=== PATIENT | female | born 1980 | race Caucasian/White ===

== ENCOUNTER → 2016-03-23 | Outpatient (CLI) | payer MEDICARE, MEDICAID ==
[~2016-03-23] MED LIST: /AMIT10TA PO; BACL10TA2 PO; ETOD400T PO; GABA400C PO; LORTAB 5/325 PO; MAGN400T5 PO; NORC10TA2 PO; NORC5TAB PO; PROM25SU5 PO; SOMA350T PO; TIZA4CAP3 PO; TRAM50TA2 PO; ULTR50TA PO; VICO5TA PO; ZONI50CA3 PO
--- NOTE | 2016-03-24 00:20 | ECWPNPC ---
PATIENT NAME: EVA SNOWDEN : 1980 GENDER: FEMALE VISIT DATE: 03/23/2016 DISCHARGE DATE: 03/23/16 1124 VISIT LOCKED DATE TIME: PHYSICIAN: TOM NEAL RESOURCE: TOM NEAL REASON FOR APPOINTMENT 1. POST PROCEDURE-BACK HISTORY OF PRESENT ILLNESS HISTORY OF PRESENT ILLNESS: HERE FOR POST PROC. F/U.HAD RIGHT DIAGNOSTIC LUMBAR FACET BLOCK ON 03-01-16.IS GETTING THERAPEUTIC BENEFIT FROM THIS BLOCKTHAT CONTINUES TODAY.HAVING INTERMITTENT INCREASES IN PAIN BUT NOT AT THE LEVEL BEFORE INJECTION.RATING PAIN VAS 3/10.MAY BE .SHE WILL KNOW FOR SURE IN 2 WEEKS. PAIN THE PATIENT DESCRIBES THE PAIN... FALL RISK SCREENING: SCREENING :NO FALLS IN THE PAST YEAR CURRENT MEDICATIONS TAKING ORTHOPEDIC SHOES _ 1 DX 737 ONE INCH SHOE LIFT. RT SHOE DAILY TAKING HYDROCODONE-ACETAMINOPHEN 10-325 MG TABLET 1 TAB(S) ORALLY EVERY 6 HRS NEEDED MDD: 2 NOT-TAKING [facility] LORATADINE 10 MG TABLET 1 TABLET ORALLY ONCE A DAY NOT-TAKING VALIUM 5 MG TABLET 1 TABLET NEEDED ORALLY 1 TAB 1HR PRE PROC MDD1 NOT-TAKING OXYCODONE HCL 5 MG TABLET 1 TABLET ORALLY 1 TAB 1 HR PRE PROC. MDD1 NOT-TAKING GABAPENTIN 400 600 MG TABLET 1 TAB(S) P.O. TWICE DAILY, NOTES: PAIN MGMT NOT-TAKING COLACE 100 MG CAPSULE 1 CAPSULE NEEDED ORALLY TWICE DAILY, NOTES: GENERAL SURGEON NOT-TAKING MULTIVITAL TABLET ORALLY NOT-TAKING PROMETHAZINE HCL 25 MG TABLET 1 TABLET NEEDED ORALLY EVERY 12 HRS NOT-TAKING MAGNESIUM OXIDE 400 MG TABLET 1 TABLET ORALLY BID NOT-TAKING TIZANIDINE HCL 4 MG TABLET 1 TABLET NEEDED ORALLY TWICE A DAY, NOTES: PAIN MGMT NOT-TAKING MACROBID 100 MG CAPSULE 1 CAPSULE WITH FOOD ORALLY EVERY 12 HRS MEDICATION LIST REVIEWED AND RECONCILED WITH THE PATIENT PAST MEDICAL HISTORY MRI OF L/S 12/2011 WITH COMPLEX CONGENITAL ANOMALIES, SCOLIOSIS, TETHERED CORD, VERTEBRAL FUSION, DISC NARROWING, SPINAL STENOSIS, ABDOMINAL AORTIC ANEURYSM S/P REPAIR 10 YEAR ASCVD RISK OF 1.0% 07/2014 PATIENT HAD AN "ECTOPIC UTERUS" -- SECOND (R SIDED) UTERUS WITH NO CERVIX, CAUSED ENDOMETRIOSIS WITH RETROGRADE MENSTRUATION PAP 02/2015- NEG ENDOMETRIOSIS PER OP REPORT FROM [facility]: PT HAS "NL UTERUS ATTACHED TO AN OVARY AND A CERVIX ON THE L OF THE MIDLINE WITH A L FALLOPIAN TUBE WITH A LEFT ROUND LIGAMENT. A ROUND LIGAMENT FROM THAT UTERUS LED TO AN ECTOPIC UTERUS IN THE RIGHT LOWER QUADRANT ON THE PELVIC SIDEWALL WHICH WAS NOT ATTACHED TO A CERVIX WHICH ALSO HAD AN OVARY AND A FALLOPIAN TUBE." ALLERGIES N.K.D.A. 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 NEW PATIENT PAIN DIARY TODAY'S VISITNOTES FROM 0-10, WHAT LEVEL IS YOUR PAIN TODAY?0 PAIN CLINIC PFS, CLERGY, PUBLIC HEALTH REFERRALS PFS REFERRAL NEEDED?NO CLERGY REFERRAL NEEDED?NO PUBLIC HEALTH REFERRAL NEEDED?NO WAS THE PROVIDER NOTIFIED OF ANY PERTINENT INFO?NO PFS REFERRAL NEEDED?NO CLERGY REFERRAL NEEDED?NO PUBLIC HEALTH REFERRAL NEEDED?NO WAS THE PROVIDER NOTIFIED OF ANY PERTINENT INFO?NO REVIEW OF SYSTEMS CONSTITUTIONAL: ANY CHANGE IN YOUR MEDICAL CONDITION? NO . CHILLS NO . FEVER NO . INFECTION: DO YOU HAVE NEW INFECTIONS? NO . DO YOU HAVE HISTORY OF MRSA? NO . MUSCULOSKELETAL: ANY NEW PATTERNS OF PAIN OR NUMBNESS? NO . GASTROENTEROLOGY: ANY NEW CHANGE IN BOWEL CONTROL? NO . GENITOURINARY: ANY NEW CHANGE IN BLADDER CONTROL? NO . IS THERE A CHANCE YOU COULD BE ? YES . HEMATOLOGY/LYMPH: DO YOU TAKE ANY BLOOD THINNERS? (FOR EXAMPLE- COUMADIN, PLAVIX, AGGRENOX, PLATEL, PRADAXA, OR XARELTO) NO . WHEN WAS YOUR LAST DOSE? DATE: TIME: . NEUROLOGY: HAVE YOU FALLEN IN THE PAST 6 MONTHS? NO . ANY NEW EXTREMITY NUMBNESS OR WEAKNESS? NO . CARDIOLOGY: DO YOU HAVE A PACEMAKER OR DEFIBRILLATOR? NO . RESPIRATORY: HAVE YOU BEEN SICK IN THE PAST WEEK? NO . FEVER NO . FLU LIKE SYMPTOMS? NO . COUGH NO . INTEGUMENTARY: DO YOU HAVE ANY RASHES OR OPEN SORES? NO . ALLERGIC/IMMUNO: ARE YOU ALLERGIC TO SHELLFISH OR IV DYE? NO . ANY NEW ALLERGIES? NO . PSYCHIATRIC: DO YOU HAVE THOUGHTS OF HURTING YOURSELF OR SOMEONE ELSE? NO . ARE YOU ABUSED, NEGLECTED, OR IN AN UNSAFE ENVIRONMENT? NO . ENDOCRINOLOGY: ARE YOU DIABETIC? NO . OTHER: DO YOU NEED ANY PRESCRIPTIONS? NO . IF YES, PLEASE LIST: ____ . ANY NEW PROBLEMS WITH YOUR MEDICATIONS? NO . WHEN DID YOU LAST EAT? ____ . WHEN DID YOU LAST DRINK? ____ . WHAT DID YOU LAST DRINK? ____ . NAME OF PERSON DRIVING YOU HOME? ____ . DO YOU HAVE ANY OTHER QUESTIONS OR CONCERNS NO . REVIEWED BY: PROVIDER: TOM CAZARES . VITAL SIGNS WT 130 LBS, HT 59 IN, BMI 26.25 INDEX, BP 123/69 MM HG, HR 87 /MIN, RR 18 /MIN, TEMP 98.7 F, OXYGEN SAT % 100%, REVIEWED BY: CS DONE AT 1057. EXAMINATION LUMBAR SPINE/LOWER BACK: INSPECTION:SEVERE SCOLIOSIS. PALPATION:VERTEBRAL SPINE TENDERNESS. PARASPINAL TENDERNESS. MOTOR SYSTEM:5/5 BLE. SENSORY EXAM:NORMAL. REFLEXES:1/4 BILAT.. 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 IT IS NOT A COPY OF THE [employer] PROGRESS NOTE. TYRA
== END ==
LOC: M PAIN 10:40
PROVIDERS: ATTEND Nurse Practitioner Family
DX: Z09 Encounter for follow-up examination after completed treatment for conditions other than malignant neoplasm (principal); M41.24 Other idiopathic scoliosis, thoracic region; M43.06 Spondylolysis, lumbar region; Q89.7 Multiple congenital malformations, not elsewhere classified; Q06.8 Other specified congenital malformations of spinal cord; M51.9 Unspecified thoracic, thoracolumbar and lumbosacral intervertebral disc disorder; M48.06 Spinal stenosis, lumbar region; F17.200 Nicotine dependence, unspecified, uncomplicated; Z79.891 Long term (current) use of opiate analgesic; Z79.899 Other long term (current) drug therapy; Z86.79 Personal history of other diseases of the circulatory system; Z87.42 Personal history of other diseases of the female genital tract; Z98.890 Other specified postprocedural states

== ENCOUNTER → 2016-04-20 | Outpatient (CLI) | payer MEDICARE, MEDICAID ==
--- NOTE | 2016-04-21 00:06 | ECWPNPC ---
PATIENT NAME: EVA SNOWDEN : 1980 GENDER: FEMALE VISIT DATE: 04/20/2016 DISCHARGE DATE: 04/20/16 1005 VISIT LOCKED DATE TIME: PHYSICIAN: TOM NEAL RESOURCE: TOM NEAL REASON FOR APPOINTMENT 1. BACK HISTORY OF PRESENT ILLNESS HISTORY OF PRESENT ILLNESS: HERE FOR F/U OF CHRONIC LBP.RATING PAIN VAS 4/10.PAIN IS BILATERAL.DESCRIBES PAIN ACHING.STATES SHE ISNT .INTERESTED IN DOING MORE PROCEDURES.WAS DOING WELL PAST 2MOS AFTER RIGHT DIAGNOSTIC LUMBAR FACET BLOCK IN JANUARY.PAIN HAS RETURNED AND DESCRIBED BILATERAL LOW BACK PAIN.DISCUSSED TREATMENT OPTION OF DIAGNOSTIC FACET BLOCK/RADIOFREQUENCY VS LUMBAR BILAT. THERAPEUTIC FACET BLOCK.SHE WOULD LIKE TO DO THERAPEUTIC BLOCK AT THIS TIME. FALL RISK SCREENING: SCREENING :NO FALLS IN THE PAST YEAR CURRENT MEDICATIONS TAKING ORTHOPEDIC SHOES _ 1 DX 737 ONE INCH SHOE LIFT. RT SHOE DAILY TAKING HYDROCODONE-ACETAMINOPHEN 10-325 MG TABLET 1 TAB(S) ORALLY EVERY 6 HRS NEEDED MDD: 2 TAKING MICROGESTIN 1.5/30 1.5-30 MG-MCG TABLET ORALLY NOT-TAKING [facility] LORATADINE 10 MG TABLET 1 TABLET ORALLY ONCE A DAY NOT-TAKING VALIUM 5 MG TABLET 1 TABLET NEEDED ORALLY 1 TAB 1HR PRE PROC MDD1 NOT-TAKING OXYCODONE HCL 5 MG TABLET 1 TABLET ORALLY 1 TAB 1 HR PRE PROC. MDD1 NOT-TAKING GABAPENTIN 400 600 MG TABLET 1 TAB(S) P.O. TWICE DAILY, NOTES: PAIN MGMT NOT-TAKING COLACE 100 MG CAPSULE 1 CAPSULE NEEDED ORALLY TWICE DAILY, NOTES: GENERAL SURGEON NOT-TAKING MULTIVITAL TABLET ORALLY NOT-TAKING PROMETHAZINE HCL 25 MG TABLET 1 TABLET NEEDED ORALLY EVERY 12 HRS NOT-TAKING MAGNESIUM OXIDE 400 MG TABLET 1 TABLET ORALLY BID NOT-TAKING TIZANIDINE HCL 4 MG TABLET 1 TABLET NEEDED ORALLY TWICE A DAY, NOTES: PAIN MGMT NOT-TAKING MACROBID 100 MG CAPSULE 1 CAPSULE WITH FOOD ORALLY EVERY 12 HRS MEDICATION LIST REVIEWED AND RECONCILED WITH THE PATIENT PAST MEDICAL HISTORY MRI OF L/S 12/2011 WITH COMPLEX CONGENITAL ANOMALIES, SCOLIOSIS, TETHERED CORD, VERTEBRAL FUSION, DISC NARROWING, SPINAL STENOSIS, ABDOMINAL AORTIC ANEURYSM S/P REPAIR 10 YEAR ASCVD RISK OF 1.0% 07/2014 PATIENT HAD AN "ECTOPIC UTERUS" -- SECOND (R SIDED) UTERUS WITH NO CERVIX, CAUSED ENDOMETRIOSIS WITH RETROGRADE MENSTRUATION PAP 02/2015- NEG ENDOMETRIOSIS PER OP REPORT FROM [facility]: PT HAS "NL UTERUS ATTACHED TO AN OVARY AND A CERVIX ON THE L OF THE MIDLINE WITH A L FALLOPIAN TUBE WITH A LEFT ROUND LIGAMENT. 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 NEW PATIENT PAIN DIARY TODAY'S VISITNOTES FROM 0-10, WHAT LEVEL IS YOUR PAIN TODAY?0 PAIN CLINIC PFS, CLERGY, PUBLIC HEALTH REFERRALS PFS REFERRAL NEEDED?NO CLERGY REFERRAL NEEDED?NO PUBLIC HEALTH REFERRAL NEEDED?NO WAS THE PROVIDER NOTIFIED OF ANY PERTINENT INFO?NO PFS REFERRAL NEEDED?NO CLERGY REFERRAL NEEDED?NO PUBLIC HEALTH REFERRAL NEEDED?NO WAS THE PROVIDER NOTIFIED OF ANY PERTINENT INFO?NO REVIEW OF SYSTEMS CONSTITUTIONAL: ANY CHANGE IN YOUR MEDICAL CONDITION? NO . CHILLS NO . FEVER NO . INFECTION: DO YOU HAVE NEW INFECTIONS? NO . DO YOU HAVE HISTORY OF MRSA? NO . MUSCULOSKELETAL: ANY NEW PATTERNS OF PAIN OR NUMBNESS? NO . GASTROENTEROLOGY: ANY NEW CHANGE IN BOWEL CONTROL? NO . GENITOURINARY: ANY NEW CHANGE IN BLADDER CONTROL? NO . IS THERE A CHANCE YOU COULD BE ? NO . HEMATOLOGY/LYMPH: DO YOU TAKE ANY BLOOD THINNERS? (FOR EXAMPLE- COUMADIN, PLAVIX, AGGRENOX, PLATEL, PRADAXA, OR XARELTO) NO . WHEN WAS YOUR LAST DOSE? DATE: TIME: . NEUROLOGY: HAVE YOU FALLEN IN THE PAST 6 MONTHS? NO . ANY NEW EXTREMITY NUMBNESS OR WEAKNESS? NO . CARDIOLOGY: DO YOU HAVE A PACEMAKER OR DEFIBRILLATOR? NO . RESPIRATORY: HAVE YOU BEEN SICK IN THE PAST WEEK? NO . FEVER NO . FLU LIKE SYMPTOMS? NO . COUGH NO . INTEGUMENTARY: DO YOU HAVE ANY RASHES OR OPEN SORES? NO . ALLERGIC/IMMUNO: ARE YOU ALLERGIC TO SHELLFISH OR IV DYE? NO . ANY NEW ALLERGIES? NO . PSYCHIATRIC: DO YOU HAVE THOUGHTS OF HURTING YOURSELF OR SOMEONE ELSE? NO . ARE YOU ABUSED, NEGLECTED, OR IN AN UNSAFE ENVIRONMENT? NO . ENDOCRINOLOGY: ARE YOU DIABETIC? NO . OTHER: DO YOU NEED ANY PRESCRIPTIONS? NO . IF YES, PLEASE LIST: ____ . ANY NEW PROBLEMS WITH YOUR MEDICATIONS? NO . WHEN DID YOU LAST EAT? ____ . WHEN DID YOU LAST DRINK? ____ . WHAT DID YOU LAST DRINK? ____ . NAME OF PERSON DRIVING YOU HOME? ____ . DO YOU HAVE ANY OTHER QUESTIONS OR CONCERNS NO . REVIEWED BY: PROVIDER: TOM CAZARES . VITAL SIGNS WT 137.8 LBS, HT 59 IN, BMI 27.83 INDEX, BP 111/69 MM HG, HR 89 /MIN, RR 18 /MIN, TEMP 96.6 F, OXYGEN SAT % 100%, NA INITIALS SC 09:07, REVIEWED BY: KG. EXAMINATION LUMBAR SPINE/LOWER BACK: INSPECTION:SEVERE SCOLIOSIS. PALPATION:VERTEBRAL SPINE TENDERNESS. PARASPINAL TENDERNESS. MOTOR SYSTEM:5/5 BLE. SENSORY EXAM:NORMAL. REFLEXES:1/4 BILAT.. 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 (REASON: BILAT. L4/5-L5/S1 THERAPEUTIC FACET BLOCK) ELECTRONICALLY SIGNED BY DEBORA FLOWER ON 04/20/2016 AT 01:41 PM EST DISCLAIMER : THIS IS A VISIT SUMMARY EXTRACTED FROM THE [employer] CHART. IT IS NOT A COPY OF THE [employer] PROGRESS NOTE. MTDD
== END ==
LOC: M PAIN 09:00
PROVIDERS: ATTEND Nurse Practitioner Family
DX: Z09 Encounter for follow-up examination after completed treatment for conditions other than malignant neoplasm (principal); G89.29 Other chronic pain; M41.24 Other idiopathic scoliosis, thoracic region; M43.06 Spondylolysis, lumbar region; M41.26 Other idiopathic scoliosis, lumbar region; M48.06 Spinal stenosis, lumbar region; Z79.891 Long term (current) use of opiate analgesic; Z79.899 Other long term (current) drug therapy; Z86.79 Personal history of other diseases of the circulatory system

== ENCOUNTER → 2016-05-12 | Outpatient (CLI) | payer MEDICARE, MEDICAID ==
[~2016-05-12] MED LIST changes: +BUPIVACAINE HCL 0.25% 30 ML VIAL As Ordered ONE; +ISOVUE-M 300 61% 15ML VIAL (Q9967) As Ordered ONE; +LIDOCAINE 1% SDV INJ 30 ML VIAL As Ordered ONE; +TRIAMCINOLONE ACETONIDE SUSP 40 MG/ML VIAL (J3301) As Ordered ONE; +diazePAM 5 MG TAB As Ordered ONE; +oxyCODONE 5MG TAB As Ordered ONE
--- NOTE | 2016-05-12 13:47 | REP ---
Partial lumbar spine series: Two views. History: Lumbar facet block for pain. 59 seconds of fluoroscopy time is reported. Findings: A sequence of two fluoroscopically obtained last image hold spot radiographs of the lumbar spine document various needle positions and contrast injections associated with lumbar facet injection procedure. Signed by Tony Black MD 05/12/2016 03:26 P
--- NOTE | 2016-05-19 00:55 | ECWPNPC ---
PATIENT NAME: EVA SNOWDEN : 1980 GENDER: FEMALE VISIT DATE: 05/12/2016 DISCHARGE DATE: 05/12/16 1316 VISIT LOCKED DATE TIME: PHYSICIAN: DEMETRIUS HILL RESOURCE: DEMETRIUS HILL REASON FOR APPOINTMENT 1. THERAPEUTIC FACET BLOCK HISTORY OF PRESENT ILLNESS HISTORY OF PRESENT ILLNESS: PAIN THE PATIENT DESCRIBES THE PAIN... FALL RISK SCREENING: SCREENING :NO FALLS IN THE PAST YEAR CURRENT MEDICATIONS TAKING HYDROCODONE-ACETAMINOPHEN 10-325 MG TABLET 1 TAB(S) ORALLY EVERY 6 HRS NEEDED MDD: 2, NOTES: 05-11-16 2100 TAKING ORTHOPEDIC SHOES _ 1 DX 737 ONE INCH SHOE LIFT. RT SHOE DAILY TAKING MICROGESTIN 1.5/30 1.5-30 MG-MCG TABLET ORALLY , NOTES: 05-12-16 0800 TAKING MULTIVITAMINS - CAPSULE ORALLY DAILY DISCONTINUED [facility]S LORATADINE 10 MG TABLET 1 TABLET ORALLY ONCE A DAY DISCONTINUED VALIUM 5 MG TABLET 1 TABLET NEEDED ORALLY 1 TAB 1HR PRE PROC MDD1 DISCONTINUED OXYCODONE HCL 5 MG TABLET 1 TABLET ORALLY 1 TAB 1 HR PRE PROC. MDD1 DISCONTINUED GABAPENTIN 400 600 MG TABLET 1 TAB(S) P.O. TWICE DAILY, NOTES: PAIN MGMT DISCONTINUED COLACE 100 MG CAPSULE 1 CAPSULE NEEDED ORALLY TWICE DAILY, NOTES: GENERAL SURGEON DISCONTINUED MULTIVITAL TABLET ORALLY DISCONTINUED PROMETHAZINE HCL 25 MG TABLET 1 TABLET NEEDED ORALLY EVERY 12 HRS DISCONTINUED MAGNESIUM OXIDE 400 MG TABLET 1 TABLET ORALLY BID DISCONTINUED TIZANIDINE HCL 4 MG TABLET 1 TABLET NEEDED ORALLY TWICE A DAY, NOTES: PAIN MGMT DISCONTINUED MACROBID 100 MG CAPSULE 1 CAPSULE WITH FOOD ORALLY EVERY 12 HRS MEDICATION LIST REVIEWED AND RECONCILED WITH THE PATIENT PAST MEDICAL HISTORY MRI OF L/S 12/2011 WITH COMPLEX CONGENITAL ANOMALIES, SCOLIOSIS, TETHERED CORD, VERTEBRAL FUSION, DISC NARROWING, SPINAL STENOSIS, ABDOMINAL AORTIC ANEURYSM S/P REPAIR 10 YEAR ASCVD RISK OF 1.0% 07/2014 PATIENT HAD AN "ECTOPIC UTERUS" -- SECOND (R SIDED) UTERUS WITH NO CERVIX, CAUSED ENDOMETRIOSIS WITH RETROGRADE MENSTRUATION PAP 02/2015- NEG ENDOMETRIOSIS PER OP REPORT FROM [facility]: PT HAS "NL UTERUS ATTACHED TO AN OVARY AND A CERVIX ON THE L OF THE MIDLINE WITH A L FALLOPIAN TUBE WITH A LEFT ROUND LIGAMENT. A ROUND LIGAMENT FROM THAT UTERUS LED TO AN ECTOPIC UTERUS IN THE RIGHT LOWER QUADRANT ON THE PELVIC SIDEWALL WHICH WAS NOT ATTACHED TO A CERVIX WHICH ALSO HAD AN OVARY AND A FALLOPIAN TUBE." ALLERGIES N.K.D.A. 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 NEW PATIENT PAIN DIARY TODAY'S VISITNOTES FROM 0-10, WHAT LEVEL IS YOUR PAIN TODAY?0 PAIN CLINIC PFS, CLERGY, PUBLIC HEALTH REFERRALS PFS REFERRAL NEEDED?NO CLERGY REFERRAL NEEDED?NO PUBLIC HEALTH REFERRAL NEEDED?NO WAS THE PROVIDER NOTIFIED OF ANY PERTINENT INFO?NO PFS REFERRAL NEEDED?NO CLERGY REFERRAL NEEDED?NO PUBLIC HEALTH REFERRAL NEEDED?NO WAS THE PROVIDER NOTIFIED OF ANY PERTINENT INFO?NO REVIEW OF SYSTEMS CONSTITUTIONAL: ANY CHANGE IN YOUR MEDICAL CONDITION? NO . CHILLS NO . FEVER NO . INFECTION: DO YOU HAVE NEW INFECTIONS? NO . DO YOU HAVE HISTORY OF MRSA? NO . MUSCULOSKELETAL: ANY NEW PATTERNS OF PAIN OR NUMBNESS? NO . GASTROENTEROLOGY: ANY NEW CHANGE IN BOWEL CONTROL? NO . GENITOURINARY: ANY NEW CHANGE IN BLADDER CONTROL? NO . IS THERE A CHANCE YOU COULD BE ? NO . HEMATOLOGY/LYMPH: DO YOU TAKE ANY BLOOD THINNERS? (FOR EXAMPLE- COUMADIN, PLAVIX, AGGRENOX, PLATEL, PRADAXA, OR XARELTO) NO . WHEN WAS YOUR LAST DOSE? DATE: TIME: . NEUROLOGY: HAVE YOU FALLEN IN THE PAST 6 MONTHS? NO . ANY NEW EXTREMITY NUMBNESS OR WEAKNESS? NO . CARDIOLOGY: DO YOU HAVE A PACEMAKER OR DEFIBRILLATOR? NO . RESPIRATORY: HAVE YOU BEEN SICK IN THE PAST WEEK? NO . FEVER NO . FLU LIKE SYMPTOMS? NO . COUGH NO . INTEGUMENTARY: DO YOU HAVE ANY RASHES OR OPEN SORES? NO . ALLERGIC/IMMUNO: ARE YOU ALLERGIC TO SHELLFISH OR IV DYE? NO . ANY NEW ALLERGIES? NO . PSYCHIATRIC: DO YOU HAVE THOUGHTS OF HURTING YOURSELF OR SOMEONE ELSE? NO . ARE YOU ABUSED, NEGLECTED, OR IN AN UNSAFE ENVIRONMENT? NO . ENDOCRINOLOGY: ARE YOU DIABETIC? NO . OTHER: DO YOU NEED ANY PRESCRIPTIONS? NO . IF YES, PLEASE LIST: ____ . ANY NEW PROBLEMS WITH YOUR MEDICATIONS? NO . WHEN DID YOU LAST EAT? [id number] . WHEN DID YOU LAST DRINK? 05-11-16 0800 . WHAT DID YOU LAST DRINK? WATER . NAME OF PERSON DRIVING YOU HOME? SHAKIRA RICE . DO YOU HAVE ANY OTHER QUESTIONS OR CONCERNS NO . REVIEWED BY: PROVIDER: . VITAL SIGNS WT 135 LBS, HT 59 IN, BMI 27.26 INDEX, BP 120/64 MM HG, HR 84 /MIN, RR 16 /MIN, TEMP 96.2 F, OXYGEN SAT % 99, NA INITIALS TL 1106, REVIEWED BY: CM. ASSESSMENTS SPONDYLOSIS WITHOUT MYELOPATHY OR RADICULOPATHY, LUMBAR REGION - M47.816 (PRIMARY) SPONDYLOSIS WITHOUT MYELOPATHY OR RADICULOPATHY, LUMBOSACRAL REGION - M47.817 PROCEDURES PN LUMBAR FACET BLOCK THERAPEUTIC PRE PROCEDURE DIAGNOSIS LUMBAR SPONDYLOSIS, LUMBOSACRAL SPONDYLOSIS POST PROCEDURE DIAGNOSIS LUMBAR SPONDYLOSIS, LUMBOSACRAL SPONDYLOSIS PROCEDURE BILATERAL L4-L5 AND L5-S1 FACET THERAPEUTIC BLOCK SURGEON DR. DEMETRIUS HILL CUSTOMER EXPERIENCE SPECIALIST NONE ANESTHESIA LOCAL PRE PROCEDURE NOTE THE PATIENT HAS A HISTORY OF CHRONIC LOW BACK PAIN. I EVALUATE THE PATIENT AND REVIEWED THE CHART. I WENT OVER THE RISKS, ALTERNATIVES, AND BENEFITS ASSOCIATED WITH THIS PROCEDURE. THE PATIENT WOULD LIKE TO PROCEED AND GIVE CONSENT TO PERFORMED THE PROCEDURE. THE PATIENT DENIES UNEXPLAINABLE WEIGHT LOSS, FEVER, CHILLS, OR NEW CHANGES IN URINARY OR BOWEL CONTROL. DESCRIPTION OF PROCEDURE THE PATIENT WAS BROUGHT TO THE PROCEDURE ROOM AND PLACED IN THE PRONE POSITION. THE LUMBOSACRAL AREA WAS CLEANED WITH CHLORAPREP SOLUTION AND DRAPED ASEPTICALLY. THE PROCEDURE WAS DONE UNDER STERILE CONDITIONS. I CHECKED LATERALITY AND THE LEVEL WHERE THE PROCEDURE WAS GOING TO BE PERFORMED WITH THE PATIENT AND THE SUPPORTING STAFF AT THE MOMENT OF THE TIME OUT IN THE PROCEDURE ROOM. UNDER FLUOROSCOPIC GUIDANCE, THE TARGET POINT WAS SELECTED AT THE RIGHT AND LEFT L4-L5 AND RIGHT AND LEFT L5-S1 FACET JOINT. TARGET POINT WAS SELECTED AFTER LATERAL ROTATION AND TILT OF THE MAGNIFIER OF THE C-ARM. LIDOCAINE 0.5% WAS USED TO NUMB THE SKIN AND THE SUBCUTANEOUS TISSUE BELOW IT. SPINAL NEEDLES, 22-GAUGE, WERE ADVANCED UNDER FLUOROSCOPIC GUIDANCE AND FOLLOWING PATIENT FEEDBACK UNTIL THE TARGETS WERE TOUCHED. THE POSITION OF THE NEEDLES WAS VERIFIED WITH AP AND LATERAL VIEWS. AFTER PROPER POSITION OF THE NEEDLES WAS ACHIEVED, ISOVUE-M DYE 30% 0.1 ML WAS INJECTED SHOWING ADEQUATE SPREAD OF THE DYE. THEN A SOLUTION OF 1.9 ML OF BUPIVACAINE 0.125% OF KENALOG 10 MG WAS INJECTED AT EACH SITE. THERE WAS NO EVIDENCE OF BLOOD, PARESTHESIA OR CEREBROSPINAL FLUID DURING THE PROCEDURE. THE PATIENT WAS SENT TO THE RECOVERY ROOM. THE PATIENT WAS MOVING THE EXTREMITIES AND DOING WELL. THERE WAS NO COMPLICATION DURING THE PROCEDURE. FLUOROSCOPY TIME WAS 59 SECONDS POST PROCEDURE NOTE THE PATIENT WILL BE SEEN IN A FOLLOW UP IN THE NEXT FEW WEEKS. INSTRUCTIONS WERE GIVEN, QUESTIONS WERE ANSWERED, AND THE PATIENT EXPRESSED UNDERSTANDING AND AGREES WITH THE PLAN. INSTRUCTIONS WERE GIVEN, QUESTIONS WERE ANSWERED, PATIENT REPORTS UNDERSTANDING AND AGREES WITH THE PLAN. I, BLANK YOUNG, DOCUMENTED THE ABOVE INFORMATION ACTING A SCRIBE FOR DR. HILL. I HAVE REVIEWED THE ABOVE DOCUMENT, WRITTEN BY BLANK YOUNG SCRIBE AND I VERIFY THAT IT IS ACCURATE. DIAGNOSTIC IMAGING [facility] FACET BLOCK (PAIN)[id number] PROCEDURE CODES 12042 INJ PARAVERT F JNT L/S 1 LEV 15892 INJ PARAVERT F JNT L/S 2 LEV 6045F RADXPS IN END [id number] PXD DISPOSITION & COMMUNICATION FOLLOW UP 3 WEEKS ELECTRONICALLY SIGNED BY DEMETRIUS HILL MD ON 05/18/2016 AT 06:33 AM EST DISCLAIMER : THIS IS A VISIT SUMMARY EXTRACTED FROM THE [employer] CHART. IT IS NOT A COPY OF THE [employer] PROGRESS NOTE. MTDD
== END ==
LOC: M PAIN 10:50
PROVIDERS: ATTEND Anesthesiology
DX: G89.29 Other chronic pain (principal); M47.816 Spondylosis without myelopathy or radiculopathy, lumbar region; M47.817 Spondylosis without myelopathy or radiculopathy, lumbosacral region; Z79.891 Long term (current) use of opiate analgesic; Z79.899 Other long term (current) drug therapy; Z86.79 Personal history of other diseases of the circulatory system; Z87.891 Personal history of nicotine dependence
CPT/HCPCS: 64493; 64494; J3301; Q9967

== ENCOUNTER → 2016-05-16 | Outpatient (CLI) | payer MEDICARE, MEDICAID ==
[~2016-05-16] MED LIST changes: -BUPIVACAINE HCL 0.25% 30 ML VIAL As Ordered ONE; -ISOVUE-M 300 61% 15ML VIAL (Q9967) As Ordered ONE; -LIDOCAINE 1% SDV INJ 30 ML VIAL As Ordered ONE; -TRIAMCINOLONE ACETONIDE SUSP 40 MG/ML VIAL (J3301) As Ordered ONE; -diazePAM 5 MG TAB As Ordered ONE; -oxyCODONE 5MG TAB As Ordered ONE
[2016-05-16 18:33] LABS: FREE T4 1.2 NG/DL (0.76-1.46)
== END ==
LOC: M SMT 12:54
PROVIDERS: ATTEND Neuromusculoskeletal Medicine & OMM
DX: N92.6 Irregular menstruation, unspecified (principal)

== ENCOUNTER → 2016-06-02 | Outpatient (CLI) | payer MEDICARE, MEDICAID ==
--- NOTE | 2016-06-03 00:23 | ECWPNPC ---
PATIENT NAME: EVA SNOWDEN : 1980 GENDER: FEMALE VISIT DATE: 06/02/2016 DISCHARGE DATE: 06/02/16 1039 VISIT LOCKED DATE TIME: PHYSICIAN: TOM NEAL RESOURCE: TOM NEAL REASON FOR APPOINTMENT 1. POST PROC HISTORY OF PRESENT ILLNESS HISTORY OF PRESENT ILLNESS: HERE FOR POST PROCEDURE F/U.HAD BILAT. L4/5-L5/S1 THERAPEUTIC LUMBAR FACET BLOCK 05-12-16.PAIN DIARY REVIEWED.SHOWING >75% REDUCTION IN PAIN SINCE PROCEDURE THAT CONTINUES TODAY.RATING PAIN VAS2/10.PAIN DESCRIBED ACHING AND SORE.STATES SHE HASNT NEEDED TO USE PAIN MEDICATION SINCE PROCEDURE.IS USING TENS UNIT WITH SOME RELIEF. FALL RISK SCREENING: SCREENING :NO FALLS IN THE PAST YEAR CURRENT MEDICATIONS TAKING ORTHOPEDIC SHOES _ 1 DX 737 ONE INCH SHOE LIFT. RT SHOE DAILY TAKING MICROGESTIN 1.5/30 1.5-30 MG-MCG TABLET ORALLY DAILY TAKING MULTIVITAMINS - CAPSULE ORALLY DAILY TAKING HYDROCODONE-ACETAMINOPHEN 10-325 MG TABLET 1 TAB(S) ORALLY EVERY 6 HRS NEEDED MDD: 2 MEDICATION LIST REVIEWED AND RECONCILED WITH THE PATIENT PAST MEDICAL HISTORY MRI OF L/S 12/2011 WITH COMPLEX CONGENITAL ANOMALIES, SCOLIOSIS, TETHERED CORD, VERTEBRAL FUSION, DISC NARROWING, SPINAL STENOSIS, ABDOMINAL AORTIC ANEURYSM S/P REPAIR 10 YEAR ASCVD RISK OF 1.0% 07/2014 PATIENT HAD AN "ECTOPIC UTERUS" -- SECOND (R SIDED) UTERUS WITH NO CERVIX, CAUSED ENDOMETRIOSIS WITH RETROGRADE MENSTRUATION PAP 02/2015- NEG ENDOMETRIOSIS PER OP REPORT FROM [facility]: PT HAS "NL UTERUS ATTACHED TO AN OVARY AND A CERVIX ON THE L OF THE MIDLINE WITH A L FALLOPIAN TUBE WITH A LEFT ROUND LIGAMENT. A ROUND LIGAMENT FROM THAT UTERUS LED TO AN ECTOPIC UTERUS IN THE RIGHT LOWER QUADRANT ON THE PELVIC SIDEWALL WHICH WAS NOT ATTACHED TO A CERVIX WHICH ALSO HAD AN OVARY AND A FALLOPIAN TUBE." ALLERGIES N.K.D.A. REVIEW OF SYSTEMS CONSTITUTIONAL: ANY CHANGE IN YOUR MEDICAL CONDITION? NO . CHILLS NO . FEVER NO . INFECTION: DO YOU HAVE NEW INFECTIONS? NO . DO YOU HAVE HISTORY OF MRSA? NO . MUSCULOSKELETAL: ANY NEW PATTERNS OF PAIN OR NUMBNESS? NO . GASTROENTEROLOGY: ANY NEW CHANGE IN BOWEL CONTROL? NO . GENITOURINARY: ANY NEW CHANGE IN BLADDER CONTROL? NO . IS THERE A CHANCE YOU COULD BE ? NO . HEMATOLOGY/LYMPH: DO YOU TAKE ANY BLOOD THINNERS? (FOR EXAMPLE- COUMADIN, PLAVIX, AGGRENOX, PLATEL, PRADAXA, OR XARELTO) NO . WHEN WAS YOUR LAST DOSE? DATE: TIME: . NEUROLOGY: HAVE YOU FALLEN IN THE PAST 6 MONTHS? NO . ANY NEW EXTREMITY NUMBNESS OR WEAKNESS? NO . CARDIOLOGY: DO YOU HAVE A PACEMAKER OR DEFIBRILLATOR? NO . RESPIRATORY: HAVE YOU BEEN SICK IN THE PAST WEEK? NO . FEVER NO . FLU LIKE SYMPTOMS? NO . COUGH NO . INTEGUMENTARY: DO YOU HAVE ANY RASHES OR OPEN SORES? NO . ALLERGIC/IMMUNO: ARE YOU ALLERGIC TO SHELLFISH OR IV DYE? NO . ANY NEW ALLERGIES? NO . PSYCHIATRIC: DO YOU HAVE THOUGHTS OF HURTING YOURSELF OR SOMEONE ELSE? NO . ARE YOU ABUSED, NEGLECTED, OR IN AN UNSAFE ENVIRONMENT? NO . ENDOCRINOLOGY: ARE YOU DIABETIC? NO . OTHER: DO YOU NEED ANY PRESCRIPTIONS? NO . IF YES, PLEASE LIST: ____ . ANY NEW PROBLEMS WITH YOUR MEDICATIONS? NO . WHEN DID YOU LAST EAT? ____ . WHEN DID YOU LAST DRINK? ____ . WHAT DID YOU LAST DRINK? ____ . NAME OF PERSON DRIVING YOU HOME? ____ . DO YOU HAVE ANY OTHER QUESTIONS OR CONCERNS NO . REVIEWED BY: PROVIDER: TOM CAZARES . VITAL SIGNS WT 135 LBS, HT 59 IN, BMI 27.26 INDEX, BP 114/71 MM HG, HR 85 /MIN, RR 16 /MIN, TEMP 98.9 F, OXYGEN SAT % 99%, NA INITIALS SC 10:10, REVIEWED BY: MILENA. EXAMINATION LUMBAR SPINE/LOWER BACK: INSPECTION:SEVERE SCOLIOSIS. PALPATION:VERTEBRAL SPINE TENDERNESS. PARASPINAL TENDERNESS. MOTOR SYSTEM:5/5 BLE. SENSORY EXAM:NORMAL. REFLEXES:1/4 BILAT.. 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 IT IS NOT A COPY OF THE [employer] PROGRESS NOTE. T[facility]RA
== END ==
LOC: M PAIN 10:00
PROVIDERS: ATTEND Nurse Practitioner Family
DX: Z09 Encounter for follow-up examination after completed treatment for conditions other than malignant neoplasm (principal); G89.29 Other chronic pain; M41.24 Other idiopathic scoliosis, thoracic region; M43.06 Spondylolysis, lumbar region; F17.200 Nicotine dependence, unspecified, uncomplicated; Z79.899 Other long term (current) drug therapy

== ENCOUNTER → 2016-07-08 | Outpatient (CLI) | payer MEDICARE, MEDICAID ==
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
== END ==
LOC: M PAIN 14:40
PROVIDERS: ATTEND Nurse Practitioner Family
DX: G89.29 Other chronic pain (principal); M41.24 Other idiopathic scoliosis, thoracic region; M43.06 Spondylolysis, lumbar region; F17.200 Nicotine dependence, unspecified, uncomplicated; Z79.899 Other long term (current) drug therapy

== ENCOUNTER → 2016-07-20 | Outpatient (CLI) | payer MEDICARE, MEDICAID ==
[~2016-07-20] MED LIST changes: +BUPIVACAINE HCL 0.25% 10 ML VIAL As Ordered ONE; +BUPIVACAINE HCL 0.25% 30 ML VIAL As Ordered ONE; +TRIAMCINOLONE ACETONIDE SUSP 40 MG/ML VIAL (J3301) As Ordered ONE; +diazePAM 5 MG TAB As Ordered ONE; +oxyCODONE 5MG TAB As Ordered ONE
--- NOTE | 2016-07-24 23:35 | ECWPNPC ---
PATIENT NAME: EVA CALZADA : 1980 GENDER: FEMALE VISIT DATE: 07/20/2016 DISCHARGE DATE: 07/20/16 1101 VISIT LOCKED DATE TIME: PHYSICIAN: DEMETRIUS HILL RESOURCE: DEMETRIUS HILL REASON FOR APPOINTMENT 1. LUMBAR FACET BLOCK HISTORY OF PRESENT ILLNESS HISTORY OF PRESENT ILLNESS: PAIN THE PATIENT DESCRIBES THE PAIN... FALL RISK SCREENING: SCREENING :NO FALLS IN THE PAST YEAR CURRENT MEDICATIONS TAKING ORTHOPEDIC SHOES _ 1 DX 737 ONE INCH SHOE LIFT. RT SHOE DAILY TAKING MICROGESTIN 1.5/30 1.5-30 MG-MCG TABLET ORALLY DAILY, NOTES: 0630 TAKING MULTIVITAMINS - CAPSULE ORALLY DAILY, NOTES: 0630 TAKING HYDROCODONE-ACETAMINOPHEN 10-325 MG TABLET 1 TAB(S) ORALLY EVERY 6 HRS NEEDED MDD: 2, NOTES: 7PM MEDICATION LIST REVIEWED AND RECONCILED WITH THE PATIENT PAST MEDICAL HISTORY MRI OF L/S 12/2011 WITH COMPLEX CONGENITAL ANOMALIES, SCOLIOSIS, TETHERED CORD, VERTEBRAL FUSION, DISC NARROWING, SPINAL STENOSIS, ABDOMINAL AORTIC ANEURYSM S/P REPAIR 10 YEAR ASCVD RISK OF 1.0% 07/2014 PATIENT HAD AN "ECTOPIC UTERUS" -- SECOND (R SIDED) UTERUS WITH NO CERVIX, CAUSED ENDOMETRIOSIS WITH RETROGRADE MENSTRUATION PAP 02/2015- NEG ENDOMETRIOSIS PER OP REPORT FROM [facility]: PT HAS "NL UTERUS ATTACHED TO AN OVARY AND A CERVIX ON THE L OF THE MIDLINE WITH A L FALLOPIAN TUBE WITH A LEFT ROUND LIGAMENT. A ROUND LIGAMENT FROM THAT UTERUS LED TO AN ECTOPIC UTERUS IN THE RIGHT LOWER QUADRANT ON THE PELVIC SIDEWALL WHICH WAS NOT ATTACHED TO A CERVIX WHICH ALSO HAD AN OVARY AND A FALLOPIAN TUBE." ALLERGIES N.K.D.A. REVIEW OF SYSTEMS CONSTITUTIONAL: ANY CHANGE IN YOUR MEDICAL CONDITION? NO . CHILLS NO . FEVER NO . INFECTION: DO YOU HAVE NEW INFECTIONS? NO . DO YOU HAVE HISTORY OF MRSA? NO . MUSCULOSKELETAL: ANY NEW PATTERNS OF PAIN OR NUMBNESS? NO . GASTROENTEROLOGY: ANY NEW CHANGE IN BOWEL CONTROL? NO . GENITOURINARY: ANY NEW CHANGE IN BLADDER CONTROL? NO . IS THERE A CHANCE YOU COULD BE ? NO . HEMATOLOGY/LYMPH: DO YOU TAKE ANY BLOOD THINNERS? (FOR EXAMPLE- COUMADIN, PLAVIX, AGGRENOX, PLATEL, PRADAXA, OR XARELTO) NO . WHEN WAS YOUR LAST DOSE? DATE: TIME: . NEUROLOGY: HAVE YOU FALLEN IN THE PAST 6 MONTHS? YES, NOT SINCE SHE WAS LAST HERE . ANY NEW EXTREMITY NUMBNESS OR WEAKNESS? NO . CARDIOLOGY: DO YOU HAVE A PACEMAKER OR DEFIBRILLATOR? NO . RESPIRATORY: HAVE YOU BEEN SICK IN THE PAST WEEK? NO . FEVER NO . FLU LIKE SYMPTOMS? NO . COUGH NO . INTEGUMENTARY: DO YOU HAVE ANY RASHES OR OPEN SORES? NO . ALLERGIC/IMMUNO: ARE YOU ALLERGIC TO SHELLFISH OR IV DYE? NO . ANY NEW ALLERGIES? NO . PSYCHIATRIC: DO YOU HAVE THOUGHTS OF HURTING YOURSELF OR SOMEONE ELSE? NO . ARE YOU ABUSED, NEGLECTED, OR IN AN UNSAFE ENVIRONMENT? NO . ENDOCRINOLOGY: ARE YOU DIABETIC? NO . OTHER: DO YOU NEED ANY PRESCRIPTIONS? NO . IF YES, PLEASE LIST: ____ . ANY NEW PROBLEMS WITH YOUR MEDICATIONS? NO . WHEN DID YOU LAST EAT? 7PM . WHEN DID YOU LAST DRINK? 630 AM . WHAT DID YOU LAST DRINK? WATER . NAME OF PERSON DRIVING YOU HOME? MALAIKA . DO YOU HAVE ANY OTHER QUESTIONS OR CONCERNS NO . REVIEWED BY: PROVIDER: . VITAL SIGNS WT 136.8 LBS, HT 59 IN, BMI 27.63 INDEX, BP 115/69 MM HG, HR 74 /MIN, RR 18 /MIN, TEMP 98.5 F, OXYGEN SAT % 99%, NA INITIALS SC 09:15, REVIEWED BY: NL. ASSESSMENTS MYALGIA - M79.1 (PRIMARY) PROCEDURES PN TRIGGER POINT INJECTION WITH STEROIDS PRE PROCEDURE DIAGNOSIS 1. MYALGIA 2. PAIN AT BILATERAL LOWER BACK AREA POST PROCEDURE DIAGNOSIS 1. MYALGIA 2. PAIN AT BILATERAL LOWER BACK AREA PROCEDURE TRIGGER POINT INJECTION AT BILATERAL LOWER BACK AREA SURGEON DR. DEMETRIUS HILL ALUMNI RELATIONS OFFICER NONE ANESTHESIA LOCAL PRE PROCEDURE NOTE THE PATIENT HAS A HISTORY OF CHRONIC PAIN AT THE RIGHT AND LEFT LOWER BACK AREA. I EVALUATE THE PATIENT AND REVIEWED THE CHART. THERE IS EVIDENCE OF BANDS OF TISSUE WITH RESTRICTION OF MOVEMENT AND PRESENCE OF TRIGGER POINT AT THE AFFECTED AREA. I WENT OVER THE RISKS, ALTERNATIVES, AND BENEFITS ASSOCIATED WITH THIS PROCEDURE. THE PATIENT WOULD LIKE TO PROCEED AND GIVE CONSENT TO PERFORMED THE PROCEDURE. THE PATIENT DENIES UNEXPLAINABLE WEIGHT LOSS, FEVER, CHILLS, OR NEW CHANGES IN URINARY OR BOWEL CONTROL DESCRIPTION OF PROCEDURE THE PATIENT WAS BROUGHT TO THE PROCEDURE ROOM AND PLACED IN THE SITTING POSITION. THE AREA WAS CLEANED WITH ALCOHOL. THE PROCEDURE WAS DONE USING ASEPTIC STERILE TECHNIQUE. I CHECKED LATERALITY AND THE LEVEL WHERE THE PROCEDURE WAS GOING TO BE PERFORMED WITH THE PATIENT AND THE SUPPORTING STAFF AT THE MOMENT OF THE TIME OUT IN THE PROCEDURE ROOM. USING A 25-GAUGE NEEDLE, TRIGGER POINTS WERE INJECTED AT THE RIGHT AND LEFT LOWER BACK AREA WITH A TOTAL OF 40 ML OF BUPIVACAINE 0.25% AND KENALOG 40 MG. THERE WAS NO EVIDENCE OF BLOOD, PARESTHESIA OR CEREBROSPINAL FLUID DURING THE PROCEDURE. THE PATIENT WAS SENT TO THE RECOVERY ROOM. THE PATIENT WAS MOVING THE EXTREMITIES AND DOING WELL. THERE WAS NO COMPLICATION DURING THE PROCEDURE POST PROCEDURE NOTE THE PATIENT WILL BE SEEN IN A FOLLOW UP IN THE NEXT FEW WEEKS. INSTRUCTIONS WERE GIVEN, QUESTIONS WERE ANSWERED, AND THE PATIENT EXPRESSED UNDERSTANDING AND AGREES WITH THE PLAN. I, TARSHA BENITEZ, DOCUMENTED THE ABOVE INFORMATION ACTING A SCRIBE FOR DR. HILL. I HAVE REVIEWED THE ABOVE DOCUMENT, WRITTEN BY TARSHA TOM AND I VERIFY THAT IT IS ACCURATE PROCEDURE CODES 46511 INJ TRIGGER POINT 03/14 [facility] [place] & COMMUNICATION FOLLOW UP 3 WEEKS ELECTRONICALLY SIGNED BY DEMETRIUS HILL MD ON 07/24/2016 AT 01:54 PM EDT DISCLAIMER : THIS IS A VISIT SUMMARY EXTRACTED FROM THE [employer] CHART. IT IS NOT A COPY OF THE [employer] PROGRESS NOTE. TYRA
== END ==
LOC: M PAIN 09:00
PROVIDERS: ATTEND Anesthesiology
DX: G89.29 Other chronic pain (principal); M79.1 Myalgia; M54.5 Low back pain; M41.9 Scoliosis, unspecified; M48.00 Spinal stenosis, site unspecified; Z79.899 Other long term (current) drug therapy
CPT/HCPCS: 20552; J3301

== ENCOUNTER → 2016-08-10 | Outpatient (CLI) | payer MEDICARE, MEDICAID ==
[~2016-08-10] MED LIST changes: -BUPIVACAINE HCL 0.25% 10 ML VIAL As Ordered ONE; -BUPIVACAINE HCL 0.25% 30 ML VIAL As Ordered ONE; -TRIAMCINOLONE ACETONIDE SUSP 40 MG/ML VIAL (J3301) As Ordered ONE; -diazePAM 5 MG TAB As Ordered ONE; -oxyCODONE 5MG TAB As Ordered ONE
--- NOTE | 2016-08-14 23:45 | ECWPNPC ---
PATIENT NAME: EVA CALZADA : 1980 GENDER: FEMALE VISIT DATE: 08/10/2016 DISCHARGE DATE: 08/10/16 0811 VISIT LOCKED DATE TIME: PHYSICIAN: DEMETRIUS HILL RESOURCE: DEMETRIUS HILL REASON FOR APPOINTMENT 1. LOW BACK PAIN HISTORY OF PRESENT ILLNESS HISTORY OF PRESENT ILLNESS: PAIN THE PATIENT DESCRIBES THE PAIN... 36 YEAR OLD FEMALE PATIENT WITH HISTORY OF CHRONIC LOW BACK PAIN. PATIENT DESCRIBES THE PAIN ACHING WITH THE PAIN COMING AND GOING AND A PAIN SCORE OF 2/10. PATIENT RECEIVED A TRIGGER POINT INJECTION ON 07/20/16 AND REPORTS HAVING OVER 70% DECREASE IN PAIN WITH INCREASED MOBILITY AND FUNCTIONALITY. PATIENT IS CURRENTLY USING HYDROCODONE AND STATES THAT IT AIDS IN PAIN RELIEF. MRS. CALZADA STATES THAT ANY TYPE OF ACTIVITY INCREASES THE PAIN IN HER LOWER BACK INCLUDING WALKING, STANDING, AND SITTING. PATIENT DENIES UNEXPLAINABLE WEIGHT LOSS, FEVER, CHILLS, NEW CHANGES ON HER URINARY OR BOWEL CONTROL. FALL RISK SCREENING: SCREENING :NO FALLS IN THE PAST YEAR CURRENT MEDICATIONS TAKING ORTHOPEDIC SHOES _ 1 DX 737 ONE INCH SHOE LIFT. RT SHOE DAILY TAKING MICROGESTIN 1.5/30 1.5-30 MG-MCG TABLET ORALLY DAILY TAKING MULTIVITAMINS - CAPSULE ORALLY DAILY TAKING HYDROCODONE-ACETAMINOPHEN 10-325 MG TABLET 1 TAB(S) ORALLY EVERY 6 HRS NEEDED MDD: 2 MEDICATION LIST REVIEWED AND RECONCILED WITH THE PATIENT PAST MEDICAL HISTORY MRI OF L/S 12/2011 WITH COMPLEX CONGENITAL ANOMALIES, SCOLIOSIS, TETHERED CORD, VERTEBRAL FUSION, DISC NARROWING, SPINAL STENOSIS, ABDOMINAL AORTIC ANEURYSM S/P REPAIR 10 YEAR ASCVD RISK OF 1.0% 07/2014 PATIENT HAD AN "ECTOPIC UTERUS" -- SECOND (R SIDED) UTERUS WITH NO CERVIX, CAUSED ENDOMETRIOSIS WITH RETROGRADE MENSTRUATION PAP 02/2015- NEG ENDOMETRIOSIS PER OP REPORT FROM [facility]: PT HAS "NL UTERUS ATTACHED TO AN OVARY AND A CERVIX ON THE L OF THE MIDLINE WITH A L FALLOPIAN TUBE WITH A LEFT ROUND LIGAMENT. A ROUND LIGAMENT FROM THAT UTERUS LED TO AN ECTOPIC UTERUS IN THE RIGHT LOWER QUADRANT ON THE PELVIC SIDEWALL WHICH WAS NOT ATTACHED TO A CERVIX WHICH ALSO HAD AN OVARY AND A FALLOPIAN TUBE." ALLERGIES N.K.D.A. SURGICAL HISTORY ABDOMINAL AORTIC REPAIR 09/2014 ABDOMINAL HERNIA REPAIR 09/2014 R SIDED HYSTERECTOMY (BUT NOT OOPHORECTOMY) OF "ECTOPIC UTERUS" THAT HAD NO CERVIX 12/2005 C SECTION X2 APPENDECTOMY EXTRA OCULAR MUSCLE SURGERY CHILDHOOD FAMILY HISTORY NO FAMILY HISTORY DOCUMENTED. SOCIAL HISTORY GENERAL: TOBACCO USE ARE YOU A:CURRENT SMOKER HOW MANY CIGARETTES A DAY DO YOU SMOKE?11-20 HOW SOON AFTER YOU WAKE UP DO YOU SMOKE YOUR FIRST CIGARETTE?AFTER 60 MIN HOW OFTEN DO YOU SMOKE CIGARETTES?SOME DAYS, BUT NOT EVERY DAY PATIENT COUNSELED ON THE DANGERS OF TOBACCO USE AND URGED TO QUIT:07/08/2016 ARE YOU INTERESTED IN QUITTING?THINKING ABOUT QUITTING PREVIOUS QUIT ATTEMPTS?YES, MORE THAN 6 MONTHS AGO. CUTTING DOWN COUNSELED THE PATIENT ON SMOKING CESSATION, EDUCATION [id number]/28/2017 LEARNING BARRIERS / SPECIAL NEEDS ORIENTED TO PLAN OF CARE: PATIENT, PAIN MANAGEMENT PATIENT, ORIENTED TO PLAN OF CARE: PATIENT, PAIN MANAGEMENT PATIENT. NEW PATIENT PAIN DIARY TODAY'S VISITNOTES FROM 0-10, WHAT LEVEL IS YOUR PAIN TODAY?0 PAIN CLINIC PFS, CLERGY, PUBLIC HEALTH REFERRALS PFS REFERRAL NEEDED?NO CLERGY REFERRAL NEEDED?NO PUBLIC HEALTH REFERRAL NEEDED?NO WAS THE PROVIDER NOTIFIED OF ANY PERTINENT INFO?NO PFS REFERRAL NEEDED?NO CLERGY REFERRAL NEEDED?NO PUBLIC HEALTH REFERRAL NEEDED?NO WAS THE PROVIDER NOTIFIED OF ANY PERTINENT INFO?NO HOSPITALIZATION/MAJOR DIAGNOSTIC PROCEDURE FOR ABOVE SURGERIES REVIEW OF SYSTEMS CONSTITUTIONAL: ANY CHANGE IN YOUR MEDICAL CONDITION? NO . CHILLS NO . FEVER NO . INFECTION: DO YOU HAVE NEW INFECTIONS? NO . DO YOU HAVE HISTORY OF MRSA? NO . MUSCULOSKELETAL: ANY NEW PATTERNS OF PAIN OR NUMBNESS? NO . GASTROENTEROLOGY: ANY NEW CHANGE IN BOWEL CONTROL? NO . GENITOURINARY: ANY NEW CHANGE IN BLADDER CONTROL? NO . IS THERE A CHANCE YOU COULD BE ? NO . HEMATOLOGY/LYMPH: DO YOU TAKE ANY BLOOD THINNERS? (FOR EXAMPLE- COUMADIN, PLAVIX, AGGRENOX, PLATEL, PRADAXA, OR XARELTO) NO . WHEN WAS YOUR LAST DOSE? DATE: TIME: . NEUROLOGY: HAVE YOU FALLEN IN THE PAST 6 MONTHS? YES, STATES DISCUSSED AT ANOTHER ADMISSION. . ANY NEW EXTREMITY NUMBNESS OR WEAKNESS? NO . CARDIOLOGY: DO YOU HAVE A PACEMAKER OR DEFIBRILLATOR? NO . RESPIRATORY: HAVE YOU BEEN SICK IN THE PAST WEEK? NO . FEVER NO . FLU LIKE SYMPTOMS? NO . COUGH NO . INTEGUMENTARY: DO YOU HAVE ANY RASHES OR OPEN SORES? NO . ALLERGIC/IMMUNO: ARE YOU ALLERGIC TO SHELLFISH OR IV DYE? NO . ANY NEW ALLERGIES? NO . PSYCHIATRIC: DO YOU HAVE THOUGHTS OF HURTING YOURSELF OR SOMEONE ELSE? NO . ARE YOU ABUSED, NEGLECTED, OR IN AN UNSAFE ENVIRONMENT? NO . ENDOCRINOLOGY: ARE YOU DIABETIC? NO . OTHER: DO YOU NEED ANY PRESCRIPTIONS? NO . IF YES, PLEASE LIST: ____ . ANY NEW PROBLEMS WITH YOUR MEDICATIONS? NO . WHEN DID YOU LAST EAT? ____ . WHEN DID YOU LAST DRINK? ____ . WHAT DID YOU LAST DRINK? ____ . NAME OF PERSON DRIVING YOU HOME? ____ . DO YOU HAVE ANY OTHER QUESTIONS OR CONCERNS NO . REVIEWED BY: PROVIDER: DEMETRIUS HILL MD . VITAL SIGNS WT 138 LBS, HT 59 IN, BMI 27.87 INDEX, BP 142/82 MM HG, HR 96 /MIN, RR 18 /MIN, TEMP 98.8 F, OXYGEN SAT % 98%, NA INITIALS SC 15:58, REVIEWED BY: CM. EXAMINATION : PATIENT IS ALERT O X 3 AND COOPERATIVE. TENDERNESS IN THE LOWER BACK AND PARASPINAL MUSCLE GROUP. BANDS OF TISSUE, RESTRICTION OF MOVEMENT AND PRESENCE OF TRIGGER POINTS IN THE LOWER BACK AREA. MRI ON THE LUMBAR SPINE DONE ON 12/24/2011 SHOWS KYPHOSCOLIOSIS, HYPERTROPHY, AND CANAL STENOSIS. 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 CALZADA'S PAIN MANAGEMENT CASE. AT THIS TIME THE PATIENT WILL CONTINUE WITH THE SAME MEDICATION REGIME BEFORE. PATIENT IS DOING WELL FROM THE TRIGGER POINT INJECTION ON 07/20/16 AND STATES THAT AT THIS TIME SHE DOES NOT NEED ANY INTERVENTIONS. PATIENT REPORTS A 70% DECREASE IN PAIN WITH INCREASED MOBILITY AND FUNCTIONALITY. MRS. CALZADA WILL RETURN TO THE CLINIC IN 2 MONTHS BUT WAS ADVISED TO CALL IF THE PAIN SIGNIFICANTLY INCREASES. INSTRUCTIONS WERE GIVEN, QUESTIONS WERE ANSWERED, PATIENT REPORTS UNDERSTANDING AND AGREES WITH THE PLAN. I, TARSHA BENITEZ, DOCUMENTED THE ABOVE INFORMATION ACTING A SCRIBE FOR DR. HILL. I HAVE REVIEWED THE ABOVE DOCUMENT, WRITTEN BY TARSHA TOM AND I VERIFY THAT IT IS ACCURATE. PROCEDURE CODES FA211 ESTABILISHED PATIENT [facility] FACILITY CHARGE G3027 DOC MEDS VERIFIED W/PT OR RE G3185 PAIN ASSESS POS TOOL F/U PLAN DOC DISPOSITION & COMMUNICATION FOLLOW UP 2 MONTHS ELECTRONICALLY SIGNED BY DEMETRIUS HILL MD ON 08/14/2016 AT 05:33 PM EDT DISCLAIMER : THIS IS A VISIT SUMMARY EXTRACTED FROM THE [employer] CHART. IT IS NOT A COPY OF THE [employer] PROGRESS NOTE. MTDD
== END ==
LOC: M PAIN 15:50
PROVIDERS: ATTEND Anesthesiology
DX: G89.29 Other chronic pain (principal); M47.816 Spondylosis without myelopathy or radiculopathy, lumbar region; M47.817 Spondylosis without myelopathy or radiculopathy, lumbosacral region; M79.1 Myalgia; Z79.891 Long term (current) use of opiate analgesic; Z79.899 Other long term (current) drug therapy

== ENCOUNTER → 2016-10-05 | Outpatient (CLI) | payer MEDICARE, MEDICAID ==
[~2016-10-05] MED LIST changes: -NORC10TA2 PO; +NORC10TA21 PO
--- NOTE | 2016-10-24 00:11 | ECWPNPC ---
PATIENT NAME: EVA CALZADA : 1980 GENDER: FEMALE VISIT DATE: 10/05/2016 DISCHARGE DATE: 10/05/16 1509 VISIT LOCKED DATE TIME: PHYSICIAN: DEMETRIUS HILL RESOURCE: DEMETRIUS HILL REASON FOR APPOINTMENT 1. LOW BACK PAIN HISTORY OF PRESENT ILLNESS HISTORY OF PRESENT ILLNESS: PAIN THE PATIENT DESCRIBES THE PAIN... 36 YEAR OLD FEMALE PATIENT WITH HISTORY OF CHRONIC LOW BACK PAIN. PATIENT DESCRIBES THE PAIN ACHING WITH THE PAIN COMING AND GOING AND A PAIN SCORE OF 5/10. PATIENT RECEIVED A TRIGGER POINT INJECTION 07/20/16 AND REPORTS STILL HAVING OVER 50% RELIEF FROM THE PAIN BUT THE PAIN IS STARTING TO RETURN. PATIENT IS CURRENTLY USING HYDROCODONE AND STATES THAT IT AIDS IN PAIN RELIEF. MRS. CALZADA STATES THAT ANY TYPE OF ACTIVITY INCREASES THE PAIN IN HER LOWER BACK INCLUDING WALKING, STANDING, AND SITTING. PATIENT DENIES UNEXPLAINABLE WEIGHT LOSS, FEVER, CHILLS, NEW CHANGES ON HER URINARY OR BOWEL CONTROL. FALL RISK SCREENING: SCREENING :NO FALLS IN THE PAST YEAR CURRENT MEDICATIONS TAKING ORTHOPEDIC SHOES _ 1 DX 737 ONE INCH SHOE LIFT. RT SHOE DAILY TAKING MICROGESTIN 1.5/30 1.5-30 MG-MCG TABLET ORALLY DAILY TAKING MULTIVITAMINS - CAPSULE ORALLY DAILY TAKING HYDROCODONE-ACETAMINOPHEN 10-325 MG TABLET 1 TAB(S) ORALLY EVERY 6 HRS NEEDED MDD: 2 MEDICATION LIST REVIEWED AND RECONCILED WITH THE PATIENT PAST MEDICAL HISTORY MRI OF L/S 12/2011 WITH COMPLEX CONGENITAL ANOMALIES, SCOLIOSIS, TETHERED CORD, VERTEBRAL FUSION, DISC NARROWING, SPINAL STENOSIS, ABDOMINAL AORTIC ANEURYSM S/P REPAIR 10 YEAR ASCVD RISK OF 1.0% 07/2014 PATIENT HAD AN "ECTOPIC UTERUS" -- SECOND (R SIDED) UTERUS WITH NO CERVIX, CAUSED ENDOMETRIOSIS WITH RETROGRADE MENSTRUATION PAP 02/2015- NEG ENDOMETRIOSIS PER OP REPORT FROM [facility]: PT HAS "NL UTERUS ATTACHED TO AN OVARY AND A CERVIX ON THE L OF THE MIDLINE WITH A L FALLOPIAN TUBE WITH A LEFT ROUND LIGAMENT. A ROUND LIGAMENT FROM THAT UTERUS LED TO AN ECTOPIC UTERUS IN THE RIGHT LOWER QUADRANT ON THE PELVIC SIDEWALL WHICH WAS NOT ATTACHED TO A CERVIX WHICH ALSO HAD AN OVARY AND A FALLOPIAN TUBE." ALLERGIES N.K.D.A. REVIEW OF SYSTEMS REVIEWED BY: PROVIDER: DEMETRIUS HILL MD . CONSTITUTIONAL: ANY CHANGE IN YOUR MEDICAL CONDITION? NO . CHILLS NO . FEVER NO . INFECTION: DO YOU HAVE NEW INFECTIONS? NO . DO YOU HAVE HISTORY OF MRSA? NO . MUSCULOSKELETAL: ANY NEW PATTERNS OF PAIN OR NUMBNESS? NO . GASTROENTEROLOGY: ANY NEW CHANGE IN BOWEL CONTROL? NO . GENITOURINARY: ANY NEW CHANGE IN BLADDER CONTROL? NO . IS THERE A CHANCE YOU COULD BE ? NO . HEMATOLOGY/LYMPH: DO YOU TAKE ANY BLOOD THINNERS? (FOR EXAMPLE- COUMADIN, PLAVIX, AGGRENOX, PLATEL, PRADAXA, OR XARELTO) NO . WHEN WAS YOUR LAST DOSE? DATE: TIME: . NEUROLOGY: HAVE YOU FALLEN IN THE PAST 6 MONTHS? NO . ANY NEW EXTREMITY NUMBNESS OR WEAKNESS? NO . CARDIOLOGY: DO YOU HAVE A PACEMAKER OR DEFIBRILLATOR? NO . RESPIRATORY: HAVE YOU BEEN SICK IN THE PAST WEEK? NO . FEVER NO . FLU LIKE SYMPTOMS? NO . COUGH NO . INTEGUMENTARY: DO YOU HAVE ANY RASHES OR OPEN SORES? NO . ALLERGIC/IMMUNO: ARE YOU ALLERGIC TO SHELLFISH OR IV DYE? NO . ANY NEW ALLERGIES? NO . PSYCHIATRIC: DO YOU HAVE THOUGHTS OF HURTING YOURSELF OR SOMEONE ELSE? NO . ARE YOU ABUSED, NEGLECTED, OR IN AN UNSAFE ENVIRONMENT? NO . ENDOCRINOLOGY: ARE YOU DIABETIC? NO . OTHER: DO YOU NEED ANY PRESCRIPTIONS? NO . IF YES, PLEASE LIST: ____ . ANY NEW PROBLEMS WITH YOUR MEDICATIONS? NO . WHEN DID YOU LAST EAT? ____ . WHEN DID YOU LAST DRINK? ____ . WHAT DID YOU LAST DRINK? ____ . NAME OF PERSON DRIVING YOU HOME? ____ . DO YOU HAVE ANY OTHER QUESTIONS OR CONCERNS NO . VITAL SIGNS WT 130.8 LBS, HT 59 IN, BMI 26.42 INDEX, BP 109/65 MM HG, HR 84 /MIN, RR 16 /MIN, TEMP 97.6 F, OXYGEN SAT % 98%, NA INITIALS TL 1423, REVIEWED BY: CM. EXAMINATION : PATIENT IS ALERT O X 3 AND COOPERATIVE. TENDERNESS IN THE LOWER BACK AND PARASPINAL MUSCLE GROUP. BANDS OF TISSUE, RESTRICTION OF MOVEMENT AND PRESENCE OF TRIGGER POINTS IN THE LOWER BACK AREA. MRI ON THE LUMBAR SPINE DONE ON 12/24/2011 SHOWS KYPHOSCOLIOSIS, HYPERTROPHY, AND CANAL STENOSIS. 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 CALZADA'S PAIN MANAGEMENT CASE. AT THIS TIME THE PATIENT WILL CONTINUE WITH THE SAME MEDICATION REGIME BEFORE. PATIENT IS DOING WELL FROM THE TRIGGER POINT INJECTION ON 07/20/16 AND STATES THAT AT THIS TIME SHE DOES NOT NEED ANY INTERVENTIONS. PATIENT REPORT STILL HAVING OVER 50% DECREASE IN PAIN WITH INCREASED MOBILITY AND FUNCTIONALITY. MRS. CALZADA WILL RETURN TO THE CLINIC IN 2 MONTHS BUT WAS ADVISED TO CALL IF THE PAIN SIGNIFICANTLY INCREASES. INSTRUCTIONS WERE GIVEN, QUESTIONS WERE ANSWERED, PATIENT REPORTS UNDERSTANDING AND AGREES WITH THE PLAN. I, TARSHA BENITEZ, DOCUMENTED THE ABOVE INFORMATION ACTING A SCRIBE FOR DR. HILL. I HAVE REVIEWED THE ABOVE DOCUMENT, WRITTEN BY TARSHA TOM AND I VERIFY THAT IT IS ACCURATE. PROCEDURE CODES FA211 ESTABILISHED PATIENT [facility] FACILITY CHARGE G8427 DOC MEDS VERIFIED W/PT OR RE G8730 PAIN ASSESS POS TOOL F/U PLAN DOC DISPOSITION & COMMUNICATION FOLLOW UP 2 WEEKS ELECTRONICALLY SIGNED BY DEMETRIUS HILL MD ON 10/23/2016 AT 08:02 AM EDT DISCLAIMER : THIS IS A VISIT SUMMARY EXTRACTED FROM THE [employer] CHART. IT IS NOT A COPY OF THE [employer] PROGRESS NOTE. MTDD
== END ==
LOC: M PAIN 14:20
PROVIDERS: ATTEND Anesthesiology
DX: G89.29 Other chronic pain (principal); M47.816 Spondylosis without myelopathy or radiculopathy, lumbar region; M47.817 Spondylosis without myelopathy or radiculopathy, lumbosacral region; M79.1 Myalgia; F17.200 Nicotine dependence, unspecified, uncomplicated; Z79.899 Other long term (current) drug therapy

== ENCOUNTER → 2016-10-21 | Outpatient (CLI) | payer MEDICARE, MEDICAID ==
--- NOTE | 2016-10-21 14:31 | REP ---
MR CERVICAL SPINE WITHOUT CONTRAST: HISTORY: Neck pain. A congenital block vertebra is present at the C2-3 level. A disc bulge with associated osteophyte formation is present at the C3-4 level. There is mild spinal cord compression. Bilateral uncinate process hypertrophy is present. This produces moderate and mild narrowing of the right and left C3 neural foramina respectively. A disc bulge is present at the C4-5 level. There is minimal effacement of the thecal sac without spinal cord compression. The C4 neural foramina are patent. A disc bulge is present at the C5-6 level. There is minimal effacement of the thecal sac without spinal cord compression. The C5 neural foramina are patent. A disc bulge with associated osteophyte formation is present at the C6-7 level. There is mild effacement of the thecal sac without spinal cord compression. Uncinate process hypertrophy is present on the left. This produces minimal narrowing of the left C6 neural foramen. The right C6 neural foramen is patent. There is no other disc bulge or herniation. The remaining neural foramina are patent. A syrinx is present in the spinal cord. The syrinx extends from the C3-4 level inferior to T1. This syrinx measures 1.2 mm in width. The spinal cord is small in size at the C3-4 level. Slight increased signal intensity on T2-weighted images is present. These findings are consistent with myelomalacia. The cerebellar tonsils extend 1.5 mm inferior through the foramen magnum. The C3-4 and C6-7 intervertebral discs are decreased in height consistent with disc degeneration. Normal signal intensity is present in the cervical vertebral bodies. IMPRESSION: 1. There is cervical spondylosis at the C3-4 through C6-7 levels most significant at the C3-4 level where there is mild spinal cord compression. 2. Small spinal cord syrinx as described above. 3. There is focal myelomalacia at the C3-4 level. Signed by Sachin Sexton MD 10/21/2016 02:33 P
== END ==
LOC: M RAD 12:48
PROVIDERS: ATTEND Anesthesiology
DX: M47.892 Other spondylosis, cervical region (principal); G95.89 Other specified diseases of spinal cord

== ENCOUNTER → 2016-12-16 | Outpatient (CLI) | payer MEDICARE, MEDICAID ==
--- NOTE | 2016-12-23 02:04 | ECWPNPC ---
PATIENT NAME: EVA CALZADA : 1980 GENDER: FEMALE VISIT DATE: 12/16/2016 DISCHARGE DATE: 12/16/16 1235 VISIT LOCKED DATE TIME: PHYSICIAN: DEMETRIUS HILL RESOURCE: DEMETRIUS HILL REASON FOR APPOINTMENT 1. LOW BACK PAIN HISTORY OF PRESENT ILLNESS HISTORY OF PRESENT ILLNESS: PAIN THE PATIENT DESCRIBES THE PAIN... 36 YEAR OLD FEMALE PATIENT WITH HISTORY OF CHRONIC LOW BACK PAIN. PATIENT DESCRIBES THE PAIN ACHING WITH THE PAIN COMING AND GOING AND A PAIN SCORE OF 5/10. PATIENT RECEIVED A TRIGGER POINT INJECTION 07/20/16 AND REPORTS STILL HAVING OVER 50% RELIEF FROM THE PAIN WITH INCREASED MOBILITY AND FUNCTIONALITY. PATIENT IS CURRENTLY USING HYDROCODONE AND STATES THAT IT AIDS IN PAIN RELIEF. MRS. CALZADA STATES THAT ANY TYPE OF ACTIVITY INCREASES THE PAIN IN HER LOWER BACK INCLUDING WALKING, STANDING, AND SITTING. PATIENT DENIES UNEXPLAINABLE WEIGHT LOSS, FEVER, CHILLS, NEW CHANGES ON HER URINARY OR BOWEL CONTROL. FALL RISK SCREENING: SCREENING :NO FALLS IN THE PAST YEAR CURRENT MEDICATIONS TAKING ORTHOPEDIC SHOES _ 1 DX 737 ONE INCH SHOE LIFT. RT SHOE DAILY TAKING MICROGESTIN 1.5/30 1.5-30 MG-MCG TABLET ORALLY DAILY TAKING MULTIVITAMINS - CAPSULE ORALLY DAILY TAKING HYDROCODONE-ACETAMINOPHEN 10-325 MG TABLET 1 TAB(S) ORALLY EVERY 6 HRS NEEDED MDD: 2 MEDICATION LIST REVIEWED AND RECONCILED WITH THE PATIENT PAST MEDICAL HISTORY ABDOMINAL AORTIC ANEURYSM S/P REPAIR 10 YEAR ASCVD RISK OF 1.0% 07/2014 PATIENT HAD AN "ECTOPIC UTERUS" -- SECOND (R SIDED) UTERUS WITH NO CERVIX, CAUSED ENDOMETRIOSIS WITH RETROGRADE MENSTRUATION PAP 02/2015- NEG ENDOMETRIOSIS PER OP REPORT FROM [facility]: PT HAS "NL UTERUS ATTACHED TO AN OVARY AND A CERVIX ON THE L OF THE MIDLINE WITH A L FALLOPIAN TUBE WITH A LEFT ROUND LIGAMENT. A ROUND LIGAMENT FROM THAT UTERUS LED TO AN ECTOPIC UTERUS IN THE RIGHT LOWER QUADRANT ON THE PELVIC SIDEWALL WHICH WAS NOT ATTACHED TO A CERVIX WHICH ALSO HAD AN OVARY AND A FALLOPIAN TUBE." MRI OF L/S 12/2011 WITH COMPLEX CONGENITAL ANOMALIES, SCOLIOSIS, TETHERED CORD, VERTEBRAL FUSION, DISC NARROWING, SPINAL STENOSIS, ALLERGIES N.K.D.A. SURGICAL HISTORY ABDOMINAL AORTIC REPAIR 09/2014 ABDOMINAL HERNIA REPAIR 09/2014 R SIDED HYSTERECTOMY (BUT NOT OOPHORECTOMY) OF "ECTOPIC UTERUS" THAT HAD NO CERVIX 12/2005 C SECTION X2 APPENDECTOMY EXTRA OCULAR MUSCLE SURGERY CHILDHOOD SOCIAL HISTORY GENERAL: TOBACCO USE ARE YOU A:CURRENT SMOKER HOW MANY CIGARETTES A DAY DO YOU SMOKE?6-10 HOW SOON AFTER YOU WAKE UP DO YOU SMOKE YOUR FIRST CIGARETTE?AFTER 60 MIN HOW OFTEN DO YOU SMOKE CIGARETTES?SOME DAYS, BUT NOT EVERY DAY PATIENT COUNSELED ON THE DANGERS OF TOBACCO USE AND URGED TO QUIT:07/08/2016 ARE YOU INTERESTED IN QUITTING?THINKING ABOUT QUITTING PREVIOUS QUIT ATTEMPTS?YES, MORE THAN 6 MONTHS AGO. CUTTING DOWN COUNSELED THE PATIENT ON SMOKING CESSATION, EDUCATION [id number]/28/2017 ALCOHOL SCREENING DID YOU HAVE A DRINK CONTAINING ALCOHOL IN THE PAST YEAR?NO POINTS0 INTERPRETATIONNEGATIVE RECREATIONAL DRUG USE DRUG USE?NO CAFFEINE CAFFEINE USE?YES COFFEE,SODA SEXUAL HX HAD SEX IN THE LAST 12 MONTHS (VAGINAL, ORAL, OR ANAL)?YES WITHWOMEN ONLY USE PROTECTION?YES HOW OFTEN?ALL OF THE TIME OCCUPATION: UNEMPLOYED. MARITAL STATUS: . LEARNING BARRIERS / SPECIAL NEEDS CHANGE FROM LAST VISIT?NO BARRIERS TO LEARNING?NO HEARING IMPAIRED?NO VISION IMPAIRED?YES :CORRECTIVE LENSES COGNITIVELY IMPAIRED?NO READINESS TO LEARN?YES LEARNING PREFERENCES?NO LEARNING CAPABILITIES PRESENT?YES EMOTIONAL BARRIERS?NO SPECIAL DEVICES?NO MACHINE HELPER NEEDED?NO NEW PATIENT PAIN DIARY TODAY'S VISIT NOTES, FROM 0-10, WHAT LEVEL IS YOUR PAIN TODAY? 0. PAIN CLINIC PFS, CLERGY, PUBLIC HEALTH REFERRALS PFS REFERRAL NEEDED? NO, CLERGY REFERRAL NEEDED? NO, PUBLIC HEALTH REFERRAL NEEDED? NO, WAS THE PROVIDER NOTIFIED OF ANY PERTINENT INFO? NO, PFS REFERRAL NEEDED? NO, CLERGY REFERRAL NEEDED? NO, PUBLIC HEALTH REFERRAL NEEDED? NO, WAS THE PROVIDER NOTIFIED OF ANY PERTINENT INFO? NO. HOSPITALIZATION/MAJOR DIAGNOSTIC PROCEDURE FOR ABOVE SURGERIES REVIEW OF SYSTEMS REVIEWED BY: PROVIDER: DEMETRIUS HILL MD . CONSTITUTIONAL: ANY CHANGE IN YOUR MEDICAL CONDITION? NO . CHILLS NO . FEVER NO . INFECTION: DO YOU HAVE NEW INFECTIONS? NO . DO YOU HAVE HISTORY OF MRSA? NO . MUSCULOSKELETAL: ANY NEW PATTERNS OF PAIN OR NUMBNESS? YES, PT STATES HER LAST VISIT HERE, A TENS UNIT WAS ORDERED FOR HER. PT STATES SHE STARTED USING IT AND IT HELPS. PT REPORTS TENS UNIT BRINGS PAIN FROM 8/10 TO 3/10. PT ASKING FOR MORE ELECTRODES SHE IS RUNNING OUT . GASTROENTEROLOGY: ANY NEW CHANGE IN BOWEL CONTROL? NO . GENITOURINARY: ANY NEW CHANGE IN BLADDER CONTROL? NO . IS THERE A CHANCE YOU COULD BE ? NO . HEMATOLOGY/LYMPH: DO YOU TAKE ANY BLOOD THINNERS? (FOR EXAMPLE- COUMADIN, PLAVIX, AGGRENOX, PLATEL, PRADAXA, OR XARELTO) NO . WHEN WAS YOUR LAST DOSE? DATE: TIME: . NEUROLOGY: HAVE YOU FALLEN IN THE PAST 6 MONTHS? NO . ANY NEW EXTREMITY NUMBNESS OR WEAKNESS? NO . CARDIOLOGY: DO YOU HAVE A PACEMAKER OR DEFIBRILLATOR? NO . RESPIRATORY: HAVE YOU BEEN SICK IN THE PAST WEEK? NO . FEVER NO . FLU LIKE SYMPTOMS? NO . COUGH NO . INTEGUMENTARY: DO YOU HAVE ANY RASHES OR OPEN SORES? NO . ALLERGIC/IMMUNO: ARE YOU ALLERGIC TO SHELLFISH OR IV DYE? NO . ANY NEW ALLERGIES? NO . PSYCHIATRIC: DO YOU HAVE THOUGHTS OF HURTING YOURSELF OR SOMEONE ELSE? NO . ARE YOU ABUSED, NEGLECTED, OR IN AN UNSAFE ENVIRONMENT? NO . ENDOCRINOLOGY: ARE YOU DIABETIC? NO . OTHER: DO YOU NEED ANY PRESCRIPTIONS? NO . IF YES, PLEASE LIST: ____ . ANY NEW PROBLEMS WITH YOUR MEDICATIONS? NO . WHEN DID YOU LAST EAT? ____ . WHEN DID YOU LAST DRINK? ____ . WHAT DID YOU LAST DRINK? ____ . NAME OF PERSON DRIVING YOU HOME? ____ . DO YOU HAVE ANY OTHER QUESTIONS OR CONCERNS YES, ASKING FOR MORE ELECTRODES FOR TENS UNIT . VITAL SIGNS WT 130 LBS, HT 59 IN, BMI 26.25 INDEX, BP 116/59 MM HG, HR 87 /MIN, RR 20 /MIN, TEMP 97.6 F, OXYGEN SAT % 100%, NA INITIALS SC 11:54. EXAMINATION : PATIENT IS ALERT O X 3 AND COOPERATIVE. TENDERNESS IN THE LOWER BACK AND PARASPINAL MUSCLE GROUP. BANDS OF TISSUE, RESTRICTION OF MOVEMENT AND PRESENCE OF TRIGGER POINTS IN THE LOWER BACK AREA. MRI ON THE LUMBAR SPINE DONE ON 12/24/2011 SHOWS KYPHOSCOLIOSIS, HYPERTROPHY, AND CANAL STENOSIS. ASSESSMENTS MYALGIA - M79.1 (PRIMARY) SPONDYLOSIS OF LUMBAR REGION WITHOUT MYELOPATHY OR RADICULOPATHY - M47.816 SPONDYLOSIS OF LUMBOSACRAL REGION WITHOUT MYELOPATHY OR RADICULOPATHY - M47.817 TREATMENT MYALGIA NOTES: WE DISCUSSED SEVERAL ISSUES WITH MRS. CALZADA'S PAIN MANAGEMENT CASE. AT THIS TIME THE PATIENT WILL CONTINUE WITH THE SAME MEDICATION REGIME BEFORE. PATIENT REPORTS DOING VERY WELL FROM THE LUMBAR FACET BLOCK AND REPORTS NOT NEEDING INTERVENTIONS AT THIS TIME. PATIENT WILL RETURN TO THE CLINIC IN 3 MONTHS BUT WAS ADVISED TO CALL IF HER PAIN SIGNIFICANTLY INCREASES. INSTRUCTIONS WERE GIVEN, QUESTIONS WERE ANSWERED, PATIENT REPORTS UNDERSTANDING AND AGREES WITH THE PLAN. I, TARSHA BENITEZ, DOCUMENTED THE ABOVE INFORMATION ACTING A SCRIBE FOR DR. HILL. I HAVE REVIEWED THE ABOVE DOCUMENT, WRITTEN BY TARSHA CHAIREZIBYvette AND I VERIFY THAT IT IS ACCURATE. PROCEDURE CODES FA211 ESTABILISHED PATIENT [facility] FACILITY CHARGE G8427 DOC MEDS VERIFIED W/PT OR RE G5105 PAIN ASSESS POS TOOL F/U PLAN DOC DISPOSITION & COMMUNICATION FOLLOW UP 3 MONTHS ELECTRONICALLY SIGNED BY DEMETRIUS HILL MD ON 12/22/2016 AT 12:54 PM EDT DISCLAIMER : THIS IS A VISIT SUMMARY EXTRACTED FROM THE [employer] CHART. IT IS NOT A COPY OF THE [employer] PROGRESS NOTE. MTDD
== END ==
LOC: M PAIN 11:45
PROVIDERS: ATTEND Anesthesiology
DX: M79.1 Myalgia (principal); M47.816 Spondylosis without myelopathy or radiculopathy, lumbar region; M47.817 Spondylosis without myelopathy or radiculopathy, lumbosacral region; M54.5 Low back pain; G89.29 Other chronic pain; F17.210 Nicotine dependence, cigarettes, uncomplicated; Z79.891 Long term (current) use of opiate analgesic; Z79.899 Other long term (current) drug therapy

== ENCOUNTER → 2017-01-27 | Outpatient (CLI) | payer MEDICARE, MEDICAID ==
[2017-01-27 18:05] LABS: BASO % 0.6 % (0.0-1.0); EOS # 0.2 10^3/uL (0.0-0.50); EOS % 3.2 % (0.0-3.0); IMMATURE GRANULOCYTE % 0.2 % (0-0); LYMPH # 1.9 10^3/uL (1.5-4.5); LYMPH % 34.5 % (24.0-44.0); MEAN CORPUSCULAR HEMOGLOBIN 28.7 pg (27.0-33.0); MEAN CORPUSCULAR HGB CONC 32.2 g/dl (32.0-36.5); MEAN CORPUSCULAR VOLUME 89.2 fl (80.0-96.0); MONO # 0.3 10^3/uL (0.0-0.8); MONO % 5.8 % (0.0-5.0); NEUTROPHILS % 55.7 % (36.0-66.0); PLATELET COUNT, AUTOMATED 193 10^3/uL (150-450); RED CELL DISTRIBUTION WIDTH 14.4 % (11.5-14.5); WHITE BLOOD COUNT 5.4 10^3/uL (4.0-10.0)
[2017-01-30 11:26] LABS: HBsAg Prenatal NEGATIVE (NEGATIVE)
== END ==
LOC: M SMT 13:00
PROVIDERS: ATTEND Obstetrics & Gynecology
DX: Z34.81 Encounter for supervision of other normal pregnancy, first trimester (principal); Z3A.00 Weeks of gestation of pregnancy not specified

== ENCOUNTER → 2017-02-07 | Outpatient (CLI) | payer MEDICARE, MEDICAID ==
--- NOTE | 2017-02-07 14:34 | REP ---
Clinical: Anatomical evaluation. Comparison: None . Findings: Examination demonstrates a single live intrauterine in variable presentation. motion is identified by technologist. Placenta is noted posterior/left lateral and grade zero without evidence for placenta previa or abruption. Amniotic fluid volume is normal. Cervix measures 4.3 cm in length and appears closed. Gestational age by current measurements 74-mczo-8-day with BELLO is 07/19/2017 . FHR equals 126 beats per minute. BPD 3.7 cm 17 weeks 2 days HC 13.7 cm 17 weeks 1 day AC 10.9 cm 16 weeks 5-day FL 2.2 cm 16 weeks 5 days HL 2.1 cm 16 weeks 2 days HC/AC ratio 1.25 Estimated weight 169 grams ( 43rd percentile). Anatomical assessment demonstrates normal structures including cranium, cavum, cerebellum/posterior fossa, facial features, lungs, four-chamber heart/ventricular outflow tracts, diaphragm, stomach, cord insertion, kidneys/bladder, spine, and extremities. Choroid plexus cysts are identified up to 6.4 mm. Three-vessel cord views not obtained. Impression: Single live in variable presentation. Nuchal cord. Choroid plexus cysts warrant followup. Three-vessel cord not seen. Otherwise normal anatomical assessment. Signed by Eyal Valdez MD 02/07/2017 02:26 P
== END ==
LOC: M RAD 12:47
PROVIDERS: ATTEND Obstetrics & Gynecology
DX: Z34.80 Encounter for supervision of other normal pregnancy, unspecified trimester (principal)

== ENCOUNTER → 2017-04-21 | Outpatient (CLI) | payer MEDICARE, MEDICAID ==
[2017-04-21 13:59] LABS: HEMATOCRIT 35.6 % (36.0-47.0); HEMOGLOBIN 11.5 g/dl (12.0-16.0); MEAN CORPUSCULAR HEMOGLOBIN 30.3 pg (27.0-33.0); MEAN CORPUSCULAR HGB CONC 32.3 g/dl (32.0-36.5); MEAN CORPUSCULAR VOLUME 93.7 fl (80.0-96.0); PLATELET COUNT, AUTOMATED 203 10^3/uL (150-450); RED CELL DISTRIBUTION WIDTH 14.9 % (11.5-14.5); WHITE BLOOD COUNT 7.4 10^3/uL (4.0-10.0)
[2017-04-21 14:23] LABS: GLUCOSE CHALLENGE TEST 1 HOUR 130 MG/DL (LESS THAN 140)
== END ==
LOC: M SMT 10:27
DX: Z34.82 Encounter for supervision of other normal pregnancy, second trimester (principal)
CPT/HCPCS: 82950

== ENCOUNTER → 2017-05-17 | Outpatient (CLI) | payer MEDICARE, MEDICAID | LOC: M RAD 13:44 | DX: O36.5933 Maternal care for other known or suspected poor fetal growth, third trimester, fetus 3 (principal) | CPT/HCPCS: 76816 ==

== ENCOUNTER → 2017-06-08 | Outpatient (REF) | payer MEDICARE, MEDICAID ==
[2017-06-12 14:11] LABS: AMPHETAMINE SCREEN, URINE Negative ng/mL (Cutoff=1000); BARBITURATES SCREEN, URINE Negative ng/mL (Cutoff=200); BENZODIAZEPINES, URINE SCREEN Negative ng/mL (Cutoff=200); CANNABINOID SCREEN, URINE Negative ng/mL (Cutoff=20); COCAINE SCREEN, URINE Negative ng/mL (Cutoff=300); CREATININE, URINE 95.1 mg/dL (20.0-300.0); FENTANYL URINE SCREEN Negative pg/mL (Cutoff=2000); METHADONE, URINE SCREEN Negative ng/mL (Cutoff=300); OPIATE SCREEN, URINE Negative ng/mL (Cutoff=300); OXYCODONE, SCREEN, URINE Negative ng/mL (Cutoff=100); PCP SCREEN, URINE Negative ng/mL (Cutoff=25); pH, URINE 8.5 (4.5-8.9)
== END ==
LOC: M SFHCPLAZ 16:52
DX: G89.29 Other chronic pain (principal)
CPT/HCPCS: 80307

== ENCOUNTER 2017-06-27 05:59 | Inpatient (IN) | payer MEDICARE, MEDICAID ==
[2017-06-27 06:42] LABS: HEMATOCRIT 35.7 % (36.0-47.0); HEMOGLOBIN 12.4 g/dl (12.0-15.5); MEAN CORPUSCULAR HEMOGLOBIN 31.6 pg (27.0-33.0); MEAN CORPUSCULAR HGB CONC 34.7 g/dl (32.0-36.5); MEAN CORPUSCULAR VOLUME 91.1 fl (80.0-96.0); PLATELET COUNT, AUTOMATED 174 10^3/uL (150-450); RED BLOOD COUNT 3.92 10^6/uL (4.00-5.40); WHITE BLOOD COUNT 6.4 10^3/uL (4.0-10.0)
[2017-06-27] MEDS ORDERED: LR 1,000 ML IV ×2 (08:00→10:34)
[2017-06-27] MEDS: BICITRA 30ML SOLN UDC PO (08:37)
[2017-06-27] MEDS: LR 1,000 ML IV ×3 (08:39→13:53)
[2017-06-27] MEDS ORDERED: NALOXONE INJ 0.4 MG/1 ML VIAL (J2310) IV ×2 (09:02)
[2017-06-27] MEDS ORDERED: NALBUPHINE HCL 10 MG/ML AMP (J2300) IV (09:02)
[2017-06-27] MEDS ORDERED: ONDANSETRON 4MG/2ML VIAL (J2405) IV ×3 (09:02→10:45)
[2017-06-27] MEDS ORDERED: METOCLOPRAMIDE INJ 10MG/2ML VIAL (J2765) IV ×2 (09:02→10:45)
[2017-06-27] MEDS ORDERED: KETOROLAC 60 MG/2 ML VIAL (J1885) As Ordered (09:40)
[2017-06-27] MEDS ORDERED: MORPHINE PRES-FREE INJ 10 MG/10 ML VIAL (J2274) As Ordered (09:40)
[2017-06-27] MEDS ORDERED: OXYTOCIN INJ 10 UNITS/ML VIAL (J2590) As Ordered (09:40)
[2017-06-27] MEDS ORDERED: ONDANSETRON 4MG/2ML VIAL (J2405) As Ordered (09:40)
[2017-06-27] MEDS ORDERED: PHENYLephrine HCL 500 MCG/5 ML (100MCG/ML) SYRINGE (J2370) As Ordered ×2 (09:43)
[2017-06-27] MEDS ORDERED: ePHEDrine SULFATE 25 MG/5 ML(5MG/ML) SYRINGE As Ordered ×2 (09:43)
[2017-06-27] MEDS ORDERED: fentaNYL 100 MCG/2 ML INJECTION (J3010) IV (10:45)
[2017-06-27] MEDS ORDERED: MOM 30ML SUSPENSION UDC PO (10:45)
[2017-06-27] MEDS: OXYTOCIN DRIP 30 UNITS in APPROPRIATE DILUENT 1 EA IV (10:45)
[2017-06-27] MEDS ORDERED: OXYTOCIN 30 UNITS IN 0.9% NaCl 500ML IV BAG (J2590) As Ordered (11:49)
[2017-06-27] MEDS: PERCOCET 5MG/325MG TAB PO ×2 (15:37→22:43)
[2017-06-27] MEDS: KETOROLAC 30 MG/ML VIAL (J1885) IV ×2 (15:38→21:12)
[2017-06-27] MEDS: DOCUSATE SODIUM 100 MG CAP PO (20:40)
[2017-06-27] MEDS: RHOGAM 300 MCG (1500 IU) INJ (J2790) IM (22:37)
[2017-06-27] MEDS: MEASLES,MUMPS,RUBELLA VACCINE INJ (MMR-II) (90707) SC (22:37)
[2017-06-28] MEDS: KETOROLAC 30 MG/ML VIAL (J1885) IV ×2 (04:07→10:42)
[2017-06-28] MEDS: PERCOCET 5MG/325MG TAB PO ×3 (05:53→20:44)
[2017-06-28 07:34] LABS: HEMATOCRIT 30.2 % (36.0-47.0); MEAN CORPUSCULAR HEMOGLOBIN 31.1 pg (27.0-33.0); MEAN CORPUSCULAR HGB CONC 34.1 g/dl (32.0-36.5); MEAN CORPUSCULAR VOLUME 91.2 fl (80.0-96.0); PLATELET COUNT, AUTOMATED 152 10^3/uL (150-450); RED BLOOD COUNT 3.31 10^6/uL (4.00-5.40); RED CELL DISTRIBUTION WIDTH 14.2 % (11.5-14.5); WHITE BLOOD COUNT 8.6 10^3/uL (4.0-10.0)
[2017-06-28 07:36] LABS: HEMOGLOBIN 10.3 g/dl (12.0-15.5)
[2017-06-28] MEDS: PRENATAL VITAMINS CHEWABLE TABLET PO (08:06)
[2017-06-28] MEDS: DOCUSATE SODIUM 100 MG CAP PO ×2 (08:06→20:42)
[2017-06-28] MEDS: IBUPROFEN 800 MG TAB PO (18:48)
[2017-06-29] MEDS: IBUPROFEN 800 MG TAB PO ×2 (01:06→10:09)
[2017-06-29] MEDS: PRENATAL VITAMINS CHEWABLE TABLET PO (08:06)
[2017-06-29] MEDS: DOCUSATE SODIUM 100 MG CAP PO (08:07)
[2017-06-29] MEDS: PERCOCET 5MG/325MG TAB PO (08:07)
== END 2017-06-29 11:43 | disposition home or self-care (01) | DRG 766 ==
LOC: M LDI 05:59 → M OBS 12:10
PROVIDERS: Obstetrics & Gynecology
PROC: 10D00Z1 Extraction of Products of Conception, Low, Open Approach (ICD-10-PCS; principal; 2017-06-27 08:30)
PROC: 0UL70DZ Occlusion of Bilateral Fallopian Tubes with Intraluminal Device, Open Approach (ICD-10-PCS; 2017-06-27 08:30)
DX: O34.211 Maternal care for low transverse scar from previous cesarean delivery (principal); Z37.0 Single live birth; Z3A.37 37 weeks gestation of pregnancy; Z30.2 Encounter for sterilization; O09.523 Supervision of elderly multigravida, third trimester; O32.8XX0 Maternal care for other malpresentation of fetus, not applicable or unspecified

== ENCOUNTER → 2017-09-01 | Outpatient (CLI) | payer MEDICARE, MEDICAID | LOC: M PAIN 09:30 | DX: M46.96 Unspecified inflammatory spondylopathy, lumbar region (principal); I71.4 Abdominal aortic aneurysm, without rupture; F17.210 Nicotine dependence, cigarettes, uncomplicated; Z79.891 Long term (current) use of opiate analgesic; Z79.899 Other long term (current) drug therapy | CPT/HCPCS: G0463 ==

== ENCOUNTER → 2017-09-18 | Outpatient (CLI) | payer MEDICARE, MEDICAID ==
[~2017-09-18] MED LIST changes: -/AMIT10TA PO; -BACL10TA2 PO; +BUPIVACAINE HCL 0.25% 30 ML VIAL As Ordered; -ETOD400T PO; -GABA400C PO; +ISOVUE-M 300 61% 15ML VIAL (Q9967) As Ordered; +LIDOCAINE 1% SDV INJ 30 ML VIAL As Ordered; -LORTAB 5/325 PO; -MAGN400T5 PO; -NORC10TA21 PO; -NORC5TAB PO; -PROM25SU5 PO; -SOMA350T PO; -TIZA4CAP3 PO; -TRAM50TA2 PO; +TRIAMCINOLONE ACETONIDE SUSP 40 MG/ML VIAL (J3301) As Ordered; -ULTR50TA PO; -VICO5TA PO; -ZONI50CA3 PO; +diazePAM 5 MG TAB As Ordered; +oxyCODONE 5MG TAB As Ordered
== END ==
LOC: M PAIN 08:45
DX: G89.29 Other chronic pain (principal); M47.816 Spondylosis without myelopathy or radiculopathy, lumbar region; M47.817 Spondylosis without myelopathy or radiculopathy, lumbosacral region; F17.210 Nicotine dependence, cigarettes, uncomplicated; Z79.899 Other long term (current) drug therapy; Z87.19 Personal history of other diseases of the digestive system
CPT/HCPCS: J3301

== ENCOUNTER → 2017-10-02 | Outpatient (CLI) | payer MEDICARE, MEDICAID | LOC: M PAIN 10:15 | DX: M47.816 Spondylosis without myelopathy or radiculopathy, lumbar region (principal); M47.817 Spondylosis without myelopathy or radiculopathy, lumbosacral region; F17.210 Nicotine dependence, cigarettes, uncomplicated; Z79.899 Other long term (current) drug therapy; Z86.79 Personal history of other diseases of the circulatory system | CPT/HCPCS: G0463 ==

== ENCOUNTER → 2017-12-18 | Outpatient (CLI) | payer MEDICARE, OTHER | LOC: M PAIN 09:15 | DX: M47.816 Spondylosis without myelopathy or radiculopathy, lumbar region (principal); M47.817 Spondylosis without myelopathy or radiculopathy, lumbosacral region; F17.210 Nicotine dependence, cigarettes, uncomplicated; Q51.9 Congenital malformation of uterus and cervix, unspecified; Z79.899 Other long term (current) drug therapy | CPT/HCPCS: G0463 ==

== ENCOUNTER → 2018-01-25 | Outpatient (CLI) | payer MEDICARE, OTHER ==
[~2018-01-25] MED LIST changes: -BUPIVACAINE HCL 0.25% 30 ML VIAL As Ordered; -ISOVUE-M 300 61% 15ML VIAL (Q9967) As Ordered; -LIDOCAINE 1% SDV INJ 30 ML VIAL As Ordered; +PROHANCE 279.3MG/ML 15ML VIAL (A9576) As Ordered; -TRIAMCINOLONE ACETONIDE SUSP 40 MG/ML VIAL (J3301) As Ordered; -diazePAM 5 MG TAB As Ordered; -oxyCODONE 5MG TAB As Ordered
== END ==
LOC: M RAD 18:03
DX: Z86.79 Personal history of other diseases of the circulatory system (principal)
CPT/HCPCS: A9576

== ENCOUNTER → 2018-03-09 | Outpatient (REF) | payer MEDICARE, OTHER | LOC: M SFHCPLAZ 15:49 | DX: G89.29 Other chronic pain (principal) ==

== ENCOUNTER → 2018-07-19 | Outpatient (REF) | payer MEDICARE, OTHER ==
[~2018-07-19] MED LIST changes: +AMIT1TAB10 PO; +BACL10TA2 PO; +BENA25CA4 PO; +DULO1CAP3; +ETOD400T PO; +GABA400C PO; +HYDR-4517 PO; +IBUP-1114 PO; +LORTAB 5/325 PO; +MAGN400T5 PO; +NORC1TAB5 PO; +NORC5TAB PO; +OXYC1TAB23 PO; +PERC5TAB12 PO; +PRED20TA PO; +PRENTAB55 PO; +PRIL20TA2 PO; -PROHANCE 279.3MG/ML 15ML VIAL (A9576) As Ordered; +PROM25SU5 PO; +SOMA350T PO; +SPOR1CAP; +TIZA4CAP PO; +TRAM50TA2 PO; +ULTR50TA PO; +VICO5TA PO; +ZONI50CA3 PO
[2018-07-19 16:52] LABS: ALBUMIN 3.5 GM/DL (3.2-5.2); ALT/SGPT 17 U/L (12-78); BILIRUBIN,TOTAL 0.3 MG/DL (0.2-1.0); BLOOD UREA NITROGEN 11 MG/DL (7-18); CALCIUM LEVEL 8.6 MG/DL (8.5-10.1); CARBON DIOXIDE LEVEL 27 MEQ/L (21-32); CHLORIDE LEVEL 106 MEQ/L (98-107); CREATININE FOR GFR 0.74 MG/DL (0.55-1.30); GLOMERULAR FILTRATION RATE > 60.0 (>60); GLUCOSE, FASTING 100 MG/DL (70-100); POTASSIUM SERUM 4.3 MEQ/L (3.5-5.1); SODIUM LEVEL 140 MEQ/L (136-145); TOTAL PROTEIN 7.1 GM/DL (6.4-8.2)
[2018-07-19 17:10] LABS: HEMOGLOBIN A1c 5.2 %
== END ==
LOC: M SFHCPLAZ 14:22
DX: B35.1 Tinea unguium (principal)
CPT/HCPCS: 36415; 80053; 83036; G0463

== ENCOUNTER 2018-08-07 11:43 | Emergency (ER) | payer OTHER, MEDICARE ==
[~2018-08-07] VITALS: Ht 149.9 cm; Wt 60.9 kg
[~2018-08-07 11:43] MED LIST changes: -BENA25CA4 PO; -DULO1CAP3; -PRED20TA PO; -PRIL20TA2 PO; -SPOR1CAP
[2018-08-07] MEDS ORDERED: SPOR1CAP (11:51)
[2018-08-07] MEDS ORDERED: DULO1CAP3 (11:51)
[2018-08-07] MEDS ORDERED: PRIL20TA2 PO (13:23)
[2018-08-07] MEDS ORDERED: PRED20TA PO (13:23)
[2018-08-07] MEDS ORDERED: BENA25CA4 PO (13:27)
[2018-08-07] MEDS ORDERED: predniSONE 20 MG TAB PO ONE (13:30)
[2018-08-07] MEDS ORDERED: FAMOTIDINE 20 MG TAB PO ONE (13:30)
[2018-08-07 13:36] VITALS: BP 127/82
== END 2018-08-07 13:37 | disposition home or self-care (01) ==
LOC: M ED 11:43
DX: R21 Rash and other nonspecific skin eruption (principal); T50.995A Adverse effect of other drugs, medicaments and biological substances, initial encounter; X58.XXXA Exposure to other specified factors, initial encounter; Y92.89 Other specified places as the place of occurrence of the external cause; I25.10 Atherosclerotic heart disease of native coronary artery without angina pectoris; Z79.899 Other long term (current) drug therapy; F17.210 Nicotine dependence, cigarettes, uncomplicated

== ENCOUNTER → 2018-08-15 | Outpatient (CLI) | payer MEDICARE, OTHER ==
[~2018-08-15] MED LIST changes: +BENA25CA4 PO; +DULO1CAP3; +PRED20TA PO; +PRIL20TA2 PO; +SPOR1CAP
--- NOTE | 2018-08-31 02:17 | ECWPNPC ---
PATIENT NAME: EVA CALZADA : 1980 GENDER: FEMALE VISIT DATE: 08/15/2018 DISCHARGE DATE: 08/15/18 1450 VISIT LOCKED DATE TIME: PHYSICIAN: TOM NEAL RESOURCE: TOM NEAL REASON FOR APPOINTMENT 1. SW/BACK HISTORY OF PRESENT ILLNESS HISTORY OF PRESENT ILLNESS: HERE FOR F/U OF CHRONIC LBP.LAST VISIT WAS 12/2017.HAS BENEFITED FROM LUMBAR FACET BLOCKS IN PAST.PAIN RANGES FROM 2-6/10 VAS.PAIN IS MAINLY DURING DAY AND IS ACHING,SHOOTING AND SORE. PAIN THE PATIENT DESCRIBES THE PAIN... FALL RISK SCREENING: SCREENING :NO FALLS REPORTED IN THE LAST YEAR CURRENT MEDICATIONS TAKING CYMBALTA 60 MG CAPSULE DELAYED RELEASE PARTICLES 1 CAPSULE ORALLY ONCE A DAY TAKING NORCO 10-325 MG TABLET 1 TABLET NEEDED FOR PAIN ORALLY EVERY 6 HRS TAKING PREDNISONE 20 MG TABLET 1 TABLET ORALLY ONCE A DAY( TAPPERING) TAKING BENADRYL ALLERGY 25 MG TABLET 1 TABLET NEEDED ORALLY EVERY 8 HRS TAKING LORATADINE 10 MG TABLET 1 TABLET ORALLY ONCE A DAY TAKING TRIAMCINOLONE ACETONIDE 0.025 % CREAM 1 APPLICATION TO AFFECTED AREA EXTERNALLY TWICE A DAY TAKING CYMBALTA 60 MG CAPSULE DELAYED RELEASE PARTICLES 1 CAPSULE ORALLY ONCE A DAY TAKING [facility] HYDROCORTISONE ANTI-ITCH 0.5 % CREAM 1 APPLICATION TO AFFECTED AREA EXTERNALLY TWICE A DAY TAKING MAY HAVE - - RIGHT SHOE LIFT DX: M41.9 KYPHOSCOLIOSIS DAILY MED#[id number] TAKING KETOCONAZOLE 2 % SHAMPOO DIRECTED EXTERNALLY APPLY IN SHOWER TO SKIN, LATHER, LEAVE ON FOR 5 MINUTES AND RINSE. TAKING NORCO 10-325 MG TABLET 1 TABLET ORALLY TWICE DAILY NEEDED. MDD 1.5 (AVERAGE), NOTES: DUPLICATE TAKING CARISOPRODOL 350 MG TABLET 1 TABLET NEEDED ORALLY BEFORE BEDTIME MDD-1 TAKING MULTIVITAMIN ADULT - TABLET 1 TAB ORALLY DAILY TAKING ORTHOPEDIC SHOES _ 1 DX M79.671, [facility]# [id number] ONE INCH SHOE LIFT. RT SHOE DAILY NOT-TAKING [facility] NICOTINE 14 MG/24HR PATCH 24 HOUR 1 PATCH TO SKIN TRANSDERMAL ONCE A DAY NOT-TAKING [facility] NICOTINE 7 MG/24HR PATCH 24 HOUR 1 PATCH TO SKIN TRANSDERMAL ONCE A DAY NOT-TAKING HYDROCODONE-ACETAMINOPHEN 5-325 MG TABLET 1 TABLET ORALLY TWICE DAILY NEEDED. MDD: 1.5 NOT-TAKING 28-0.8 MG TABLET 1 TAB ORALLY DAILY MEDICATION LIST REVIEWED AND RECONCILED WITH THE PATIENT PAST MEDICAL HISTORY ABDOMINAL AORTIC ANEURYSM S/P REPAIR IN 2014. SHE FOLLOWS WITH HER VASCULAR SURGEON IN [place] ON A YEARLY BASIS. THERE IS NO IDENTIFIED ETIOLOGY FOR HER AAA, HOWEVER HER SURGEON SUSPECTS A GENETIC DISORDER. GENETIC TESTING IS NOT COVERED BY HER INSURANCE AND WOULD COST HER ABOUT $6000 OUT OF POCKET WHICH IS COST PROHIBITIVE 10 YEAR ASCVD RISK OF 1.0% 07/2014 PATIENT HAD AN "ECTOPIC UTERUS" -- SECOND (R SIDED) UTERUS WITH NO CERVIX, CAUSED ENDOMETRIOSIS WITH RETROGRADE MENSTRUATION PAP 02/2015- NEG ENDOMETRIOSIS PER OP REPORT FROM [facility]: PT HAS "NL UTERUS ATTACHED TO AN OVARY AND A CERVIX ON THE L OF THE MIDLINE WITH A L FALLOPIAN TUBE WITH A LEFT ROUND LIGAMENT. A ROUND LIGAMENT FROM THAT UTERUS LED TO AN ECTOPIC UTERUS IN THE RIGHT LOWER QUADRANT ON THE PELVIC SIDEWALL WHICH WAS NOT ATTACHED TO A CERVIX WHICH ALSO HAD AN OVARY AND A FALLOPIAN TUBE." MRI OF L/S 12/2011 WITH COMPLEX CONGENITAL ANOMALIES, SCOLIOSIS, TETHERED CORD, VERTEBRAL FUSION, DISC NARROWING, SPINAL STENOSIS, DIAGNOSED WITH LUMBAR SCOLIOSIS AN . NEVER HAD SURGERY FOR HER SPINE, NO BRACING. WEARS A SHOE LIFT ON THE RIGHT, 1 INCH. NO PROBLEMS WITH HYPERMOBILE JOINTS. NO OPTIC LENS DISPLACEMENT. ALLERGIES ITRACONAZOLE: RASH - ALLERGY SURGICAL HISTORY ABDOMINAL AORTIC REPAIR 09/2014 ABDOMINAL HERNIA REPAIR 09/2014 R SIDED HYSTERECTOMY (BUT NOT OOPHORECTOMY) OF "ECTOPIC UTERUS" THAT HAD NO CERVIX 12/2005 C SECTION X2 APPENDECTOMY EXTRA OCULAR MUSCLE SURGERY CHILDHOOD FAMILY HISTORY FATHER: ALIVE 60 YRS MOTHER: , DIAGNOSED WITH DIABETES SIBLINGS: ALIVE, DIABETES SON(S): ALIVE DAUGHTER(S): ALIVE 1 BROTHER(S) - HEALTHY. 2 SON(S) , 1 DAUGHTER(S) . NO FAMILY HISTORY OF GENETIC DISORDERS, AND NOBODY ELSE HAS AAA OR SPINAL DEFORMITIES. SOCIAL HISTORY GENERAL: TOBACCO USE ARE YOU A:CURRENT SMOKER HOW OFTEN DO YOU SMOKE CIGARETTES?EVERY DAY HOW SOON AFTER YOU WAKE UP DO YOU SMOKE YOUR FIRST CIGARETTE?31-60 MIN HOW MANY CIGARETTES A DAY DO YOU SMOKE?6-10 ARE YOU INTERESTED IN QUITTING?THINKING ABOUT QUITTING PATIENT COUNSELED ON THE DANGERS OF TOBACCO USE AND URGED TO QUIT:08/15/2018 COUNSELED THE PATIENT ON SMOKING CESSATION, EDUCATION [id number]/05/2019 SMOKING CESSATION INFORMATION GIVEN08/15/2018 PREVIOUS QUIT ATTEMPTS?YES, MORE THAN 6 MONTHS AGO. CUTTING DOWN HIV / HEP-C SCREENING HIV TEST OFFERED TO PATIENT:YES DATE OFFERED:08/30/2017 TEST ACCEPTED:NO HEP-C TEST OFFERED TO PATIENT:YES DATE OFFERED:08/30/2017 REASON:PATIENT DECLINED TEST ACCEPTED:NO REASON:PATIENT DECLINED BROCHURE PROVIDED TO PATIENTYES OTHERS AT HOME: LIVES WITH AND 2 BOYS & 1 DAUGHTER. EDUCATION LEVEL OF EDUCATION:FINISHED HIGH SCHOOL DIET: REGULAR. LANGUAGE LANGUAGES SPOKEN:WELSH NEW PATIENT PAIN DIARY TODAY'S VISIT NOTES, FROM 0-10, WHAT LEVEL IS YOUR PAIN TODAY? 0. RECREATIONAL DRUG USE DRUG USE?NO EXERCISE: NO REGULAR EXERCISE. LEARNING BARRIERS / SPECIAL NEEDS CHANGE FROM LAST VISIT?NO BARRIERS TO LEARNING?NO HEARING IMPAIRED?NO VISION IMPAIRED?YES COGNITIVELY IMPAIRED?NO :CORRECTIVE LENSES READINESS TO LEARN?YES LEARNING PREFERENCES?NO LEARNING CAPABILITIES PRESENT?YES EMOTIONAL BARRIERS?NO SPECIAL DEVICES?NO MICRO PHOTOGRAPHER NEEDED?NO PAIN CLINIC PFS, CLERGY, PUBLIC HEALTH REFERRALS WAS THE PROVIDER NOTIFIED OF ANY PERTINENT INFO?YES HAS THE PATIENT BEEN EDUCATED REGARDING HIS/HER PLAN OF CARE?YES HAS THE PATIENT BEEN EDUCATED REGARDING PAIN, THE RISK FOR PAIN, THE IMPORTANCE OF EFFECTIVE PAIN MANAGEMENT, AND THE PAIN ASSESSMENT PROCESS?YES LATEX QUESTIONNAIRE LATEX ALLERGY : HAVE YOU EVER DEVELOPED ANY TYPE OF REACTION AFTER HANDLING LATEX PRODUCTS SUCH RUBBER GLOVES, CONDOMS, DIAPHRAGMS, BALLOONS, SOCKS, OR UNDERWEAR?NO LATEX ALLERGY : HAVE YOU EVER DEVELOPED ANY TYPE OF REACTION DURING OR AFTER DENTAL APPOINTMENT, VAGINAL/RECTAL EXAMINATION, SURGICAL PROCEDURE, OR ANY OTHER EXPOSURE?NO DATE ASKED : 07/19/2018 LATEX RISK : HAVE YOU EVER HAD ANY DIFFICULTY BREATHING OR HIVES AFTER EATING OR HANDLING ANY FRUITS, OR VEGETABLES; SUCH KIWI, BANANAS, STONE FRUITS, OR CHESTNUTSNO LATEX RISK : DO YOU HAVE A PREVIOUS PERSONAL HISTORY OF MORE THAN NINE SURGERIES, SPINA BIFIDA, OR REPEATED CATHERTIZATIONS? NO LATEX RISK : ARE YOU FREQUENTLY EXPOSED TO LATEX PRODUCTS IN YOUR OCCUPATION?NO CAFFEINE CAFFEINE USE?YES COFFEE,SODA ADVANCE DIRECTIVE ADVANCE DIRECTIVE DISCUSSED WITH PATIENT:YES DECLINED INFO AND ASSIATNACE WITH FORM AT THIS TIME. 08/15/18 CHRISTIAN [id number] QUAKER MARITAL STATUS: . ALCOHOL SCREENING DID YOU HAVE A DRINK CONTAINING ALCOHOL IN THE PAST YEAR?NO POINTS0 INTERPRETATIONNEGATIVE OCCUPATION: UNEMPLOYED. SEXUAL HX HAD SEX IN THE LAST 12 MONTHS (VAGINAL, ORAL, OR ANAL)?YES WITHWOMEN ONLY USE PROTECTION?YES HOW OFTEN?ALL OF THE TIME REVIEWED WITH PT 08/15/18 1424 BV. HOSPITALIZATION/MAJOR DIAGNOSTIC PROCEDURE FOR ABOVE SURGERIES REVIEW OF SYSTEMS REVIEWED BY: PROVIDER: TOM CAZARES . CONSTITUTIONAL: ANY CHANGE IN YOUR MEDICAL CONDITION? NO . CHILLS NO . FEVER NO . INFECTION: DO YOU HAVE NEW INFECTIONS? NO . DO YOU HAVE HISTORY OF MRSA? NO . MUSCULOSKELETAL: ANY NEW PATTERNS OF PAIN OR NUMBNESS? NO . GASTROENTEROLOGY: ANY NEW CHANGE IN BOWEL CONTROL? NO . GENITOURINARY: ANY NEW CHANGE IN BLADDER CONTROL? NO . IS THERE A CHANCE YOU COULD BE ? NO . HEMATOLOGY/LYMPH: DO YOU TAKE ANY BLOOD THINNERS? (FOR EXAMPLE- COUMADIN, PLAVIX, AGGRENOX, PLATEL, PRADAXA, OR XARELTO) NO . WHEN WAS YOUR LAST DOSE? DATE: TIME: . NEUROLOGY: HAVE YOU FALLEN IN THE PAST 12 MONTHS? NO . ANY NEW EXTREMITY NUMBNESS OR WEAKNESS? NO . CARDIOLOGY: DO YOU HAVE A PACEMAKER OR DEFIBRILLATOR? NO . RESPIRATORY: HAVE YOU BEEN SICK IN THE PAST WEEK? NO . FEVER NO . FLU LIKE SYMPTOMS? NO . COUGH NO . INTEGUMENTARY: DO YOU HAVE ANY RASHES OR OPEN SORES? NO . ALLERGIC/IMMUNO: ARE YOU ALLERGIC TO IV DYE? NO . ANY NEW ALLERGIES? NO . PSYCHIATRIC: DO YOU HAVE THOUGHTS OF HURTING YOURSELF OR SOMEONE ELSE? NO . ARE YOU ABUSED, NEGLECTED, OR IN AN UNSAFE ENVIRONMENT? NO . ENDOCRINOLOGY: ARE YOU DIABETIC? NO . OTHER: DO YOU NEED ANY PRESCRIPTIONS? NO . IF YES, PLEASE LIST: ____ . ANY NEW PROBLEMS WITH YOUR MEDICATIONS? NO . WHEN DID YOU LAST EAT? ____ . WHEN DID YOU LAST DRINK? ____ . WHAT DID YOU LAST DRINK? ____ . NAME OF PERSON DRIVING YOU HOME? ____ . DO YOU HAVE ANY OTHER QUESTIONS OR CONCERNS NO . VITAL SIGNS WT 137.6 LBS, HT 59 IN, BMI 27.79 INDEX, BP 119/60 MM HG, HR 85 /MIN, RR 18 /MIN, TEMP 98.0 F, OXYGEN SAT % 97, NA INITIALS MP 1415, REVIEWED BY: BV. EXAMINATION GENERAL EXAMINATION: GENERAL APPEARANCE: AWAKE,ALERT ,PLEAASANT . PSYCH AFFECT NORMAL . LUNGS: LUNG MELGOZA ARE CLEAR TO AUSCULTATION BILATERALLY. GOOD MOVEMENT OF AIR . HEART: S1, S2 IN A REGULAR RATE AND RHYTHM. NO SIGNIFICANT MURMURS, RUBS OR GALLOPS NOTED . LUMBAR SACRAL SPINE PALPATION: + FOR PAIN OVER L/S SPINE. + FOR PAIN OVER L/S PARASPINALS .SPECIFIC POINT TENDERNESS OVER BILAT L4/5-L5/S1 LUMBAR FACETS WITH FACET LOADING. NEUROLOGIC EXAM: NORMAL SENSATION LIGHT TOUCH BILAT. LOWER EXTREMITIES . ASSESSMENTS SPONDYLOSIS OF LUMBAR REGION WITHOUT MYELOPATHY OR RADICULOPATHY - M47.816 (PRIMARY) TREATMENT SPONDYLOSIS OF LUMBAR REGION WITHOUT MYELOPATHY OR RADICULOPATHY NOTES: BILAT. L4/5-L5/S1 THERAPEUTIC LFB. PREVENTIVE MEDICINE PAIN CLINIC TEACHING: PROCEDURE TEACHING PT GIVEN WRITTEN AND VERBAL PRE PROCEDURE INSTRUCTIONS. PT VERBALIZES UNDERSTANDING, STATING SHE HAS HAD THIS PROCEDURE IN THE PAST. ROBERTO SIMS 08/15/2018 2:51:40 PM > . PROCEDURE CODES FA211 ESTABILISHED PATIENT [facility] CHARGE DISPOSITION & COMMUNICATION FOLLOW UP POST (REASON: BILAT. L4/5-L5/S1 THERAPEUTIC LFB) ELECTRONICALLY SIGNED BY DEBORA IYER ON 08/30/2018 AT 08:46 AM EDT DISCLAIMER : THIS IS A VISIT SUMMARY EXTRACTED FROM THE [facility] CHART. IT IS NOT A COPY OF THE [employer] PROGRESS NOTE. TYRA
== END ==
LOC: M PAIN 14:00
PROVIDERS: ATTEND Nurse Practitioner Family
DX: M47.816 Spondylosis without myelopathy or radiculopathy, lumbar region (principal); Z79.891 Long term (current) use of opiate analgesic; Z79.899 Other long term (current) drug therapy; F17.210 Nicotine dependence, cigarettes, uncomplicated; Z88.8 Allergy status to other drugs, medicaments and biological substances; R00.0 Tachycardia, unspecified; L27.0 Generalized skin eruption due to drugs and medicaments taken internally
CPT/HCPCS: G0463 ×2

== ENCOUNTER → 2018-09-27 | Outpatient (CLI) | payer MEDICARE, OTHER ==
[~2018-09-27] MED LIST changes: +BUPIVACAINE HCL 0.25% 30 ML VIAL As Ordered ONE; -DULO1CAP3; +DULO1CAP6; +ISOVUE-M 200 41% 20ML VIAL (Q9966) As Ordered ONE; +LIDOCAINE 1% SDV INJ 30 ML VIAL As Ordered ONE; +TRIAMCINOLONE ACETONIDE SUSP 40 MG/ML VIAL (J3301) As Ordered ONE; +diazePAM 5 MG TAB As Ordered ONE; +oxyCODONE 5MG TAB As Ordered ONE
--- NOTE | 2018-09-27 14:15 | REP ---
Partial lumbar spine series: A four views . History: Injection procedure for pain. 49 seconds of fluoroscopy time is reported. Findings: A sequence of four fluoroscopically obtained last image hold procedural spot radiographs of the lumbar spine document needle position and contrast injection associated with injection procedure. Electronically Signed by Tony Black MD 09/27/2018 02:07 P
--- NOTE | 2018-10-07 23:32 | ECWPNPC ---
PATIENT NAME: EVA CALZADA : 1980 GENDER: FEMALE VISIT DATE: 09/27/2018 DISCHARGE DATE: 09/27/18 1258 VISIT LOCKED DATE TIME: PHYSICIAN: DEMETRIUS HILL MD RESOURCE: DEMETRIUS HILL MD REASON FOR APPOINTMENT 1. BILAT. L4/5-L5/S1 THERAPEUTIC LFB HISTORY OF PRESENT ILLNESS HISTORY OF PRESENT ILLNESS: PAIN THE PATIENT DESCRIBES THE PAIN... FALL RISK SCREENING: SCREENING :NO FALLS REPORTED IN THE LAST YEAR CURRENT MEDICATIONS TAKING NORCO 10-325 MG TABLET 1 TABLET NEEDED FOR PAIN ORALLY EVERY 6 HRS, NOTES: 09/27/18 1900 TAKING PREDNISONE 20 MG TABLET 1 TABLET ORALLY ONCE A DAY( TAPPERING), NOTES: TAPER FINISHED > 3 WEEKS AGO TAKING BENADRYL ALLERGY 25 MG TABLET 1 TABLET NEEDED ORALLY EVERY 8 HRS, NOTES: > 3 WEEKS AGO TAKING LORATADINE 10 MG TABLET 1 TABLET ORALLY ONCE A DAY, NOTES: > 3 WEEKS AGO TAKING TRIAMCINOLONE ACETONIDE 0.025 % CREAM 1 APPLICATION TO AFFECTED AREA EXTERNALLY TWICE A DAY, NOTES: > 4 WEEKS TAKING CYMBALTA 60 MG CAPSULE DELAYED RELEASE PARTICLES 1 CAPSULE ORALLY ONCE A DAY, NOTES: 09/27/18 0800 TAKING [facility] HYDROCORTISONE ANTI-ITCH 0.5 % CREAM 1 APPLICATION TO AFFECTED AREA EXTERNALLY TWICE A DAY TAKING MAY HAVE - - RIGHT SHOE LIFT DX: M41.9 KYPHOSCOLIOSIS DAILY MED#[id number] TAKING KETOCONAZOLE 2 % SHAMPOO DIRECTED EXTERNALLY APPLY IN SHOWER TO SKIN, LATHER, LEAVE ON FOR 5 MINUTES AND RINSE. TAKING CARISOPRODOL 350 MG TABLET 1 TABLET NEEDED ORALLY BEFORE BEDTIME MDD-1, NOTES: 4 WEEKS TAKING MULTIVITAMIN ADULT - TABLET 1 TAB ORALLY DAILY, NOTES: 09/27/18 0800 TAKING ORTHOPEDIC SHOES _ 1 DX M79.671, [facility]# [id number] ONE INCH SHOE LIFT. RT SHOE DAILY TAKING HYDROCODONE-ACETAMINOPHEN 10-325 MG TABLET 1 TABLET ORALLY EVERY 6 HRS NEEDED, NOTES: 09/26/18 TAKING PROBIOTIC - TABLET DELAYED RELEASE DIRECTED ORALLY , NOTES: 09/27/18 0800 TAKING CRANBERRY 405 MG CAPSULE DIRECTED ORALLY , NOTES: 09/27/18 0800 NOT-TAKING [facility] NICOTINE 14 MG/24HR PATCH 24 HOUR 1 PATCH TO SKIN TRANSDERMAL ONCE A DAY NOT-TAKING [facility] NICOTINE 7 MG/24HR PATCH 24 HOUR 1 PATCH TO SKIN TRANSDERMAL ONCE A DAY NOT-TAKING 28-0.8 MG TABLET 1 TAB ORALLY DAILY DISCONTINUED NORCO 10-325 MG TABLET 1 TABLET ORALLY TWICE DAILY NEEDED. MDD 1.5 (AVERAGE), NOTES: DUPLICATE DISCONTINUED CYMBALTA 60 MG CAPSULE DELAYED RELEASE PARTICLES 1 CAPSULE ORALLY ONCE A DAY, NOTES: DUPLICATE MEDICATION LIST REVIEWED AND RECONCILED WITH THE PATIENT PAST MEDICAL HISTORY ABDOMINAL AORTIC ANEURYSM S/P REPAIR IN 2014. SHE FOLLOWS WITH HER VASCULAR SURGEON IN [place] ON A YEARLY BASIS. THERE IS NO IDENTIFIED ETIOLOGY FOR HER AAA, HOWEVER HER SURGEON SUSPECTS A GENETIC DISORDER. GENETIC TESTING IS NOT COVERED BY HER INSURANCE AND WOULD COST HER ABOUT $6000 OUT OF POCKET WHICH IS COST PROHIBITIVE 10 YEAR ASCVD RISK OF 1.0% 07/2014 PATIENT HAD AN "ECTOPIC UTERUS" -- SECOND (R SIDED) UTERUS WITH NO CERVIX, CAUSED ENDOMETRIOSIS WITH RETROGRADE MENSTRUATION PAP 02/2015- NEG ENDOMETRIOSIS PER OP REPORT FROM [facility]: PT HAS "NL UTERUS ATTACHED TO AN OVARY AND A CERVIX ON THE L OF THE MIDLINE WITH A L FALLOPIAN TUBE WITH A LEFT ROUND LIGAMENT. A ROUND LIGAMENT FROM THAT UTERUS LED TO AN ECTOPIC UTERUS IN THE RIGHT LOWER QUADRANT ON THE PELVIC SIDEWALL WHICH WAS NOT ATTACHED TO A CERVIX WHICH ALSO HAD AN OVARY AND A FALLOPIAN TUBE." MRI OF L/S 12/2011 WITH COMPLEX CONGENITAL ANOMALIES, SCOLIOSIS, TETHERED CORD, VERTEBRAL FUSION, DISC NARROWING, SPINAL STENOSIS, DIAGNOSED WITH LUMBAR SCOLIOSIS AN . NEVER HAD SURGERY FOR HER SPINE, NO BRACING. WEARS A SHOE LIFT ON THE RIGHT, 1 INCH. NO PROBLEMS WITH HYPERMOBILE JOINTS. NO OPTIC LENS DISPLACEMENT. ALLERGIES ITRACONAZOLE: RASH - ALLERGY SURGICAL HISTORY ABDOMINAL AORTIC REPAIR 09/2014 ABDOMINAL HERNIA REPAIR 09/2014 R SIDED HYSTERECTOMY (BUT NOT OOPHORECTOMY) OF "ECTOPIC UTERUS" THAT HAD NO CERVIX 12/2005 C SECTION X2 APPENDECTOMY EXTRA OCULAR MUSCLE SURGERY CHILDHOOD FAMILY HISTORY FATHER: ALIVE 60 YRS MOTHER: , DIAGNOSED WITH DIABETES SIBLINGS: ALIVE, DIABETES SON(S): ALIVE DAUGHTER(S): ALIVE 1 BROTHER(S) - HEALTHY. 2 SON(S) , 1 DAUGHTER(S) . NO FAMILY HISTORY OF GENETIC DISORDERS, AND NOBODY ELSE HAS AAA OR SPINAL DEFORMITIES. SOCIAL HISTORY GENERAL: TOBACCO USE ARE YOU A:CURRENT SMOKER ARE YOU INTERESTED IN QUITTING?THINKING ABOUT QUITTING PREVIOUS QUIT ATTEMPTS?YES, MORE THAN 6 MONTHS AGO. CUTTING DOWN COUNSELED THE PATIENT ON SMOKING CESSATION, EDUCATION [id number]/05/2019 HOW MANY CIGARETTES A DAY DO YOU SMOKE?6-10 HOW SOON AFTER YOU WAKE UP DO YOU SMOKE YOUR FIRST CIGARETTE?31-60 MIN HOW OFTEN DO YOU SMOKE CIGARETTES?EVERY DAY PATIENT COUNSELED ON THE DANGERS OF TOBACCO USE AND URGED TO QUIT:09/27/2018 SMOKING CESSATION INFORMATION GIVEN08/15/2018 HIV / HEP-C SCREENING HIV TEST OFFERED TO PATIENT:YES DATE OFFERED:08/30/2017 TEST ACCEPTED:NO HEP-C TEST OFFERED TO PATIENT:YES DATE OFFERED:08/30/2017 REASON:PATIENT DECLINED TEST ACCEPTED:NO REASON:PATIENT DECLINED BROCHURE PROVIDED TO PATIENTYES OTHERS AT HOME: LIVES WITH AND 2 BOYS & 1 DAUGHTER. EDUCATION LEVEL OF EDUCATION:FINISHED HIGH SCHOOL DIET: REGULAR. LANGUAGE LANGUAGES SPOKEN:MALAWIAN NEW PATIENT PAIN DIARY TODAY'S VISIT NOTES, FROM 0-10, WHAT LEVEL IS YOUR PAIN TODAY? 0. RECREATIONAL DRUG USE DRUG USE?NO EXERCISE: NO REGULAR EXERCISE. LEARNING BARRIERS / SPECIAL NEEDS CHANGE FROM LAST VISIT?NO BARRIERS TO LEARNING?NO HEARING IMPAIRED?NO VISION IMPAIRED?YES COGNITIVELY IMPAIRED?NO :CORRECTIVE LENSES READINESS TO LEARN?YES LEARNING PREFERENCES?NO LEARNING CAPABILITIES PRESENT?YES EMOTIONAL BARRIERS?NO SPECIAL DEVICES?NO RADIO COMMENTATOR NEEDED?NO PAIN CLINIC PFS, CLERGY, PUBLIC HEALTH REFERRALS WAS THE PROVIDER NOTIFIED OF ANY PERTINENT INFO?YES HAS THE PATIENT BEEN EDUCATED REGARDING HIS/HER PLAN OF CARE?YES HAS THE PATIENT BEEN EDUCATED REGARDING PAIN, THE RISK FOR PAIN, THE IMPORTANCE OF EFFECTIVE PAIN MANAGEMENT, AND THE PAIN ASSESSMENT PROCESS?YES LATEX QUESTIONNAIRE LATEX ALLERGY : HAVE YOU EVER DEVELOPED ANY TYPE OF REACTION AFTER HANDLING LATEX PRODUCTS SUCH RUBBER GLOVES, CONDOMS, DIAPHRAGMS, BALLOONS, SOCKS, OR UNDERWEAR?NO LATEX ALLERGY : HAVE YOU EVER DEVELOPED ANY TYPE OF REACTION DURING OR AFTER DENTAL APPOINTMENT, VAGINAL/RECTAL EXAMINATION, SURGICAL PROCEDURE, OR ANY OTHER EXPOSURE?NO DATE ASKED : 07/19/2018 LATEX RISK : HAVE YOU EVER HAD ANY DIFFICULTY BREATHING OR HIVES AFTER EATING OR HANDLING ANY FRUITS, OR VEGETABLES; SUCH KIWI, BANANAS, STONE FRUITS, OR CHESTNUTSNO LATEX RISK : DO YOU HAVE A PREVIOUS PERSONAL HISTORY OF MORE THAN NINE SURGERIES, SPINA BIFIDA, OR REPEATED CATHERIZATIONS? NO LATEX RISK : ARE YOU FREQUENTLY EXPOSED TO LATEX PRODUCTS IN YOUR OCCUPATION?NO CAFFEINE CAFFEINE USE?YES COFFEE,SODA ADVANCE DIRECTIVE ADVANCE DIRECTIVE DISCUSSED WITH PATIENT:YES DECLINED INFO AND ASSIATANCE WITH FORM AT THIS TIME. 09/27/18 EPISCOPAL [id number] BUDDHIST MARITAL STATUS: . ALCOHOL SCREENING DID YOU HAVE A DRINK CONTAINING ALCOHOL IN THE PAST YEAR?NO POINTS0 INTERPRETATIONNEGATIVE OCCUPATION: UNEMPLOYED. SEXUAL HX HAD SEX IN THE LAST 12 MONTHS (VAGINAL, ORAL, OR ANAL)?YES WITHWOMEN ONLY USE PROTECTION?YES HOW OFTEN?ALL OF THE TIME REVIEWED WITH PT 08/15/18 1424 BVREVIEWED WITH PT 09/27/18 1128 LAS. HOSPITALIZATION/MAJOR DIAGNOSTIC PROCEDURE FOR ABOVE SURGERIES REVIEW OF SYSTEMS REVIEWED BY: PROVIDER: . CONSTITUTIONAL: ANY CHANGE IN YOUR MEDICAL CONDITION? NO . CHILLS NO . FEVER NO . INFECTION: DO YOU HAVE NEW INFECTIONS? NO . DO YOU HAVE HISTORY OF MRSA? NO . MUSCULOSKELETAL: ANY NEW PATTERNS OF PAIN OR NUMBNESS? NO . GASTROENTEROLOGY: ANY NEW CHANGE IN BOWEL CONTROL? NO . GENITOURINARY: ANY NEW CHANGE IN BLADDER CONTROL? NO . IS THERE A CHANCE YOU COULD BE ? NO . HEMATOLOGY/LYMPH: DO YOU TAKE ANY BLOOD THINNERS? (FOR EXAMPLE- COUMADIN, PLAVIX, AGGRENOX, PLATEL, PRADAXA, OR XARELTO) NO . WHEN WAS YOUR LAST DOSE? DATE: TIME: . NEUROLOGY: HAVE YOU FALLEN IN THE PAST 12 MONTHS? NO . ANY NEW EXTREMITY NUMBNESS OR WEAKNESS? NO . CARDIOLOGY: DO YOU HAVE A PACEMAKER OR DEFIBRILLATOR? NO . RESPIRATORY: HAVE YOU BEEN SICK IN THE PAST WEEK? NO . FEVER NO . FLU LIKE SYMPTOMS? NO . COUGH NO . INTEGUMENTARY: DO YOU HAVE ANY RASHES OR OPEN SORES? NO . ALLERGIC/IMMUNO: ARE YOU ALLERGIC TO IV DYE? NO . ANY NEW ALLERGIES? NO . PSYCHIATRIC: DO YOU HAVE THOUGHTS OF HURTING YOURSELF OR SOMEONE ELSE? NO . ARE YOU ABUSED, NEGLECTED, OR IN AN UNSAFE ENVIRONMENT? NO . ENDOCRINOLOGY: ARE YOU DIABETIC? NO . OTHER: DO YOU NEED ANY PRESCRIPTIONS? NO . IF YES, PLEASE LIST: ____ . ANY NEW PROBLEMS WITH YOUR MEDICATIONS? NO . WHEN DID YOU LAST EAT? ____09/26/18 2100 . WHEN DID YOU LAST DRINK? ____[phone] . WHAT DID YOU LAST DRINK? ____WATER . NAME OF PERSON DRIVING YOU HOME? ____GONZALES SNOWDEN . DO YOU HAVE ANY OTHER QUESTIONS OR CONCERNS NO . VITAL SIGNS WT 137.6 LBS, HT 59 IN, BMI 27.79 INDEX, BP 115/64 MM HG, HR 80 /MIN, RR 18 /MIN, TEMP 97.3 F, OXYGEN SAT % 99%, SAFE IN ENV? (Y/N) YES, NA INITIALS AW 1109, REVIEWED BY: CEDRIC. ASSESSMENTS SPONDYLOSIS WITHOUT MYELOPATHY OR RADICULOPATHY, LUMBAR REGION - M47.816 (PRIMARY) SPONDYLOSIS OF LUMBOSACRAL REGION WITHOUT MYELOPATHY OR RADICULOPATHY - M47.817 TREATMENT SPONDYLOSIS WITHOUT MYELOPATHY OR RADICULOPATHY, LUMBAR REGION SMC FACET BLOCK (PAIN)[id number] PROCEDURES PN LUMBAR FACET BLOCK THERAPEUTIC PRE PROCEDURE DIAGNOSIS LUMBAR SPONDYLOSIS, LUMBOSACRAL SPONDYLOSIS POST PROCEDURE DIAGNOSIS LUMBAR SPONDYLOSIS, LUMBOSACRAL SPONDYLOSIS PROCEDURE BILATERAL L4-L5 AND BILATERAL L5-S1 LUMBAR FACET THERAPEUTIC BLOCK SURGEON DR. DEMETRIUS HILL MARINE PAINTER NONE ANESTHESIA LOCAL PRE PROCEDURE NOTE THE PATIENT HAS A HISTORY OF CHRONIC LOW BACK PAIN. I EVALUATE THE PATIENT AND REVIEWED THE CHART. I WENT OVER THE RISKS, ALTERNATIVES, AND BENEFITS ASSOCIATED WITH THIS PROCEDURE. THE PATIENT WOULD LIKE TO PROCEED AND GIVE CONSENT TO PERFORMED THE PROCEDURE. THE PATIENT DENIES UNEXPLAINABLE WEIGHT LOSS, FEVER, CHILLS, OR NEW CHANGES IN URINARY OR BOWEL CONTROL DESCRIPTION OF PROCEDURE THE PATIENT WAS BROUGHT TO THE PROCEDURE ROOM AND PLACED IN THE PRONE POSITION. THE LUMBOSACRAL AREA WAS CLEANED WITH CHLORAPREP SOLUTION AND DRAPED ASEPTICALLY. THE PROCEDURE WAS DONE UNDER STERILE CONDITIONS. I CHECKED LATERALITY AND THE LEVEL WHERE THE PROCEDURE WAS GOING TO BE PERFORMED WITH THE PATIENT AND THE SUPPORTING STAFF AT THE MOMENT OF THE TIME OUT IN THE PROCEDURE ROOM. UNDER FLUOROSCOPIC GUIDANCE, THE TARGET POINT WAS SELECTED AT THE RIGHT AND LEFT L4-L5 AND RIGHT AND LEFT L5-S1 FACET JOINT. TARGET POINT WAS SELECTED AFTER LATERAL ROTATION AND TILT OF THE MAGNIFIER OF THE C-ARM. LIDOCAINE 0.5% WAS USED TO NUMB THE SKIN AND THE SUBCUTANEOUS TISSUE BELOW IT. SPINAL NEEDLES, 22-GAUGE, WERE ADVANCED UNDER FLUOROSCOPIC GUIDANCE AND FOLLOWING PATIENT FEEDBACK UNTIL THE TARGETS WERE TOUCHED. THE POSITION OF THE NEEDLES WAS VERIFIED WITH AP AND LATERAL VIEWS. AFTER PROPER POSITION OF THE NEEDLES WAS ACHIEVED, ISOVUE M-200 DYE WAS INJECTED SHOWING ADEQUATE SPREAD OF THE DYE. THEN A SOLUTION OF 1.9 ML OF BUPIVACAINE 0.125% OF KENALOG 10 MG WAS INJECTED AT EACH SITE. THERE WAS NO EVIDENCE OF BLOOD, PARESTHESIA OR CEREBROSPINAL FLUID DURING THE PROCEDURE. THE PATIENT WAS SENT TO THE RECOVERY ROOM. THE PATIENT WAS MOVING THE EXTREMITIES AND DOING WELL. THERE WAS NO COMPLICATION DURING THE PROCEDURE. FLUOROSCOPY TIME WAS 49 SECONDS POST PROCEDURE NOTE THE PATIENT WILL BE SEEN IN A FOLLOW UP IN THE NEXT FEW WEEKS. INSTRUCTIONS WERE GIVEN, QUESTIONS WERE ANSWERED, AND THE PATIENT EXPRESSED UNDERSTANDING AND AGREES WITH THE PLAN. I, OPAL PARSON, DOCUMENTED THE ABOVE INFORMATION ACTING A SCRIBE FOR DR. HILL. I HAVE REVIEWED THE ABOVE DOCUMENT, WRITTEN BY OPAL PARSON SCRIBYvette AND I VERIFY THAT IT IS ACCURATE. PROCEDURE CODES 6045F RADXPS IN END [id number] PXD [id number] INJ PARAVERT F JNT L/S 1 LEV, MODIFIERS: 50 [id number] INJ PARAVERT F JNT L/S 2 LEV, MODIFIERS: 50 DISPOSITION & COMMUNICATION FOLLOW UP 3 WEEKS ELECTRONICALLY SIGNED BY DEMETRIUS HILL MD, MD ON 10/07/2018 AT 01:22 PM EDT DISCLAIMER : THIS IS A VISIT SUMMARY EXTRACTED FROM THE [facility] CHART. IT IS NOT A COPY OF THE [facility] PROGRESS NOTE. MTDD
== END ==
LOC: M PAIN 11:00
PROVIDERS: ATTEND Anesthesiology
DX: M47.816 Spondylosis without myelopathy or radiculopathy, lumbar region (principal); M47.817 Spondylosis without myelopathy or radiculopathy, lumbosacral region; F17.210 Nicotine dependence, cigarettes, uncomplicated; Z88.8 Allergy status to other drugs, medicaments and biological substances; Z79.891 Long term (current) use of opiate analgesic; Z79.899 Other long term (current) drug therapy
CPT/HCPCS: 64493; 64494; G0463; J3301; Q9966

== ENCOUNTER 2018-10-24 14:29 | Emergency (ER) | payer MEDICARE, OTHER ==
[~2018-10-24] VITALS: Ht 149.9 cm; Wt 59.1 kg
[~2018-10-24 14:29] MED LIST changes: -BUPIVACAINE HCL 0.25% 30 ML VIAL As Ordered ONE; -ISOVUE-M 200 41% 20ML VIAL (Q9966) As Ordered ONE; -LIDOCAINE 1% SDV INJ 30 ML VIAL As Ordered ONE; -TRIAMCINOLONE ACETONIDE SUSP 40 MG/ML VIAL (J3301) As Ordered ONE; -diazePAM 5 MG TAB As Ordered ONE; -oxyCODONE 5MG TAB As Ordered ONE
[2018-10-24] MEDS ORDERED: NS 1,000 ML IV SCH (15:29)
[2018-10-24] MEDS ORDERED: METOCLOPRAMIDE INJ 10MG/2ML VIAL (J2765) IV ONE (15:30)
--- NOTE | 2018-10-24 15:52 | REP ---
CT head without contrast Indication: Fall with loss of consciousness. Additional history of patient fall down steps. Comparison: None Technique: Axial CT of the head without contrast was performed. Findings: There is no visible soft tissue swelling or calvarial fracture. There is acute subdural hematoma along the right frontal convexity measuring up to 5 mm. There is no evidence of acute subarachnoid hemorrhage interdigitating within the sulci of the right frontal parietal lobes and within the quadrigeminal plate cistern. Additionally, layering hyperdensity along the tectum and falx posteriorly represent additional thin layer hematoma. There is no significant mass effect. There is no midline shift. The basal cisterns remain patent. The ventricles are prominent for patient's age. No hydrocephalous. On the orbits are intact. The visualized paranasal sinuses and mastoid air cells are clear. Impression: 1. The acute subdural hematoma on the right frontal convexity measuring up to 5 mm in thickness. no midline shift or significant mass effect. 2. Evidence of subarachnoid hemorrhage interdigitating between the sulci of the right frontal parietal lobes and within the quadrigeminal plate cistern. The layer of hematoma also seen along the falx posteriorly and along the tectum. No calvarial fracture identified. Findings of subarachnoid and subdural hematoma reported to Dr. Adam Douglas in the ED at 03:29 p.m. on 10/24/2018. Electronically Signed by Joel Mohamud MD 10/24/2018 03:43 P
[2018-10-24 16:03] LABS: BASO # 0.1 10^3/uL (0.0-0.2); BASO % 0.7 % (0.0-1.0); EOS # 0.2 10^3/uL (0.0-0.50); HEMATOCRIT 41.9 % (36.0-47.0); HEMOGLOBIN 13.4 g/dl (12.0-15.5); LYMPH # 1.9 10^3/uL (1.5-4.5); LYMPH % 18.6 % (24.0-44.0); MEAN CORPUSCULAR HEMOGLOBIN 29.5 pg (27.0-33.0); MEAN CORPUSCULAR VOLUME 92.3 fl (80.0-96.0); MONO # 0.6 10^3/uL (0.0-0.8); MONO % 6.2 % (0.0-5.0); NEUTROPHILS # 7.2 10^3/uL (1.8-7.7); PLATELET COUNT, AUTOMATED 195 10^3/uL (150-450); RED BLOOD COUNT 4.54 10^6/uL (4.00-5.40); WHITE BLOOD COUNT 9.9 10^3/uL (4.0-10.0)
--- NOTE | 2018-10-24 16:19 | REP ---
CT of the cervical spine without contrast Clinical indication: Fall, loss of consciousness. Comparison: None Technique: Axial CT of the cervical spine was performed without contrast. Axial, coronal and sagittal bone reformatted images were performed. Findings: The craniocervical junction is intact. There is bony fusion of C2-C3, likely congenital. There are marginal spurring at C3-C4 and C6-C7. There is minimal compression of the superior endplates of C7 and T1 anteriorly which is age indeterminate. There is a well corticated bony osteophyte anterior to the C6-C7 interspace which is chronic finding. There is probable disc bulge at C3-C4. The paraspinal soft tissues are within normal limits. There is no apical pneumothorax. Impression: 1. C2-C3 bony fusion with cervical spondylosis at C3-C4 and C6-C7. 2. Minimal anterior compression deformities along the superior endplates of C7 and T1, age-indeterminate. Reported to Dr. Douglas in the ED at 03:58 p.m. on 10/24/2018. Electronically Signed by Joel Mohamud MD 10/24/2018 04:11 P
[2018-10-24 16:20] LABS: INR 1.01
[2018-10-24 16:31] VITALS: BP 122/74
[2018-10-24 16:35] LABS: ACETAMINOPHEN LEVEL < 2.0 UG/ML (10.0-30.0); ALBUMIN 3.6 GM/DL (3.2-5.2); ALT/SGPT 20 U/L (12-78); BILIRUBIN,DIRECT 0.2 MG/DL (0.0-0.2); BILIRUBIN,TOTAL 0.5 MG/DL (0.2-1.0); BLOOD UREA NITROGEN 11 MG/DL (7-18); CALCIUM LEVEL 8.3 MG/DL (8.5-10.1); CARBON DIOXIDE LEVEL 27 MEQ/L (21-32); CHLORIDE LEVEL 105 MEQ/L (98-107); CK-MB VALUE MASS < 1.0 NG/ML (<3.6); CPK CREATINE PHOSPHOKINASE 117 U/L (26-192); CREATININE FOR GFR 0.76 MG/DL (0.55-1.30); ETHYL ALCOHOL (ETHANOL) < 0.003 % (0.000-0.010); GLOMERULAR FILTRATION RATE > 60.0 (>60); GLUCOSE, FASTING 102 MG/DL (70-100); MB/CK RELATIVE INDEX 0.85 (< OR =4); POTASSIUM SERUM 3.9 MEQ/L (3.5-5.1); SODIUM LEVEL 140 MEQ/L (136-145); TOTAL PROTEIN 6.6 GM/DL (6.4-8.2); TROPONIN I < 0.02 NG/ML (< 0.10)
--- NOTE | 2018-10-24 16:50 | REP ---
Portable chest x-ray: Single supine AP view. History: Altered mental status. Comparison study: August 17, 2011. Findings: EKG monitoring electrodes overlie the chest. There is a dextroconvex lower thoracic scoliotic curve. The lungs are well inflated and clear. Pleural angles are sharp. Heart size is normal. Today's views exposed at a somewhat lesser level of inspiration. There are fairly large bilateral cervical ribs noted. Changed. Impression: No active cardiopulmonary disease. Bilateral cervical ribs. No acute abnormality. Electronically Signed by Tony Black MD 10/24/2018 04:41 P
--- NOTE | 2018-10-24 18:06 | ECGEPIP ---
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
== END 2018-10-24 16:38 | disposition short-term general hospital (02) ==
LOC: EDBD 14:29 → M ED 14:29
DX: S06.5X0A Traumatic subdural hemorrhage without loss of consciousness, initial encounter (principal); S06.6X0A Traumatic subarachnoid hemorrhage without loss of consciousness, initial encounter; W10.8XXA Fall (on) (from) other stairs and steps, initial encounter; Y92.89 Other specified places as the place of occurrence of the external cause; R11.0 Nausea; K21.9 Gastro-esophageal reflux disease without esophagitis; R56.9 Unspecified convulsions
CPT/HCPCS: 70450; 71045; 72125; 80048; 80076; 82550; 82553; 84443; 84484; 85025; 85610; 86850; 86900; 86901; 93005; 93041; 94760; 96374; 99285; G0480; J2765

== ENCOUNTER → 2018-11-03 | Outpatient (CLI) | payer MEDICARE, OTHER ==
--- NOTE | 2018-11-03 09:39 | REPVR ---
EXAM: CT Head Without Contrast EXAM DATE/TIME: 11/03/2018 8:33 AM CLINICAL HISTORY: 38 years old, female; Pain; Other: Follow up; Additional info: Subdubdural hemmorage TECHNIQUE: Imaging protocol: Computed tomography images of the head without contrast. Radiation optimization: All CT scans at this facility use at least one of these dose optimization techniques: automated exposure control; mA and/or kV adjustment per patient size (includes targeted exams where dose is matched to clinical indication); or iterative reconstruction. COMPARISON: CT Head without contrast 10/24/2018 2:50 PM FINDINGS: Brain: There is an evolving subdural hematoma along the left frontal convexity which has decreased in size and extent and decreasing in attenuation, now iso-to slightly hyperdense and is best seen on series 201, images 23-26. Posterior parafalcine component has also decreased/resolved. Previously described subarachnoid hemorrhage has resolved. No new hemorrhage. No significant mass effect. Preservation of the stoll-white matter differentiation. Ventricles: Unremarkable. No ventriculomegaly. Bones/joints: Unremarkable. No acute fracture. Sinuses: Visualized sinuses are unremarkable. No fluid levels. Mastoid air cells: Visualized mastoid air cells are well aerated. No mastoid effusion. Soft tissues: Unremarkable. IMPRESSION: Evolving subdural hematoma along the left frontal convexity which has decreased in size and extent. Subarachnoid hemorrhage has resolved. No new hemorrhage. No significant mass effect. Electronically signed by: Eyal Lawrence On 11/03/2018 09:38:33 AM
== END ==
LOC: M RAD 08:12
PROVIDERS: ATTEND Neurological Surgery
DX: I62.00 Nontraumatic subdural hemorrhage, unspecified (principal)

== ENCOUNTER → 2018-11-08 | Outpatient (CLI) | payer MEDICARE, OTHER | LOC: M PAIN 13:45 | PROVIDERS: ATTEND Nurse Practitioner Family | DX: M47.816 Spondylosis without myelopathy or radiculopathy, lumbar region (principal); F17.210 Nicotine dependence, cigarettes, uncomplicated; Z88.1 Allergy status to other antibiotic agents; Z79.899 Other long term (current) drug therapy ==

== ENCOUNTER → 2018-12-25 | Outpatient (CLI) | payer MEDICARE, OTHER ==
[2018-12-25 16:14] LABS: BLOOD UREA NITROGEN 10 MG/DL (7-18); CREATININE FOR GFR 0.71 MG/DL (0.55-1.30); GLOMERULAR FILTRATION RATE > 60.0 (>60); RHEUMATOID FACTOR QUANT < 10.0 IU/ML (<15.0)
[2018-12-25 16:20] LABS: FOLATE > 24.0 NG/ML; VITAMIN B12 LEVEL 466 PG/ML
== END ==
LOC: M SMT 11:37
PROVIDERS: ATTEND Psychiatry & Neurology Neurology
DX: E53.8 Deficiency of other specified B group vitamins (principal); E51.9 Thiamine deficiency, unspecified; E83.01 Wilson's disease; Z71.89 Other specified counseling

== ENCOUNTER → 2018-12-25 | Outpatient (CLI) | payer MEDICARE, OTHER ==
[2018-12-25 16:14] LABS: CHOLESTEROL RISK RATIO 3.78 (<5)
== END ==
LOC: M SMT 11:43
PROVIDERS: ATTEND Hospitalist
DX: Z71.89 Other specified counseling (principal)

== ENCOUNTER → 2019-01-28 | Outpatient (REF) | payer MEDICARE, OTHER ==
[2019-01-28 12:15] LABS: HEMATOCRIT 41.3 % (36.0-47.0); HEMOGLOBIN 13.4 g/dl (12.0-15.5); MEAN CORPUSCULAR HEMOGLOBIN 30.2 pg (27.0-33.0); MEAN CORPUSCULAR HGB CONC 32.4 g/dl (32.0-36.5); MEAN CORPUSCULAR VOLUME 93.2 fl (80.0-96.0); PLATELET COUNT, AUTOMATED 222 10^3/uL (150-450); RED BLOOD COUNT 4.43 10^6/uL (4.00-5.40); WHITE BLOOD COUNT 5.9 10^3/uL (4.0-10.0)
[2019-01-28 12:23] LABS: ALBUMIN 3.7 GM/DL (3.2-5.2); ALT/SGPT 21 U/L (12-78); BILIRUBIN,TOTAL 0.6 MG/DL (0.2-1.0); BLOOD UREA NITROGEN 12 MG/DL (7-18); CALCIUM LEVEL 8.8 MG/DL (8.5-10.1); CARBON DIOXIDE LEVEL 26 MEQ/L (21-32); CHLORIDE LEVEL 110 MEQ/L (98-107); CREATININE FOR GFR 0.79 MG/DL (0.55-1.30); GLOMERULAR FILTRATION RATE > 60.0 (>60); GLUCOSE, FASTING 75 MG/DL (70-100); POTASSIUM SERUM 4.4 MEQ/L (3.5-5.1); SODIUM LEVEL 141 MEQ/L (136-145); TOTAL PROTEIN 6.8 GM/DL (6.4-8.2)
[2019-01-28 12:37] LABS: RUBELLA IgG QUALITATIVE IMMUNE (IMMUNE)
== END ==
LOC: M LABNEURO 09:39
PROVIDERS: ATTEND Hospitalist
DX: Z02.1 Encounter for pre-employment examination (principal); Z79.899 Other long term (current) drug therapy

== ENCOUNTER → 2019-02-04 | Outpatient (CLI) | payer MEDICARE, OTHER ==
--- NOTE | 2019-02-06 04:37 | ECWPNPC ---
PATIENT NAME: EVA CALZADA : 1980 GENDER: FEMALE VISIT DATE: 02/04/2019 DISCHARGE DATE: 02/04/19 0955 VISIT LOCKED DATE TIME: PHYSICIAN: CUONG MARLOW RESOURCE: CUONG MARLOW REASON FOR APPOINTMENT 1. BACK HISTORY OF PRESENT ILLNESS HISTORY OF PRESENT ILLNESS: PAIN THE PATIENT DESCRIBES THE PAIN... 38-YEAR-OLD FEMALE IN FOR CHRONIC PAIN FOLLOW-UP. SHE CURRENTLY RATES HER PAIN AT A 7 OUT OF 10 AND DESCRIBES IT ACHING, SHARP, AND SHOOTING. SHE WOULD LIKE TO DISCUSS A REPEAT LUMBAR FACET BLOCK SHE'S HAD THESE IN THE PAST AND THEY WORK WELL FOR HER. FALL RISK SCREENING: SCREENING :NO FALLS REPORTED IN THE LAST YEAR CURRENT MEDICATIONS TAKING CYMBALTA 60 MG CAPSULE DELAYED RELEASE PARTICLES 1 CAPSULE ORALLY ONCE A DAY TAKING [facility] HYDROCORTISONE ANTI-ITCH 0.5 % CREAM 1 APPLICATION TO AFFECTED AREA EXTERNALLY TWICE A DAY TAKING MAY HAVE - - RIGHT SHOE LIFT DX: M41.9 KYPHOSCOLIOSIS DAILY MED#[id number] TAKING KETOCONAZOLE 2 % SHAMPOO DIRECTED EXTERNALLY APPLY IN SHOWER TO SKIN, LATHER, LEAVE ON FOR 5 MINUTES AND RINSE. TAKING CARISOPRODOL 350 MG TABLET 1 TABLET NEEDED ORALLY BEFORE BEDTIME MDD-1 TAKING MULTIVITAMIN ADULT - TABLET 1 TAB ORALLY DAILY TAKING ORTHOPEDIC SHOES _ 1 DX M79.671, [facility]# [id number] ONE INCH SHOE LIFT. RT SHOE DAILY TAKING CRANBERRY 405 MG CAPSULE DIRECTED ORALLY TAKING ACETAMINOPHEN 325 MG TABLET 1 TABLET NEEDED ORALLY EVERY 4 HRS TAKING PROBIOTIC - TABLET DELAYED RELEASE DIRECTED ORALLY TAKING TERBINAFINE- ORAL-12 WEEKS 250 MG TABLETS ONE TABLET ORALLY DAILY TAKING HYDROCODONE-ACETAMINOPHEN 10-325 MG TABLET 1 TABLET ORALLY EVERY 6 HRS NEEDED NOT-TAKING CYMBALTA 30 MG CAPSULE DELAYED RELEASE PARTICLES 1 CAPSULE ORALLY ONCE A DAY NOT-TAKING AUGMENTIN 875-125 MG TABLET 1 TABLET ORALLY EVERY 12 HRS NOT-TAKING AMOXICILLIN-POT CLAVULANATE 875-125 MG TABLET 1 TABLET ORALLY EVERY 12 HRS MEDICATION LIST REVIEWED AND RECONCILED WITH THE PATIENT PAST MEDICAL HISTORY ABDOMINAL AORTIC ANEURYSM S/P REPAIR IN 2014. SHE FOLLOWS WITH HER VASCULAR SURGEON IN [place] ON A YEARLY BASIS. THERE IS NO IDENTIFIED ETIOLOGY FOR HER AAA, HOWEVER HER SURGEON SUSPECTS A GENETIC DISORDER. GENETIC TESTING IS NOT COVERED BY HER INSURANCE AND WOULD COST HER ABOUT $6000 OUT OF POCKET WHICH IS COST PROHIBITIVE 10 YEAR ASCVD RISK OF 1.0% 07/2014 PATIENT HAD AN "ECTOPIC UTERUS" -- SECOND (R SIDED) UTERUS WITH NO CERVIX, CAUSED ENDOMETRIOSIS WITH RETROGRADE MENSTRUATION PAP 02/2015- NEG ENDOMETRIOSIS PER OP REPORT FROM [facility]: PT HAS "NL UTERUS ATTACHED TO AN OVARY AND A CERVIX ON THE L OF THE MIDLINE WITH A L FALLOPIAN TUBE WITH A LEFT ROUND LIGAMENT. A ROUND LIGAMENT FROM THAT UTERUS LED TO AN ECTOPIC UTERUS IN THE RIGHT LOWER QUADRANT ON THE PELVIC SIDEWALL WHICH WAS NOT ATTACHED TO A CERVIX WHICH ALSO HAD AN OVARY AND A FALLOPIAN TUBE." MRI OF L/S 12/2011 WITH COMPLEX CONGENITAL ANOMALIES, SCOLIOSIS, TETHERED CORD, VERTEBRAL FUSION, DISC NARROWING, SPINAL STENOSIS, DIAGNOSED WITH LUMBAR SCOLIOSIS AN . NEVER HAD SURGERY FOR HER SPINE, NO BRACING. WEARS A SHOE LIFT ON THE RIGHT, 1 INCH. NO PROBLEMS WITH HYPERMOBILE JOINTS. NO OPTIC LENS DISPLACEMENT. SUBDURAL HEMATOMA S/P FALL 10/2018 ALLERGIES ITRACONAZOLE: RASH - ALLERGY SURGICAL HISTORY ABDOMINAL AORTIC REPAIR 09/2014 ABDOMINAL HERNIA REPAIR 09/2014 R SIDED HYSTERECTOMY (BUT NOT OOPHORECTOMY) OF "ECTOPIC UTERUS" THAT HAD NO CERVIX 12/2005 C SECTION X2 APPENDECTOMY EXTRA OCULAR MUSCLE SURGERY CHILDHOOD FAMILY HISTORY FATHER: ALIVE 60 YRS MOTHER: , DIAGNOSED WITH DIABETES SIBLINGS: ALIVE, DIABETES SON(S): ALIVE DAUGHTER(S): ALIVE 1 BROTHER(S) - HEALTHY. 2 SON(S) , 1 DAUGHTER(S) . NO FAMILY HISTORY OF GENETIC DISORDERS, AND NOBODY ELSE HAS AAA OR SPINAL DEFORMITIES. SOCIAL HISTORY GENERAL: TOBACCO USE ARE YOU A:CURRENT SMOKER ARE YOU INTERESTED IN QUITTING?THINKING ABOUT QUITTING PREVIOUS QUIT ATTEMPTS?YES, MORE THAN 6 MONTHS AGO. CUTTING DOWN COUNSELED THE PATIENT ON SMOKING CESSATION, EDUCATION [id number]/25/2019 HOW MANY CIGARETTES A DAY DO YOU SMOKE?6-10 HOW SOON AFTER YOU WAKE UP DO YOU SMOKE YOUR FIRST CIGARETTE?31-60 MIN HOW OFTEN DO YOU SMOKE CIGARETTES?EVERY DAY PATIENT COUNSELED ON THE DANGERS OF TOBACCO USE AND URGED TO QUIT:02/04/2019 SMOKING CESSATION INFORMATION GIVEN01/03/2019 HIV / HEP-C SCREENING HIV TEST OFFERED TO PATIENT:YES DATE OFFERED:08/30/2017 TEST ACCEPTED:NO HEP-C TEST OFFERED TO PATIENT:YES DATE OFFERED:08/30/2017 REASON:PATIENT DECLINED TEST ACCEPTED:NO REASON:PATIENT DECLINED BROCHURE PROVIDED TO PATIENTYES OTHERS AT HOME: LIVES WITH AND 2 BOYS & 1 DAUGHTER. EDUCATION LEVEL OF EDUCATION:FINISHED HIGH SCHOOL DIET: REGULAR. LANGUAGE LANGUAGES SPOKEN:WELSH NEW PATIENT PAIN DIARY TODAY'S VISIT NOTES, FROM 0-10, WHAT LEVEL IS YOUR PAIN TODAY? 0. RECREATIONAL DRUG USE DRUG USE?NO EXERCISE: NO REGULAR EXERCISE. LEARNING BARRIERS / SPECIAL NEEDS CHANGE FROM LAST VISIT?NO BARRIERS TO LEARNING?NO HEARING IMPAIRED?NO VISION IMPAIRED?YES COGNITIVELY IMPAIRED?NO :CORRECTIVE LENSES READINESS TO LEARN?YES LEARNING PREFERENCES?NO LEARNING CAPABILITIES PRESENT?YES EMOTIONAL BARRIERS?NO SPECIAL DEVICES?NO AUTOMOTIVE SPECIALTY TECHNICIAN NEEDED?NO PAIN CLINIC PFS, CLERGY, PUBLIC HEALTH REFERRALS WAS THE PROVIDER NOTIFIED OF ANY PERTINENT INFO?YES HAS THE PATIENT BEEN EDUCATED REGARDING HIS/HER PLAN OF CARE?YES HAS THE PATIENT BEEN EDUCATED REGARDING PAIN, THE RISK FOR PAIN, THE IMPORTANCE OF EFFECTIVE PAIN MANAGEMENT, AND THE PAIN ASSESSMENT PROCESS?YES LATEX QUESTIONNAIRE LATEX ALLERGY : HAVE YOU EVER DEVELOPED ANY TYPE OF REACTION AFTER HANDLING LATEX PRODUCTS SUCH RUBBER GLOVES, CONDOMS, DIAPHRAGMS, BALLOONS, SOCKS, OR UNDERWEAR?NO LATEX ALLERGY : HAVE YOU EVER DEVELOPED ANY TYPE OF REACTION DURING OR AFTER DENTAL APPOINTMENT, VAGINAL/RECTAL EXAMINATION, SURGICAL PROCEDURE, OR ANY OTHER EXPOSURE?NO LATEX RISK : HAVE YOU EVER HAD ANY DIFFICULTY BREATHING OR HIVES AFTER EATING OR HANDLING ANY FRUITS, OR VEGETABLES; SUCH KIWI, BANANAS, STONE FRUITS, OR CHESTNUTSNO LATEX RISK : DO YOU HAVE A PREVIOUS PERSONAL HISTORY OF MORE THAN NINE SURGERIES, SPINA BIFIDA, OR REPEATED CATHERIZATIONS? NO LATEX RISK : ARE YOU FREQUENTLY EXPOSED TO LATEX PRODUCTS IN YOUR OCCUPATION?NO DATE ASKED : 07/19/2018 CAFFEINE CAFFEINE USE?YES COFFEE,SODA ADVANCE DIRECTIVE ADVANCE DIRECTIVE DISCUSSED WITH PATIENT:YES PATIENT DECLINED INFO AND ASSIATANCE WITH FORM AT THIS TIME. ORIENTAL ORTHODOX [id number] ANABAPTIST MARITAL STATUS: . ALCOHOL SCREENING DID YOU HAVE A DRINK CONTAINING ALCOHOL IN THE PAST YEAR?NO POINTS0 INTERPRETATIONNEGATIVE OCCUPATION: UNEMPLOYED. SEXUAL HX HAD SEX IN THE LAST 12 MONTHS (VAGINAL, ORAL, OR ANAL)?YES WITHWOMEN ONLY USE PROTECTION?YES HOW OFTEN?ALL OF THE TIME REVIEWED WITH PT 08/15/18 1424 BVREVIEWED WITH PT 09/27/18 1128 LASREVIEWED WITH PATIENT 02/04/19 0927 JS. HOSPITALIZATION/MAJOR DIAGNOSTIC PROCEDURE FOR ABOVE SURGERIES FALL/HEAD INJURY 10/2018 REVIEW OF SYSTEMS REVIEWED BY: PROVIDER: YEN ESCALANTE . CONSTITUTIONAL: ANY CHANGE IN YOUR MEDICAL CONDITION? NO . CHILLS NO . FEVER NO . INFECTION: DO YOU HAVE NEW INFECTIONS? NO . DO YOU HAVE HISTORY OF MRSA? NO . MUSCULOSKELETAL: ANY NEW PATTERNS OF PAIN OR NUMBNESS? YES, STATES PAIN TO RIGHT ARM AND BUTTOCKS AND INCREASED PAIN TO LOW BACK. ALSO STATES SOME HAND AND ARM NUMBNESS . GASTROENTEROLOGY: ANY NEW CHANGE IN BOWEL CONTROL? NO . GENITOURINARY: ANY NEW CHANGE IN BLADDER CONTROL? NO . IS THERE A CHANCE YOU COULD BE ? NO . HEMATOLOGY/LYMPH: DO YOU TAKE ANY BLOOD THINNERS? (FOR EXAMPLE- COUMADIN, PLAVIX, AGGRENOX, PLATEL, PRADAXA, OR XARELTO) NO . WHEN WAS YOUR LAST DOSE? DATE: TIME: . NEUROLOGY: HAVE YOU FALLEN IN THE PAST 12 MONTHS? NO . ANY NEW EXTREMITY NUMBNESS OR WEAKNESS? YES, STATES OCCASSIONAL ARM AND HAND WEAKNESS . CARDIOLOGY: DO YOU HAVE A PACEMAKER OR DEFIBRILLATOR? NO . RESPIRATORY: HAVE YOU BEEN SICK IN THE PAST WEEK? NO . FEVER NO . FLU LIKE SYMPTOMS? NO . COUGH NO . INTEGUMENTARY: DO YOU HAVE ANY RASHES OR OPEN SORES? NO . ALLERGIC/IMMUNO: ARE YOU ALLERGIC TO IV DYE? NO . ANY NEW ALLERGIES? NO . PSYCHIATRIC: DO YOU HAVE THOUGHTS OF HURTING YOURSELF OR SOMEONE ELSE? NO . ARE YOU ABUSED, NEGLECTED, OR IN AN UNSAFE ENVIRONMENT? NO . ENDOCRINOLOGY: ARE YOU DIABETIC? NO . OTHER: DO YOU NEED ANY PRESCRIPTIONS? NO . IF YES, PLEASE LIST: ____ . ANY NEW PROBLEMS WITH YOUR MEDICATIONS? NO . WHEN DID YOU LAST EAT? ____ . WHEN DID YOU LAST DRINK? ____ . WHAT DID YOU LAST DRINK? ____ . NAME OF PERSON DRIVING YOU HOME? ____ . DO YOU HAVE ANY OTHER QUESTIONS OR CONCERNS FLU VACCINE 01/25/19 . VITAL SIGNS WT 139.4 LBS, HT 59 IN, BMI 28.15 INDEX, BP 112/57 MM HG, HR 85 /MIN, RR 18 /MIN, TEMP 96.4 F, OXYGEN SAT % 98%, SAFE IN ENV? (Y/N) YES, NA INITIALS AW 0923, REVIEWED BY: VASILIY. EXAMINATION GENERAL EXAMINATION: GENERALNO ACUTE DISTRESS, WELL NOURISHED AND HYDRATED. PSYCHAPPROPRIATE MOOD AND AFFECT . LUNGS:CLEAR TO AUSCULTATION BILATERALLY, NO WHEEZES, RHONCHI, RALES. HEART:NO MURMURS, REGULAR RATE AND RHYTHM. BACK:POINT TENDER ALONG LUMBAR SPINE,SURROUNDING SKIN SHOWS NO ERYTHEMA ECCHYMOSIS, INCREASED WARMTH, NO SKIN ERUPTIONS NOTED. PATIENT DOES ENDORSE INCREASED PAIN WITH FACET LOADING. . ASSESSMENTS SPONDYLOSIS OF LUMBOSACRAL REGION WITHOUT MYELOPATHY OR RADICULOPATHY - M47.817 (PRIMARY) TREATMENT SPONDYLOSIS OF LUMBOSACRAL REGION WITHOUT MYELOPATHY OR RADICULOPATHY NOTES: BILATERAL THERAPEUTIC FACET BLOCK L4-L5 L5-S1. CLINICAL NOTES: 38-YEAR-OLD FEMALE IN FOR CHRONIC PAIN FOLLOW-UP. GIVEN PRESENTING SYMPTOMS AND RESULTS PHYSICAL EXAMINATION RECOMMENDED BILATERAL THERAPEUTIC FACET BLOCK L4-L5 L5-S1 WITH POST PROCEDURAL FOLLOW-UP. PATIENT WILL ALSO CONTINUE WITH STRETCHING EXERCISES AT HOME. PATIENT EXPRESSED UNDERSTANDING OF AND WAS IN AGREEMENT WITH TREATMENT PLAN. GIVEN TIME TO ASK QUESTIONS AND EXPRESS CONCERNS., ISTOP REGISTRY REVIEWED AND DEMONSTRATES COMPLLIANCE. (REF # [id number] ) BRINGS IN MEDICATIONS WHICH IS APPROPRIATE FOR WHAT WAS DISPENSED. RECENT URINE TOXICOLOGY REVIEWED. NO UNAUTHORIZED MEDICATIONS. NO ILLICIT SUBSTANCES AND PRESCRIBED MEDICATIONS WERE PRESENT. PREVENTIVE MEDICINE PAIN CLINIC TEACHING: PROCEDURE TEACHING REVIEWED INFORMATION ON THERAPEUTIC FACET BLOCK PROCEDURE WITH PATIENT. ALSO REVIEWED PRE-RPOCEDURE INSTRUCTIONS. PATIENT VERBALIZED AN UNDERSTANDING. SONIA MUELLER 02/04/2019 11:02:29 AM > . PROCEDURE CODES FA211 ESTABILISHED PATIENT [facility] CHARGE DISPOSITION & COMMUNICATION FOLLOW UP POST PROCEDURE (REASON: BILATERAL THERAPEUTIC FACET BLOCK L4-L5 L5-S1) ELECTRONICALLY SIGNED BY DEBORA OWEN ON 02/05/2019 AT 03:54 PM EST DISCLAIMER : THIS IS A VISIT SUMMARY EXTRACTED FROM THE [employer] CHART. IT IS NOT A COPY OF THE [employer] PROGRESS NOTE. TYRA
== END ==
LOC: M PAIN 09:15
PROVIDERS: ATTEND Family Medicine
DX: M47.817 Spondylosis without myelopathy or radiculopathy, lumbosacral region (principal)

== ENCOUNTER → 2019-03-26 | Outpatient (CLI) | payer MEDICARE ==
[~2019-03-26] MED LIST changes: +BUPIVACAINE HCL 0.25% 30 ML VIAL As Ordered ONE; +ISOVUE-M 300 61% 15ML VIAL (Q9967) As Ordered ONE; +LIDOCAINE 1% SDV INJ 30 ML VIAL As Ordered ONE; +TRIAMCINOLONE ACETONIDE SUSP 40 MG/ML VIAL (J3301) As Ordered ONE; +diazePAM 5 MG TAB As Ordered ONE; +oxyCODONE 5MG TAB As Ordered ONE
--- NOTE | 2019-03-26 14:22 | REP ---
C-ARM VIEW OF THE LOWER LUMBAR SPINE: Clinical history of pain. A C-arm view of the lower lumbar spine performed during bilateral facet injection performed by Dr. Dan. [place] are seen along the lower lumbar facet joints. 13 seconds of fluoroscopy time utilized. Electronically Signed by Gregory Carson MD 03/26/2019 07:22 P
--- NOTE | 2019-04-05 03:56 | ECWPNPC ---
PATIENT NAME: EVA CALZADA : 1980 GENDER: FEMALE VISIT DATE: 03/26/2019 DISCHARGE DATE: 03/26/19 1407 VISIT LOCKED DATE TIME: PHYSICIAN: DEMETRIUS HILL MD RESOURCE: DEMETRIUS HILL MD REASON FOR APPOINTMENT 1. BILATERAL THERAPEUTIC FACET BLOCK L3-L4, L4-L5, L5-S1 HISTORY OF PRESENT ILLNESS HISTORY OF PRESENT ILLNESS: PAIN THE PATIENT DESCRIBES THE PAIN... FALL RISK SCREENING: SCREENING :NO FALLS REPORTED IN THE LAST YEAR CURRENT MEDICATIONS TAKING [facility] HYDROCORTISONE ANTI-ITCH 0.5 % CREAM 1 APPLICATION TO AFFECTED AREA EXTERNALLY TWICE A DAY, NOTES: WHEN NEEDED TAKING MAY HAVE - - RIGHT SHOE LIFT DX: M41.9 KYPHOSCOLIOSIS DAILY MED#[id number] TAKING KETOCONAZOLE 2 % SHAMPOO DIRECTED EXTERNALLY APPLY IN SHOWER TO SKIN, LATHER, LEAVE ON FOR 5 MINUTES AND RINSE. TAKING CARISOPRODOL 350 MG TABLET 1 TABLET NEEDED ORALLY BEFORE BEDTIME MDD-1, NOTES: WHEN NEEDS 03-25-19 2100 TAKING MULTIVITAMIN ADULT - TABLET 1 TAB ORALLY DAILY, NOTES: 03-26-19 0700 TAKING ORTHOPEDIC SHOES _ 1 DX M79.671, [facility]# [id number] ONE INCH SHOE LIFT. RT SHOE DAILY TAKING CRANBERRY 405 MG CAPSULE DIRECTED ORALLY , NOTES: 03-26-19 0900 TAKING ACETAMINOPHEN 325 MG TABLET 1 TABLET NEEDED ORALLY EVERY 4 HRS, NOTES: 03-24-19 0900 TAKING PROBIOTIC - TABLET DELAYED RELEASE DIRECTED ORALLY TAKING TERBINAFINE- ORAL-12 WEEKS 250 MG TABLETS ONE TABLET ORALLY DAILY, NOTES: ALMOST DONE - TAKING FOR FOOT FUNGUS TAKING CYMBALTA 60 MG CAPSULE DELAYED RELEASE PARTICLES 1 CAPSULE ORALLY ONCE A DAY TAKING HYDROCODONE-ACETAMINOPHEN 10-325 MG TABLET 1 TABLET ORALLY EVERY 6 HRS NEEDED, NOTES: 03-25-19 1400 NOT-TAKING CYMBALTA 30 MG CAPSULE DELAYED RELEASE PARTICLES 1 CAPSULE ORALLY ONCE A DAY NOT-TAKING AUGMENTIN 875-125 MG TABLET 1 TABLET ORALLY EVERY 12 HRS NOT-TAKING AMOXICILLIN-POT CLAVULANATE 875-125 MG TABLET 1 TABLET ORALLY EVERY 12 HRS MEDICATION LIST REVIEWED AND RECONCILED WITH THE PATIENT PAST MEDICAL HISTORY 10 YEAR ASCVD RISK OF 1.0% 07/2014 ABDOMINAL AORTIC ANEURYSM S/P REPAIR IN 2014. SHE FOLLOWS WITH HER VASCULAR SURGEON IN [place] ON A YEARLY BASIS. THERE IS NO IDENTIFIED ETIOLOGY FOR HER AAA, HOWEVER HER SURGEON SUSPECTS A GENETIC DISORDER. GENETIC TESTING IS NOT COVERED BY HER INSURANCE AND WOULD COST HER ABOUT $6000 OUT OF POCKET WHICH IS COST PROHIBITIVE PATIENT HAD AN "ECTOPIC UTERUS" -- SECOND (R SIDED) UTERUS WITH NO CERVIX, CAUSED ENDOMETRIOSIS WITH RETROGRADE MENSTRUATION PAP 02/2015- NEG ENDOMETRIOSIS PER OP REPORT FROM [facility]: PT HAS "NL UTERUS ATTACHED TO AN OVARY AND A CERVIX ON THE L OF THE MIDLINE WITH A L FALLOPIAN TUBE WITH A LEFT ROUND LIGAMENT. A ROUND LIGAMENT FROM THAT UTERUS LED TO AN ECTOPIC UTERUS IN THE RIGHT LOWER QUADRANT ON THE PELVIC SIDEWALL WHICH WAS NOT ATTACHED TO A CERVIX WHICH ALSO HAD AN OVARY AND A FALLOPIAN TUBE." MRI OF L/S 12/2011 WITH COMPLEX CONGENITAL ANOMALIES, SCOLIOSIS, TETHERED CORD, VERTEBRAL FUSION, DISC NARROWING, SPINAL STENOSIS, DIAGNOSED WITH LUMBAR SCOLIOSIS AN . NEVER HAD SURGERY FOR HER SPINE, NO BRACING. WEARS A SHOE LIFT ON THE RIGHT, 1 INCH. NO PROBLEMS WITH HYPERMOBILE JOINTS. NO OPTIC LENS DISPLACEMENT. SUBDURAL HEMATOMA S/P FALL 10/2018 ALLERGIES ITRACONAZOLE: RASH - ALLERGY SURGICAL HISTORY ABDOMINAL AORTIC REPAIR 09/2014 ABDOMINAL HERNIA REPAIR 09/2014 R SIDED HYSTERECTOMY (BUT NOT OOPHORECTOMY) OF "ECTOPIC UTERUS" THAT HAD NO CERVIX 12/2005 C SECTION X2 APPENDECTOMY EXTRA OCULAR MUSCLE SURGERY CHILDHOOD FAMILY HISTORY FATHER: ALIVE 60 YRS MOTHER: , DIAGNOSED WITH DIABETES SIBLINGS: ALIVE, DIABETES SON(S): ALIVE DAUGHTER(S): ALIVE 1 BROTHER(S) - HEALTHY. 2 SON(S) , 1 DAUGHTER(S) . NO FAMILY HISTORY OF GENETIC DISORDERS, AND NOBODY ELSE HAS AAA OR SPINAL DEFORMITIES. SOCIAL HISTORY GENERAL: TOBACCO USE ARE YOU A:CURRENT SMOKER ARE YOU INTERESTED IN QUITTING?THINKING ABOUT QUITTING PREVIOUS QUIT ATTEMPTS?YES, MORE THAN 6 MONTHS AGO. CUTTING DOWN COUNSELED THE PATIENT ON SMOKING CESSATION, EDUCATION IBRURITE77/25/2019 HOW MANY CIGARETTES A DAY DO YOU SMOKE?6-10 HOW SOON AFTER YOU WAKE UP DO YOU SMOKE YOUR FIRST CIGARETTE?31-60 MIN HOW OFTEN DO YOU SMOKE CIGARETTES?EVERY DAY PATIENT COUNSELED ON THE DANGERS OF TOBACCO USE AND URGED TO QUIT:02/04/2019 SMOKING CESSATION INFORMATION GIVEN03/25/2019 HIV / HEP-C SCREENING HIV TEST OFFERED TO PATIENT:YES DATE OFFERED:08/30/2017 TEST ACCEPTED:NO HEP-C TEST OFFERED TO PATIENT:YES DATE OFFERED:08/30/2017 REASON:PATIENT DECLINED TEST ACCEPTED:NO REASON:PATIENT DECLINED BROCHURE PROVIDED TO PATIENTYES OTHERS AT HOME: LIVES WITH AND 2 BOYS & 1 DAUGHTER. EDUCATION LEVEL OF EDUCATION:FINISHED HIGH SCHOOL DIET: REGULAR. LANGUAGE LANGUAGES SPOKEN:PORTUGUESE NEW PATIENT PAIN DIARY TODAY'S VISIT NOTES, FROM 0-10, WHAT LEVEL IS YOUR PAIN TODAY? 0. RECREATIONAL DRUG USE DRUG USE?NO EXERCISE: NO REGULAR EXERCISE. LEARNING BARRIERS / SPECIAL NEEDS CHANGE FROM LAST VISIT?NO BARRIERS TO LEARNING?NO HEARING IMPAIRED?NO VISION IMPAIRED?YES COGNITIVELY IMPAIRED?NO :CORRECTIVE LENSES READINESS TO LEARN?YES LEARNING PREFERENCES?NO LEARNING CAPABILITIES PRESENT?YES EMOTIONAL BARRIERS?NO SPECIAL DEVICES?NO ETIQUETTE COACH NEEDED?NO PAIN CLINIC PFS, CLERGY, PUBLIC HEALTH REFERRALS WAS THE PROVIDER NOTIFIED OF ANY PERTINENT INFO?YES HAS THE PATIENT BEEN EDUCATED REGARDING HIS/HER PLAN OF CARE?YES HAS THE PATIENT BEEN EDUCATED REGARDING PAIN, THE RISK FOR PAIN, THE IMPORTANCE OF EFFECTIVE PAIN MANAGEMENT, AND THE PAIN ASSESSMENT PROCESS?YES LATEX QUESTIONNAIRE LATEX ALLERGY : HAVE YOU EVER DEVELOPED ANY TYPE OF REACTION AFTER HANDLING LATEX PRODUCTS SUCH RUBBER GLOVES, CONDOMS, DIAPHRAGMS, BALLOONS, SOCKS, OR UNDERWEAR?NO LATEX ALLERGY : HAVE YOU EVER DEVELOPED ANY TYPE OF REACTION DURING OR AFTER DENTAL APPOINTMENT, VAGINAL/RECTAL EXAMINATION, SURGICAL PROCEDURE, OR ANY OTHER EXPOSURE?NO DATE ASKED : 07/19/2018 LATEX RISK : HAVE YOU EVER HAD ANY DIFFICULTY BREATHING OR HIVES AFTER EATING OR HANDLING ANY FRUITS, OR VEGETABLES; SUCH KIWI, BANANAS, STONE FRUITS, OR CHESTNUTSNO LATEX RISK : DO YOU HAVE A PREVIOUS PERSONAL HISTORY OF MORE THAN NINE SURGERIES, SPINA BIFIDA, OR REPEATED CATHERIZATIONS? NO LATEX RISK : ARE YOU FREQUENTLY EXPOSED TO LATEX PRODUCTS IN YOUR OCCUPATION?NO CAFFEINE CAFFEINE USE?YES COFFEE,SODA ADVANCE DIRECTIVE ADVANCE DIRECTIVE DISCUSSED WITH PATIENT:YES PATIENT DECLINED INFO AND ASSIATANCE WITH FORM AT THIS TIME. CHURCH [id number] CONGREGATIONAL MARITAL STATUS: . ALCOHOL SCREENING DID YOU HAVE A DRINK CONTAINING ALCOHOL IN THE PAST YEAR?NO POINTS0 INTERPRETATIONNEGATIVE OCCUPATION: UNEMPLOYED. SEXUAL HX HAD SEX IN THE LAST 12 MONTHS (VAGINAL, ORAL, OR ANAL)?YES WITHWOMEN ONLY USE PROTECTION?YES HOW OFTEN?ALL OF THE TIME REVIEWED WITH PT 08/15/18 1424 BVREVIEWED WITH PT 09/27/18 1128 LASREVIEWED WITH PATIENT 02/04/19 0927 JSPRE ADMISSION COMPLETE FOR 1-14-20 KG. HOSPITALIZATION/MAJOR DIAGNOSTIC PROCEDURE FOR ABOVE SURGERIES FALL/HEAD INJURY 10/2018 REVIEW OF SYSTEMS REVIEWED BY: PROVIDER: . CONSTITUTIONAL: ANY CHANGE IN YOUR MEDICAL CONDITION? NO . CHILLS NO . FEVER NO . INFECTION: DO YOU HAVE NEW INFECTIONS? NO . DO YOU HAVE HISTORY OF MRSA? NO . MUSCULOSKELETAL: ANY NEW PATTERNS OF PAIN OR NUMBNESS? NO . GASTROENTEROLOGY: ANY NEW CHANGE IN BOWEL CONTROL? NO . GENITOURINARY: ANY NEW CHANGE IN BLADDER CONTROL? NO . IS THERE A CHANCE YOU COULD BE ? NO . HEMATOLOGY/LYMPH: DO YOU TAKE ANY BLOOD THINNERS? (FOR EXAMPLE- COUMADIN, PLAVIX, AGGRENOX, PLATEL, PRADAXA, OR XARELTO) NO . WHEN WAS YOUR LAST DOSE? DATE: TIME: . NEUROLOGY: HAVE YOU FALLEN IN THE PAST 12 MONTHS? NO . ANY NEW EXTREMITY NUMBNESS OR WEAKNESS? NO . CARDIOLOGY: DO YOU HAVE A PACEMAKER OR DEFIBRILLATOR? NO . RESPIRATORY: HAVE YOU BEEN SICK IN THE PAST WEEK? NO . FEVER NO . FLU LIKE SYMPTOMS? NO . COUGH NO . INTEGUMENTARY: DO YOU HAVE ANY RASHES OR OPEN SORES? NO . ALLERGIC/IMMUNO: ARE YOU ALLERGIC TO IV DYE? NO . ANY NEW ALLERGIES? NO . PSYCHIATRIC: DO YOU HAVE THOUGHTS OF HURTING YOURSELF OR SOMEONE ELSE? NO . ARE YOU ABUSED, NEGLECTED, OR IN AN UNSAFE ENVIRONMENT? NO . ENDOCRINOLOGY: ARE YOU DIABETIC? NO . OTHER: DO YOU NEED ANY PRESCRIPTIONS? NO . IF YES, PLEASE LIST: ____ . ANY NEW PROBLEMS WITH YOUR MEDICATIONS? NO . WHEN DID YOU LAST EAT? 03-25-2019 1800 . WHEN DID YOU LAST DRINK? 03-26-2019 0800 . WHAT DID YOU LAST DRINK? WATER . NAME OF PERSON DRIVING YOU HOME? GONZALES . DO YOU HAVE ANY OTHER QUESTIONS OR CONCERNS NO . VITAL SIGNS WT 140 LBS, HT 59 IN, BMI 28.27 INDEX, BP 93/59 MM HG, REPEAT BP 116/68 MM HG, HR 94 /MIN, RR 18 /MIN, TEMP 97.0 F, OXYGEN SAT % 100%, NA INITIALS SC 11:19, REVIEWED BY: KG. ASSESSMENTS SPONDYLOSIS WITHOUT MYELOPATHY OR RADICULOPATHY, LUMBAR REGION - M47.816 (PRIMARY) SPONDYLOSIS OF LUMBOSACRAL REGION WITHOUT MYELOPATHY OR RADICULOPATHY - M47.817 TREATMENT SPONDYLOSIS OF LUMBOSACRAL REGION WITHOUT MYELOPATHY OR RADICULOPATHY SMC FACET BLOCK (PAIN)[id number] PROCEDURES PN LUMBAR FACET BLOCK THERAPEUTIC PRE PROCEDURE DIAGNOSIS LUMBAR SPONDYLOSIS, LUMBOSACRAL SPONDYLOSIS POST PROCEDURE DIAGNOSIS LUMBAR SPONDYLOSIS, LUMBOSACRAL SPONDYLOSIS PROCEDURE RIGHT AND LEFT L3-L4, RIGHT AND LEFT L4-L5, RIGHT AND LEFT L5-S1 LUMBAR FACET THERAPEUTIC BLOCK SURGEON DR. DEMETRIUS HILL SOFTBALL CORE MOLDER NONE ANESTHESIA LOCAL PRE PROCEDURE NOTE THE PATIENT HAS A HISTORY OF CHRONIC LOW BACK PAIN. I EVALUATED THE PATIENT AND REVIEWED THE CHART. I WENT OVER THE RISKS, ALTERNATIVES, AND BENEFITS ASSOCIATED WITH THIS PROCEDURE. THE PATIENT WOULD LIKE TO PROCEED AND GIVES CONSENT TO PERFORM THE PROCEDURE. THE PATIENT DENIES UNEXPLAINABLE WEIGHT LOSS, FEVER, CHILLS, OR NEW CHANGES IN URINARY OR BOWEL CONTROL DESCRIPTION OF PROCEDURE THE PATIENT WAS BROUGHT TO THE PROCEDURE ROOM AND PLACED IN THE PRONE POSITION. THE LUMBOSACRAL AREA WAS CLEANED WITH CHLORAPREP SOLUTION AND DRAPED ASEPTICALLY. THE PROCEDURE WAS DONE UNDER STERILE CONDITIONS. I CHECKED LATERALITY AND THE LEVEL WHERE THE PROCEDURE WAS GOING TO BE PERFORMED WITH THE PATIENT AND THE SUPPORTING STAFF AT THE MOMENT OF THE TIME OUT IN THE PROCEDURE ROOM. UNDER FLUOROSCOPIC GUIDANCE, THE TARGET POINT WAS SELECTED AT THE RIGHT AND LEFT L3-L4, RIGHT AND LEFT L4-L5, AND RIGHT AND LEFT L5-S1 FACET JOINTS. TARGET POINT WAS SELECTED AFTER LATERAL ROTATION AND TILT OF THE MAGNIFIER OF THE C-ARM. LIDOCAINE 0.5% WAS USED TO NUMB THE SKIN AND THE SUBCUTANEOUS TISSUE BELOW IT. SPINAL NEEDLES, 22-GAUGE, WERE ADVANCED UNDER FLUOROSCOPIC GUIDANCE AND FOLLOWING PATIENT FEEDBACK UNTIL THE TARGETS WERE TOUCHED. THE POSITION OF THE NEEDLES WAS VERIFIED WITH AP AND LATERAL VIEWS. AFTER PROPER POSITION OF THE NEEDLES WAS ACHIEVED, ISOVUE-M DYE 30% 0.1 ML WAS INJECTED SHOWING ADEQUATE SPREAD OF THE DYE. THEN A SOLUTION OF 1.9 ML OF BUPIVACAINE 0.125% OF KENALOG 10 MG WAS INJECTED AT EACH SITE. THERE WAS NO EVIDENCE OF BLOOD, PARESTHESIA OR CEREBROSPINAL FLUID DURING THE PROCEDURE. THE PATIENT WAS SENT TO THE RECOVERY ROOM. THE PATIENT WAS MOVING THE EXTREMITIES AND DOING WELL. THERE WAS NO COMPLICATION DURING THE PROCEDURE. FLUOROSCOPY TIME WAS 13 SECONDS POST PROCEDURE NOTE THE PATIENT WILL BE SEEN IN A FOLLOWUP IN THE NEXT FEW WEEKS. I AM LOOKING FOR LONG-LASTING PAIN RELIEF WITH THIS INTERVENTION. INSTRUCTIONS WERE GIVEN, QUESTIONS WERE ANSWERED, AND THE PATIENT EXPRESSED UNDERSTANDING AND AGREES WITH THE PLAN. I, GOPAL PAREDES, DOCUMENTED THE ABOVE INFORMATION ACTING A SCRIBE FOR DR. HILL. I HAVE REVIEWED THE ABOVE DOCUMENT, WRITTEN BY VAISHALI IRENE, AND I VERIFY THAT IT IS ACCURATE PROCEDURE CODES 65660 INJ PARAVERT F JNT L/S 1 LEV, MODIFIERS: 50 [id number] INJ PARAVERT F JNT L/S 2 LEV, MODIFIERS: 50 [id number] INJ PARAVERT F JNT L/S 3 LEV, MODIFIERS: 50 [id number] RADXPS IN END [id number] PXD DISPOSITION & COMMUNICATION FOLLOW UP 3 WEEKS ELECTRONICALLY SIGNED BY DEMETRIUS HILL MD, MD ON 04/04/2019 AT 10:43 AM EST DISCLAIMER : THIS IS A VISIT SUMMARY EXTRACTED FROM THE [employer] CHART. IT IS NOT A COPY OF THE [employer] PROGRESS NOTE. TYRA
== END ==
LOC: M PAIN 11:15
PROVIDERS: ATTEND Anesthesiology
DX: M47.816 Spondylosis without myelopathy or radiculopathy, lumbar region (principal); M47.817 Spondylosis without myelopathy or radiculopathy, lumbosacral region; F17.210 Nicotine dependence, cigarettes, uncomplicated; Z88.8 Allergy status to other drugs, medicaments and biological substances; Z79.899 Other long term (current) drug therapy
CPT/HCPCS: 64493; 64494; 64495; J3301; Q9967

== ENCOUNTER → 2019-04-11 | Outpatient (CLI) | payer MEDICARE ==
[~2019-04-11] MED LIST changes: -BUPIVACAINE HCL 0.25% 30 ML VIAL As Ordered ONE; -ISOVUE-M 300 61% 15ML VIAL (Q9967) As Ordered ONE; -LIDOCAINE 1% SDV INJ 30 ML VIAL As Ordered ONE; -TRIAMCINOLONE ACETONIDE SUSP 40 MG/ML VIAL (J3301) As Ordered ONE; -diazePAM 5 MG TAB As Ordered ONE; -oxyCODONE 5MG TAB As Ordered ONE
--- NOTE | 2019-04-13 07:08 | ECWPNPC ---
PATIENT NAME: EVA CALZADA : 1980 GENDER: FEMALE VISIT DATE: 04/11/2019 DISCHARGE DATE: 04/11/19 1029 VISIT LOCKED DATE TIME: PHYSICIAN: CUONG AMRLOW RESOURCE: CUONG MARLOW REASON FOR APPOINTMENT 1. POST FACET HISTORY OF PRESENT ILLNESS GENERAL: 39-YEAR-OLD FEMALE IN FOR POST FACET BLOCK FOLLOW-UP. SHE RATES HER PAIN PREPROCEDURE AT A 7 OUT OF 10 AND POSTPROCEDURE AT A 2-3 OUT OF 10. SHE FURTHER STATES THE PROCEDURE CONTINUES TO HELP HER TODAY. FALL RISK SCREENING: SCREENING :NO FALLS REPORTED IN THE LAST YEAR PAIN SCREENING: PATIENT HAS A COMPLAINT OF ACUTE OR CHRONIC PAIN :YES LOCATION OF PAIN:LOW BACK INTENSITY OF PAIN (SCALE OF 1 TO 10):3 NURSING NOTE: -. HISTORY OF PRESENT ILLNESS: PAIN THE PATIENT DESCRIBES THE PAIN... CURRENT MEDICATIONS TAKING [facility] HYDROCORTISONE ANTI-ITCH 0.5 % CREAM 1 APPLICATION TO AFFECTED AREA EXTERNALLY TWICE A DAY, NOTES: WHEN NEEDED TAKING MAY HAVE - - RIGHT SHOE LIFT DX: M41.9 KYPHOSCOLIOSIS DAILY MED#[id number] TAKING KETOCONAZOLE 2 % SHAMPOO DIRECTED EXTERNALLY APPLY IN SHOWER TO SKIN, LATHER, LEAVE ON FOR 5 MINUTES AND RINSE. TAKING CARISOPRODOL 350 MG TABLET 1 TABLET NEEDED ORALLY BEFORE BEDTIME MDD-1, NOTES: WHEN NEEDS 03-25-19 2100 TAKING MULTIVITAMIN ADULT - TABLET 1 TAB ORALLY DAILY, NOTES: 03-26-19 0700 TAKING ORTHOPEDIC SHOES _ 1 DX M79.671, [facility]# [id number] ONE INCH SHOE LIFT. RT SHOE DAILY TAKING CRANBERRY 405 MG CAPSULE DIRECTED ORALLY , NOTES: 03-26-19 0900 TAKING ACETAMINOPHEN 325 MG TABLET 1 TABLET NEEDED ORALLY EVERY 4 HRS, NOTES: 03-24-19 0900 TAKING PROBIOTIC - TABLET DELAYED RELEASE DIRECTED ORALLY TAKING CYMBALTA 60 MG CAPSULE DELAYED RELEASE PARTICLES 1 CAPSULE ORALLY ONCE A DAY TAKING HYDROCODONE-ACETAMINOPHEN 10-325 MG TABLET 1 TABLET ORALLY EVERY 6 HRS NEEDED, NOTES: 03-25-19 1400 NOT-TAKING TERBINAFINE- ORAL-12 WEEKS 250 MG TABLETS ONE TABLET ORALLY DAILY, NOTES: ALMOST DONE - TAKING FOR FOOT FUNGUS NOT-TAKING CYMBALTA 30 MG CAPSULE DELAYED RELEASE PARTICLES 1 CAPSULE ORALLY ONCE A DAY NOT-TAKING AUGMENTIN 875-125 MG TABLET 1 TABLET ORALLY EVERY 12 HRS NOT-TAKING AMOXICILLIN-POT CLAVULANATE 875-125 MG TABLET 1 TABLET ORALLY EVERY 12 HRS MEDICATION LIST REVIEWED AND RECONCILED WITH THE PATIENT PAST MEDICAL HISTORY 12 YEAR ASCVD RISK OF 1.0% 07/2014 ABDOMINAL AORTIC ANEURYSM S/P REPAIR IN 2014. SHE FOLLOWS WITH HER VASCULAR SURGEON IN [place] ON A YEARLY BASIS. THERE IS NO IDENTIFIED ETIOLOGY FOR HER AAA, HOWEVER HER SURGEON SUSPECTS A GENETIC DISORDER. GENETIC TESTING IS NOT COVERED BY HER INSURANCE AND WOULD COST HER ABOUT $6000 OUT OF POCKET WHICH IS COST PROHIBITIVE PATIENT HAD AN "ECTOPIC UTERUS" -- SECOND (R SIDED) UTERUS WITH NO CERVIX, CAUSED ENDOMETRIOSIS WITH RETROGRADE MENSTRUATION PAP 02/2015- NEG ENDOMETRIOSIS PER OP REPORT FROM [facility]: PT HAS "NL UTERUS ATTACHED TO AN OVARY AND A CERVIX ON THE L OF THE MIDLINE WITH A L FALLOPIAN TUBE WITH A LEFT ROUND LIGAMENT. A ROUND LIGAMENT FROM THAT UTERUS LED TO AN ECTOPIC UTERUS IN THE RIGHT LOWER QUADRANT ON THE PELVIC SIDEWALL WHICH WAS NOT ATTACHED TO A CERVIX WHICH ALSO HAD AN OVARY AND A FALLOPIAN TUBE." MRI OF L/S 12/2011 WITH COMPLEX CONGENITAL ANOMALIES, SCOLIOSIS, TETHERED CORD, VERTEBRAL FUSION, DISC NARROWING, SPINAL STENOSIS, DIAGNOSED WITH LUMBAR SCOLIOSIS AN . NEVER HAD SURGERY FOR HER SPINE, NO BRACING. WEARS A SHOE LIFT ON THE RIGHT, 1 INCH. NO PROBLEMS WITH HYPERMOBILE JOINTS. NO OPTIC LENS DISPLACEMENT. SUBDURAL HEMATOMA S/P FALL 10/2018 ALLERGIES ITRACONAZOLE: RASH - ALLERGY SURGICAL HISTORY ABDOMINAL AORTIC REPAIR 09/2014 ABDOMINAL HERNIA REPAIR 09/2014 R SIDED HYSTERECTOMY (BUT NOT OOPHORECTOMY) OF "ECTOPIC UTERUS" THAT HAD NO CERVIX 12/2005 C SECTION X2 APPENDECTOMY EXTRA OCULAR MUSCLE SURGERY CHILDHOOD FAMILY HISTORY FATHER: ALIVE 60 YRS MOTHER: , DIAGNOSED WITH DIABETES SIBLINGS: ALIVE, DIABETES SON(S): ALIVE DAUGHTER(S): ALIVE 1 BROTHER(S) - HEALTHY. 2 SON(S) , 1 DAUGHTER(S) . NO FAMILY HISTORY OF GENETIC DISORDERS, AND NOBODY ELSE HAS AAA OR SPINAL DEFORMITIES. SOCIAL HISTORY GENERAL: TOBACCO USE ARE YOU A:CURRENT SMOKER HOW OFTEN DO YOU SMOKE CIGARETTES?EVERY DAY HOW SOON AFTER YOU WAKE UP DO YOU SMOKE YOUR FIRST CIGARETTE?31-60 MIN HOW MANY CIGARETTES A DAY DO YOU SMOKE?6-10 ARE YOU INTERESTED IN QUITTING?THINKING ABOUT QUITTING PATIENT COUNSELED ON THE DANGERS OF TOBACCO USE AND URGED TO QUIT:02/04/2019 COUNSELED THE PATIENT ON SMOKING CESSATION, EDUCATION AZBENVNN49/25/2019 SMOKING CESSATION INFORMATION GIVEN03/25/2019 PREVIOUS QUIT ATTEMPTS?YES, MORE THAN 6 MONTHS AGO. CUTTING DOWN HIV / HEP-C SCREENING HIV TEST OFFERED TO PATIENT:YES DATE OFFERED:08/30/2017 TEST ACCEPTED:NO HEP-C TEST OFFERED TO PATIENT:YES DATE OFFERED:08/30/2017 REASON:PATIENT DECLINED TEST ACCEPTED:NO REASON:PATIENT DECLINED BROCHURE PROVIDED TO PATIENTYES OTHERS AT HOME: LIVES WITH AND 2 BOYS & 1 DAUGHTER. EDUCATION LEVEL OF EDUCATION:FINISHED HIGH SCHOOL DIET: REGULAR. LANGUAGE LANGUAGES SPOKEN:BARBADIAN NEW PATIENT PAIN DIARY TODAY'S VISIT NOTES, FROM 0-10, WHAT LEVEL IS YOUR PAIN TODAY? 0. RECREATIONAL DRUG USE DRUG USE?NO EXERCISE: NO REGULAR EXERCISE. LEARNING BARRIERS / SPECIAL NEEDS CHANGE FROM LAST VISIT?NO BARRIERS TO LEARNING?NO HEARING IMPAIRED?NO VISION IMPAIRED?YES COGNITIVELY IMPAIRED?NO :CORRECTIVE LENSES READINESS TO LEARN?YES LEARNING PREFERENCES?NO LEARNING CAPABILITIES PRESENT?YES EMOTIONAL BARRIERS?NO SPECIAL DEVICES?NO MEDICAL PRACTICE MANAGER NEEDED?NO PAIN CLINIC PFS, CLERGY, PUBLIC HEALTH REFERRALS WAS THE PROVIDER NOTIFIED OF ANY PERTINENT INFO?YES HAS THE PATIENT BEEN EDUCATED REGARDING HIS/HER PLAN OF CARE?YES HAS THE PATIENT BEEN EDUCATED REGARDING PAIN, THE RISK FOR PAIN, THE IMPORTANCE OF EFFECTIVE PAIN MANAGEMENT, AND THE PAIN ASSESSMENT PROCESS?YES LATEX QUESTIONNAIRE LATEX ALLERGY : HAVE YOU EVER DEVELOPED ANY TYPE OF REACTION AFTER HANDLING LATEX PRODUCTS SUCH RUBBER GLOVES, CONDOMS, DIAPHRAGMS, BALLOONS, SOCKS, OR UNDERWEAR?NO LATEX ALLERGY : HAVE YOU EVER DEVELOPED ANY TYPE OF REACTION DURING OR AFTER DENTAL APPOINTMENT, VAGINAL/RECTAL EXAMINATION, SURGICAL PROCEDURE, OR ANY OTHER EXPOSURE?NO DATE ASKED : 07/19/2018 LATEX RISK : HAVE YOU EVER HAD ANY DIFFICULTY BREATHING OR HIVES AFTER EATING OR HANDLING ANY FRUITS, OR VEGETABLES; SUCH KIWI, BANANAS, STONE FRUITS, OR CHESTNUTSNO LATEX RISK : DO YOU HAVE A PREVIOUS PERSONAL HISTORY OF MORE THAN NINE SURGERIES, SPINA BIFIDA, OR REPEATED CATHERIZATIONS? NO LATEX RISK : ARE YOU FREQUENTLY EXPOSED TO LATEX PRODUCTS IN YOUR OCCUPATION?NO CAFFEINE CAFFEINE USE?YES COFFEE,SODA ADVANCE DIRECTIVE ADVANCE DIRECTIVE DISCUSSED WITH PATIENT:YES PATIENT DECLINED INFO AND ASSIATANCE WITH FORM AT THIS TIME. RASTAFARI [id number] CHEONDOISM MARITAL STATUS: . ALCOHOL SCREENING DID YOU HAVE A DRINK CONTAINING ALCOHOL IN THE PAST YEAR?NO POINTS0 INTERPRETATIONNEGATIVE OCCUPATION: UNEMPLOYED. SEXUAL HX HAD SEX IN THE LAST 12 MONTHS (VAGINAL, ORAL, OR ANAL)?YES WITHWOMEN ONLY USE PROTECTION?YES HOW OFTEN?ALL OF THE TIME REVIEWED WITH PT 08/15/18 1424 BVREVIEWED WITH PT 09/27/18 1128 LASREVIEWED WITH PATIENT 02/04/19 0927 JSPRE ADMISSION COMPLETE FOR 1-14-20 KG. HOSPITALIZATION/MAJOR DIAGNOSTIC PROCEDURE FOR ABOVE SURGERIES FALL/HEAD INJURY 10/2018 REVIEW OF SYSTEMS REVIEWED BY: PROVIDER: YEN CAZARES-C . CONSTITUTIONAL: ANY CHANGE IN YOUR MEDICAL CONDITION? NO . CHILLS NO . FEVER NO . INFECTION: DO YOU HAVE NEW INFECTIONS? NO . DO YOU HAVE HISTORY OF MRSA? NO . MUSCULOSKELETAL: ANY NEW PATTERNS OF PAIN OR NUMBNESS? NO . GASTROENTEROLOGY: ANY NEW CHANGE IN BOWEL CONTROL? NO . GENITOURINARY: ANY NEW CHANGE IN BLADDER CONTROL? NO . IS THERE A CHANCE YOU COULD BE ? NO . HEMATOLOGY/LYMPH: DO YOU TAKE ANY BLOOD THINNERS? (FOR EXAMPLE- COUMADIN, PLAVIX, AGGRENOX, PLATEL, PRADAXA, OR XARELTO) NO . WHEN WAS YOUR LAST DOSE? DATE: TIME: . NEUROLOGY: HAVE YOU FALLEN IN THE PAST 12 MONTHS? NO . ANY NEW EXTREMITY NUMBNESS OR WEAKNESS? NO . CARDIOLOGY: DO YOU HAVE A PACEMAKER OR DEFIBRILLATOR? NO . RESPIRATORY: HAVE YOU BEEN SICK IN THE PAST WEEK? NO . FEVER NO . FLU LIKE SYMPTOMS? NO . COUGH NO . INTEGUMENTARY: DO YOU HAVE ANY RASHES OR OPEN SORES? NO . ALLERGIC/IMMUNO: ARE YOU ALLERGIC TO IV DYE? NO . ANY NEW ALLERGIES? NO . PSYCHIATRIC: DO YOU HAVE THOUGHTS OF HURTING YOURSELF OR SOMEONE ELSE? NO . ARE YOU ABUSED, NEGLECTED, OR IN AN UNSAFE ENVIRONMENT? NO . ENDOCRINOLOGY: ARE YOU DIABETIC? NO . OTHER: DO YOU NEED ANY PRESCRIPTIONS? NO . IF YES, PLEASE LIST: ____ . ANY NEW PROBLEMS WITH YOUR MEDICATIONS? NO . WHEN DID YOU LAST EAT? ____ . WHEN DID YOU LAST DRINK? ____ . WHAT DID YOU LAST DRINK? ____ . NAME OF PERSON DRIVING YOU HOME? ____ . DO YOU HAVE ANY OTHER QUESTIONS OR CONCERNS NO . VITAL SIGNS WT 139 LBS, HT 59 IN, BMI 28.07 INDEX, BP 123/76 MM HG, HR 83 /MIN, RR 20 /MIN, TEMP 98.2 F, OXYGEN SAT % 97, SAFE IN ENV? (Y/N) YES, PAIN SCALE 3A. JAMES EVANGELISTA. EXAMINATION GENERAL EXAMINATION: GENERALNO ACUTE DISTRESS, WELL NOURISHED AND HYDRATED. PSYCHAPPROPRIATE MOOD AND AFFECT . LUNGS:CLEAR TO AUSCULTATION BILATERALLY, NO WHEEZES, RHONCHI, RALES. HEART:NO MURMURS, REGULAR RATE AND RHYTHM. ASSESSMENTS SPONDYLOSIS OF LUMBAR REGION WITHOUT MYELOPATHY OR RADICULOPATHY - M47.816 (PRIMARY) TREATMENT SPONDYLOSIS OF LUMBAR REGION WITHOUT MYELOPATHY OR RADICULOPATHY CLINICAL NOTES: 39-YEAR-OLD FEMALE IN FOR POST FACET BLOCK FOLLOW-UP. GIVEN PRESENTING SYMPTOMS AND RESULTS OF PHYSICAL EXAMINATION RECOMMENDED FOLLOW-UP IN 2 MONTHS. PATIENT HAS EXPRESSED UNDERSTANDING OF AND WAS IN AGREEMENT WITH TREATMENT PLAN. GIVEN TIME TO ASK QUESTIONS AND EXPRESS CONCERNS. PROCEDURE CODES FA211 ESTABILISHED PATIENT [facility] CHARGE DISPOSITION & COMMUNICATION FOLLOW UP 2 MONTHS (REASON: BACK PAIN) ELECTRONICALLY SIGNED BY DEBORA OWEN ON 04/12/2019 AT 08:53 AM EST DISCLAIMER : THIS IS A VISIT SUMMARY EXTRACTED FROM THE [employer] CHART. IT IS NOT A COPY OF THE [employer] PROGRESS NOTE. TYRA
== END ==
LOC: M PAIN 09:45
PROVIDERS: ATTEND Family Medicine
DX: M47.816 Spondylosis without myelopathy or radiculopathy, lumbar region (principal); F17.210 Nicotine dependence, cigarettes, uncomplicated; Z88.8 Allergy status to other drugs, medicaments and biological substances; Z79.899 Other long term (current) drug therapy

== ENCOUNTER → 2019-06-10 | Outpatient (CLI) | payer MEDICARE ==
--- NOTE | 2019-06-12 03:52 | ECWPNPC ---
PATIENT NAME: EVA CALZADA : 1980 GENDER: FEMALE VISIT DATE: 06/10/2019 DISCHARGE DATE: 06/10/19 1039 VISIT LOCKED DATE TIME: PHYSICIAN: CUONG MARLOW RESOURCE: CUONG MARLOW REASON FOR APPOINTMENT 1. 2 MONTH FOLLOW UP HISTORY OF PRESENT ILLNESS HISTORY OF PRESENT ILLNESS: PAIN THE PATIENT DESCRIBES THE PAINDURING THE LAST MONTH SEVERITY - PAIN SCORE OF6/10 LOCATIONSLOWER BACK QUALITYACHING , SHARP, STABBING DURATIONMAINLY DURING THE DAY, ONLY WITH SPECIFIC ACTIVITIES, INTERMITTENT PAIN IS INCREASED BY:ACTIVITIES 39-YEAR-OLD FEMALE IN FOR CHRONIC PAIN FOLLOW-UP. SHE RATES HER PAIN CURRENTLY AT A 6 OUT OF 10 AND DESCRIBES IT ACHING, SHARP, AND STABBING. SHE WOULD LIKE TO DISCUSS REPEAT FACET BLOCK TODAY SHE STATES HER PAIN HAS STARTED TO RETURN. FALL RISK SCREENING: SCREENING :NO FALLS REPORTED IN THE LAST YEAR CURRENT MEDICATIONS TAKING [facility] HYDROCORTISONE ANTI-ITCH 0.5 % CREAM 1 APPLICATION TO AFFECTED AREA EXTERNALLY TWICE A DAY, NOTES: WHEN NEEDED TAKING MAY HAVE - - RIGHT SHOE LIFT DX: M41.9 KYPHOSCOLIOSIS DAILY MED#[id number] TAKING CARISOPRODOL 350 MG TABLET 1 TABLET NEEDED ORALLY BEFORE BEDTIME MDD-1, NOTES: WHEN NEEDS 03-25-19 2100 TAKING MULTIVITAMIN ADULT - TABLET 1 TAB ORALLY DAILY, NOTES: 03-26-19 0700 TAKING ORTHOPEDIC SHOES _ 1 DX M79.671, [facility]# [id number] ONE INCH SHOE LIFT. RT SHOE DAILY TAKING CRANBERRY 405 MG CAPSULE DIRECTED ORALLY , NOTES: 03-26-19 0900 TAKING ACETAMINOPHEN 325 MG TABLET 1 TABLET NEEDED ORALLY EVERY 4 HRS, NOTES: 03-24-19 0900 TAKING PROBIOTIC - TABLET DELAYED RELEASE DIRECTED ORALLY TAKING CYMBALTA 60 MG CAPSULE DELAYED RELEASE PARTICLES 1 CAPSULE ORALLY ONCE A DAY TAKING HYDROCODONE-ACETAMINOPHEN 10-325 MG TABLET 1 TABLET ORALLY EVERY 6 HRS NEEDED, NOTES: 03-25-19 1400 TAKING VITAMIN B COMPLEX - TABLET DIRECTED ORALLY TAKING COQ10 100 MG CAPSULE 1 CAPSULE WITH A MEAL ORALLY ONCE A DAY, NOTES: UNSURE OF DOSAGE NOT-TAKING KETOCONAZOLE 2 % SHAMPOO DIRECTED EXTERNALLY APPLY IN SHOWER TO SKIN, LATHER, LEAVE ON FOR 5 MINUTES AND RINSE. NOT-TAKING TERBINAFINE- ORAL-12 WEEKS 250 MG TABLETS ONE TABLET ORALLY DAILY, NOTES: ALMOST DONE - TAKING FOR FOOT FUNGUS NOT-TAKING CYMBALTA 30 MG CAPSULE DELAYED RELEASE PARTICLES 1 CAPSULE ORALLY ONCE A DAY NOT-TAKING AUGMENTIN 875-125 MG TABLET 1 TABLET ORALLY EVERY 12 HRS NOT-TAKING AMOXICILLIN-POT CLAVULANATE 875-125 MG TABLET 1 TABLET ORALLY EVERY 12 HRS MEDICATION LIST REVIEWED AND RECONCILED WITH THE PATIENT PAST MEDICAL HISTORY 12 YEAR ASCVD RISK OF 1.0% 07/2014 ABDOMINAL AORTIC ANEURYSM S/P REPAIR IN 2014. SHE FOLLOWS WITH HER VASCULAR SURGEON IN [place] ON A YEARLY BASIS. THERE IS NO IDENTIFIED ETIOLOGY FOR HER AAA, HOWEVER HER SURGEON SUSPECTS A GENETIC DISORDER. GENETIC TESTING IS NOT COVERED BY HER INSURANCE AND WOULD COST HER ABOUT $6000 OUT OF POCKET WHICH IS COST PROHIBITIVE PATIENT HAD AN "ECTOPIC UTERUS" -- SECOND (R SIDED) UTERUS WITH NO CERVIX, CAUSED ENDOMETRIOSIS WITH RETROGRADE MENSTRUATION PAP 02/2015- NEG ENDOMETRIOSIS PER OP REPORT FROM [facility]: PT HAS "NL UTERUS ATTACHED TO AN OVARY AND A CERVIX ON THE L OF THE MIDLINE WITH A L FALLOPIAN TUBE WITH A LEFT ROUND LIGAMENT. A ROUND LIGAMENT FROM THAT UTERUS LED TO AN ECTOPIC UTERUS IN THE RIGHT LOWER QUADRANT ON THE PELVIC SIDEWALL WHICH WAS NOT ATTACHED TO A CERVIX WHICH ALSO HAD AN OVARY AND A FALLOPIAN TUBE." MRI OF L/S 12/2011 WITH COMPLEX CONGENITAL ANOMALIES, SCOLIOSIS, TETHERED CORD, VERTEBRAL FUSION, DISC NARROWING, SPINAL STENOSIS, DIAGNOSED WITH LUMBAR SCOLIOSIS AN INFANT. NEVER HAD SURGERY FOR HER SPINE, NO BRACING. WEARS A SHOE LIFT ON THE RIGHT, 1 INCH. NO PROBLEMS WITH HYPERMOBILE JOINTS. NO OPTIC LENS DISPLACEMENT. SUBDURAL HEMATOMA S/P FALL 10/2018 ALLERGIES ITRACONAZOLE: RASH - ALLERGY SURGICAL HISTORY ABDOMINAL AORTIC REPAIR 09/2014 ABDOMINAL HERNIA REPAIR 09/2014 R SIDED HYSTERECTOMY (BUT NOT OOPHORECTOMY) OF "ECTOPIC UTERUS" THAT HAD NO CERVIX 12/2005 C SECTION X2 APPENDECTOMY EXTRA OCULAR MUSCLE SURGERY CHILDHOOD FAMILY HISTORY FATHER: ALIVE 60 YRS MOTHER: , DIAGNOSED WITH DIABETES SIBLINGS: ALIVE, DIABETES SON(S): ALIVE DAUGHTER(S): ALIVE 1 BROTHER(S) - HEALTHY. 2 SON(S) , 1 DAUGHTER(S) . NO FAMILY HISTORY OF GENETIC DISORDERS, AND NOBODY ELSE HAS AAA OR SPINAL DEFORMITIES. SOCIAL HISTORY GENERAL: TOBACCO USE ARE YOU A:CURRENT SMOKER ARE YOU INTERESTED IN QUITTING?THINKING ABOUT QUITTING PREVIOUS QUIT ATTEMPTS?YES, MORE THAN 6 MONTHS AGO. CUTTING DOWN COUNSELED THE PATIENT ON SMOKING CESSATION, EDUCATION [id number]/30/2020 HOW MANY CIGARETTES A DAY DO YOU SMOKE?6-10 HOW SOON AFTER YOU WAKE UP DO YOU SMOKE YOUR FIRST CIGARETTE?31-60 MIN HOW OFTEN DO YOU SMOKE CIGARETTES?EVERY DAY PATIENT COUNSELED ON THE DANGERS OF TOBACCO USE AND URGED TO QUIT:06/10/2019 SMOKING CESSATION INFORMATION GIVEN06/10/2019 HIV / HEP-C SCREENING HIV TEST OFFERED TO PATIENT:YES DATE OFFERED:08/30/2017 TEST ACCEPTED:NO HEP-C TEST OFFERED TO PATIENT:YES DATE OFFERED:08/30/2017 REASON:PATIENT DECLINED TEST ACCEPTED:NO REASON:PATIENT DECLINED BROCHURE PROVIDED TO PATIENTYES OTHERS AT HOME: LIVES WITH AND 2 BOYS & 1 DAUGHTER. EDUCATION LEVEL OF EDUCATION:FINISHED HIGH SCHOOL DIET: REGULAR. LANGUAGE LANGUAGES SPOKEN:SYRIAC NEW PATIENT PAIN DIARY TODAY'S VISIT NOTES, FROM 0-10, WHAT LEVEL IS YOUR PAIN TODAY? 0. RECREATIONAL DRUG USE DRUG USE?NO EXERCISE: NO REGULAR EXERCISE. LEARNING BARRIERS / SPECIAL NEEDS CHANGE FROM LAST VISIT?NO BARRIERS TO LEARNING?NO HEARING IMPAIRED?NO VISION IMPAIRED?YES COGNITIVELY IMPAIRED?NO :CORRECTIVE LENSES READINESS TO LEARN?YES LEARNING PREFERENCES?NO LEARNING CAPABILITIES PRESENT?YES EMOTIONAL BARRIERS?NO SPECIAL DEVICES?NO DEVELOPMENT ANALYST NEEDED?NO PAIN CLINIC PFS, CLERGY, PUBLIC HEALTH REFERRALS WAS THE PROVIDER NOTIFIED OF ANY PERTINENT INFO?YES HAS THE PATIENT BEEN EDUCATED REGARDING HIS/HER PLAN OF CARE?YES HAS THE PATIENT BEEN EDUCATED REGARDING PAIN, THE RISK FOR PAIN, THE IMPORTANCE OF EFFECTIVE PAIN MANAGEMENT, AND THE PAIN ASSESSMENT PROCESS?YES LATEX QUESTIONNAIRE LATEX ALLERGY : HAVE YOU EVER DEVELOPED ANY TYPE OF REACTION AFTER HANDLING LATEX PRODUCTS SUCH RUBBER GLOVES, CONDOMS, DIAPHRAGMS, BALLOONS, SOCKS, OR UNDERWEAR?NO LATEX ALLERGY : HAVE YOU EVER DEVELOPED ANY TYPE OF REACTION DURING OR AFTER DENTAL APPOINTMENT, VAGINAL/RECTAL EXAMINATION, SURGICAL PROCEDURE, OR ANY OTHER EXPOSURE?NO DATE ASKED : 07/19/2018 LATEX RISK : HAVE YOU EVER HAD ANY DIFFICULTY BREATHING OR HIVES AFTER EATING OR HANDLING ANY FRUITS, OR VEGETABLES; SUCH KIWI, BANANAS, STONE FRUITS, OR CHESTNUTSNO LATEX RISK : DO YOU HAVE A PREVIOUS PERSONAL HISTORY OF MORE THAN NINE SURGERIES, SPINA BIFIDA, OR REPEATED CATHERIZATIONS? NO LATEX RISK : ARE YOU FREQUENTLY EXPOSED TO LATEX PRODUCTS IN YOUR OCCUPATION?NO CAFFEINE CAFFEINE USE?YES COFFEE,SODA ADVANCE DIRECTIVE ADVANCE DIRECTIVE DISCUSSED WITH PATIENT:YES PATIENT DECLINED INFO AND ASSIATANCE WITH FORM AT THIS TIME. VOODOO [id number] PENTECOSTAL MARITAL STATUS: . ALCOHOL SCREENING DID YOU HAVE A DRINK CONTAINING ALCOHOL IN THE PAST YEAR?NO POINTS0 INTERPRETATIONNEGATIVE OCCUPATION: UNEMPLOYED. SEXUAL HX HAD SEX IN THE LAST 12 MONTHS (VAGINAL, ORAL, OR ANAL)?YES WITHWOMEN ONLY USE PROTECTION?YES HOW OFTEN?ALL OF THE TIME HOSPITALIZATION/MAJOR DIAGNOSTIC PROCEDURE FOR ABOVE SURGERIES FALL/HEAD INJURY 10/2018 REVIEW OF SYSTEMS REVIEWED BY: PROVIDER: YEN CAZARES-Brianna . CONSTITUTIONAL: ANY CHANGE IN YOUR MEDICAL CONDITION? NO . CHILLS NO . FEVER NO . INFECTION: DO YOU HAVE NEW INFECTIONS? NO . DO YOU HAVE HISTORY OF MRSA? NO . MUSCULOSKELETAL: ANY NEW PATTERNS OF PAIN OR NUMBNESS? NO . GASTROENTEROLOGY: ANY NEW CHANGE IN BOWEL CONTROL? NO . GENITOURINARY: ANY NEW CHANGE IN BLADDER CONTROL? NO . IS THERE A CHANCE YOU COULD BE ? NO . HEMATOLOGY/LYMPH: DO YOU TAKE ANY BLOOD THINNERS? (FOR EXAMPLE- COUMADIN, PLAVIX, AGGRENOX, PLATEL, PRADAXA, OR XARELTO) NO . WHEN WAS YOUR LAST DOSE? DATE: TIME: . NEUROLOGY: HAVE YOU FALLEN IN THE PAST 12 MONTHS? NO . ANY NEW EXTREMITY NUMBNESS OR WEAKNESS? NO . CARDIOLOGY: DO YOU HAVE A PACEMAKER OR DEFIBRILLATOR? NO . RESPIRATORY: HAVE YOU BEEN SICK IN THE PAST WEEK? NO . FEVER NO . FLU LIKE SYMPTOMS? NO . COUGH NO . INTEGUMENTARY: DO YOU HAVE ANY RASHES OR OPEN SORES? NO . ALLERGIC/IMMUNO: ARE YOU ALLERGIC TO IV DYE? NO . ANY NEW ALLERGIES? NO . PSYCHIATRIC: DO YOU HAVE THOUGHTS OF HURTING YOURSELF OR SOMEONE ELSE? NO . ARE YOU ABUSED, NEGLECTED, OR IN AN UNSAFE ENVIRONMENT? NO . ENDOCRINOLOGY: ARE YOU DIABETIC? NO . OTHER: DO YOU NEED ANY PRESCRIPTIONS? NO . IF YES, PLEASE LIST: ____ . ANY NEW PROBLEMS WITH YOUR MEDICATIONS? NO . WHEN DID YOU LAST EAT? ____ . WHEN DID YOU LAST DRINK? ____ . WHAT DID YOU LAST DRINK? ____ . NAME OF PERSON DRIVING YOU HOME? ____ . DO YOU HAVE ANY OTHER QUESTIONS OR CONCERNS NO . VITAL SIGNS WT 140.0 LBS, HT 59 IN, BMI 28.27 INDEX, BP 103/64 MM HG, HR 112 /MIN, RR 18 /MIN, TEMP 96.7 F, OXYGEN SAT % 96%, SAFE IN ENV? (Y/N) YES, REVIEWED BY: SONIA JAIN LPN. EXAMINATION GENERAL EXAMINATION: GENERALNO ACUTE DISTRESS, WELL NOURISHED AND HYDRATED. PSYCHAPPROPRIATE MOOD AND AFFECT . LUNGS:CLEAR TO AUSCULTATION BILATERALLY, NO WHEEZES, RHONCHI, RALES. HEART:NO MURMURS, REGULAR RATE AND RHYTHM. BACK:POINT TENDER ALONG LUMBAR SPINE, SURROUNDING SKIN SHOWS NO ERYTHEMA, ECCHYMOSIS, INCREASED WARMTH, AND/OR SKIN ERUPTIONS NOTED. PATIENT DOES ENDORSE INCREASED PAIN WITH FACET LOADING. . ASSESSMENTS SPONDYLOSIS OF LUMBOSACRAL REGION WITHOUT MYELOPATHY OR RADICULOPATHY - M47.817 (PRIMARY) TREATMENT SPONDYLOSIS OF LUMBOSACRAL REGION WITHOUT MYELOPATHY OR RADICULOPATHY [facility] MRI SPINE, L.S. WITHOUT [id number] NOTES: BILATERAL THERAPEUTIC FACET BLOCK L4-L5 L5-S1. CLINICAL NOTES: 39-YEAR-OLD FEMALE IN FOR CHRONIC PAIN FOLLOW-UP. GIVEN PRESENTING SYMPTOMS AND RESULTS OF PHYSICAL EXAMINATION RECOMMEND BILATERAL THERAPEUTIC FACET BLOCK L4-L5 L5-S1 WITH POST PROCEDURAL FOLLOW-UP. WILL HAVE MRI PERFORMED PRIOR TO PROCEDURE. PATIENT HAS EXPRESSED UNDERSTANDING OF AND WAS IN AGREEMENT WITH TREATMENT PLAN. GIVEN TIME TO ASK QUESTIONS AND EXPRESS CONCERNS. OTHERS NOTES: FACET JOINT INJECTION MATERIAL WAS PRINTED. PROCEDURE CODES [id number] ESTABILISHED PATIENT [facility] FACILITY CHARGE DISPOSITION & COMMUNICATION FOLLOW UP POSTPROCEDURE (REASON: MRI LS-SPINE BILATERAL THERAPEUTIC FACET BLOCK L4-L5 L5-S1) ELECTRONICALLY SIGNED BY DEBORA OWEN ON 06/11/2019 AT 08:51 AM EDT DISCLAIMER : THIS IS A VISIT SUMMARY EXTRACTED FROM THE [facility] CHART. IT IS NOT A COPY OF THE [facility] PROGRESS NOTE. TYRA
== END ==
LOC: M PAIN 10:00
PROVIDERS: ATTEND Family Medicine
DX: M47.817 Spondylosis without myelopathy or radiculopathy, lumbosacral region (principal); F17.210 Nicotine dependence, cigarettes, uncomplicated; Z79.891 Long term (current) use of opiate analgesic; Z79.899 Other long term (current) drug therapy; Z88.8 Allergy status to other drugs, medicaments and biological substances

== ENCOUNTER → 2019-06-14 | Outpatient (CLI) | payer MEDICARE ==
--- NOTE | 2019-06-14 12:40 | REP ---
MRI LUMBAR SPINE WITHOUT CONTRAST: HISTORY: Spondylosis. Without myelopathy or radiculopathy. Comparison MRI study December 24, 2011. Comparison radiographs June 18, 2010. TECHNIQUE: Sagittal and axial T1- and T2-weighted scans are acquired in the usual fashion with and without fat saturation. Sequences include spin echo, turbo spin-echo, and STIR imaging sequences. FINDINGS: Complex congenital lumbosacral vertebral anomalies have been previously noted. These include a lordotic sacrum with deformity and hypoplasia of the right sacral ala, block/demetrius-vertebral anomalies at L2-L3, dextroconvex lumbar scoliosis, slightly hypoplastic rib on the right at L1, and reversal of the normal lumbar lordosis. These morphologic changes are again seen. The tip of the conus medullaris is again noted to be low at the bottom of L3 unchanged consistent with tethered cord. This is unchanged. The previous study showed evidence of a 3.0 cm abdominal aortic aneurysm. This does not appear to be visible today. It has apparently been repaired. There is degenerative disc narrowing with combined developmental and degenerative bony hypertrophy along the left posterior margin of the L3-4 disc. This produces some thecal sac compression along the left ventral lateral margin of the thecal sac at this level. This appears to be essentially unchanged. There is left-sided neural foraminal narrowing at this level unchanged. Canal is developmentally somewhat small at this level. Midline AP dimension of the thecal sac on sagittal images 9.8 mm. There is no other significant area of thecal sac compression. There is right-sided neural foraminal narrowing L5-S1 and at L4-5 unchanged. No fracture or collapse is seen. IMPRESSION: Complex congenital vertebral anomaly is again noted with kyphoscoliosis. Central canal stenosis and left ventral lateral thecal sac compression are noted at the level of the L3-4 disc essentially unchanged. There is multilevel neural foraminal narrowing as above. Electronically Signed by Tony Black MD 06/14/2019 02:31 P
== END ==
LOC: M RAD 10:41
PROVIDERS: ATTEND Family Medicine
DX: M47.817 Spondylosis without myelopathy or radiculopathy, lumbosacral region (principal); M48.061 Spinal stenosis, lumbar region without neurogenic claudication

== ENCOUNTER → 2019-07-08 | Outpatient (CLI) | payer MEDICARE | LOC: M LABSMTC 11:49 | PROVIDERS: ATTEND Anesthesiology | DX: Z11.59 Encounter for screening for other viral diseases (principal) ==

== ENCOUNTER → 2019-07-10 | Outpatient (CLI) | payer MEDICARE ==
[~2019-07-10] MED LIST changes: +BUPIVACAINE HCL 0.25% 30ML VIAL As Ordered ONE; +ISOVUE-M 300 61% 15ML VIAL As Ordered ONE; +LIDOCAINE 1% SDV 30ML VIAL As Ordered ONE; +dexameTHASONE 10MG/1ML VIAL PRES.FREE (J1100 PER 1MG) As Ordered ONE; +diazePAM 5 MG TAB As Ordered ONE; +oxyCODONE 5MG TAB As Ordered ONE
--- NOTE | 2019-07-10 11:25 | REP ---
PARTIAL LUMBAR SPINE: Single view. HISTORY: Bilateral facet block for pain. 26 seconds of fluoroscopy time is reported. FINDINGS: A single last image hold fluoroscopically obtained spot radiograph of the lumbar spine documents various needle positions and contrast injections associated with injection procedure. Electronically Signed by Tony Black MD 07/10/2019 11:52 A
--- NOTE | 2019-07-17 03:32 | ECWPNPC ---
PATIENT NAME: EVA CALZADA : 1980 GENDER: FEMALE VISIT DATE: 07/10/2019 DISCHARGE DATE: 07/10/19 1122 VISIT LOCKED DATE TIME: PHYSICIAN: DEMETRIUS HILL MD RESOURCE: DEMETRIUS HILL MD REASON FOR APPOINTMENT 1. BILATERAL THERAPEUTIC FACET BLOCK L3-L4 L4-L5 L5-S1 HISTORY OF PRESENT ILLNESS HISTORY OF PRESENT ILLNESS: PAIN THE PATIENT DESCRIBES THE PAIN... FALL RISK SCREENING: SCREENING :NO FALLS REPORTED IN THE LAST YEAR CURRENT MEDICATIONS TAKING [facility] HYDROCORTISONE ANTI-ITCH 0.5 % CREAM 1 APPLICATION TO AFFECTED AREA EXTERNALLY TWICE A DAY, NOTES: NONE RECENTLY TAKING MAY HAVE - - RIGHT SHOE LIFT DX: M41.9 KYPHOSCOLIOSIS DAILY MED#[id number] TAKING CARISOPRODOL 350 MG TABLET 1 TABLET NEEDED ORALLY BEFORE BEDTIME MDD-1, NOTES: 07/09/19 2000 TAKING MULTIVITAMIN ADULT - TABLET 1 TAB ORALLY DAILY, NOTES: 07/10/19 07 TAKING CRANBERRY 405 MG CAPSULE DIRECTED ORALLY , NOTES: 07/10/19 07 TAKING ACETAMINOPHEN 325 MG TABLET 1 TABLET NEEDED ORALLY EVERY 4 HRS, NOTES: 07/09/19 1200 TAKING PROBIOTIC - TABLET DELAYED RELEASE DIRECTED ORALLY , NOTES: 07/10/19 07 TAKING VITAMIN B COMPLEX - TABLET DIRECTED ORALLY , NOTES: 07/10/19 07 TAKING COQ10 100 MG CAPSULE 1 CAPSULE WITH A MEAL ORALLY ONCE A DAY, NOTES: 07/10/19 07 TAKING ORTHOPEDIC SHOES _ 1 DX M79.671, [facility]# [id number] ONE INCH SHOE LIFT. RT SHOE DAILY TAKING HYDROCODONE-ACETAMINOPHEN 10-325 MG TABLET 1 TABLET ORALLY EVERY 6 HRS NEEDED, NOTES: 07/09/19 1800 TAKING CYMBALTA 60 MG CAPSULE DELAYED RELEASE PARTICLES 1 CAPSULE ORALLY ONCE A DAY, NOTES: 07/10/19 0700 TAKING KETOROLAC TROMETHAMINE 10 MG TABLET 1 TABLET WITH FOOD OR MILK NEEDED ORALLY EVERY 6 HRS, NOTES: 3 DAYS AGO TAKING ONDANSETRON 4 MG TABLET DISINTEGRATING 1 TABLET ON THE TONGUE AND ALLOW TO DISSOLVE ORALLY ONCE A DAY, NOTES: 3 DAYS AGO NOT-TAKING KETOCONAZOLE 2 % SHAMPOO DIRECTED EXTERNALLY APPLY IN SHOWER TO SKIN, LATHER, LEAVE ON FOR 5 MINUTES AND RINSE. NOT-TAKING TERBINAFINE- ORAL-12 WEEKS 250 MG TABLETS ONE TABLET ORALLY DAILY, NOTES: ALMOST DONE - TAKING FOR FOOT FUNGUS NOT-TAKING CYMBALTA 30 MG CAPSULE DELAYED RELEASE PARTICLES 1 CAPSULE ORALLY ONCE A DAY NOT-TAKING AUGMENTIN 875-125 MG TABLET 1 TABLET ORALLY EVERY 12 HRS NOT-TAKING AMOXICILLIN-POT CLAVULANATE 875-125 MG TABLET 1 TABLET ORALLY EVERY 12 HRS MEDICATION LIST REVIEWED AND RECONCILED WITH THE PATIENT PAST MEDICAL HISTORY 12 YEAR ASCVD RISK OF 1.0% 07/2014 ABDOMINAL AORTIC ANEURYSM S/P REPAIR IN 2014. SHE FOLLOWS WITH HER VASCULAR SURGEON IN [place] ON A YEARLY BASIS. THERE IS NO IDENTIFIED ETIOLOGY FOR HER AAA, HOWEVER HER SURGEON SUSPECTS A GENETIC DISORDER. GENETIC TESTING IS NOT COVERED BY HER INSURANCE AND WOULD COST HER ABOUT $6000 OUT OF POCKET WHICH IS COST PROHIBITIVE PATIENT HAD AN "ECTOPIC UTERUS" -- SECOND (R SIDED) UTERUS WITH NO CERVIX, CAUSED ENDOMETRIOSIS WITH RETROGRADE MENSTRUATION PAP 02/2015- NEG ENDOMETRIOSIS PER OP REPORT FROM [facility]: PT HAS "NL UTERUS ATTACHED TO AN OVARY AND A CERVIX ON THE L OF THE MIDLINE WITH A L FALLOPIAN TUBE WITH A LEFT ROUND LIGAMENT. A ROUND LIGAMENT FROM THAT UTERUS LED TO AN ECTOPIC UTERUS IN THE RIGHT LOWER QUADRANT ON THE PELVIC SIDEWALL WHICH WAS NOT ATTACHED TO A CERVIX WHICH ALSO HAD AN OVARY AND A FALLOPIAN TUBE." MRI OF L/S 12/2011 WITH COMPLEX CONGENITAL ANOMALIES, SCOLIOSIS, TETHERED CORD, VERTEBRAL FUSION, DISC NARROWING, SPINAL STENOSIS, DIAGNOSED WITH LUMBAR SCOLIOSIS AN . NEVER HAD SURGERY FOR HER SPINE, NO BRACING. WEARS A SHOE LIFT ON THE RIGHT, 1 INCH. NO PROBLEMS WITH HYPERMOBILE JOINTS. NO OPTIC LENS DISPLACEMENT. SUBDURAL HEMATOMA S/P FALL 10/2018 ALLERGIES ITRACONAZOLE: RASH - ALLERGY SURGICAL HISTORY ABDOMINAL AORTIC REPAIR 09/2014 ABDOMINAL HERNIA REPAIR 09/2014 R SIDED HYSTERECTOMY (BUT NOT OOPHORECTOMY) OF "ECTOPIC UTERUS" THAT HAD NO CERVIX 12/2005 C SECTION X2 APPENDECTOMY EXTRA OCULAR MUSCLE SURGERY CHILDHOOD FAMILY HISTORY FATHER: ALIVE 60 YRS MOTHER: , DIAGNOSED WITH DIABETES SIBLINGS: ALIVE, DIABETES SON(S): ALIVE DAUGHTER(S): ALIVE 1 BROTHER(S) - HEALTHY. 2 SON(S) , 1 DAUGHTER(S) . NO FAMILY HISTORY OF GENETIC DISORDERS, AND NOBODY ELSE HAS AAA OR SPINAL DEFORMITIES. SOCIAL HISTORY GENERAL: TOBACCO USE ARE YOU A:CURRENT SMOKER ARE YOU INTERESTED IN QUITTING?THINKING ABOUT QUITTING PREVIOUS QUIT ATTEMPTS?YES, MORE THAN 6 MONTHS AGO. CUTTING DOWN COUNSELED THE PATIENT ON SMOKING CESSATION, EDUCATION [id number]/28/2020 HOW MANY CIGARETTES A DAY DO YOU SMOKE?6-10 HOW SOON AFTER YOU WAKE UP DO YOU SMOKE YOUR FIRST CIGARETTE?31-60 MIN HOW OFTEN DO YOU SMOKE CIGARETTES?EVERY DAY PATIENT COUNSELED ON THE DANGERS OF TOBACCO USE AND URGED TO QUIT:06/10/2019 SMOKING CESSATION INFORMATION GIVEN06/10/2019 LATEX QUESTIONNAIRE LATEX ALLERGY : HAVE YOU EVER DEVELOPED ANY TYPE OF REACTION AFTER HANDLING LATEX PRODUCTS SUCH RUBBER GLOVES, CONDOMS, DIAPHRAGMS, BALLOONS, SOCKS, OR UNDERWEAR?NO LATEX ALLERGY : HAVE YOU EVER DEVELOPED ANY TYPE OF REACTION DURING OR AFTER DENTAL APPOINTMENT, VAGINAL/RECTAL EXAMINATION, SURGICAL PROCEDURE, OR ANY OTHER EXPOSURE?NO LATEX RISK : HAVE YOU EVER HAD ANY DIFFICULTY BREATHING OR HIVES AFTER EATING OR HANDLING ANY FRUITS, OR VEGETABLES; SUCH KIWI, BANANAS, STONE FRUITS, OR CHESTNUTSNO LATEX RISK : DO YOU HAVE A PREVIOUS PERSONAL HISTORY OF MORE THAN NINE SURGERIES, SPINA BIFIDA, OR REPEATED CATHERIZATIONS? NO LATEX RISK : ARE YOU FREQUENTLY EXPOSED TO LATEX PRODUCTS IN YOUR OCCUPATION?NO DATE ASKED : 07/19/2018 ALCOHOL SCREENING DID YOU HAVE A DRINK CONTAINING ALCOHOL IN THE PAST YEAR?NO POINTS0 INTERPRETATIONNEGATIVE RECREATIONAL DRUG USE DRUG USE?NO CAFFEINE CAFFEINE USE?YES COFFEE,SODA SEXUAL HX HAD SEX IN THE LAST 12 MONTHS (VAGINAL, ORAL, OR ANAL)?YES WITHWOMEN ONLY USE PROTECTION?YES HOW OFTEN?ALL OF THE TIME HIV / HEP-C SCREENING HIV TEST OFFERED TO PATIENT:YES DATE OFFERED:08/30/2017 TEST ACCEPTED:NO HEP-C TEST OFFERED TO PATIENT:YES DATE OFFERED:08/30/2017 REASON:PATIENT DECLINED TEST ACCEPTED:NO REASON:PATIENT DECLINED BROCHURE PROVIDED TO PATIENTYES CHRISTIANITY [id number] EVANGELICAL LANGUAGE LANGUAGES SPOKEN:MICRONESIAN EDUCATION LEVEL OF EDUCATION:FINISHED HIGH SCHOOL LEARNING BARRIERS / SPECIAL NEEDS CHANGE FROM LAST VISIT?NO BARRIERS TO LEARNING?NO HEARING IMPAIRED?NO VISION IMPAIRED?YES COGNITIVELY IMPAIRED?NO :CORRECTIVE LENSES READINESS TO LEARN?YES LEARNING PREFERENCES?NO LEARNING CAPABILITIES PRESENT?YES EMOTIONAL BARRIERS?NO SPECIAL DEVICES?NO HUMAN RESOURCES CLERK NEEDED?NO OCCUPATION: UNEMPLOYED. DIET: REGULAR. EXERCISE: NO REGULAR EXERCISE. MARITAL STATUS: . OTHERS AT HOME: LIVES WITH AND 2 BOYS & 1 DAUGHTER. NEW PATIENT PAIN DIARY PATIENT DESCRIBES PAIN :ACHING, HAVE IT ALL THE TIME, IT COMES AND GOES, SHARP FROM 0-10, WHAT LEVEL IS YOUR PAIN TODAY?8 PRECIPITATING FACTORS INCREASED ACTIVITY ALLEVIATING FACTORS MEDS, REST IMPACT ON FUNCTION YES PAIN CLINIC PFS, CLERGY, PUBLIC HEALTH REFERRALS WAS THE PROVIDER NOTIFIED OF ANY PERTINENT INFO?YES HAS THE PATIENT BEEN EDUCATED REGARDING HIS/HER PLAN OF CARE?YES HAS THE PATIENT BEEN EDUCATED REGARDING PAIN, THE RISK FOR PAIN, THE IMPORTANCE OF EFFECTIVE PAIN MANAGEMENT, AND THE PAIN ASSESSMENT PROCESS?YES ADVANCE DIRECTIVE ADVANCE DIRECTIVE DISCUSSED WITH PATIENT:YES PATIENT DECLINED INFO AND ASSIATANCE WITH FORM AT THIS TIME. HOSPITALIZATION/MAJOR DIAGNOSTIC PROCEDURE FOR ABOVE SURGERIES FALL/HEAD INJURY 10/2018 REVIEW OF SYSTEMS REVIEWED BY: PROVIDER: DEMETRIUS HILL MD . CONSTITUTIONAL: ANY CHANGE IN YOUR MEDICAL CONDITION? NO . CHILLS NO . FEVER NO . INFECTION: DO YOU HAVE NEW INFECTIONS? NO . DO YOU HAVE HISTORY OF MRSA? NO . MUSCULOSKELETAL: ANY NEW PATTERNS OF PAIN OR NUMBNESS? NO . GASTROENTEROLOGY: ANY NEW CHANGE IN BOWEL CONTROL? NO . GENITOURINARY: ANY NEW CHANGE IN BLADDER CONTROL? NO . IS THERE A CHANCE YOU COULD BE ? NO . HEMATOLOGY/LYMPH: DO YOU TAKE ANY BLOOD THINNERS? (FOR EXAMPLE- COUMADIN, PLAVIX, AGGRENOX, PLATEL, PRADAXA, OR XARELTO) NO . WHEN WAS YOUR LAST DOSE? DATE: TIME: . NEUROLOGY: HAVE YOU FALLEN IN THE PAST 12 MONTHS? NO . ANY NEW EXTREMITY NUMBNESS OR WEAKNESS? NO . CARDIOLOGY: DO YOU HAVE A PACEMAKER OR DEFIBRILLATOR? NO . RESPIRATORY: HAVE YOU BEEN SICK IN THE PAST WEEK? NO . FEVER NO . FLU LIKE SYMPTOMS? NO . COUGH NO . INTEGUMENTARY: DO YOU HAVE ANY RASHES OR OPEN SORES? NO . ALLERGIC/IMMUNO: ARE YOU ALLERGIC TO IV DYE? NO . ANY NEW ALLERGIES? NO . PSYCHIATRIC: DO YOU HAVE THOUGHTS OF HURTING YOURSELF OR SOMEONE ELSE? NO . ARE YOU ABUSED, NEGLECTED, OR IN AN UNSAFE ENVIRONMENT? NO . ENDOCRINOLOGY: ARE YOU DIABETIC? NO . OTHER: DO YOU NEED ANY PRESCRIPTIONS? NO . IF YES, PLEASE LIST: ____ . ANY NEW PROBLEMS WITH YOUR MEDICATIONS? NO . WHEN DID YOU LAST EAT? 4/28/20 1930 . WHEN DID YOU LAST DRINK? 07/10/19 0700 . WHAT DID YOU LAST DRINK? WATER . NAME OF PERSON DRIVING YOU HOME? . DO YOU HAVE ANY OTHER QUESTIONS OR CONCERNS NO . VITAL SIGNS WT 142.0 LBS, HT 59 IN, BMI 28.68 INDEX, BP 113/63 MM HG, HR 107 /MIN, RR 18 /MIN, TEMP 97.1 F, OXYGEN SAT % 100%, NA INITIALS AW 0859, REVIEWED BY: LS. ASSESSMENTS SPONDYLOSIS WITHOUT MYELOPATHY OR RADICULOPATHY, LUMBAR REGION - M47.816 (PRIMARY) SPONDYLOSIS OF LUMBOSACRAL REGION WITHOUT MYELOPATHY OR RADICULOPATHY - M47.817 LOW BACK PAIN - M54.5 OTHER CHRONIC PAIN - G89.29 TREATMENT SPONDYLOSIS OF LUMBOSACRAL REGION WITHOUT MYELOPATHY OR RADICULOPATHY SMC FACET BLOCK (PAIN)[id number] OTHERS CLINICAL NOTES: PRE PROCEDURE SCREENING DONE 07/09/19 EM. PROCEDURES PN LUMBAR FACET BLOCK THERAPEUTIC PRE PROCEDURE DIAGNOSIS LUMBAR SPONDYLOSIS, LUMBOSACRAL SPONDYLOSIS POST PROCEDURE DIAGNOSIS LUMBAR SPONDYLOSIS, LUMBOSACRAL SPONDYLOSIS PROCEDURE BILATERAL L3-L4, L4-L5, L5-S1 LUMBAR FACET THERAPEUTIC BLOCK SURGEON DR. 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 I EVALUATED THE PATIENT AND REVIEWED THE CHART. I WENT OVER THE RISKS, ALTERNATIVES, AND BENEFITS ASSOCIATED WITH THIS PROCEDURE. I DISCUSSED WITH THE PATIENT THAT THE USE OF STEROIDS MAY CONTRIBUTE TO IMMUNOSUPPRESSION OF HER BODY AGAINST INFECTIONS SUCH THE MEJIAS VIRUS, COVID-19. SHE IS AWARE OF THE POTENTIAL COMPLICATIONS ASSOCIATED WITH AN INFECTION OF THIS VIRUS INCLUDING . THE PATIENT WOULD LIKE TO PROCEED AND GIVES CONSENT TO PERFORM THE PROCEDURE. THE PATIENT DENIES UNEXPLAINABLE WEIGHT LOSS, FEVER, CHILLS, OR NEW CHANGES IN URINARY OR BOWEL CONTROL. THE PATIENT IS NEGATIVE FOR COVID-19 DESCRIPTION OF PROCEDURE THE PATIENT WAS BROUGHT TO THE PROCEDURE ROOM AND PLACED IN THE PRONE POSITION. THE LUMBOSACRAL AREA WAS CLEANED WITH CHLORAPREP SOLUTION AND DRAPED ASEPTICALLY. THE PROCEDURE WAS DONE UNDER STERILE CONDITIONS. I CHECKED LATERALITY WHERE THE PROCEDURE WAS GOING TO BE PERFORMED WITH THE PATIENT AND THE SUPPORTING STAFF AT THE MOMENT OF THE TIME OUT IN THE PROCEDURE ROOM. I CHECKED UNDER X-RAY TO SEE WHERE THE PAIN WAS COMING FROM AND DECIDED TO PERFORM TODAY L3-L4, L4-L5, L5-S1 BILATERALLY. TARGET POINT WAS SELECTED AFTER LATERAL ROTATION AND TILT OF THE MAGNIFIER OF THE C-ARM. LIDOCAINE 0.5% WAS USED TO NUMB THE SKIN AND THE SUBCUTANEOUS TISSUE BELOW IT. SPINAL NEEDLES, 22-GAUGE, WERE ADVANCED UNDER FLUOROSCOPIC GUIDANCE AND FOLLOWING PATIENT FEEDBACK UNTIL THE TARGETS WERE TOUCHED. THE POSITION OF THE NEEDLES WAS VERIFIED WITH AP AND LATERAL VIEWS. AFTER PROPER POSITION OF THE NEEDLES WAS ACHIEVED, ISOVUE-M DYE 30% 0.1 ML WAS INJECTED SHOWING ADEQUATE SPREAD OF THE DYE. THEN A SOLUTION OF 1.9 ML OF BUPIVACAINE 0.125% OF DEXAMETHASONE 5 MG WAS INJECTED AT EACH SITE. THERE WAS NO EVIDENCE OF BLOOD, PARESTHESIA OR CEREBROSPINAL FLUID DURING THE PROCEDURE. THE PATIENT WAS SENT TO THE RECOVERY ROOM. THE PATIENT WAS MOVING THE EXTREMITIES AND DOING WELL. THERE WAS NO COMPLICATION DURING THE PROCEDURE. FLUOROSCOPY TIME WAS 26 SECONDS POST PROCEDURE NOTE THE PATIENT WILL BE SEEN IN A FOLLOW UP IN THE NEXT FEW WEEKS. I AM LOOKING FOR LONG LASTING PAIN RELIEF FOR THE PATIENT WITH THESE INJECTIONS. INSTRUCTIONS WERE GIVEN, QUESTIONS WERE ANSWERED, AND THE PATIENT EXPRESSED UNDERSTANDING AND AGREES WITH THE PLAN. I INSTRUCTED THE PATIENT TO STAY HOME, IF POSSIBLE, FOR A WEEK DUE TO COVID-19. I, MONET PEREZ , DOCUMENTED THE ABOVE INFORMATION ACTING A SCRIBE FOR DR. HILL. 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 IT IS NOT A COPY OF THE [employer] PROGRESS NOTE. MTDD
== END ==
LOC: M PAIN 09:30
PROVIDERS: ATTEND Anesthesiology
DX: M47.816 Spondylosis without myelopathy or radiculopathy, lumbar region (principal); M47.817 Spondylosis without myelopathy or radiculopathy, lumbosacral region; M54.5 Low back pain; G89.29 Other chronic pain; F17.210 Nicotine dependence, cigarettes, uncomplicated; Z88.8 Allergy status to other drugs, medicaments and biological substances; Z79.899 Other long term (current) drug therapy
CPT/HCPCS: 64493; 64494; 64495; J1100; Q9967

== ENCOUNTER → 2019-07-24 | Outpatient (CLI) | payer MEDICARE ==
[~2019-07-24] MED LIST changes: -BUPIVACAINE HCL 0.25% 30ML VIAL As Ordered ONE; -ISOVUE-M 300 61% 15ML VIAL As Ordered ONE; -LIDOCAINE 1% SDV 30ML VIAL As Ordered ONE; -dexameTHASONE 10MG/1ML VIAL PRES.FREE (J1100 PER 1MG) As Ordered ONE; -diazePAM 5 MG TAB As Ordered ONE; -oxyCODONE 5MG TAB As Ordered ONE
--- NOTE | 2019-07-26 02:40 | ECWPNPC ---
PATIENT NAME: EVA CALZADA : 1980 GENDER: FEMALE VISIT DATE: 07/24/2019 DISCHARGE DATE: 07/24/19 1059 VISIT LOCKED DATE TIME: PHYSICIAN: CUONG MARLOW RESOURCE: CUONG MARLOW REASON FOR APPOINTMENT 1. BILATERAL THERAPEUTIC FACET BLOCK L4-L5 L5-S1 PAT COMPLETED HISTORY OF PRESENT ILLNESS HISTORY OF PRESENT ILLNESS: PAIN THE PATIENT DESCRIBES THE PAINAFTER THE PROCEDURE SEVERITY - PAIN SCORE OF2/10 PROCEDURE DID HELP LOCATIONSLOWER BACK QUALITY STIFFNESS DURATIONCONTINUOUS, CONSTANT, ALL DAY PAIN IS INCREASED BY:ACTIVITIES, PROLONGED STANDING PAIN IS DECREASED BY:USE OF PAIN MEDICATIONS PERMISSION REQUESTED AND RECEIVED FROM PATIENT TO PERFORM TELEHEALTH VISIT. 39-YEAR-OLD FEMALE IN FOR POST LUMBAR FACET BLOCK FOLLOW-UP SHE RATES HER PAIN PREPROCEDURE AT AN 8 OUT OF 10 AND POSTPROCEDURE AT A 2 OUT OF 10 AND FURTHER STATES HE CONTINUES TO HELP TODAY. FALL RISK SCREENING: SCREENING :NO FALLS REPORTED IN THE LAST YEAR CURRENT MEDICATIONS TAKING [facility] HYDROCORTISONE ANTI-ITCH 0.5 % CREAM 1 APPLICATION TO AFFECTED AREA EXTERNALLY TWICE A DAY, NOTES: NONE RECENTLY TAKING MAY HAVE - - RIGHT SHOE LIFT DX: M41.9 KYPHOSCOLIOSIS DAILY MED#[id number] TAKING CARISOPRODOL 350 MG TABLET 1 TABLET NEEDED ORALLY BEFORE BEDTIME MDD-1, NOTES: 07/09/191999 TAKING MULTIVITAMIN ADULT - TABLET 1 TAB ORALLY DAILY, NOTES: 07/10/19 07 TAKING CRANBERRY 405 MG CAPSULE DIRECTED ORALLY , NOTES: 07/10/19 07 TAKING ACETAMINOPHEN 325 MG TABLET 1 TABLET NEEDED ORALLY EVERY 4 HRS, NOTES: 07/09/19 1200 TAKING PROBIOTIC - TABLET DELAYED RELEASE DIRECTED ORALLY , NOTES: 07/10/19699 TAKING VITAMIN B COMPLEX - TABLET DIRECTED ORALLY , NOTES: 07/10/19699 TAKING COQ10 100 MG CAPSULE 1 CAPSULE WITH A MEAL ORALLY ONCE A DAY, NOTES: 07/10/19699 TAKING ORTHOPEDIC SHOES _ 1 DX M79.671, [facility]# [id number] ONE INCH SHOE LIFT. RT SHOE DAILY TAKING CYMBALTA 60 MG CAPSULE DELAYED RELEASE PARTICLES 1 CAPSULE ORALLY ONCE A DAY, NOTES: 07/10/19 07 TAKING KETOROLAC TROMETHAMINE 10 MG TABLET 1 TABLET WITH FOOD OR MILK NEEDED ORALLY EVERY 6 HRS, NOTES: 3 DAYS AGO TAKING ONDANSETRON 4 MG TABLET DISINTEGRATING 1 TABLET ON THE TONGUE AND ALLOW TO DISSOLVE ORALLY ONCE A DAY, NOTES: 3 DAYS AGO TAKING HYDROCODONE-ACETAMINOPHEN 10-325 MG TABLET 1 TABLET ORALLY EVERY 6 HRS NEEDED, NOTES: 07/09/19 1800 NOT-TAKING KETOCONAZOLE 2 % SHAMPOO DIRECTED EXTERNALLY APPLY IN SHOWER TO SKIN, LATHER, LEAVE ON FOR 5 MINUTES AND RINSE. NOT-TAKING TERBINAFINE- ORAL-12 WEEKS 250 MG TABLETS ONE TABLET ORALLY DAILY, NOTES: ALMOST DONE - TAKING FOR FOOT FUNGUS NOT-TAKING CYMBALTA 30 MG CAPSULE DELAYED RELEASE PARTICLES 1 CAPSULE ORALLY ONCE A DAY NOT-TAKING AUGMENTIN 875-125 MG TABLET 1 TABLET ORALLY EVERY 12 HRS NOT-TAKING AMOXICILLIN-POT CLAVULANATE 875-125 MG TABLET 1 TABLET ORALLY EVERY 12 HRS MEDICATION LIST REVIEWED AND RECONCILED WITH THE PATIENT PAST MEDICAL HISTORY 12 YEAR ASCVD RISK OF 1.0% 07/2014 ABDOMINAL AORTIC ANEURYSM S/P REPAIR IN 2014. SHE FOLLOWS WITH HER VASCULAR SURGEON IN [place] ON A YEARLY BASIS. THERE IS NO IDENTIFIED ETIOLOGY FOR HER AAA, HOWEVER HER SURGEON SUSPECTS A GENETIC DISORDER. GENETIC TESTING IS NOT COVERED BY HER INSURANCE AND WOULD COST HER ABOUT $6000 OUT OF POCKET WHICH IS COST PROHIBITIVE PATIENT HAD AN "ECTOPIC UTERUS" -- SECOND (R SIDED) UTERUS WITH NO CERVIX, CAUSED ENDOMETRIOSIS WITH RETROGRADE MENSTRUATION PAP 02/2015- NEG ENDOMETRIOSIS PER OP REPORT FROM [facility]: PT HAS "NL UTERUS ATTACHED TO AN OVARY AND A CERVIX ON THE L OF THE MIDLINE WITH A L FALLOPIAN TUBE WITH A LEFT ROUND LIGAMENT. A ROUND LIGAMENT FROM THAT UTERUS LED TO AN ECTOPIC UTERUS IN THE RIGHT LOWER QUADRANT ON THE PELVIC SIDEWALL WHICH WAS NOT ATTACHED TO A CERVIX WHICH ALSO HAD AN OVARY AND A FALLOPIAN TUBE." MRI OF L/S 12/2011 WITH COMPLEX CONGENITAL ANOMALIES, SCOLIOSIS, TETHERED CORD, VERTEBRAL FUSION, DISC NARROWING, SPINAL STENOSIS, DIAGNOSED WITH LUMBAR SCOLIOSIS AN . NEVER HAD SURGERY FOR HER SPINE, NO BRACING. WEARS A SHOE LIFT ON THE RIGHT, 1 INCH. NO PROBLEMS WITH HYPERMOBILE JOINTS. NO OPTIC LENS DISPLACEMENT. SUBDURAL HEMATOMA S/P FALL 10/2018 ALLERGIES ITRACONAZOLE: RASH - ALLERGY SURGICAL HISTORY ABDOMINAL AORTIC REPAIR 09/2014 ABDOMINAL HERNIA REPAIR 09/2014 R SIDED HYSTERECTOMY (BUT NOT OOPHORECTOMY) OF "ECTOPIC UTERUS" THAT HAD NO CERVIX 12/2005 C SECTION X2 APPENDECTOMY EXTRA OCULAR MUSCLE SURGERY CHILDHOOD FAMILY HISTORY FATHER: ALIVE 60 YRS MOTHER: , DIAGNOSED WITH DIABETES SIBLINGS: ALIVE, DIABETES SON(S): ALIVE DAUGHTER(S): ALIVE 1 BROTHER(S) - HEALTHY. 2 SON(S) , 1 DAUGHTER(S) . NO FAMILY HISTORY OF GENETIC DISORDERS, AND NOBODY ELSE HAS AAA OR SPINAL DEFORMITIES. SOCIAL HISTORY GENERAL: TOBACCO USE ARE YOU A:CURRENT SMOKER ARE YOU INTERESTED IN QUITTING?THINKING ABOUT QUITTING PREVIOUS QUIT ATTEMPTS?YES, MORE THAN 6 MONTHS AGO. CUTTING DOWN COUNSELED THE PATIENT ON SMOKING CESSATION, EDUCATION [id number]/12/2020 HOW MANY CIGARETTES A DAY DO YOU SMOKE?6-10 HOW SOON AFTER YOU WAKE UP DO YOU SMOKE YOUR FIRST CIGARETTE?31-60 MIN HOW OFTEN DO YOU SMOKE CIGARETTES?EVERY DAY PATIENT COUNSELED ON THE DANGERS OF TOBACCO USE AND URGED TO QUIT:07/23/2019 SMOKING CESSATION INFORMATION GIVEN07/23/2019 LATEX QUESTIONNAIRE LATEX ALLERGY : HAVE YOU EVER DEVELOPED ANY TYPE OF REACTION AFTER HANDLING LATEX PRODUCTS SUCH RUBBER GLOVES, CONDOMS, DIAPHRAGMS, BALLOONS, SOCKS, OR UNDERWEAR?NO LATEX ALLERGY : HAVE YOU EVER DEVELOPED ANY TYPE OF REACTION DURING OR AFTER DENTAL APPOINTMENT, VAGINAL/RECTAL EXAMINATION, SURGICAL PROCEDURE, OR ANY OTHER EXPOSURE?NO DATE ASKED : 07/19/2018 LATEX RISK : HAVE YOU EVER HAD ANY DIFFICULTY BREATHING OR HIVES AFTER EATING OR HANDLING ANY FRUITS, OR VEGETABLES; SUCH KIWI, BANANAS, STONE FRUITS, OR CHESTNUTSNO LATEX RISK : DO YOU HAVE A PREVIOUS PERSONAL HISTORY OF MORE THAN NINE SURGERIES, SPINA BIFIDA, OR REPEATED CATHERIZATIONS? NO LATEX RISK : ARE YOU FREQUENTLY EXPOSED TO LATEX PRODUCTS IN YOUR OCCUPATION?NO ALCOHOL SCREENING DID YOU HAVE A DRINK CONTAINING ALCOHOL IN THE PAST YEAR?NO POINTS0 INTERPRETATIONNEGATIVE RECREATIONAL DRUG USE DRUG USE?NO CAFFEINE CAFFEINE USE?YES COFFEE,SODA SEXUAL HX HAD SEX IN THE LAST 12 MONTHS (VAGINAL, ORAL, OR ANAL)?YES WITHWOMEN ONLY USE PROTECTION?YES HOW OFTEN?ALL OF THE TIME HIV / HEP-C SCREENING HIV TEST OFFERED TO PATIENT:YES DATE OFFERED:08/30/2017 TEST ACCEPTED:NO HEP-C TEST OFFERED TO PATIENT:YES DATE OFFERED:08/30/2017 REASON:PATIENT DECLINED TEST ACCEPTED:NO REASON:PATIENT DECLINED BROCHURE PROVIDED TO PATIENTYES DENOMINATIONAL [id number] CHURCH LANGUAGE LANGUAGES SPOKEN:MONTENEGRIN EDUCATION LEVEL OF EDUCATION:FINISHED HIGH SCHOOL LEARNING BARRIERS / SPECIAL NEEDS CHANGE FROM LAST VISIT?NO BARRIERS TO LEARNING?NO HEARING IMPAIRED?NO VISION IMPAIRED?YES COGNITIVELY IMPAIRED?NO :CORRECTIVE LENSES READINESS TO LEARN?YES LEARNING PREFERENCES?NO LEARNING CAPABILITIES PRESENT?YES EMOTIONAL BARRIERS?NO SPECIAL DEVICES?NO ADJUNCT PROFESSOR NEEDED?NO OCCUPATION: UNEMPLOYED. DIET: REGULAR. EXERCISE: NO REGULAR EXERCISE. MARITAL STATUS: . OTHERS AT HOME: LIVES WITH AND 2 BOYS & 1 DAUGHTER. NEW PATIENT PAIN DIARY PATIENT DESCRIBES PAIN :ACHING, HAVE IT ALL THE TIME, IT COMES AND GOES, SHARP FROM 0-10, WHAT LEVEL IS YOUR PAIN TODAY?8 PRECIPITATING FACTORS INCREASED ACTIVITY ALLEVIATING FACTORS MEDS, REST IMPACT ON FUNCTION YES PAIN CLINIC PFS, CLERGY, PUBLIC HEALTH REFERRALS WAS THE PROVIDER NOTIFIED OF ANY PERTINENT INFO?YES HAS THE PATIENT BEEN EDUCATED REGARDING HIS/HER PLAN OF CARE?YES HAS THE PATIENT BEEN EDUCATED REGARDING PAIN, THE RISK FOR PAIN, THE IMPORTANCE OF EFFECTIVE PAIN MANAGEMENT, AND THE PAIN ASSESSMENT PROCESS?YES ADVANCE DIRECTIVE ADVANCE DIRECTIVE DISCUSSED WITH PATIENT:YES PATIENT DECLINED INFO AND ASSIATANCE WITH FORM AT THIS TIME. HOSPITALIZATION/MAJOR DIAGNOSTIC PROCEDURE FOR ABOVE SURGERIES FALL/HEAD INJURY 10/2018 REVIEW OF SYSTEMS REVIEWED BY: PROVIDER: YEN CAZARES-Brianna . CONSTITUTIONAL: ANY CHANGE IN YOUR MEDICAL CONDITION? NO . CHILLS NO . FEVER NO . INFECTION: DO YOU HAVE NEW INFECTIONS? NO . DO YOU HAVE HISTORY OF MRSA? NO . MUSCULOSKELETAL: ANY NEW PATTERNS OF PAIN OR NUMBNESS? NO . GASTROENTEROLOGY: ANY NEW CHANGE IN BOWEL CONTROL? NO . GENITOURINARY: ANY NEW CHANGE IN BLADDER CONTROL? NO . IS THERE A CHANCE YOU COULD BE ? NO . HEMATOLOGY/LYMPH: DO YOU TAKE ANY BLOOD THINNERS? (FOR EXAMPLE- COUMADIN, PLAVIX, AGGRENOX, PLATEL, PRADAXA, OR XARELTO) NO . WHEN WAS YOUR LAST DOSE? DATE: TIME: . NEUROLOGY: HAVE YOU FALLEN IN THE PAST 12 MONTHS? NO . ANY NEW EXTREMITY NUMBNESS OR WEAKNESS? NO . CARDIOLOGY: DO YOU HAVE A PACEMAKER OR DEFIBRILLATOR? NO . RESPIRATORY: HAVE YOU BEEN SICK IN THE PAST WEEK? NO . FEVER NO . FLU LIKE SYMPTOMS? NO . COUGH NO . INTEGUMENTARY: DO YOU HAVE ANY RASHES OR OPEN SORES? NO . ALLERGIC/IMMUNO: ARE YOU ALLERGIC TO IV DYE? NO . ANY NEW ALLERGIES? NO . PSYCHIATRIC: DO YOU HAVE THOUGHTS OF HURTING YOURSELF OR SOMEONE ELSE? NO . ARE YOU ABUSED, NEGLECTED, OR IN AN UNSAFE ENVIRONMENT? NO . ENDOCRINOLOGY: ARE YOU DIABETIC? NO . OTHER: DO YOU NEED ANY PRESCRIPTIONS? YES, REFILL SOMA . IF YES, PLEASE LIST: ____ . ANY NEW PROBLEMS WITH YOUR MEDICATIONS? NO . WHEN DID YOU LAST EAT? ____ . WHEN DID YOU LAST DRINK? ____ . WHAT DID YOU LAST DRINK? ____ . NAME OF PERSON DRIVING YOU HOME? ____ . DO YOU HAVE ANY OTHER QUESTIONS OR CONCERNS NO . EXAMINATION GENERAL EXAMINATION: GENERALNO ACUTE DISTRESS, WELL NOURISHED AND HYDRATED. PSYCHAPPROPRIATE MOOD AND AFFECT , ORIENTED X 3. ASSESSMENTS SPONDYLOSIS OF LUMBAR REGION WITHOUT MYELOPATHY OR RADICULOPATHY - M47.816 (PRIMARY) TREATMENT SPONDYLOSIS OF LUMBAR REGION WITHOUT MYELOPATHY OR RADICULOPATHY REFILL CARISOPRODOL TABLET, 350 MG, 1 TABLET NEEDED, ORALLY, BEFORE BEDTIME MDD-1, 30 DAY(S), 30, REFILLS 2, NOTES: 07/09/191999 CLINICAL NOTES: 39-YEAR-OLD FEMALE IN FOR POST FACET BLOCK FOLLOW-UP. GIVEN PRESENTING SYMPTOMS RECOMMEND FOLLOW-UP IN 3 MONTHS. PATIENT HAS EXPRESSED UNDERSTANDING OF AND WAS IN AGREEMENT WITH TREATMENT PLAN. GIVEN TIME TO ASK QUESTIONS AND EXPRESS CONCERNS. , [employer] REGISTRY REVIEWED AND DEMONSTRATES COMPLLIANCE. (REF # [id number] ) BRINGS IN MEDICATIONS WHICH IS APPROPRIATE FOR WHAT WAS DISPENSED. TELEHEALTH VISIT PERFORMED VIA ZOOM. TIME SPENT WITH PATIENT 9 MINUTES. OTHERS NOTES: VITALS NOT OBTAINED DUE TO VIRTUAL VISIT, PRE-SCREENING COMPLETED 07/23/19, NA. DISPOSITION & COMMUNICATION FOLLOW UP 3 MONTHS (REASON: BACK PAIN) ELECTRONICALLY SIGNED BY DEBORA OWEN ON 07/25/2019 AT 08:34 AM EDT DISCLAIMER : THIS IS A VISIT SUMMARY EXTRACTED FROM THE [employer] CHART. IT IS NOT A COPY OF THE [employer] PROGRESS NOTE. [facility]
== END ==
LOC: M PAIN 10:45 → M TMPAIN 10:45
PROVIDERS: ATTEND Family Medicine
DX: M47.816 Spondylosis without myelopathy or radiculopathy, lumbar region (principal); Z79.891 Long term (current) use of opiate analgesic; Z79.899 Other long term (current) drug therapy; Z88.8 Allergy status to other drugs, medicaments and biological substances

== ENCOUNTER → 2019-08-26 | Outpatient (REF) | payer OTHER | LOC: M SFHCWAGY 10:45 | PROVIDERS: ATTEND Obstetrics & Gynecology | DX: Z12.4 Encounter for screening for malignant neoplasm of cervix (principal) | CPT/HCPCS: G0123; G0463 ==

== ENCOUNTER → 2019-09-10 | Outpatient (RCR) | payer MEDICARE, OTHER | LOC: M PT 08-27 09:13 | PROVIDERS: ATTEND Student in an Organized Health Care Education/Training Program | DX: M25.512 Pain in left shoulder (principal) ==

== ENCOUNTER 2019-09-17 09:30 | Outpatient (RCR) | payer OTHER | END 2019-10-11 | LOC: M PT 09:30 | PROVIDERS: ATTEND Student in an Organized Health Care Education/Training Program | DX: M25.512 Pain in left shoulder (principal) ==

== ENCOUNTER → 2019-09-27 | Outpatient (CLI) | payer OTHER ==
--- NOTE | 2019-09-27 15:50 | REP ---
REASON FOR EXAM: Tendinitis. There are no prior exams for comparison. There is C2-3 disc space narrowing which is moderate to severe. There is more moderate appearing C5-6 disc space narrowing with anterior and posterior osteophytic ridging is seen at those levels. There is no evidence of limitation of flexion or extension. There is air density seen in the C5-6 disc space suggestive of vacuum phenomenon from degenerative disc disease. There is no evidence of foraminal narrowing or central canal stenosis. Vertebral body height appears to be within normal limits. C5 may be only partially fused posteriorly as suggested on the AP view. IMPRESSION: There are abnormalities/anomalies as described above. C-spine MRI is recommended. The dens cannot be effectively evaluated secondary to the superimposition of osseous structures and/or dentition on all views. Although this plain radiographic evaluation of the cervical spine shows no evidence of a fracture, it should be remembered that CT is much more sensitive than plain radiography of the C-spine in detecting fractures. If this examination was ordered to rule out a fracture, then CT of the cervical spine is recommended. Electronically Signed by Chace Stoner DO 09/27/2019 05:02 P
--- NOTE | 2019-09-27 16:07 | REP ---
REASON: Tendinitis. COMPARISON: No priors. FINDINGS: Three views of the left shoulder were performed. The acromioclavicular and glenohumeral relationships are within normal limits. There is no acute fracture or destructive osseous lesions. Electronically Signed by Chace Stoner DO 09/27/2019 05:02 P
== END ==
LOC: M RAD 12:27
PROVIDERS: ATTEND Student in an Organized Health Care Education/Training Program
DX: M75.92 Shoulder lesion, unspecified, left shoulder (principal)

== ENCOUNTER → 2019-10-24 | Outpatient (CLI) | payer OTHER | LOC: M PAIN 08:45 | PROVIDERS: ATTEND Family Medicine | DX: M47.817 Spondylosis without myelopathy or radiculopathy, lumbosacral region (principal) ==

== ENCOUNTER → 2019-12-24 | Outpatient (CLI) | payer OTHER ==
--- NOTE | 2019-12-25 10:59 | ECWPNPC ---
PATIENT NAME: EVA CALZADA : 1980 GENDER: FEMALE VISIT DATE: 12/24/2019 DISCHARGE DATE: 12/24/19 1021 VISIT LOCKED DATE TIME: PHYSICIAN: CUONG MARLOW PHYSICIAN PAGER NO: ACTIVE RESOURCE: CUONG MARLOW REASON FOR APPOINTMENT 1. LOW BACK HISTORY OF PRESENT ILLNESS DEPRESSION SCREENING: PHQ-2 (2015 EDITION) LITTLE INTEREST OR PLEASURE IN DOING THINGS?NOT AT ALL FEELING DOWN, DEPRESSED, OR HOPELESS?NOT AT ALL TOTAL SCORE0 39-YEAR-OLD FEMALE IN FOR CHRONIC PAIN FOLLOW-UP. SHE RATES HER PAIN CURRENTLY AT A 5 OUT OF 10 AND DESCRIBES IT ACHING, STABBING, AND THROBBING. PATIENT HAS HAD LUMBAR FACET BLOCKS IN THE PAST WITH GOOD RESULTS AND WE WILL DISCUSS REPEAT PROCEDURES TODAY. GENERAL: -. FALL RISK SCREENING: SCREENING :NO FALLS REPORTED IN THE LAST YEAR PAIN SCREENING: PATIENT HAS A COMPLAINT OF ACUTE OR CHRONIC PAIN :YES LOCATION OF PAIN:LOW BACK INTENSITY OF PAIN (SCALE OF 1 TO 10):5 WHAT DOES YOUR PAIN FEEL LIKE:ACHING, STABBING, THROBBING DURATION:INTERMITTENT PAIN IS INCREASED BY:ACTIVITIES PAIN IS DECREASED BY:USE OF PAIN MEDICATIONS, SITTING TREATMENT/MEDICATIONS USED TO MANAGE PAIN:OPIOIDS LEVEL OF RELIEF FROM PAIN TREATMENTS IN THE PAST:50% PAIN HAS INTERFERED WITH THE FOLLOWING:RELATIONSHIP WITH OTHERS NURSING NOTE: -. PAIN CENTER INTAKE QUESTIONS: DO YOU HAVE A HISTORY OF MRSA? :NO DO YOU TAKE A BLOOD THINNERS? :NO DO YOU HAVE ANY BLEEDING DISORDERS? :NO ANY NEW NUMBNESS OR WEAKNESS IN YOUR LEGS OR ARMS? :NO ANY PACEMAKER,DEFIBRILLATOR, OR DORSAL COLUMN STIMULATOR? :NO DO YOU HAVE ANY RASHES OR OPEN SORES? :NO ARE YOU ALLERGIC TO IV DYE? :NO ARE YOU DIABETIC? :NO ANY NEW PROBLEMS WITH YOUR MEDICATIONS? :NO HAVE YOU RECEIVED A VACCINE IN THE PAST 30 DAYS? :NO DO YOU PLAN TO RECEIVE A VACCINE IN THE NEXT 21 DAYS? :NO DO YOU NEED ANY PRESCRIPTION? :YES SOMA DO YOU TAKE ANY IMMUNOSUPPRESSIVE MEDICATIONS? :NO IS THERE A CHANCE YOU COULD BE ? :NO ARE YOU BREAST FEEDING? :NO CURRENT MEDICATIONS TAKING [facility] HYDROCORTISONE ANTI-ITCH 0.5 % CREAM 1 APPLICATION TO AFFECTED AREA EXTERNALLY TWICE A DAY TAKING MAY HAVE - - RIGHT SHOE LIFT DX: M41.9 KYPHOSCOLIOSIS DAILY MED#[id number] TAKING MULTIVITAMIN ADULT - TABLET 1 TAB ORALLY DAILY TAKING CRANBERRY 405 MG CAPSULE DIRECTED ORALLY TAKING ACETAMINOPHEN 325 MG TABLET 1 TABLET NEEDED ORALLY EVERY 4 HRS TAKING PROBIOTIC - TABLET DELAYED RELEASE DIRECTED ORALLY TAKING VITAMIN B COMPLEX - TABLET DIRECTED ORALLY TAKING COQ10 100 MG CAPSULE 1 CAPSULE WITH A MEAL ORALLY ONCE A DAY TAKING ORTHOPEDIC SHOES _ 1 DX M79.671, [facility]# [id number] ONE INCH SHOE LIFT. RT SHOE DAILY TAKING CYMBALTA 60 MG CAPSULE DELAYED RELEASE PARTICLES 1 CAPSULE ORALLY ONCE A DAY TAKING KETOROLAC TROMETHAMINE 10 MG TABLET 1 TABLET WITH FOOD OR MILK NEEDED ORALLY EVERY 6 HRS TAKING ONDANSETRON 4 MG TABLET DISINTEGRATING 1 TABLET ON THE TONGUE AND ALLOW TO DISSOLVE ORALLY ONCE A DAY TAKING CARISOPRODOL 350 MG TABLET 1 TABLET NEEDED ORALLY BEFORE BEDTIME MDD-1 TAKING HYDROCODONE-ACETAMINOPHEN 10-325 MG TABLET 1 TABLET ORALLY EVERY 6 HRS NEEDED NOT-TAKING PREDNISONE 10 MG TABLET TAKE 4 TABLETS X 4 DAYS THEN 3 TABS X 4 DAYS, THEN 2 TABS 4 DAYS, THEN 1 TAB X 4 DAYS, THEN STOP ORALLY DIRECTED NOT-TAKING OMEPRAZOLE 40 MG CAPSULE DELAYED RELEASE 1 CAPSULE 30 MINUTES BEFORE MORNING MEAL ORALLY ONCE A DAY NOT-TAKING KETOCONAZOLE 2 % SHAMPOO DIRECTED EXTERNALLY APPLY IN SHOWER TO SKIN, LATHER, LEAVE ON FOR 5 MINUTES AND RINSE. NOT-TAKING TERBINAFINE- ORAL-12 WEEKS 250 MG TABLETS ONE TABLET ORALLY DAILY, NOTES: ALMOST DONE - TAKING FOR FOOT FUNGUS NOT-TAKING CYMBALTA 30 MG CAPSULE DELAYED RELEASE PARTICLES 1 CAPSULE ORALLY ONCE A DAY NOT-TAKING AUGMENTIN 875-125 MG TABLET 1 TABLET ORALLY EVERY 12 HRS NOT-TAKING AMOXICILLIN-POT CLAVULANATE 875-125 MG TABLET 1 TABLET ORALLY EVERY 12 HRS MEDICATION LIST REVIEWED AND RECONCILED WITH THE PATIENT PAST MEDICAL HISTORY 12 YEAR ASCVD RISK OF 1.0% 07/2014 ABDOMINAL AORTIC ANEURYSM S/P REPAIR IN 2014. SHE FOLLOWS WITH HER VASCULAR SURGEON IN [place] ON A YEARLY BASIS. THERE IS NO IDENTIFIED ETIOLOGY FOR HER AAA, HOWEVER HER SURGEON SUSPECTS A GENETIC DISORDER. GENETIC TESTING IS NOT COVERED BY HER INSURANCE AND WOULD COST HER ABOUT $6000 OUT OF POCKET WHICH IS COST PROHIBITIVE PATIENT HAD AN "ECTOPIC UTERUS" -- SECOND (R SIDED) UTERUS WITH NO CERVIX, CAUSED ENDOMETRIOSIS WITH RETROGRADE MENSTRUATION PAP 02/2015- NEG ENDOMETRIOSIS PER OP REPORT FROM [facility]: PT HAS "NL UTERUS ATTACHED TO AN OVARY AND A CERVIX ON THE L OF THE MIDLINE WITH A L FALLOPIAN TUBE WITH A LEFT ROUND LIGAMENT. A ROUND LIGAMENT FROM THAT UTERUS LED TO AN ECTOPIC UTERUS IN THE RIGHT LOWER QUADRANT ON THE PELVIC SIDEWALL WHICH WAS NOT ATTACHED TO A CERVIX WHICH ALSO HAD AN OVARY AND A FALLOPIAN TUBE." MRI OF L/S 12/2011 WITH COMPLEX CONGENITAL ANOMALIES, SCOLIOSIS, TETHERED CORD, VERTEBRAL FUSION, DISC NARROWING, SPINAL STENOSIS, DIAGNOSED WITH LUMBAR SCOLIOSIS AN INFANT. NEVER HAD SURGERY FOR HER SPINE, NO BRACING. WEARS A SHOE LIFT ON THE RIGHT, 1 INCH. NO PROBLEMS WITH HYPERMOBILE JOINTS. NO OPTIC LENS DISPLACEMENT. SUBDURAL HEMATOMA S/P FALL 10/2018 ALLERGIES ITRACONAZOLE: RASH - ALLERGY SURGICAL HISTORY ABDOMINAL AORTIC REPAIR 09/2014 ABDOMINAL HERNIA REPAIR 09/2014 R SIDED HYSTERECTOMY (BUT NOT OOPHORECTOMY) OF "ECTOPIC UTERUS" THAT HAD NO CERVIX 12/2005 C SECTION X2 APPENDECTOMY EXTRA OCULAR MUSCLE SURGERY CHILDHOOD FAMILY HISTORY FATHER: ALIVE 60 YRS MOTHER: , DIAGNOSED WITH DIABETES SIBLINGS: ALIVE, DIABETES SON(S): ALIVE DAUGHTER(S): ALIVE 1 BROTHER(S) - HEALTHY. 2 SON(S) , 1 DAUGHTER(S) . NO FAMILY HISTORY OF GENETIC DISORDERS, AND NOBODY ELSE HAS AAA OR SPINAL DEFORMITIES. SOCIAL HISTORY GENERAL: TOBACCO USE ARE YOU A:CURRENT SMOKER ARE YOU INTERESTED IN QUITTING?THINKING ABOUT QUITTING PREVIOUS QUIT ATTEMPTS?YES, MORE THAN 6 MONTHS AGO. CUTTING DOWN COUNSELED THE PATIENT ON SMOKING CESSATION, EDUCATION [id number]/13/2020 HOW MANY CIGARETTES A DAY DO YOU SMOKE?6-10 HOW SOON AFTER YOU WAKE UP DO YOU SMOKE YOUR FIRST CIGARETTE?31-60 MIN HOW OFTEN DO YOU SMOKE CIGARETTES?EVERY DAY PATIENT COUNSELED ON THE DANGERS OF TOBACCO USE AND URGED TO QUIT:07/23/2019 SMOKING CESSATION INFORMATION GIVEN07/23/2019 LATEX QUESTIONNAIRE LATEX ALLERGY : HAVE YOU EVER DEVELOPED ANY TYPE OF REACTION AFTER HANDLING LATEX PRODUCTS SUCH RUBBER GLOVES, CONDOMS, DIAPHRAGMS, BALLOONS, SOCKS, OR UNDERWEAR?NO LATEX ALLERGY : HAVE YOU EVER DEVELOPED ANY TYPE OF REACTION DURING OR AFTER DENTAL APPOINTMENT, VAGINAL/RECTAL EXAMINATION, SURGICAL PROCEDURE, OR ANY OTHER EXPOSURE?NO DATE ASKED : 08/26/2019 LATEX RISK : HAVE YOU EVER HAD ANY DIFFICULTY BREATHING OR HIVES AFTER EATING OR HANDLING ANY FRUITS, OR VEGETABLES; SUCH KIWI, BANANAS, STONE FRUITS, OR CHESTNUTSNO LATEX RISK : DO YOU HAVE A PREVIOUS PERSONAL HISTORY OF MORE THAN NINE SURGERIES, SPINA BIFIDA, OR REPEATED CATHERIZATIONS? NO LATEX RISK : ARE YOU FREQUENTLY EXPOSED TO LATEX PRODUCTS IN YOUR OCCUPATION?NO ALCOHOL SCREENING DID YOU HAVE A DRINK CONTAINING ALCOHOL IN THE PAST YEAR?NO POINTS0 INTERPRETATIONNEGATIVE RECREATIONAL DRUG USE DRUG USE?NO CAFFEINE CAFFEINE USE?YES COFFEE,SODA SEXUAL HX HAD SEX IN THE LAST 12 MONTHS (VAGINAL, ORAL, OR ANAL)?YES WITHWOMEN ONLY USE PROTECTION?YES HOW OFTEN?ALL OF THE TIME HIV / HEP-C SCREENING HIV TEST OFFERED TO PATIENT:YES DATE OFFERED:08/26/2019 TEST ACCEPTED:NO HEP-C TEST OFFERED TO PATIENT:YES DATE OFFERED:08/26/2019 REASON:PATIENT DECLINED TEST ACCEPTED:NO REASON:PATIENT DECLINED BROCHURE PROVIDED TO PATIENTYES ROMAN CATHOLIC [id number] PENTECOSTALISM LANGUAGE LANGUAGES SPOKEN:CONGOLESE EDUCATION LEVEL OF EDUCATION:FINISHED HIGH SCHOOL LEARNING BARRIERS / SPECIAL NEEDS CHANGE FROM LAST VISIT?NO BARRIERS TO LEARNING?NO HEARING IMPAIRED?NO VISION IMPAIRED?YES COGNITIVELY IMPAIRED?NO :CORRECTIVE LENSES READINESS TO LEARN?YES LEARNING PREFERENCES?NO LEARNING CAPABILITIES PRESENT?YES EMOTIONAL BARRIERS?NO SPECIAL DEVICES?NO PRODUCT SUPPORT SALES REPRESENTATIVE NEEDED?NO OCCUPATION: UNEMPLOYED. DIET: REGULAR. EXERCISE: NO REGULAR EXERCISE. MARITAL STATUS: . OTHERS AT HOME: LIVES WITH AND 2 BOYS & 1 DAUGHTER. NEW PATIENT PAIN DIARY PATIENT DESCRIBES PAIN :ACHING, HAVE IT ALL THE TIME, IT COMES AND GOES, SHARP FROM 0-10, WHAT LEVEL IS YOUR PAIN TODAY?8 PRECIPITATING FACTORS INCREASED ACTIVITY ALLEVIATING FACTORS MEDS, REST IMPACT ON FUNCTION YES PAIN CLINIC PFS, CLERGY, PUBLIC HEALTH REFERRALS WAS THE PROVIDER NOTIFIED OF ANY PERTINENT INFO?YES HAS THE PATIENT BEEN EDUCATED REGARDING HIS/HER PLAN OF CARE?YES HAS THE PATIENT BEEN EDUCATED REGARDING PAIN, THE RISK FOR PAIN, THE IMPORTANCE OF EFFECTIVE PAIN MANAGEMENT, AND THE PAIN ASSESSMENT PROCESS?YES ADVANCE DIRECTIVE ADVANCE DIRECTIVE DISCUSSED WITH PATIENT:YES PATIENT DECLINED INFO AND ASSIATANCE WITH FORM AT THIS TIME. HOSPITALIZATION/MAJOR DIAGNOSTIC PROCEDURE FOR ABOVE SURGERIES FALL/HEAD INJURY 10/2018 REVIEW OF SYSTEMS CONSTITUTIONAL: ANY RECENT FEVER NO . CHILLS NO . WEIGHT CHANGE OF UNKNOWN REASONS NO . GASTROENTEROLOGY: NEW UNEXPLAINABLE CHANGES IN BOWEL CONTROL NO . CONSTIPATION NO . GENITOURINARY: ANY NEW CHANGE IN BLADDER CONTROL? NO . NEUROLOGY: NEW ONSET DIZZINESS OR NEUROLOGICAL CHANGES NOT MENTIONED NO . NEW NUMBNESS OR PAIN PATTERNS NOT MENTIONED AND PERTINENT TO TODAY'S VISIT NO . CARDIOLOGY: NEW CHEST PRESSURE NO . NEW CHEST PAIN NO . RESPIRATORY: UNEXPLAINABLE COUGH NO . NEW SHORTNESS OF BREATH NO . VITAL SIGNS WT 148 LBS, HT 59 IN, BMI 29.89 INDEX, BP 106/64 MM HG, HR 82 /MIN, RR 16 /MIN, TEMP 96.2 F, OXYGEN SAT % 99, REVIEWED BY: EM. EXAMINATION GENERAL EXAMINATION: GENERALNO ACUTE DISTRESS, WELL NOURISHED AND HYDRATED. PSYCHAPPROPRIATE MOOD AND AFFECT . LUNGS:CLEAR TO AUSCULTATION BILATERALLY, NO WHEEZES, RHONCHI, RALES. HEART:NO MURMURS, REGULAR RATE AND RHYTHM. BACK:POINT TENDER BILATERAL LUMBAR SPINE, SURROUNDING SKIN SHOWS NO ERYTHEMA, ECCHYMOSIS, INCREASED WARMTH, AND/OR SKIN ERUPTIONS NOTED. PATIENT DOES ENDORSE INCREASED PAIN WITH FACET LOADING . ASSESSMENTS SPONDYLOSIS OF LUMBOSACRAL REGION WITHOUT MYELOPATHY OR RADICULOPATHY - M47.817 (PRIMARY) TREATMENT SPONDYLOSIS OF LUMBOSACRAL REGION WITHOUT MYELOPATHY OR RADICULOPATHY NOTES: BILATERAL THERAPEUTIC LUMBAR FACET BLOCK L4-L5 L5-S1. CLINICAL NOTES: 39-YEAR-OLD FEMALE IN FOR CHRONIC PAIN FOLLOW-UP. GIVEN PRESENTING SYMPTOMS AND RESULTS PHYSICAL EXAMINATION RECOMMENDED BILATERAL THERAPEUTIC LUMBAR FACET BLOCK L4-L5 L5-S1 WITH POST PROCEDURAL FOLLOW-UP. PATIENT HAS EXPRESSED UNDERSTANDING OF AND WAS IN AGREEMENT WITH TREATMENT PLAN. GIVEN TIME TO ASK QUESTIONS AND EXPRESS CONCERNS. OTHERS NOTES: PRINTED LUMBAR FACET BLOCK BROCHURE TEACHING FOR THE PATIENT.,FACET JOINT INJECTION MATERIAL WAS PRINTED. PROCEDURE CODES FA211 ESTABILISHED PATIENT [facility] CHARGE DISPOSITION & COMMUNICATION FOLLOW UP POSTPROCEDURE (REASON: BILATERAL THERAPEUTIC LUMBAR FACET BLOCK L4-L5 L5-S1) ELECTRONICALLY SIGNED BY DEBORA OWEN ON 12/25/2019 AT 09:10 AM EDT DISCLAIMER : THIS IS A VISIT SUMMARY EXTRACTED FROM THE [employer] CHART. IT IS NOT A COPY OF THE [employer] PROGRESS NOTE. TYRA
== END ==
LOC: M PAIN 09:30
PROVIDERS: ATTEND Family Medicine
DX: M47.817 Spondylosis without myelopathy or radiculopathy, lumbosacral region (principal); G89.29 Other chronic pain; F17.210 Nicotine dependence, cigarettes, uncomplicated; Z88.8 Allergy status to other drugs, medicaments and biological substances; Z79.899 Other long term (current) drug therapy

== ENCOUNTER → 2020-01-01 | Outpatient (CLI) | payer OTHER | LOC: M LABSMTC 11:56 | PROVIDERS: ATTEND Anesthesiology | DX: Z20.828 Contact with and (suspected) exposure to other viral communicable diseases (principal) | CPT/HCPCS: C9803; U0003 ==

== ENCOUNTER → 2020-01-06 | Outpatient (CLI) | payer OTHER ==
[~2020-01-06] MED LIST changes: +BUPIVACAINE HCL 0.25% 30ML VIAL As Ordered ONE; +ISOVUE-M 300 61% 15ML VIAL As Ordered ONE; +LIDOCAINE 1% SDV 30ML VIAL As Ordered ONE; +TRIAMCINOLONE ACETONIDE SUSP 40 MG/ML VIAL (J3301) As Ordered ONE; +diazePAM 5 MG TAB As Ordered ONE; +oxyCODONE 5MG TAB As Ordered ONE
--- NOTE | 2020-01-06 12:10 | REP ---
INDICATION: BILATERAL THERAPEUTIC FACET. Pain COMPARISON: 07/10/2019 TECHNIQUE: Three C-arm views lower lumbar spine performed. FINDINGS: Bono are seen along the lower lumbar facet joints and a small amount of contrast is injected. IMPRESSION: 20 seconds of fluoroscopy time is utilized. <Electronically signed by Gregory Carson > 01/06/20 0605
--- NOTE | 2020-01-11 01:47 | ECWPNPC ---
PATIENT NAME: EVA CALZADA : 1980 GENDER: FEMALE VISIT DATE: 01/06/2020 DISCHARGE DATE: 01/06/20 1159 VISIT LOCKED DATE TIME: PHYSICIAN: DEMETRIUS HILL MD PHYSICIAN PAGER NO: ACTIVE RESOURCE: DEMETRIUS HILL MD REASON FOR APPOINTMENT 1. BILATERAL THERAPEUTIC LUMBAR FACET BLOCK L4-L5 L5-S1 HISTORY OF PRESENT ILLNESS GENERAL: -. FALL RISK SCREENING: SCREENING :NO FALLS REPORTED IN THE LAST YEAR PAIN SCREENING: PATIENT HAS A COMPLAINT OF ACUTE OR CHRONIC PAIN :YES LOCATION OF PAIN:LOW BACK INTENSITY OF PAIN (SCALE OF 1 TO 10):7 WHAT DOES YOUR PAIN FEEL LIKE:THROBBING, STABBING DURATION:INTERMITTENT, AWAKENS FROM SLEEP, CONTINOUS PLAN/GOALS/TREATMENT/INTERVENTION/FOLLOW UP:SEE PLAN NURSING NOTE: -. PAIN CENTER INTAKE QUESTIONS: DO YOU HAVE A HISTORY OF MRSA? :NO DO YOU TAKE A BLOOD THINNERS? :NO DO YOU HAVE ANY BLEEDING DISORDERS? :NO ANY NEW NUMBNESS OR WEAKNESS IN YOUR LEGS OR ARMS? :NO ANY PACEMAKER,DEFIBRILLATOR, OR DORSAL COLUMN STIMULATOR? :NO DO YOU HAVE ANY RASHES OR OPEN SORES? :NO ARE YOU ALLERGIC TO IV DYE? :NO ARE YOU DIABETIC? :NO ANY NEW PROBLEMS WITH YOUR MEDICATIONS? :NO HAVE YOU RECEIVED A VACCINE IN THE PAST 30 DAYS? :NO DO YOU PLAN TO RECEIVE A VACCINE IN THE NEXT 21 DAYS? :NO DO YOU TAKE ANY IMMUNOSUPPRESSIVE MEDICATIONS? :NO ANY HISTORY OF SEIZURES? :NO ANY HISTORY OF CARDIAC ISSUES OR EVENTS? :NO DO YOU HAVE SLEEP APNEA? :NO ANY RECENT HEAD INJURY? :NO DO YOU HAVE ANY NEW INFECTIONS? :NO IS THERE A CHANCE YOU COULD BE ? :NO ARE YOU BREAST FEEDING? :NO WHEN DID YOU LAST EAT? : -LAST WHEN DID YOU LAST DRINK? : -THIS MORNING WITH MEDS WHAT DID YOU LAST DRINK? : -WATER NAME OF PERSON DRIVING YOU HOME? : (FARA) DO YOU HAVE ANY OTHER QUESTIONS OR CONCERNS? : - CURRENT MEDICATIONS TAKING [facility] HYDROCORTISONE ANTI-ITCH 0.5 % CREAM 1 APPLICATION TO AFFECTED AREA EXTERNALLY TWICE A DAY, NOTES: NEEDED TAKING MAY HAVE - - RIGHT SHOE LIFT DX: M41.9 KYPHOSCOLIOSIS DAILY MED#[id number] TAKING MULTIVITAMIN ADULT - TABLET 1 TAB ORALLY DAILY, NOTES: 10-26-20 0900 TAKING CRANBERRY 405 MG CAPSULE DIRECTED ORALLY , NOTES: 499 TAKING ACETAMINOPHEN 325 MG TABLET 1 TABLET NEEDED ORALLY EVERY 4 HRS, NOTES: NOT TODAY TAKING PROBIOTIC - TABLET DELAYED RELEASE DIRECTED ORALLY , NOTES: 01-06-20499 TAKING VITAMIN B COMPLEX - TABLET DIRECTED ORALLY , NOTES: 01-06-20499 TAKING COQ10 100 MG CAPSULE 1 CAPSULE WITH A MEAL ORALLY ONCE A DAY, NOTES: 01-06-20499 TAKING ORTHOPEDIC SHOES _ 1 DX M79.671, [facility]# [id number] ONE INCH SHOE LIFT. RT SHOE DAILY TAKING KETOROLAC TROMETHAMINE 10 MG TABLET 1 TABLET WITH FOOD OR MILK NEEDED ORALLY EVERY 6 HRS, NOTES: NOT LATELY 3 WEEKS TAKING ONDANSETRON 4 MG TABLET DISINTEGRATING 1 TABLET ON THE TONGUE AND ALLOW TO DISSOLVE ORALLY ONCE A DAY, NOTES: NOT LATELY TAKING CARISOPRODOL 350 MG TABLET 1 TABLET NEEDED ORALLY BEFORE BEDTIME MDD-1, NOTES: 01-05-202099 TAKING HYDROCODONE-ACETAMINOPHEN 10-325 MG TABLET 1 TABLET ORALLY EVERY 6 HRS NEEDED, NOTES: 01-05-202099 TAKING CYMBALTA 60 MG CAPSULE DELAYED RELEASE PARTICLES 1 CAPSULE ORALLY ONCE A DAY, NOTES: 01-05-20499 NOT-TAKING PREDNISONE 10 MG TABLET TAKE 4 TABLETS X 4 DAYS THEN 3 TABS X 4 DAYS, THEN 2 TABS 4 DAYS, THEN 1 TAB X 4 DAYS, THEN STOP ORALLY DIRECTED NOT-TAKING OMEPRAZOLE 40 MG CAPSULE DELAYED RELEASE 1 CAPSULE 30 MINUTES BEFORE MORNING MEAL ORALLY ONCE A DAY NOT-TAKING KETOCONAZOLE 2 % SHAMPOO DIRECTED EXTERNALLY APPLY IN SHOWER TO SKIN, LATHER, LEAVE ON FOR 5 MINUTES AND RINSE. NOT-TAKING TERBINAFINE- ORAL-12 WEEKS 250 MG TABLETS ONE TABLET ORALLY DAILY, NOTES: ALMOST DONE - TAKING FOR FOOT FUNGUS NOT-TAKING CYMBALTA 30 MG CAPSULE DELAYED RELEASE PARTICLES 1 CAPSULE ORALLY ONCE A DAY NOT-TAKING AUGMENTIN 875-125 MG TABLET 1 TABLET ORALLY EVERY 12 HRS NOT-TAKING AMOXICILLIN-POT CLAVULANATE 875-125 MG TABLET 1 TABLET ORALLY EVERY 12 HRS MEDICATION LIST REVIEWED AND RECONCILED WITH THE PATIENT PAST MEDICAL HISTORY 10 YEAR ASCVD RISK OF 1.0% 07/2014 ABDOMINAL AORTIC ANEURYSM S/P REPAIR IN 2014. SHE FOLLOWS WITH HER VASCULAR SURGEON IN [place] ON A YEARLY BASIS. THERE IS NO IDENTIFIED ETIOLOGY FOR HER AAA, HOWEVER HER SURGEON SUSPECTS A GENETIC DISORDER. GENETIC TESTING IS NOT COVERED BY HER INSURANCE AND WOULD COST HER ABOUT $6000 OUT OF POCKET WHICH IS COST PROHIBITIVE PATIENT HAD AN "ECTOPIC UTERUS" -- SECOND (R SIDED) UTERUS WITH NO CERVIX, CAUSED ENDOMETRIOSIS WITH RETROGRADE MENSTRUATION PAP 02/2015- NEG ENDOMETRIOSIS PER OP REPORT FROM [facility]: PT HAS "NL UTERUS ATTACHED TO AN OVARY AND A CERVIX ON THE L OF THE MIDLINE WITH A L FALLOPIAN TUBE WITH A LEFT ROUND LIGAMENT. A ROUND LIGAMENT FROM THAT UTERUS LED TO AN ECTOPIC UTERUS IN THE RIGHT LOWER QUADRANT ON THE PELVIC SIDEWALL WHICH WAS NOT ATTACHED TO A CERVIX WHICH ALSO HAD AN OVARY AND A FALLOPIAN TUBE." MRI OF L/S 12/2011 WITH COMPLEX CONGENITAL ANOMALIES, SCOLIOSIS, TETHERED CORD, VERTEBRAL FUSION, DISC NARROWING, SPINAL STENOSIS, DIAGNOSED WITH LUMBAR SCOLIOSIS AN . NEVER HAD SURGERY FOR HER SPINE, NO BRACING. WEARS A SHOE LIFT ON THE RIGHT, 1 INCH. NO PROBLEMS WITH HYPERMOBILE JOINTS. NO OPTIC LENS DISPLACEMENT. SUBDURAL HEMATOMA S/P FALL 10/2018 ALLERGIES ITRACONAZOLE: RASH - ALLERGY SURGICAL HISTORY ABDOMINAL AORTIC REPAIR 09/2014 ABDOMINAL HERNIA REPAIR 09/2014 R SIDED HYSTERECTOMY (BUT NOT OOPHORECTOMY) OF "ECTOPIC UTERUS" THAT HAD NO CERVIX 12/2005 C SECTION X2 APPENDECTOMY EXTRA OCULAR MUSCLE SURGERY CHILDHOOD FAMILY HISTORY FATHER: ALIVE 60 YRS MOTHER: , DIAGNOSED WITH DIABETES SIBLINGS: ALIVE, DIABETES SON(S): ALIVE DAUGHTER(S): ALIVE 1 BROTHER(S) - HEALTHY. 2 SON(S) , 1 DAUGHTER(S) . NO FAMILY HISTORY OF GENETIC DISORDERS, AND NOBODY ELSE HAS AAA OR SPINAL DEFORMITIES. SOCIAL HISTORY GENERAL: TOBACCO USE ARE YOU A:CURRENT SMOKER ARE YOU INTERESTED IN QUITTING?THINKING ABOUT QUITTING PREVIOUS QUIT ATTEMPTS?YES, MORE THAN 6 MONTHS AGO. CUTTING DOWN COUNSELED THE PATIENT ON SMOKING CESSATION, EDUCATION [id number]/22/2020 HOW MANY CIGARETTES A DAY DO YOU SMOKE?6-10 HOW SOON AFTER YOU WAKE UP DO YOU SMOKE YOUR FIRST CIGARETTE?31-60 MIN HOW OFTEN DO YOU SMOKE CIGARETTES?EVERY DAY PATIENT COUNSELED ON THE DANGERS OF TOBACCO USE AND URGED TO QUIT:01/02/2020 SMOKING CESSATION INFORMATION GIVEN01/02/2020 LATEX QUESTIONNAIRE LATEX ALLERGY : HAVE YOU EVER DEVELOPED ANY TYPE OF REACTION AFTER HANDLING LATEX PRODUCTS SUCH RUBBER GLOVES, CONDOMS, DIAPHRAGMS, BALLOONS, SOCKS, OR UNDERWEAR?NO LATEX ALLERGY : HAVE YOU EVER DEVELOPED ANY TYPE OF REACTION DURING OR AFTER DENTAL APPOINTMENT, VAGINAL/RECTAL EXAMINATION, SURGICAL PROCEDURE, OR ANY OTHER EXPOSURE?NO DATE ASKED : 08/26/2019 LATEX RISK : HAVE YOU EVER HAD ANY DIFFICULTY BREATHING OR HIVES AFTER EATING OR HANDLING ANY FRUITS, OR VEGETABLES; SUCH KIWI, BANANAS, STONE FRUITS, OR CHESTNUTSNO LATEX RISK : DO YOU HAVE A PREVIOUS PERSONAL HISTORY OF MORE THAN NINE SURGERIES, SPINA BIFIDA, OR REPEATED CATHERIZATIONS? NO LATEX RISK : ARE YOU FREQUENTLY EXPOSED TO LATEX PRODUCTS IN YOUR OCCUPATION?NO ALCOHOL SCREENING DID YOU HAVE A DRINK CONTAINING ALCOHOL IN THE PAST YEAR?NO POINTS0 INTERPRETATIONNEGATIVE RECREATIONAL DRUG USE DRUG USE?NO CAFFEINE CAFFEINE USE?YES COFFEE,SODA SEXUAL HX HAD SEX IN THE LAST 12 MONTHS (VAGINAL, ORAL, OR ANAL)?YES WITHWOMEN ONLY USE PROTECTION?YES HOW OFTEN?ALL OF THE TIME HIV / HEP-C SCREENING HIV TEST OFFERED TO PATIENT:YES DATE OFFERED:08/26/2019 TEST ACCEPTED:NO HEP-C TEST OFFERED TO PATIENT:YES DATE OFFERED:08/26/2019 REASON:PATIENT DECLINED TEST ACCEPTED:NO REASON:PATIENT DECLINED BROCHURE PROVIDED TO PATIENTYES CONGREGATIONAL [id number] TENRIISM LANGUAGE LANGUAGES SPOKEN:[place] OF [place] EDUCATION LEVEL OF EDUCATION:FINISHED HIGH SCHOOL LEARNING BARRIERS / SPECIAL NEEDS CHANGE FROM LAST VISIT?NO BARRIERS TO LEARNING?NO HEARING IMPAIRED?NO VISION IMPAIRED?YES COGNITIVELY IMPAIRED?NO :CORRECTIVE LENSES READINESS TO LEARN?YES LEARNING PREFERENCES?NO LEARNING CAPABILITIES PRESENT?YES EMOTIONAL BARRIERS?NO SPECIAL DEVICES?NO SAND MOLDER NEEDED?NO OCCUPATION: UNEMPLOYED. DIET: REGULAR. EXERCISE: NO REGULAR EXERCISE. MARITAL STATUS: . OTHERS AT HOME: LIVES WITH AND 2 BOYS & 1 DAUGHTER. PATIENT DESCRIBES PAIN :ACHING, HAVE IT ALL THE TIME, IT COMES AND GOES, SHARP FROM 0-10, WHAT LEVEL IS YOUR PAIN TODAY?8 PRECIPITATING FACTORS INCREASED ACTIVITY ALLEVIATING FACTORS MEDS, REST IMPACT ON FUNCTION YES PAIN CLINIC PFS, CLERGY, PUBLIC HEALTH REFERRALS WAS THE PROVIDER NOTIFIED OF ANY PERTINENT INFO?YES HAS THE PATIENT BEEN EDUCATED REGARDING HIS/HER PLAN OF CARE?YES HAS THE PATIENT BEEN EDUCATED REGARDING PAIN, THE RISK FOR PAIN, THE IMPORTANCE OF EFFECTIVE PAIN MANAGEMENT, AND THE PAIN ASSESSMENT PROCESS?YES ADVANCE DIRECTIVE ADVANCE DIRECTIVE DISCUSSED WITH PATIENT:YES PATIENT DECLINED INFO AND ASSIATANCE WITH FORM AT THIS TIME. HOSPITALIZATION/MAJOR DIAGNOSTIC PROCEDURE FOR ABOVE SURGERIES FALL/HEAD INJURY 10/2018 VITAL SIGNS WT 147.6 LBS, HT 59 IN, BMI 29.81 INDEX, BP 119/75 MM HG, HR 95 /MIN, RR 18 /MIN, TEMP 99.0 F, OXYGEN SAT % 98%, SAFE IN ENV? (Y/N) YES, NA INITIALS SC 10:51, REVIEWED BY: KG. EXAMINATION GENERAL EXAMINATION: THE PATIENT IS ALERT, ORIENTED TIMES THREE AND COOPERATIVE. HEART SHOWS REGULAR RHYTHM, NO MURMURS AND NO GALLOPS. LUNGS ARE CLEAR TO AUSCULTATION. ASSESSMENTS SPONDYLOSIS OF LUMBAR REGION WITHOUT MYELOPATHY OR RADICULOPATHY - M47.816 (PRIMARY), RISK: (NULL) SPONDYLOSIS OF LUMBOSACRAL REGION WITHOUT MYELOPATHY OR RADICULOPATHY - M47.817, RISK: (NULL) TREATMENT SPONDYLOSIS OF LUMBAR REGION WITHOUT MYELOPATHY OR RADICULOPATHY SMC FACET BLOCK (PAIN)[id number] MEDICATION: VALIUM TAB 10MG ORALLY (DIAZEPAM)OPAL MEANS 01/06/2020 11:11:59 AM > VERIFIED LOT # [id number] EXP 05/31 FUAD MORILLO 01/06/2020 11:13:05 AM > GIVEN MEDICATION: OXYCODONE HCL TAB 10MG ORALLYOPAL MEANS 01/06/2020 11:12:48 AM > VERIFIED LOT # [id number] EXP 04/2021 FUAD MORILLO 01/06/2020 11:13:26 AM > GIVEN SPONDYLOSIS OF LUMBOSACRAL REGION WITHOUT MYELOPATHY OR RADICULOPATHY SMC FACET BLOCK (PAIN)[id number] OTHERS CLINICAL NOTES: PAT COMPLETED 01/02/20 MT. PROCEDURES PAIN NURSING RECORD PRE-PROCEDURE PRE-PROCEDURE ORAL MEDICATIONS YES. PROCEDURE IN ROOM 1120, PHYSICIAN IN ROOM 1136, START 1144, FINISH 1149, PHYSICIAN OUT OF ROOM 1151, OUT OF ROOM 1154, STEROID KENALOG, O2 RA, ECG NORMAL SINUS, PATIENT SHIELDED YES, SAFETY STRAP YES, PREP CHLOROPREP, IV INFUSED N/A, DRESSING TEGADERM LOC: 1. ALERT, ORIENTED, FUAD MORILLO 01/06/2020 11:34:37 AM > RESP: 1. REGULAR, NO DYSPNEA, MANISHA MORILLOEN 01/06/2020 11:34:45 AM > COLOR: 1. PINKYISEL KAREN 01/06/2020 11:34:51 AM > SKIN: 1. WARM, DRYYISEL KAREN 01/06/2020 11:35:08 AM > POSITION: 1. PRONE VITALS: [id number]/62, 82, 100% ON RA 18 1145 /64 91 100% ON RA 18 1200 132/54 100% ON RA 70 AND 18 RESPIRATIONS AT DC NOTES TIME FOR FLUORO 20 SECONDS DISCHARGE: POST PAIN 2, DRESSING SITE DRY AND INTACT, IV N/A, GAIT STEADY, TEACHING COMPLETED, PATIENT ACKNOWLEDGES UNDERSTANDING YES, PATIENT DISCHARGED AT 1200 PN LUMBAR FACET BLOCK THERAPEUTIC PRE PROCEDURE DIAGNOSIS LUMBAR SPONDYLOSIS, LUMBOSACRAL SPONDYLOSIS POST PROCEDURE DIAGNOSIS LUMBAR SPONDYLOSIS, LUMBOSACRAL SPONDYLOSIS PROCEDURE BILATERAL L4-L5 AND BILATERAL L5-S1 LUMBAR FACET THERAPEUTIC BLOCK SURGEON DR. DEMETRIUS HILL MERCHANDISE COLLECTOR NONE ANESTHESIA LOCAL PRE PROCEDURE NOTE THE PATIENT HAS A HISTORY OF CHRONIC LOW BACK PAIN. I EVALUATED THE PATIENT AND REVIEWED THE CHART. I WENT OVER THE RISKS, ALTERNATIVES, AND BENEFITS ASSOCIATED WITH THIS PROCEDURE. I DISCUSSED THAT THE USE OF STEROIDS MAY CONTRIBUTE TO IMMUNOSUPPRESSION OF THE PATIENT'S BODY AGAINST INFECTIONS SUCH COVID-19. THE PATIENT IS AWARE OF THE POTENTIAL COMPLICATIONS ASSOCIATED WITH THIS VIRUS, INCLUDING, BUT NOT LIMITED TO, . THE PATIENT WOULD LIKE TO PROCEED AND GIVES CONSENT TO PERFORM THE PROCEDURE. THE PATIENT DENIES UNEXPLAINABLE WEIGHT LOSS, FEVER, CHILLS, OR NEW CHANGES IN URINARY OR BOWEL CONTROL. THE PATIENT IS COVID-19 NEGATIVE DESCRIPTION OF PROCEDURE THE PATIENT WAS BROUGHT TO THE PROCEDURE ROOM AND PLACED IN THE PRONE POSITION. THE LUMBOSACRAL AREA WAS CLEANED WITH CHLORAPREP SOLUTION AND DRAPED ASEPTICALLY. THE PROCEDURE WAS DONE UNDER STERILE CONDITIONS. A TIMEOUT WAS PERFORMED WHERE LATERALITY AND THE SITE OF THE PROCEDURE WERE CHECKED AND CONFIRMED WITH EVERYONE IN THE ROOM. UNDER FLUOROSCOPIC GUIDANCE, THE TARGET POINT WAS SELECTED AT THE RIGHT AND LEFT L4-L5 AND RIGHT AND LEFT L5-S1 FACET JOINTS. TARGET POINT WAS SELECTED AFTER LATERAL ROTATION AND TILT OF THE MAGNIFIER OF THE C-ARM. I CONFIRMED AGAIN WITH EVERYONE IN THE ROOM THE LATERALITY OF THE TARGET AT 1142. LIDOCAINE 0.5% WAS USED TO NUMB THE SKIN AND THE SUBCUTANEOUS TISSUE BELOW IT. SPINAL NEEDLES, 22-GAUGE, WERE ADVANCED UNDER FLUOROSCOPIC GUIDANCE AND FOLLOWING PATIENT FEEDBACK UNTIL THE TARGETS WERE TOUCHED. THE POSITION OF THE NEEDLES WAS VERIFIED WITH AP AND LATERAL VIEWS. AFTER PROPER POSITION OF THE NEEDLES WAS ACHIEVED, ISOVUE-M DYE 30%, 0.1 ML, WAS INJECTED SHOWING ADEQUATE SPREAD OF THE DYE. KENALOG 20 MG WAS INJECTED AT EACH SITE. THEN, A SOLUTION OF 1.0 ML OF BUPIVACAINE 0.125% OF WAS USED TO FLUSH EACH SITE. THE MEDICATION WAS VERIFIED WITH THE NURSE. THERE WAS NO EVIDENCE OF BLOOD, PARESTHESIA OR CEREBROSPINAL FLUID DURING THE PROCEDURE. THE PATIENT WAS SENT TO THE RECOVERY ROOM. THE PATIENT WAS MOVING THE EXTREMITIES AND DOING WELL. THERE WERE NO COMPLICATIONS DURING THE PROCEDURE. ESTIMATED BLOOD LOSS WAS LESS THAN 5 ML. FLUOROSCOPY TIME WAS 20 SECONDS POST PROCEDURE NOTE IN THE FUTURE, CONSIDER ALSO BLOCKING L3-L4. THE PATIENT WILL BE SEEN IN A FOLLOW UP IN THE NEXT FEW WEEKS. I AM LOOKING FOR LONG LASTING RELIEF FOR THE PATIENT WITH THIS INTERVENTION. INSTRUCTIONS WERE GIVEN, QUESTIONS WERE ANSWERED, AND THE PATIENT EXPRESSED UNDERSTANDING AND AGREES WITH THE PLAN. I, MONET PEREZ, DOCUMENTED THE ABOVE INFORMATION ACTING A SCRIBE FOR DR. HILL. I HAVE REVIEWED THE ABOVE DOCUMENT, WRITTEN BY MONET PEREZ, JOINTER OPERATOR, AND I VERIFY THAT IT IS ACCURATE PROCEDURE CODES 69913 INJ PARAVERT F JNT L/S 1 LEV, MODIFIERS: 50 48200 INJ PARAVERT F JNT L/S 2 LEV, MODIFIERS: 50 DISPOSITION & COMMUNICATION FOLLOW UP FOLLOW UP WITH FOURCHETTE SEWER (REASON: POST BILATERAL THERAPEUTIC FACET BLOCK L4-L5, L5-S1) ELECTRONICALLY SIGNED BY DEMETRIUS HILL MD, MD ON 01/10/2020 AT 04:31 PM EDT DISCLAIMER : THIS IS A VISIT SUMMARY EXTRACTED FROM THE [email or web address] CHART. IT IS NOT A COPY OF THE [email or web address] PROGRESS NOTE. TYRA
== END ==
LOC: M PAIN 10:30
PROVIDERS: ATTEND Anesthesiology
DX: M47.816 Spondylosis without myelopathy or radiculopathy, lumbar region (principal); M47.817 Spondylosis without myelopathy or radiculopathy, lumbosacral region; F17.210 Nicotine dependence, cigarettes, uncomplicated; Z79.891 Long term (current) use of opiate analgesic; Z79.899 Other long term (current) drug therapy; Z88.8 Allergy status to other drugs, medicaments and biological substances
CPT/HCPCS: 64493; 64494; J3301; Q9967

== ENCOUNTER → 2020-01-23 | Outpatient (CLI) | payer OTHER ==
[~2020-01-23] MED LIST changes: -BUPIVACAINE HCL 0.25% 30ML VIAL As Ordered ONE; -ISOVUE-M 300 61% 15ML VIAL As Ordered ONE; -LIDOCAINE 1% SDV 30ML VIAL As Ordered ONE; -TRIAMCINOLONE ACETONIDE SUSP 40 MG/ML VIAL (J3301) As Ordered ONE; -diazePAM 5 MG TAB As Ordered ONE; -oxyCODONE 5MG TAB As Ordered ONE
--- NOTE | 2020-01-25 00:34 | ECWPNPC ---
PATIENT NAME: EVA CALZADA : 1980 GENDER: FEMALE VISIT DATE: 01/23/2020 DISCHARGE DATE: 01/23/20 1129 VISIT LOCKED DATE TIME: PHYSICIAN: CUONG MARLOW PHYSICIAN PAGER NO: ACTIVE RESOURCE: CUONG MARLOW REASON FOR APPOINTMENT 1. POST BILATERAL THERAPEUTIC FACET BLOCK L4-L5, L5-S1 HISTORY OF PRESENT ILLNESS GENERAL: - 39-YEAR-OLD FEMALE IN FOR POST FACET BLOCK FOLLOW-UP. SHE FEELS THE PROCEDURE WAS SUCCESSFUL OVERALL RATING HER PAIN PREPROCEDURE AT AN 8 OUT OF 10 AND POSTPROCEDURE AT A 2 OUT OF 10. SHE FURTHER STATES THE PROCEDURE CONTINUES TO HELP HER TODAY. FALL RISK SCREENING: SCREENING :NO FALLS REPORTED IN THE LAST YEAR PAIN SCREENING: PATIENT HAS A COMPLAINT OF ACUTE OR CHRONIC PAIN :YES LOCATION OF PAIN:LOW BACK INTENSITY OF PAIN (SCALE OF 1 TO 10):5 WHAT DOES YOUR PAIN FEEL LIKE:ACHING, INTERMITTENT DURATION:INTERMITTENT PAIN IS INCREASED BY:OTHERS HELPING WITH WOOD PAIN IS DECREASED BY:USE OF PAIN MEDICATIONS HOT SHOWERS NURSING NOTE: -. PAIN CENTER INTAKE QUESTIONS: DO YOU HAVE A HISTORY OF MRSA? :NO DO YOU TAKE A BLOOD THINNERS? :NO DO YOU HAVE ANY BLEEDING DISORDERS? :NO ANY NEW NUMBNESS OR WEAKNESS IN YOUR LEGS OR ARMS? :NO ANY PACEMAKER,DEFIBRILLATOR, OR DORSAL COLUMN STIMULATOR? :NO DO YOU HAVE ANY RASHES OR OPEN SORES? :NO ARE YOU ALLERGIC TO IV DYE? :NO ARE YOU DIABETIC? :NO ANY NEW PROBLEMS WITH YOUR MEDICATIONS? :NO HAVE YOU RECEIVED A VACCINE IN THE PAST 30 DAYS? :NO DO YOU PLAN TO RECEIVE A VACCINE IN THE NEXT 21 DAYS? :NO DO YOU NEED ANY PRESCRIPTION? :YES SOMA DO YOU TAKE ANY IMMUNOSUPPRESSIVE MEDICATIONS? :NO ANY HISTORY OF SEIZURES? :NO ANY HISTORY OF CARDIAC ISSUES OR EVENTS? :NO DO YOU HAVE SLEEP APNEA? :NO ANY RECENT HEAD INJURY? :NO DO YOU HAVE ANY NEW INFECTIONS? :NO IS THERE A CHANCE YOU COULD BE ? :NO ARE YOU BREAST FEEDING? :NO CURRENT MEDICATIONS TAKING CVS HYDROCORTISONE ANTI-ITCH 0.5 % CREAM 1 APPLICATION TO AFFECTED AREA EXTERNALLY TWICE A DAY TAKING MAY HAVE - - RIGHT SHOE LIFT DX: M41.9 KYPHOSCOLIOSIS DAILY MED#[id number] TAKING MULTIVITAMIN ADULT - TABLET 1 TAB ORALLY DAILY TAKING CRANBERRY 405 MG CAPSULE DIRECTED ORALLY TAKING ACETAMINOPHEN 325 MG TABLET 1 TABLET NEEDED ORALLY EVERY 4 HRS TAKING PROBIOTIC - TABLET DELAYED RELEASE DIRECTED ORALLY TAKING VITAMIN B COMPLEX - TABLET DIRECTED ORALLY TAKING COQ10 100 MG CAPSULE 1 CAPSULE WITH A MEAL ORALLY ONCE A DAY TAKING ORTHOPEDIC SHOES _ 1 DX M79.671, [facility]# [id number] ONE INCH SHOE LIFT. RT SHOE DAILY TAKING KETOROLAC TROMETHAMINE 10 MG TABLET 1 TABLET WITH FOOD OR MILK NEEDED ORALLY EVERY 6 HRS TAKING ONDANSETRON 4 MG TABLET DISINTEGRATING 1 TABLET ON THE TONGUE AND ALLOW TO DISSOLVE ORALLY ONCE A DAY TAKING CARISOPRODOL 350 MG TABLET 1 TABLET NEEDED ORALLY BEFORE BEDTIME MDD-1 TAKING CYMBALTA 60 MG CAPSULE DELAYED RELEASE PARTICLES 1 CAPSULE ORALLY ONCE A DAY TAKING HYDROCODONE-ACETAMINOPHEN 10-325 MG TABLET 1 TABLET ORALLY EVERY 6 HRS NEEDED NOT-TAKING PREDNISONE 10 MG TABLET TAKE 4 TABLETS X 4 DAYS THEN 3 TABS X 4 DAYS, THEN 2 TABS 4 DAYS, THEN 1 TAB X 4 DAYS, THEN STOP ORALLY DIRECTED NOT-TAKING OMEPRAZOLE 40 MG CAPSULE DELAYED RELEASE 1 CAPSULE 30 MINUTES BEFORE MORNING MEAL ORALLY ONCE A DAY NOT-TAKING KETOCONAZOLE 2 % SHAMPOO DIRECTED EXTERNALLY APPLY IN SHOWER TO SKIN, LATHER, LEAVE ON FOR 5 MINUTES AND RINSE. NOT-TAKING TERBINAFINE- ORAL-12 WEEKS 250 MG TABLETS ONE TABLET ORALLY DAILY, NOTES: ALMOST DONE - TAKING FOR FOOT FUNGUS NOT-TAKING CYMBALTA 30 MG CAPSULE DELAYED RELEASE PARTICLES 1 CAPSULE ORALLY ONCE A DAY NOT-TAKING AUGMENTIN 875-125 MG TABLET 1 TABLET ORALLY EVERY 12 HRS NOT-TAKING AMOXICILLIN-POT CLAVULANATE 875-125 MG TABLET 1 TABLET ORALLY EVERY 12 HRS MEDICATION LIST REVIEWED AND RECONCILED WITH THE PATIENT PAST MEDICAL HISTORY 12 YEAR ASCVD RISK OF 1.0% 07/2014 ABDOMINAL AORTIC ANEURYSM S/P REPAIR IN 2014. SHE FOLLOWS WITH HER VASCULAR SURGEON IN [place] ON A YEARLY BASIS. THERE IS NO IDENTIFIED ETIOLOGY FOR HER AAA, HOWEVER HER SURGEON SUSPECTS A GENETIC DISORDER. GENETIC TESTING IS NOT COVERED BY HER INSURANCE AND WOULD COST HER ABOUT $6000 OUT OF POCKET WHICH IS COST PROHIBITIVE PATIENT HAD AN "ECTOPIC UTERUS" -- SECOND (R SIDED) UTERUS WITH NO CERVIX, CAUSED ENDOMETRIOSIS WITH RETROGRADE MENSTRUATION PAP 02/2015- NEG ENDOMETRIOSIS PER OP REPORT FROM [facility]: PT HAS "NL UTERUS ATTACHED TO AN OVARY AND A CERVIX ON THE L OF THE MIDLINE WITH A L FALLOPIAN TUBE WITH A LEFT ROUND LIGAMENT. A ROUND LIGAMENT FROM THAT UTERUS LED TO AN ECTOPIC UTERUS IN THE RIGHT LOWER QUADRANT ON THE PELVIC SIDEWALL WHICH WAS NOT ATTACHED TO A CERVIX WHICH ALSO HAD AN OVARY AND A FALLOPIAN TUBE." MRI OF L/S 12/2011 WITH COMPLEX CONGENITAL ANOMALIES, SCOLIOSIS, TETHERED CORD, VERTEBRAL FUSION, DISC NARROWING, SPINAL STENOSIS, DIAGNOSED WITH LUMBAR SCOLIOSIS AN . NEVER HAD SURGERY FOR HER SPINE, NO BRACING. WEARS A SHOE LIFT ON THE RIGHT, 1 INCH. NO PROBLEMS WITH HYPERMOBILE JOINTS. NO OPTIC LENS DISPLACEMENT. SUBDURAL HEMATOMA S/P FALL 10/2018 ALLERGIES ITRACONAZOLE: RASH - ALLERGY SURGICAL HISTORY ABDOMINAL AORTIC REPAIR 09/2014 ABDOMINAL HERNIA REPAIR 09/2014 R SIDED HYSTERECTOMY (BUT NOT OOPHORECTOMY) OF "ECTOPIC UTERUS" THAT HAD NO CERVIX 12/2005 C SECTION X2 APPENDECTOMY EXTRA OCULAR MUSCLE SURGERY CHILDHOOD FAMILY HISTORY FATHER: ALIVE 60 YRS MOTHER: , DIAGNOSED WITH DIABETES SIBLINGS: ALIVE, DIABETES SON(S): ALIVE DAUGHTER(S): ALIVE 1 BROTHER(S) - HEALTHY. 2 SON(S) , 1 DAUGHTER(S) . NO FAMILY HISTORY OF GENETIC DISORDERS, AND NOBODY ELSE HAS AAA OR SPINAL DEFORMITIES. SOCIAL HISTORY GENERAL: TOBACCO USE ARE YOU A:CURRENT SMOKER ARE YOU INTERESTED IN QUITTING?THINKING ABOUT QUITTING PREVIOUS QUIT ATTEMPTS?YES, MORE THAN 6 MONTHS AGO. CUTTING DOWN COUNSELED THE PATIENT ON SMOKING CESSATION, EDUCATION TFNWIFSR06/22/2020 HOW MANY CIGARETTES A DAY DO YOU SMOKE?6-10 HOW SOON AFTER YOU WAKE UP DO YOU SMOKE YOUR FIRST CIGARETTE?31-60 MIN HOW OFTEN DO YOU SMOKE CIGARETTES?EVERY DAY PATIENT COUNSELED ON THE DANGERS OF TOBACCO USE AND URGED TO QUIT:01/23/2020 SMOKING CESSATION INFORMATION GIVEN01/02/2020 LATEX QUESTIONNAIRE LATEX ALLERGY : HAVE YOU EVER DEVELOPED ANY TYPE OF REACTION AFTER HANDLING LATEX PRODUCTS SUCH RUBBER GLOVES, CONDOMS, DIAPHRAGMS, BALLOONS, SOCKS, OR UNDERWEAR?NO LATEX ALLERGY : HAVE YOU EVER DEVELOPED ANY TYPE OF REACTION DURING OR AFTER DENTAL APPOINTMENT, VAGINAL/RECTAL EXAMINATION, SURGICAL PROCEDURE, OR ANY OTHER EXPOSURE?NO LATEX RISK : HAVE YOU EVER HAD ANY DIFFICULTY BREATHING OR HIVES AFTER EATING OR HANDLING ANY FRUITS, OR VEGETABLES; SUCH KIWI, BANANAS, STONE FRUITS, OR CHESTNUTSNO LATEX RISK : DO YOU HAVE A PREVIOUS PERSONAL HISTORY OF MORE THAN NINE SURGERIES, SPINA BIFIDA, OR REPEATED CATHERIZATIONS? NO LATEX RISK : ARE YOU FREQUENTLY EXPOSED TO LATEX PRODUCTS IN YOUR OCCUPATION?NO DATE ASKED : 01/23/2020 ALCOHOL SCREENING DID YOU HAVE A DRINK CONTAINING ALCOHOL IN THE PAST YEAR?NO POINTS0 INTERPRETATIONNEGATIVE RECREATIONAL DRUG USE DRUG USE?NO CAFFEINE CAFFEINE USE?YES COFFEE,SODA SEXUAL HX HAD SEX IN THE LAST 12 MONTHS (VAGINAL, ORAL, OR ANAL)?YES WITHWOMEN ONLY USE PROTECTION?YES HOW OFTEN?ALL OF THE TIME HIV / HEP-C SCREENING HIV TEST OFFERED TO PATIENT:YES DATE OFFERED:08/26/2019 TEST ACCEPTED:NO HEP-C TEST OFFERED TO PATIENT:YES DATE OFFERED:08/26/2019 REASON:PATIENT DECLINED TEST ACCEPTED:NO REASON:PATIENT DECLINED BROCHURE PROVIDED TO PATIENTYES JUDAISM [id number] PENTECOSTALISM LANGUAGE LANGUAGES SPOKEN:FAROESE EDUCATION LEVEL OF EDUCATION:FINISHED HIGH SCHOOL LEARNING BARRIERS / SPECIAL NEEDS CHANGE FROM LAST VISIT?NO BARRIERS TO LEARNING?NO HEARING IMPAIRED?NO VISION IMPAIRED?YES COGNITIVELY IMPAIRED?NO :CORRECTIVE LENSES READINESS TO LEARN?YES LEARNING PREFERENCES?NO LEARNING CAPABILITIES PRESENT?YES EMOTIONAL BARRIERS?NO SPECIAL DEVICES?NO KITCHEN MANAGER NEEDED?NO OCCUPATION: UNEMPLOYED. DIET: REGULAR. EXERCISE: NO REGULAR EXERCISE. MARITAL STATUS: . OTHERS AT HOME: LIVES WITH AND 2 BOYS & 1 DAUGHTER. PAIN CLINIC PFS, CLERGY, PUBLIC HEALTH REFERRALS WAS THE PROVIDER NOTIFIED OF ANY PERTINENT INFO?YES HAS THE PATIENT BEEN EDUCATED REGARDING HIS/HER PLAN OF CARE?YES HAS THE PATIENT BEEN EDUCATED REGARDING PAIN, THE RISK FOR PAIN, THE IMPORTANCE OF EFFECTIVE PAIN MANAGEMENT, AND THE PAIN ASSESSMENT PROCESS?YES ADVANCE DIRECTIVE ADVANCE DIRECTIVE DISCUSSED WITH PATIENT:YES PATIENT DECLINED INFO AND ASSIATANCE WITH FORM AT THIS TIME. HOSPITALIZATION/MAJOR DIAGNOSTIC PROCEDURE FOR ABOVE SURGERIES FALL/HEAD INJURY 10/2018 REVIEW OF SYSTEMS CONSTITUTIONAL: ANY RECENT FEVER NO . CHILLS NO . WEIGHT CHANGE OF UNKNOWN REASONS NO . GASTROENTEROLOGY: NEW UNEXPLAINABLE CHANGES IN BOWEL CONTROL NO . CONSTIPATION NO . GENITOURINARY: ANY NEW CHANGE IN BLADDER CONTROL? NO . NEUROLOGY: NEW ONSET DIZZINESS OR NEUROLOGICAL CHANGES NOT MENTIONED NO . NEW NUMBNESS OR PAIN PATTERNS NOT MENTIONED AND PERTINENT TO TODAY'S VISIT NO . CARDIOLOGY: NEW CHEST PRESSURE NO . NEW CHEST PAIN NO . RESPIRATORY: UNEXPLAINABLE COUGH NO . NEW SHORTNESS OF BREATH NO . VITAL SIGNS WT 152.4 LBS, HT 59 IN, BMI 30.78 INDEX, BP 124/69 MM HG, HR 94 /MIN, RR 18 /MIN, TEMP 97.4 F, OXYGEN SAT % 98%, SAFE IN ENV? (Y/N) YES, NA INITIALS AW 1110, REVIEWED BY: BRENNON 01/23/2020 [address] MARINELLI. EXAMINATION GENERAL EXAMINATION: GENERALNO ACUTE DISTRESS, WELL NOURISHED AND HYDRATED. PSYCHAPPROPRIATE MOOD AND AFFECT . LUNGS:CLEAR TO AUSCULTATION BILATERALLY, NO WHEEZES, RHONCHI, RALES. HEART:NO MURMURS, REGULAR RATE AND RHYTHM. ASSESSMENTS CHRONIC PAIN - G89.29 (PRIMARY) SPONDYLOSIS OF LUMBOSACRAL REGION WITHOUT MYELOPATHY OR RADICULOPATHY - M47.817 SPONDYLOSIS OF LUMBAR REGION WITHOUT MYELOPATHY OR RADICULOPATHY - M47.816, RISK: (NULL) TREATMENT CHRONIC PAIN PAIN PROCEDURE LOGDATE OF [id number]/26/2020PROCEDURE:BILATERAL LUMBAR THERAPEUTIC FACET BLOCK L4-L5, L5-L9MGYTOL OF PRE SEDATEVALIUM 10MG & OXYCODONE 10MGRESULT:PRE- 10 POST 04/22 NOTES: 39-YEAR-OLD FEMALE IN FOR POST FACET BLOCK FOLLOW-UP. GIVEN PRESENTING SYMPTOMS RECOMMEND FOLLOW-UP IN 2 MONTHS. PATIENT HAS EXPRESSED UNDERSTANDING OF AND WAS IN AGREEMENT WITH TREATMENT PLAN. GIVEN TIME TO ASK QUESTIONS AND EXPRESS CONCERNS. , ISTOP REGISTRY REVIEWED AND DEMONSTRATES COMPLLIANCE. (REF #[id number] ) BRINGS IN MEDICATIONS WHICH IS APPROPRIATE FOR WHAT WAS DISPENSED. RECENT URINE TOXICOLOGY REVIEWED. NO UNAUTHORIZED MEDICATIONS. NO ILLICIT SUBSTANCES AND PRESCRIBED MEDICATIONS WERE PRESENT. SPONDYLOSIS OF LUMBAR REGION WITHOUT MYELOPATHY OR RADICULOPATHY REFILL CARISOPRODOL TABLET, 350 MG, 1 TABLET NEEDED, ORALLY, BEFORE BEDTIME MDD-1, 30 DAY(S), 30, REFILLS 2 PROCEDURE CODES FA211 ESTABILISHED PATIENT [facility] CHARGE DISPOSITION & COMMUNICATION FOLLOW UP 2 MONTHS (REASON: BACK PAIN) ELECTRONICALLY SIGNED BY DEBORA OWEN ON 01/24/2020 AT 08:51 AM EST DISCLAIMER : THIS IS A VISIT SUMMARY EXTRACTED FROM THE [employer] CHART. IT IS NOT A COPY OF THE [employer] PROGRESS NOTE. MTDD
== END ==
LOC: M PAIN 11:00
PROVIDERS: ATTEND Family Medicine
DX: G89.29 Other chronic pain (principal); M47.817 Spondylosis without myelopathy or radiculopathy, lumbosacral region; M47.816 Spondylosis without myelopathy or radiculopathy, lumbar region; Z79.899 Other long term (current) drug therapy; F17.210 Nicotine dependence, cigarettes, uncomplicated; Z88.8 Allergy status to other drugs, medicaments and biological substances

== ENCOUNTER → 2020-03-24 | Outpatient (CLI) | payer OTHER ==
--- NOTE | 2020-03-26 06:26 | ECWPNPC ---
PATIENT NAME: EVA CALZADA : 1980 GENDER: FEMALE VISIT DATE: 03/24/2020 DISCHARGE DATE: 03/24/20 1454 VISIT LOCKED DATE TIME: PHYSICIAN: CUONG MARLOW PHYSICIAN PAGER NO: ACTIVE RESOURCE: CUONG MARLOW REASON FOR APPOINTMENT 1. BACK [id number] HISTORY OF PRESENT ILLNESS GENERAL: PERMISSION REQUESTED AND RECEIVED FROM PATIENT TO PERFORM TELEHEALTH VISIT. 40-YEAR-OLD FEMALE IN FOR CHRONIC PAIN FOLLOW-UP. SHE RATES HER PAIN CURRENTLY AT A 5 OUT OF 10 AND DESCRIBES IT ACHING, AND STABBING. SHE FEELS THE MEDICATIONS ARE HELPFUL AND DENIES MED SIDE EFFECTS AT THIS TIME. PATIENT HAS HAD FACET BLOCKS IN THE PAST WITH GOOD RELIEF AND WE WILL DISCUSS REPEAT PROCEDURES AT THIS TIME. FALL RISK SCREENING: SCREENING :NO FALLS REPORTED IN THE LAST YEAR PAIN SCREENING: PATIENT HAS A COMPLAINT OF ACUTE OR CHRONIC PAIN :YES LOCATION OF PAIN:LOW BACK INTENSITY OF PAIN (SCALE OF 1 TO 10):5 WHAT DOES YOUR PAIN FEEL LIKE:ACHING, STABBING SPASMS DURATION:INTERMITTENT PAIN IS INCREASED BY:ACTIVITIES PAIN IS DECREASED BY:USE OF PAIN MEDICATIONS, OTHERS HEATED SEATING PADS IN CAR TREATMENT/MEDICATIONS USED TO MANAGE PAIN:OPIOIDS NURSING NOTE: -. PAIN CENTER INTAKE QUESTIONS: DO YOU HAVE A HISTORY OF MRSA? :NO DO YOU TAKE A BLOOD THINNERS? :NO DO YOU HAVE ANY BLEEDING DISORDERS? :NO ANY NEW NUMBNESS OR WEAKNESS IN YOUR LEGS OR ARMS? :NO ANY PACEMAKER,DEFIBRILLATOR, OR DORSAL COLUMN STIMULATOR? :NO DO YOU HAVE ANY RASHES OR OPEN SORES? :NO ARE YOU ALLERGIC TO IV DYE? :NO ARE YOU DIABETIC? :NO ANY NEW PROBLEMS WITH YOUR MEDICATIONS? :NO HAVE YOU RECEIVED A VACCINE IN THE PAST 30 DAYS? :NO DO YOU PLAN TO RECEIVE A VACCINE IN THE NEXT 21 DAYS? :NO DO YOU NEED ANY PRESCRIPTION? :YES NEEDS CARISOPRODOL REFILL DO YOU TAKE ANY IMMUNOSUPPRESSIVE MEDICATIONS? :NO IS THERE A CHANCE YOU COULD BE ? :NO ARE YOU BREAST FEEDING? :NO CURRENT MEDICATIONS TAKING CVS HYDROCORTISONE ANTI-ITCH 0.5 % CREAM 1 APPLICATION TO AFFECTED AREA EXTERNALLY TWICE A DAY TAKING MAY HAVE - - RIGHT SHOE LIFT DX: M41.9 KYPHOSCOLIOSIS DAILY MED#[id number] TAKING MULTIVITAMIN ADULT - TABLET 1 TAB ORALLY DAILY TAKING CRANBERRY 405 MG CAPSULE DIRECTED ORALLY TAKING ACETAMINOPHEN 325 MG TABLET 1 TABLET NEEDED ORALLY EVERY 4 HRS TAKING PROBIOTIC - TABLET DELAYED RELEASE DIRECTED ORALLY TAKING VITAMIN B COMPLEX - TABLET DIRECTED ORALLY TAKING COQ10 100 MG CAPSULE 1 CAPSULE WITH A MEAL ORALLY ONCE A DAY TAKING ORTHOPEDIC SHOES _ 1 DX M79.671, [facility]# [id number] ONE INCH SHOE LIFT. RT SHOE DAILY TAKING KETOROLAC TROMETHAMINE 10 MG TABLET 1 TABLET WITH FOOD OR MILK NEEDED ORALLY EVERY 6 HRS TAKING ONDANSETRON 4 MG TABLET DISINTEGRATING 1 TABLET ON THE TONGUE AND ALLOW TO DISSOLVE ORALLY ONCE A DAY TAKING CYMBALTA 60 MG CAPSULE DELAYED RELEASE PARTICLES 1 CAPSULE ORALLY ONCE A DAY TAKING CARISOPRODOL 350 MG TABLET 1 TABLET NEEDED ORALLY BEFORE BEDTIME MDD-1 TAKING HYDROCODONE-ACETAMINOPHEN 10-325 MG TABLET 1 TABLET ORALLY EVERY 6 HRS NEEDED NOT-TAKING PREDNISONE 10 MG TABLET TAKE 4 TABLETS X 4 DAYS THEN 3 TABS X 4 DAYS, THEN 2 TABS 4 DAYS, THEN 1 TAB X 4 DAYS, THEN STOP ORALLY DIRECTED NOT-TAKING OMEPRAZOLE 40 MG CAPSULE DELAYED RELEASE 1 CAPSULE 30 MINUTES BEFORE MORNING MEAL ORALLY ONCE A DAY NOT-TAKING KETOCONAZOLE 2 % SHAMPOO DIRECTED EXTERNALLY APPLY IN SHOWER TO SKIN, LATHER, LEAVE ON FOR 5 MINUTES AND RINSE. NOT-TAKING TERBINAFINE- ORAL-12 WEEKS 250 MG TABLETS ONE TABLET ORALLY DAILY, NOTES: ALMOST DONE - TAKING FOR FOOT FUNGUS NOT-TAKING CYMBALTA 30 MG CAPSULE DELAYED RELEASE PARTICLES 1 CAPSULE ORALLY ONCE A DAY NOT-TAKING AUGMENTIN 875-125 MG TABLET 1 TABLET ORALLY EVERY 12 HRS NOT-TAKING AMOXICILLIN-POT CLAVULANATE 875-125 MG TABLET 1 TABLET ORALLY EVERY 12 HRS MEDICATION LIST REVIEWED AND RECONCILED WITH THE PATIENT PAST MEDICAL HISTORY 12 YEAR ASCVD RISK OF 1.0% 07/2014 ABDOMINAL AORTIC ANEURYSM S/P REPAIR IN 2014. SHE FOLLOWS WITH HER VASCULAR SURGEON IN [place] ON A YEARLY BASIS. THERE IS NO IDENTIFIED ETIOLOGY FOR HER AAA, HOWEVER HER SURGEON SUSPECTS A GENETIC DISORDER. GENETIC TESTING IS NOT COVERED BY HER INSURANCE AND WOULD COST HER ABOUT $6000 OUT OF POCKET WHICH IS COST PROHIBITIVE PATIENT HAD AN "ECTOPIC UTERUS" -- SECOND (R SIDED) UTERUS WITH NO CERVIX, CAUSED ENDOMETRIOSIS WITH RETROGRADE MENSTRUATION PAP 02/2015- NEG ENDOMETRIOSIS PER OP REPORT FROM [facility]: PT HAS "NL UTERUS ATTACHED TO AN OVARY AND A CERVIX ON THE L OF THE MIDLINE WITH A L FALLOPIAN TUBE WITH A LEFT ROUND LIGAMENT. A ROUND LIGAMENT FROM THAT UTERUS LED TO AN ECTOPIC UTERUS IN THE RIGHT LOWER QUADRANT ON THE PELVIC SIDEWALL WHICH WAS NOT ATTACHED TO A CERVIX WHICH ALSO HAD AN OVARY AND A FALLOPIAN TUBE." MRI OF L/S 12/2011 WITH COMPLEX CONGENITAL ANOMALIES, SCOLIOSIS, TETHERED CORD, VERTEBRAL FUSION, DISC NARROWING, SPINAL STENOSIS, DIAGNOSED WITH LUMBAR SCOLIOSIS AN . NEVER HAD SURGERY FOR HER SPINE, NO BRACING. WEARS A SHOE LIFT ON THE RIGHT, 1 INCH. NO PROBLEMS WITH HYPERMOBILE JOINTS. NO OPTIC LENS DISPLACEMENT. SUBDURAL HEMATOMA S/P FALL 10/2018 ALLERGIES ITRACONAZOLE: RASH - ALLERGY SURGICAL HISTORY ABDOMINAL AORTIC REPAIR 09/2014 ABDOMINAL HERNIA REPAIR 09/2014 R SIDED HYSTERECTOMY (BUT NOT OOPHORECTOMY) OF "ECTOPIC UTERUS" THAT HAD NO CERVIX 12/2005 C SECTION X2 APPENDECTOMY EXTRA OCULAR MUSCLE SURGERY CHILDHOOD FAMILY HISTORY FATHER: ALIVE 60 YRS MOTHER: , DIAGNOSED WITH DIABETES SIBLINGS: ALIVE, DIABETES SON(S): ALIVE DAUGHTER(S): ALIVE 1 BROTHER(S) - HEALTHY. 2 SON(S) , 1 DAUGHTER(S) . NO FAMILY HISTORY OF GENETIC DISORDERS, AND NOBODY ELSE HAS AAA OR SPINAL DEFORMITIES. SOCIAL HISTORY GENERAL: TOBACCO USE ARE YOU A:CURRENT SMOKER HOW OFTEN DO YOU SMOKE CIGARETTES?EVERY DAY HOW SOON AFTER YOU WAKE UP DO YOU SMOKE YOUR FIRST CIGARETTE?31-60 MIN HOW MANY CIGARETTES A DAY DO YOU SMOKE?6-10 ARE YOU INTERESTED IN QUITTING?THINKING ABOUT QUITTING PATIENT COUNSELED ON THE DANGERS OF TOBACCO USE AND URGED TO QUIT:01/23/2020 COUNSELED THE PATIENT ON SMOKING CESSATION, EDUCATION [id number]/22/2020 SMOKING CESSATION INFORMATION GIVEN01/02/2020 PREVIOUS QUIT ATTEMPTS?YES, MORE THAN 6 MONTHS AGO. CUTTING DOWN LATEX QUESTIONNAIRE LATEX ALLERGY : HAVE YOU EVER DEVELOPED ANY TYPE OF REACTION AFTER HANDLING LATEX PRODUCTS SUCH RUBBER GLOVES, CONDOMS, DIAPHRAGMS, BALLOONS, SOCKS, OR UNDERWEAR?NO LATEX ALLERGY : HAVE YOU EVER DEVELOPED ANY TYPE OF REACTION DURING OR AFTER DENTAL APPOINTMENT, VAGINAL/RECTAL EXAMINATION, SURGICAL PROCEDURE, OR ANY OTHER EXPOSURE?NO LATEX RISK : HAVE YOU EVER HAD ANY DIFFICULTY BREATHING OR HIVES AFTER EATING OR HANDLING ANY FRUITS, OR VEGETABLES; SUCH KIWI, BANANAS, STONE FRUITS, OR CHESTNUTSNO LATEX RISK : DO YOU HAVE A PREVIOUS PERSONAL HISTORY OF MORE THAN NINE SURGERIES, SPINA BIFIDA, OR REPEATED CATHERIZATIONS? NO LATEX RISK : ARE YOU FREQUENTLY EXPOSED TO LATEX PRODUCTS IN YOUR OCCUPATION?NO DATE ASKED : 03/24/2020 ALCOHOL SCREENING DID YOU HAVE A DRINK CONTAINING ALCOHOL IN THE PAST YEAR?NO POINTS0 INTERPRETATIONNEGATIVE RECREATIONAL DRUG USE DRUG USE?NO CAFFEINE CAFFEINE USE?YES COFFEE,SODA SEXUAL HX HAD SEX IN THE LAST 12 MONTHS (VAGINAL, ORAL, OR ANAL)?YES WITHWOMEN ONLY USE PROTECTION?YES HOW OFTEN?ALL OF THE TIME HIV / HEP-C SCREENING HIV TEST OFFERED TO PATIENT:YES DATE OFFERED:08/26/2019 TEST ACCEPTED:NO HEP-C TEST OFFERED TO PATIENT:YES DATE OFFERED:08/26/2019 REASON:PATIENT DECLINED TEST ACCEPTED:NO REASON:PATIENT DECLINED BROCHURE PROVIDED TO PATIENTYES PENTECOSTALISM [id number] MORAVIAN LANGUAGE LANGUAGES SPOKEN:[place] CITIZ[place] EDUCATION LEVEL OF EDUCATION:FINISHED HIGH SCHOOL LEARNING BARRIERS / SPECIAL NEEDS CHANGE FROM LAST VISIT?NO BARRIERS TO LEARNING?NO HEARING IMPAIRED?NO VISION IMPAIRED?YES COGNITIVELY IMPAIRED?NO :CORRECTIVE LENSES READINESS TO LEARN?YES LEARNING PREFERENCES?NO LEARNING CAPABILITIES PRESENT?YES EMOTIONAL BARRIERS?NO SPECIAL DEVICES?NO HOT BALLER NEEDED?NO OCCUPATION: UNEMPLOYED. DIET: REGULAR. EXERCISE: NO REGULAR EXERCISE. MARITAL STATUS: . OTHERS AT HOME: LIVES WITH AND 2 BOYS & 1 DAUGHTER. PAIN CLINIC PFS, CLERGY, PUBLIC HEALTH REFERRALS WAS THE PROVIDER NOTIFIED OF ANY PERTINENT INFO?YES HAS THE PATIENT BEEN EDUCATED REGARDING HIS/HER PLAN OF CARE?YES HAS THE PATIENT BEEN EDUCATED REGARDING PAIN, THE RISK FOR PAIN, THE IMPORTANCE OF EFFECTIVE PAIN MANAGEMENT, AND THE PAIN ASSESSMENT PROCESS?YES ADVANCE DIRECTIVE ADVANCE DIRECTIVE DISCUSSED WITH PATIENT:YES PATIENT DECLINED INFO AND ASSIATANCE WITH FORM AT THIS TIME. HOSPITALIZATION/MAJOR DIAGNOSTIC PROCEDURE FOR ABOVE SURGERIES FALL/HEAD INJURY 10/2018 REVIEW OF SYSTEMS CONSTITUTIONAL: ANY RECENT FEVER NO . CHILLS NO . WEIGHT CHANGE OF UNKNOWN REASONS NO . GASTROENTEROLOGY: NEW UNEXPLAINABLE CHANGES IN BOWEL CONTROL NO . CONSTIPATION NO . GENITOURINARY: ANY NEW CHANGE IN BLADDER CONTROL? NO . NEUROLOGY: NEW ONSET DIZZINESS OR NEUROLOGICAL CHANGES NOT MENTIONED NO . NEW NUMBNESS OR PAIN PATTERNS NOT MENTIONED AND PERTINENT TO TODAY'S VISIT NO . CARDIOLOGY: NEW CHEST PRESSURE NO . NEW CHEST PAIN NO . RESPIRATORY: UNEXPLAINABLE COUGH NO . NEW SHORTNESS OF BREATH NO . VITAL SIGNS WT 152.4 LBS, HT 59 IN, BMI 30.78 GRANT GARCIA MA. EXAMINATION GENERAL EXAMINATION: GENERALNO ACUTE DISTRESS, WELL NOURISHED AND HYDRATED. PSYCHAPPROPRIATE MOOD AND AFFECT . ASSESSMENTS SPONDYLOSIS OF LUMBOSACRAL REGION WITHOUT MYELOPATHY OR RADICULOPATHY - M47.817 (PRIMARY) TREATMENT SPONDYLOSIS OF LUMBOSACRAL REGION WITHOUT MYELOPATHY OR RADICULOPATHY NOTES: 40-YEAR-OLD FEMALE IN FOR CHRONIC PAIN FOLLOW-UP. GIVEN PRESENTING SYMPTOMS RECOMMENDED IN CLINIC VISIT TO DISCUSS FACET BLOCK PROCEDURE. PATIENT HAS EXPRESSED UNDERSTANDING OF AND WAS IN AGREEMENT WITH TREATMENT PLAN. GIVEN TIME TO ASK QUESTIONS AND EXPRESS CONCERNS. , ISTOP REGISTRY REVIEWED AND DEMONSTRATES COMPLLIANCE. (REF # [id number] ) BRINGS IN MEDICATIONS WHICH IS APPROPRIATE FOR WHAT WAS DISPENSED. TELEHEALTH VISIT CONDUCTED VIA ZOOM. TIME SPENT WITH PATIENT 7 MINUTES. DISPOSITION & COMMUNICATION FOLLOW UP IN CLINIC TO DISCUSS PROCEDURES (REASON: BACK PAIN) ELECTRONICALLY SIGNED BY DEBORA OWEN ON 03/25/2020 AT 02:10 PM EST DISCLAIMER : THIS IS A VISIT SUMMARY EXTRACTED FROM THE [employer] CHART. IT IS NOT A COPY OF THE [employer] PROGRESS NOTE. TYRA
== END ==
LOC: M TMPAIN 11:15 → M PAIN 11:15
PROVIDERS: ATTEND Family Medicine
DX: M47.817 Spondylosis without myelopathy or radiculopathy, lumbosacral region (principal); G89.29 Other chronic pain; F17.210 Nicotine dependence, cigarettes, uncomplicated; Z88.8 Allergy status to other drugs, medicaments and biological substances; Z79.899 Other long term (current) drug therapy

== ENCOUNTER → 2020-03-25 | Outpatient (CLI) | payer SELFPAY | LOC: M LABSMTC 11:07 | PROVIDERS: ATTEND Pediatrics | DX: Z20.822 Contact with and (suspected) exposure to COVID-19 (principal) ==

== ENCOUNTER → 2020-04-08 | Outpatient (CLI) | payer OTHER ==
--- NOTE | 2020-04-10 02:29 | ECWPNPC ---
PATIENT NAME: EVA CALZADA : 1980 GENDER: FEMALE VISIT DATE: 04/08/2020 DISCHARGE DATE: 04/08/20 1003 VISIT LOCKED DATE TIME: PHYSICIAN: CUONG MARLOW PHYSICIAN PAGER NO: ACTIVE RESOURCE: CUONG MARLOW REASON FOR APPOINTMENT 1. BACK PAIN HISTORY OF PRESENT ILLNESS GENERAL: 40-YEAR-OLD FEMALE IN FOR CHRONIC PAIN FOLLOW-UP. SHE RATES HER PAIN CURRENTLY AT A 5 OUT OF 10 AND DESCRIBES IT ACHING. PATIENT HAS HAD BILATERAL THERAPEUTIC LUMBAR FACET BLOCKS IN THE PAST WITH GOOD RELIEF AND WE WILL DISCUSS REPEAT PROCEDURES TODAY. -. FALL RISK SCREENING: SCREENING :NO FALLS REPORTED IN THE LAST YEAR PAIN SCREENING: PATIENT HAS A COMPLAINT OF ACUTE OR CHRONIC PAIN :YES LOCATION OF PAIN:LOW BACK INTENSITY OF PAIN (SCALE OF 1 TO 10):5 WHAT DOES YOUR PAIN FEEL LIKE:ACHING DURATION:INTERMITTENT PAIN IS INCREASED BY:ACTIVITIES, PROLONGED STANDING PAIN IS DECREASED BY:USE OF PAIN MEDICATIONS NURSING NOTE: -. PAIN CENTER INTAKE QUESTIONS: DO YOU HAVE A HISTORY OF MRSA? :NO DO YOU TAKE A BLOOD THINNERS? :NO DO YOU HAVE ANY BLEEDING DISORDERS? :NO ANY NEW NUMBNESS OR WEAKNESS IN YOUR LEGS OR ARMS? :NO ANY PACEMAKER,DEFIBRILLATOR, OR DORSAL COLUMN STIMULATOR? :NO DO YOU HAVE ANY RASHES OR OPEN SORES? :NO ARE YOU ALLERGIC TO IV DYE? :NO ARE YOU DIABETIC? :NO ANY NEW PROBLEMS WITH YOUR MEDICATIONS? :NO HAVE YOU RECEIVED A VACCINE IN THE PAST 30 DAYS? :NO DO YOU PLAN TO RECEIVE A VACCINE IN THE NEXT 21 DAYS? :NO DO YOU NEED ANY PRESCRIPTION? :NO DO YOU TAKE ANY IMMUNOSUPPRESSIVE MEDICATIONS? :NO IS THERE A CHANCE YOU COULD BE ? :NO ARE YOU BREAST FEEDING? :NO CURRENT MEDICATIONS TAKING [facility] HYDROCORTISONE ANTI-ITCH 0.5 % CREAM 1 APPLICATION TO AFFECTED AREA EXTERNALLY TWICE A DAY TAKING MAY HAVE - - RIGHT SHOE LIFT DX: M41.9 KYPHOSCOLIOSIS DAILY MED#[id number] TAKING MULTIVITAMIN ADULT - TABLET 1 TAB ORALLY DAILY TAKING CRANBERRY 405 MG CAPSULE DIRECTED ORALLY TAKING ACETAMINOPHEN 325 MG TABLET 1 TABLET NEEDED ORALLY EVERY 4 HRS TAKING PROBIOTIC - TABLET DELAYED RELEASE DIRECTED ORALLY TAKING VITAMIN B COMPLEX - TABLET DIRECTED ORALLY TAKING COQ10 100 MG CAPSULE 1 CAPSULE WITH A MEAL ORALLY ONCE A DAY TAKING ORTHOPEDIC SHOES _ 1 DX M79.671, [facility]# [id number] ONE INCH SHOE LIFT. RT SHOE DAILY TAKING KETOROLAC TROMETHAMINE 10 MG TABLET 1 TABLET WITH FOOD OR MILK NEEDED ORALLY EVERY 6 HRS TAKING ONDANSETRON 4 MG TABLET DISINTEGRATING 1 TABLET ON THE TONGUE AND ALLOW TO DISSOLVE ORALLY ONCE A DAY TAKING CYMBALTA 60 MG CAPSULE DELAYED RELEASE PARTICLES 1 CAPSULE ORALLY ONCE A DAY TAKING CARISOPRODOL 350 MG TABLET 1 TABLET NEEDED ORALLY BEFORE BEDTIME MDD-1 TAKING HYDROCODONE-ACETAMINOPHEN 10-325 MG TABLET 1 TABLET ORALLY EVERY 6 HRS NEEDED NOT-TAKING PREDNISONE 10 MG TABLET TAKE 4 TABLETS X 4 DAYS THEN 3 TABS X 4 DAYS, THEN 2 TABS 4 DAYS, THEN 1 TAB X 4 DAYS, THEN STOP ORALLY DIRECTED NOT-TAKING OMEPRAZOLE 40 MG CAPSULE DELAYED RELEASE 1 CAPSULE 30 MINUTES BEFORE MORNING MEAL ORALLY ONCE A DAY NOT-TAKING KETOCONAZOLE 2 % SHAMPOO DIRECTED EXTERNALLY APPLY IN SHOWER TO SKIN, LATHER, LEAVE ON FOR 5 MINUTES AND RINSE. NOT-TAKING TERBINAFINE- ORAL-12 WEEKS 250 MG TABLETS ONE TABLET ORALLY DAILY, NOTES: ALMOST DONE - TAKING FOR FOOT FUNGUS NOT-TAKING CYMBALTA 30 MG CAPSULE DELAYED RELEASE PARTICLES 1 CAPSULE ORALLY ONCE A DAY NOT-TAKING AUGMENTIN 875-125 MG TABLET 1 TABLET ORALLY EVERY 12 HRS NOT-TAKING AMOXICILLIN-POT CLAVULANATE 875-125 MG TABLET 1 TABLET ORALLY EVERY 12 HRS MEDICATION LIST REVIEWED AND RECONCILED WITH THE PATIENT PAST MEDICAL HISTORY 12 YEAR ASCVD RISK OF 1.0% 07/2014 ABDOMINAL AORTIC ANEURYSM S/P REPAIR IN 2014. SHE FOLLOWS WITH HER VASCULAR SURGEON IN [place] ON A YEARLY BASIS. THERE IS NO IDENTIFIED ETIOLOGY FOR HER AAA, HOWEVER HER SURGEON SUSPECTS A GENETIC DISORDER. GENETIC TESTING IS NOT COVERED BY HER INSURANCE AND WOULD COST HER ABOUT $6000 OUT OF POCKET WHICH IS COST PROHIBITIVE PATIENT HAD AN "ECTOPIC UTERUS" -- SECOND (R SIDED) UTERUS WITH NO CERVIX, CAUSED ENDOMETRIOSIS WITH RETROGRADE MENSTRUATION PAP 02/2015- NEG ENDOMETRIOSIS PER OP REPORT FROM [facility]: PT HAS "NL UTERUS ATTACHED TO AN OVARY AND A CERVIX ON THE L OF THE MIDLINE WITH A L FALLOPIAN TUBE WITH A LEFT ROUND LIGAMENT. A ROUND LIGAMENT FROM THAT UTERUS LED TO AN ECTOPIC UTERUS IN THE RIGHT LOWER QUADRANT ON THE PELVIC SIDEWALL WHICH WAS NOT ATTACHED TO A CERVIX WHICH ALSO HAD AN OVARY AND A FALLOPIAN TUBE." MRI OF L/S 12/2011 WITH COMPLEX CONGENITAL ANOMALIES, SCOLIOSIS, TETHERED CORD, VERTEBRAL FUSION, DISC NARROWING, SPINAL STENOSIS, DIAGNOSED WITH LUMBAR SCOLIOSIS AN . NEVER HAD SURGERY FOR HER SPINE, NO BRACING. WEARS A SHOE LIFT ON THE RIGHT, 1 INCH. NO PROBLEMS WITH HYPERMOBILE JOINTS. NO OPTIC LENS DISPLACEMENT. SUBDURAL HEMATOMA S/P FALL 10/2018 ALLERGIES ITRACONAZOLE: RASH - ALLERGY SOCIAL HISTORY GENERAL: TOBACCO USE ARE YOU A:CURRENT SMOKER ARE YOU INTERESTED IN QUITTING?THINKING ABOUT QUITTING PREVIOUS QUIT ATTEMPTS?YES, MORE THAN 6 MONTHS AGO. CUTTING DOWN COUNSELED THE PATIENT ON SMOKING CESSATION, EDUCATION GANLVPCS41/27/2021 HOW MANY CIGARETTES A DAY DO YOU SMOKE?6-10 HOW SOON AFTER YOU WAKE UP DO YOU SMOKE YOUR FIRST CIGARETTE?31-60 MIN HOW OFTEN DO YOU SMOKE CIGARETTES?EVERY DAY PATIENT COUNSELED ON THE DANGERS OF TOBACCO USE AND URGED TO QUIT:01/23/2020 SMOKING CESSATION INFORMATION GIVEN01/02/2020 LATEX QUESTIONNAIRE LATEX ALLERGY : HAVE YOU EVER DEVELOPED ANY TYPE OF REACTION AFTER HANDLING LATEX PRODUCTS SUCH RUBBER GLOVES, CONDOMS, DIAPHRAGMS, BALLOONS, SOCKS, OR UNDERWEAR?NO LATEX ALLERGY : HAVE YOU EVER DEVELOPED ANY TYPE OF REACTION DURING OR AFTER DENTAL APPOINTMENT, VAGINAL/RECTAL EXAMINATION, SURGICAL PROCEDURE, OR ANY OTHER EXPOSURE?NO LATEX RISK : HAVE YOU EVER HAD ANY DIFFICULTY BREATHING OR HIVES AFTER EATING OR HANDLING ANY FRUITS, OR VEGETABLES; SUCH KIWI, BANANAS, STONE FRUITS, OR CHESTNUTSNO LATEX RISK : DO YOU HAVE A PREVIOUS PERSONAL HISTORY OF MORE THAN NINE SURGERIES, SPINA BIFIDA, OR REPEATED CATHERIZATIONS? NO LATEX RISK : ARE YOU FREQUENTLY EXPOSED TO LATEX PRODUCTS IN YOUR OCCUPATION?NO DATE ASKED : 04/08/2020 ALCOHOL USE: YES OCCASIONALLY. ALCOHOL SCREENING DID YOU HAVE A DRINK CONTAINING ALCOHOL IN THE PAST YEAR?NO POINTS0 INTERPRETATIONNEGATIVE RECREATIONAL DRUG USE DRUG USE?NO CAFFEINE CAFFEINE USE?YES COFFEE,SODA SEXUAL HX HAD SEX IN THE LAST 12 MONTHS (VAGINAL, ORAL, OR ANAL)?YES WITHWOMEN ONLY USE PROTECTION?YES HOW OFTEN?ALL OF THE TIME HIV / HEP-C SCREENING HIV TEST OFFERED TO PATIENT:YES DATE OFFERED:08/26/2019 TEST ACCEPTED:NO HEP-C TEST OFFERED TO PATIENT:YES DATE OFFERED:08/26/2019 REASON:PATIENT DECLINED TEST ACCEPTED:NO REASON:PATIENT DECLINED BROCHURE PROVIDED TO PATIENTYES GNOSTICIST [id number] GNOSTICIST LANGUAGE LANGUAGES SPOKEN:MALTESE EDUCATION LEVEL OF EDUCATION:FINISHED HIGH SCHOOL LEARNING BARRIERS / SPECIAL NEEDS CHANGE FROM LAST VISIT?NO BARRIERS TO LEARNING?NO HEARING IMPAIRED?NO VISION IMPAIRED?YES :CORRECTIVE LENSES COGNITIVELY IMPAIRED?NO READINESS TO LEARN?YES LEARNING PREFERENCES?NO LEARNING CAPABILITIES PRESENT?YES EMOTIONAL BARRIERS?NO SPECIAL DEVICES?NO LAB RN NEEDED?NO OCCUPATION: UNEMPLOYED. DIET: REGULAR. EXERCISE: NO REGULAR EXERCISE. MARITAL STATUS: . OTHERS AT HOME: LIVES WITH AND 2 BOYS & 1 DAUGHTER. - WAS THE PROVIDER NOTIFIED OF ANY PERTINENT INFO?YES HAS THE PATIENT BEEN EDUCATED REGARDING HIS/HER PLAN OF CARE?YES HAS THE PATIENT BEEN EDUCATED REGARDING PAIN, THE RISK FOR PAIN, THE IMPORTANCE OF EFFECTIVE PAIN MANAGEMENT, AND THE PAIN ASSESSMENT PROCESS?YES ADVANCE DIRECTIVE ADVANCE DIRECTIVE DISCUSSED WITH PATIENT:YES PATIENT DECLINED INFO AND ASSIATANCE WITH FORM AT THIS TIME. REVIEW OF SYSTEMS CONSTITUTIONAL: ANY RECENT FEVER NO . CHILLS NO . WEIGHT CHANGE OF UNKNOWN REASONS NO . GASTROENTEROLOGY: NEW UNEXPLAINABLE CHANGES IN BOWEL CONTROL NO . CONSTIPATION NO . GENITOURINARY: ANY NEW CHANGE IN BLADDER CONTROL? NO . NEUROLOGY: NEW ONSET DIZZINESS OR NEUROLOGICAL CHANGES NOT MENTIONED NO . NEW NUMBNESS OR PAIN PATTERNS NOT MENTIONED AND PERTINENT TO TODAY'S VISIT NO . CARDIOLOGY: NEW CHEST PRESSURE NO . NEW CHEST PAIN NO . RESPIRATORY: UNEXPLAINABLE COUGH NO . NEW SHORTNESS OF BREATH NO . VITAL SIGNS WT 149 LBS, HT 59 IN, BMI 30.09 INDEX, BP 115/67 MM HG, HR 79 /MIN, RR 18 /MIN, TEMP 96 F, OXYGEN SAT % 99%, SAFE IN ENV? (Y/N) YEST.REJI MILTON. EXAMINATION GENERAL EXAMINATION: GENERALNO ACUTE DISTRESS, WELL NOURISHED AND HYDRATED . PSYCHAPPROPRIATE MOOD AND AFFECT. LUNGS:CLEAR TO AUSCULTATION BILATERALLY, NO WHEEZES, RHONCHI, RALES . HEART:NO MURMURS, REGULAR RATE AND RHYTHM . BACK:POINT TENDER BILATERAL LUMBAR SPINE, SURROUNDING SKIN SHOWS NO ERYTHEMA, ECCHYMOSIS, INCREASED WARMTH, AND/OR SKIN ERUPTIONS NOTED. PATIENT DOES ENDORSE INCREASED PAIN WITH FACET LOADING . ASSESSMENTS SPONDYLOSIS OF LUMBOSACRAL REGION WITHOUT MYELOPATHY OR RADICULOPATHY - M47.817 (PRIMARY) TREATMENT SPONDYLOSIS OF LUMBOSACRAL REGION WITHOUT MYELOPATHY OR RADICULOPATHY NOTES: 40-YEAR-OLD FEMALE IN FOR CHRONIC PAIN FOLLOW-UP. GIVEN PRESENTING SYMPTOMS AND RESULTS OF PHYSICAL EXAMINATION RECOMMENDED BILATERAL THERAPEUTIC LUMBAR FACET BLOCKS L4-L5 L5-S1 WITH POSTPROCEDURAL FOLLOW-UP. PATIENT HAS EXPRESSED UNDERSTANDING OF AND WAS IN AGREEMENT WITH TREATMENT PLAN. GIVEN TIME TO ASK QUESTIONS AND EXPRESS CONCERNS. PROCEDURE CODES FA211 ESTABILISHED PATIENT [facility] CHARGE DISPOSITION & COMMUNICATION FOLLOW UP POSTPROCEDURE (REASON: BILATERAL THERAPEUTIC LUMBAR FACET BLOCK L4-L5 L5-S1) ELECTRONICALLY SIGNED BY DEBORA OWEN ON 04/09/2020 AT 09:34 AM EST DISCLAIMER : THIS IS A VISIT SUMMARY EXTRACTED FROM THE [facility] CHART. IT IS NOT A COPY OF THE [facility] PROGRESS NOTE. TYRA
== END ==
LOC: M PAIN 09:30
PROVIDERS: ATTEND Family Medicine
DX: M47.817 Spondylosis without myelopathy or radiculopathy, lumbosacral region (principal); F17.210 Nicotine dependence, cigarettes, uncomplicated; Z79.891 Long term (current) use of opiate analgesic; Z79.899 Other long term (current) drug therapy; Z88.8 Allergy status to other drugs, medicaments and biological substances; M79.675 Pain in left toe(s)
CPT/HCPCS: G0463 ×2

== ENCOUNTER → 2020-04-11 | Outpatient (CLI) | payer OTHER | LOC: M LABSMTC 11:58 | PROVIDERS: ATTEND Anesthesiology | DX: Z20.822 Contact with and (suspected) exposure to COVID-19 (principal) ==

== ENCOUNTER → 2020-04-16 | Outpatient (CLI) | payer OTHER ==
[~2020-04-16] MED LIST changes: +BUPIVACAINE HCL 0.25% 30ML VIAL As Ordered ONE; +ISOVUE-M 300 61% 15ML VIAL As Ordered ONE; +LIDOCAINE 1% SDV 30ML VIAL As Ordered ONE; +TRIAMCINOLONE ACETONIDE SUSP 40 MG/ML VIAL (J3301) As Ordered ONE; +diazePAM 5MG TABLET As Ordered ONE; +oxyCODONE 5MG TAB As Ordered ONE
--- NOTE | 2020-04-16 11:57 | REP ---
INDICATION: BILATERAL THERAPEUTIC LUMBAR FACET BLOCK L4-L5, L5-S1. COMPARISON: None. TECHNIQUE: One views. 13.7 seconds of fluoroscopy time is reported. FINDINGS: A single last image hold fluoroscopically obtained spot radiograph(s) of the lumbar spine document(s) needle position(s) and contrast injection associated with injection procedure. IMPRESSION: Procedural imaging. <Electronically signed by Rex Black > 04/16/20 2433
--- NOTE | 2020-04-16 23:35 | ECWPNPC ---
PATIENT NAME: EVA CALZADA : 1980 GENDER: FEMALE VISIT DATE: 04/16/2020 DISCHARGE DATE: 04/16/20 1140 VISIT LOCKED DATE TIME: PHYSICIAN: DEMETRIUS HILL MD PHYSICIAN PAGER NO: ACTIVE RESOURCE: DEMETRIUS HILL MD REASON FOR APPOINTMENT 1. BILATERAL THERAPEUTIC LUMBAR FACET BLOCK L4-L5 L5-S1 HISTORY OF PRESENT ILLNESS GENERAL: -. FALL RISK SCREENING: SCREENING :NO FALLS REPORTED IN THE LAST YEAR PAIN SCREENING: PATIENT HAS A COMPLAINT OF ACUTE OR CHRONIC PAIN :YES LOCATION OF PAIN:LOW BACK INTENSITY OF PAIN (SCALE OF 1 TO 10):7 AVERAGE 9 WHAT DOES YOUR PAIN FEEL LIKE:ACHING, INTERMITTENT, SHARP, STABBING, TENDER, THROBBING, SORE, SHOOTING DURATION:MAINLY DURING THE NIGHT, ONLY WITH SPECIFIC ACTIVITIES PAIN IS INCREASED BY:ACTIVITIES, PROLONGED STANDING PAIN IS DECREASED BY:USE OF PAIN MEDICATIONS, OTHERS REST PAIN HAS INTERFERED WITH THE FOLLOWING: PRETTY MUCH EVERYTHING NURSING NOTE: -. PAIN CENTER INTAKE QUESTIONS: DO YOU HAVE A HISTORY OF MRSA? :NO DO YOU TAKE A BLOOD THINNERS? :NO DO YOU HAVE ANY BLEEDING DISORDERS? :NO ANY NEW NUMBNESS OR WEAKNESS IN YOUR LEGS OR ARMS? :NO ANY PACEMAKER,DEFIBRILLATOR, OR DORSAL COLUMN STIMULATOR? :NO DO YOU HAVE ANY RASHES OR OPEN SORES? :NO ARE YOU ALLERGIC TO IV DYE? :NO ARE YOU DIABETIC? :NO ANY NEW PROBLEMS WITH YOUR MEDICATIONS? :NO HAVE YOU RECEIVED A VACCINE IN THE PAST 30 DAYS? :NO DO YOU PLAN TO RECEIVE A VACCINE IN THE NEXT 21 DAYS? :NO DO YOU TAKE ANY IMMUNOSUPPRESSIVE MEDICATIONS? :NO ANY HISTORY OF SEIZURES? :NO ANY HISTORY OF CARDIAC ISSUES OR EVENTS? :NO DO YOU HAVE SLEEP APNEA? :NO ANY RECENT HEAD INJURY? :NO DO YOU HAVE ANY NEW INFECTIONS? :NO IS THERE A CHANCE YOU COULD BE ? :NO ARE YOU BREAST FEEDING? :NO WHEN DID YOU LAST EAT? : 03/15/201999 WHEN DID YOU LAST DRINK? : 04/16/20719 WHAT DID YOU LAST DRINK? : WATER NAME OF PERSON DRIVING YOU HOME? : MALAIKA () DO YOU HAVE ANY OTHER QUESTIONS OR CONCERNS? : NONE CURRENT MEDICATIONS TAKING [facility] HYDROCORTISONE ANTI-ITCH 0.5 % CREAM 1 APPLICATION TO AFFECTED AREA EXTERNALLY TWICE A DAY TAKING MAY HAVE - - RIGHT SHOE LIFT DX: M41.9 KYPHOSCOLIOSIS DAILY MED#[id number] TAKING MULTIVITAMIN ADULT - TABLET 1 TAB ORALLY DAILY TAKING CRANBERRY 405 MG CAPSULE DIRECTED ORALLY TAKING ACETAMINOPHEN 325 MG TABLET 1 TABLET NEEDED ORALLY EVERY 4 HRS, NOTES: NOT RECENTLY TAKING PROBIOTIC - TABLET DELAYED RELEASE DIRECTED ORALLY TAKING VITAMIN B COMPLEX - TABLET DIRECTED ORALLY TAKING COQ10 100 MG CAPSULE 1 CAPSULE WITH A MEAL ORALLY ONCE A DAY TAKING ORTHOPEDIC SHOES _ 1 DX M79.671, [facility]# [id number] ONE INCH SHOE LIFT. RT SHOE DAILY TAKING KETOROLAC TROMETHAMINE 10 MG TABLET 1 TABLET WITH FOOD OR MILK NEEDED ORALLY EVERY 6 HRS, NOTES: NOT RECENTLY TAKING ONDANSETRON 4 MG TABLET DISINTEGRATING 1 TABLET ON THE TONGUE AND ALLOW TO DISSOLVE ORALLY ONCE A DAY TAKING CYMBALTA 60 MG CAPSULE DELAYED RELEASE PARTICLES 1 CAPSULE ORALLY ONCE A DAY, NOTES: 04/16/20 0700 TAKING CARISOPRODOL 350 MG TABLET 1 TABLET NEEDED ORALLY BEFORE BEDTIME MDD-1, NOTES: FEW DAYS TAKING HYDROCODONE-ACETAMINOPHEN 10-325 MG TABLET 1 TABLET ORALLY EVERY 6 HRS NEEDED, NOTES: 04/15/20 1300 NOT-TAKING PREDNISONE 10 MG TABLET TAKE 4 TABLETS X 4 DAYS THEN 3 TABS X 4 DAYS, THEN 2 TABS 4 DAYS, THEN 1 TAB X 4 DAYS, THEN STOP ORALLY DIRECTED NOT-TAKING OMEPRAZOLE 40 MG CAPSULE DELAYED RELEASE 1 CAPSULE 30 MINUTES BEFORE MORNING MEAL ORALLY ONCE A DAY NOT-TAKING KETOCONAZOLE 2 % SHAMPOO DIRECTED EXTERNALLY APPLY IN SHOWER TO SKIN, LATHER, LEAVE ON FOR 5 MINUTES AND RINSE. NOT-TAKING TERBINAFINE- ORAL-12 WEEKS 250 MG TABLETS ONE TABLET ORALLY DAILY, NOTES: ALMOST DONE - TAKING FOR FOOT FUNGUS NOT-TAKING CYMBALTA 30 MG CAPSULE DELAYED RELEASE PARTICLES 1 CAPSULE ORALLY ONCE A DAY NOT-TAKING AUGMENTIN 875-125 MG TABLET 1 TABLET ORALLY EVERY 12 HRS NOT-TAKING AMOXICILLIN-POT CLAVULANATE 875-125 MG TABLET 1 TABLET ORALLY EVERY 12 HRS MEDICATION LIST REVIEWED AND RECONCILED WITH THE PATIENT PAST MEDICAL HISTORY 12 YEAR ASCVD RISK OF 1.0% 07/2014 ABDOMINAL AORTIC ANEURYSM S/P REPAIR IN 2014. SHE FOLLOWS WITH HER VASCULAR SURGEON IN [place] ON A YEARLY BASIS. THERE IS NO IDENTIFIED ETIOLOGY FOR HER AAA, HOWEVER HER SURGEON SUSPECTS A GENETIC DISORDER. GENETIC TESTING IS NOT COVERED BY HER INSURANCE AND WOULD COST HER ABOUT $6000 OUT OF POCKET WHICH IS COST PROHIBITIVE PATIENT HAD AN "ECTOPIC UTERUS" -- SECOND (R SIDED) UTERUS WITH NO CERVIX, CAUSED ENDOMETRIOSIS WITH RETROGRADE MENSTRUATION PAP 02/2015- NEG ENDOMETRIOSIS PER OP REPORT FROM [facility]: PT HAS "NL UTERUS ATTACHED TO AN OVARY AND A CERVIX ON THE L OF THE MIDLINE WITH A L FALLOPIAN TUBE WITH A LEFT ROUND LIGAMENT. A ROUND LIGAMENT FROM THAT UTERUS LED TO AN ECTOPIC UTERUS IN THE RIGHT LOWER QUADRANT ON THE PELVIC SIDEWALL WHICH WAS NOT ATTACHED TO A CERVIX WHICH ALSO HAD AN OVARY AND A FALLOPIAN TUBE." MRI OF L/S 12/2011 WITH COMPLEX CONGENITAL ANOMALIES, SCOLIOSIS, TETHERED CORD, VERTEBRAL FUSION, DISC NARROWING, SPINAL STENOSIS, DIAGNOSED WITH LUMBAR SCOLIOSIS AN INFANT. NEVER HAD SURGERY FOR HER SPINE, NO BRACING. WEARS A SHOE LIFT ON THE RIGHT, 1 INCH. NO PROBLEMS WITH HYPERMOBILE JOINTS. NO OPTIC LENS DISPLACEMENT. SUBDURAL HEMATOMA S/P FALL 10/2018 ALLERGIES ITRACONAZOLE: RASH - ALLERGY SOCIAL HISTORY GENERAL: TOBACCO USE ARE YOU A:CURRENT SMOKER ARE YOU INTERESTED IN QUITTING?THINKING ABOUT QUITTING PREVIOUS QUIT ATTEMPTS?YES, MORE THAN 6 MONTHS AGO. CUTTING DOWN COUNSELED THE PATIENT ON SMOKING CESSATION, EDUCATION [id number]/27/2021 HOW MANY CIGARETTES A DAY DO YOU SMOKE?6-10 HOW SOON AFTER YOU WAKE UP DO YOU SMOKE YOUR FIRST CIGARETTE?31-60 MIN HOW OFTEN DO YOU SMOKE CIGARETTES?EVERY DAY PATIENT COUNSELED ON THE DANGERS OF TOBACCO USE AND URGED TO QUIT:04/15/2020 SMOKING CESSATION INFORMATION GIVEN01/02/2020 LATEX QUESTIONNAIRE LATEX ALLERGY : HAVE YOU EVER DEVELOPED ANY TYPE OF REACTION AFTER HANDLING LATEX PRODUCTS SUCH RUBBER GLOVES, CONDOMS, DIAPHRAGMS, BALLOONS, SOCKS, OR UNDERWEAR?NO LATEX ALLERGY : HAVE YOU EVER DEVELOPED ANY TYPE OF REACTION DURING OR AFTER DENTAL APPOINTMENT, VAGINAL/RECTAL EXAMINATION, SURGICAL PROCEDURE, OR ANY OTHER EXPOSURE?NO DATE ASKED : 04/08/2020 LATEX RISK : HAVE YOU EVER HAD ANY DIFFICULTY BREATHING OR HIVES AFTER EATING OR HANDLING ANY FRUITS, OR VEGETABLES; SUCH KIWI, BANANAS, STONE FRUITS, OR CHESTNUTSNO LATEX RISK : DO YOU HAVE A PREVIOUS PERSONAL HISTORY OF MORE THAN NINE SURGERIES, SPINA BIFIDA, OR REPEATED CATHERIZATIONS? NO LATEX RISK : ARE YOU FREQUENTLY EXPOSED TO LATEX PRODUCTS IN YOUR OCCUPATION?NO ALCOHOL USE: YES. ALCOHOL SCREENING DID YOU HAVE A DRINK CONTAINING ALCOHOL IN THE PAST YEAR?NO POINTS0 INTERPRETATIONNEGATIVE RECREATIONAL DRUG USE DRUG USE?NO CAFFEINE CAFFEINE USE?YES COFFEE,SODA SEXUAL HX HAD SEX IN THE LAST 12 MONTHS (VAGINAL, ORAL, OR ANAL)?YES WITHWOMEN ONLY USE PROTECTION?YES HOW OFTEN?ALL OF THE TIME HIV / HEP-C SCREENING HIV TEST OFFERED TO PATIENT:YES DATE OFFERED:08/26/2019 TEST ACCEPTED:NO HEP-C TEST OFFERED TO PATIENT:YES DATE OFFERED:08/26/2019 REASON:PATIENT DECLINED TEST ACCEPTED:NO REASON:PATIENT DECLINED BROCHURE PROVIDED TO PATIENTYES ZOROASTRIANISM [id number] JEW LANGUAGE LANGUAGES SPOKEN:OCCITAN EDUCATION LEVEL OF EDUCATION:FINISHED HIGH SCHOOL LEARNING BARRIERS / SPECIAL NEEDS CHANGE FROM LAST VISIT?NO BARRIERS TO LEARNING?NO HEARING IMPAIRED?NO VISION IMPAIRED?YES :CORRECTIVE LENSES COGNITIVELY IMPAIRED?NO READINESS TO LEARN?YES LEARNING PREFERENCES?NO LEARNING CAPABILITIES PRESENT?YES EMOTIONAL BARRIERS?NO SPECIAL DEVICES?NO MACHINE PECAN GATHERER NEEDED?NO DOMESTIC VIOLENCE DO YOU FEEL SAFE IN YOUR ENVIRONMENT?YES OCCUPATION: UNEMPLOYED. DIET: REGULAR. EXERCISE: NO REGULAR EXERCISE. MARITAL STATUS: . OTHERS AT HOME: LIVES WITH AND 2 BOYS & 1 DAUGHTER. - HAS THE PATIENT BEEN EDUCATED REGARDING HIS/HER PLAN OF CARE?YES HAS THE PATIENT BEEN EDUCATED REGARDING PAIN, THE RISK FOR PAIN, THE IMPORTANCE OF EFFECTIVE PAIN MANAGEMENT, AND THE PAIN ASSESSMENT PROCESS?YES ADVANCE DIRECTIVE ADVANCE DIRECTIVE DISCUSSED WITH PATIENT:YES PATIENT DECLINED INFO AND ASSIATANCE WITH FORM AT THIS TIME. VITAL SIGNS WT 149 LBS, HT 59 IN, BMI 30.09 INDEX, BP 120/77 MM HG, HR 96 /MIN, RR 18 /MIN, TEMP 97.9 F, OXYGEN SAT % 98%, SAFE IN ENV? (Y/N) YES, NA INITIALS OR 09:47, REVIEWED BY: RAY PHAM BSN. EXAMINATION GENERAL EXAMINATION: THE PATIENT IS ALERT, ORIENTED TIMES THREE AND COOPERATIVE. LUNGS ARE CLEAR TO AUSCULTATION. HEART SHOWS REGULAR RHYTHM, NO MURMURS AND NO GALLOPS. 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 BON BOGGS RN 04/16/2020 10:31:53 AM > ADMINISTERED. LAB: MEDICATION: OXYCODONE HCL TAB 10MG ORALLY (ORDERED FOR 04/16/2020) SONIA MUELLER 04/16/2020 10:23:40 AM > VERIFIED. BON BOGGS RN 04/16/2020 10:32:15 AM > ADMINISTERED. [facility] FACET BLOCK (PAIN)[id number] COMPLETION OF PROCEDURAL VISIT WHEN MEETS CRITERIA SPONDYLOSIS OF LUMBOSACRAL REGION WITHOUT MYELOPATHY OR RADICULOPATHY [facility] FACET BLOCK (PAIN)[id number] OTHERS NOTES: 04/15/20 1327 PRE-PROCEDURE CALL COMPLETED. PT. DENIES ANY CHANGES IN SURGICAL, HOSPITALIZATION OR FAMILY MEDICAL HISTORY. PROCEDURES PAIN NURSING RECORD PROCEDURE IN ROOM 1101, PHYSICIAN IN ROOM 1110, START 1114, FINISH 1120, PHYSICIAN OUT OF ROOM 1123, OUT OF ROOM 1128, ECG NORMAL SINUS, PATIENT SHIELDED YES, SAFETY STRAP YES, PREP CHLOROPREP, DRESSING TEGADERM LOC: 1106 1. ALERT, ORIENTED, 1115 LOC REMAINED AT BASELINE THROUGHOUT THE PROCEDURE, 1138, 1. ALERT, ORIENTED RESP: 1106 1. REGULAR, NO DYSPNEA, 1115 1. REGULAR, NO DYSPNEA, 1138, 1. REGULAR, NO DYSPNEA COLOR: 1106 1. PINK, 1115 1. PINK, 1138, 1. PINK SKIN: 1106 1. WARM, DRY, 1115 1. WARM, DRY, 1138, 1. WARM, DRY POSITION: 1106 1. PRONE, 1115 1. PRONE, 1138, 5. SITTING VITALS: 1106 75-16 121/58 98% 1115 88-16 116/64 98% 1138 109-18 121/79 99% NOTES 1138 PT STATES RECEIVED A DISTURBING PHONE CALL.Ford RN COMPLETION OF PROCEDURE APPOINTMENT: POST PAIN 3, DRESSING SITE DRY AND INTACT, IV N/A, GAIT STEADY, TEACHING COMPLETED, PATIENT ACKNOWLEDGES UNDERSTANDING YES, PROCEDURE APPOINTMENT COMPLETED AT 1140 PN LUMBAR FACET BLOCK THERAPEUTIC PRE PROCEDURE DIAGNOSIS LUMBAR SPONDYLOSIS, LUMBOSACRAL SPONDYLOSIS POST PROCEDURE DIAGNOSIS LUMBAR SPONDYLOSIS, LUMBOSACRAL SPONDYLOSIS PROCEDURE BILATERAL L4-L5 AND BILATERAL L5-S1 LUMBAR FACET THERAPEUTIC BLOCK SURGEON DR. DEMETRIUS HILL BLOOD DONOR UNIT ASSISTANT NONE ANESTHESIA LOCAL PRE PROCEDURE NOTE THE PATIENT HAS A HISTORY OF CHRONIC LOW BACK PAIN. I EVALUATED THE PATIENT AND REVIEWED THE CHART. I WENT OVER THE RISKS, ALTERNATIVES, AND BENEFITS ASSOCIATED WITH THIS PROCEDURE. THE PATIENT WOULD LIKE TO PROCEED AND GIVES CONSENT TO PERFORM THE PROCEDURE. THE PATIENT DENIES UNEXPLAINABLE WEIGHT LOSS, FEVER, CHILLS, OR NEW CHANGES IN URINARY OR BOWEL CONTROL. THE PATIENT IS COVID-19 NEGATIVE DESCRIPTION OF PROCEDURE THE PATIENT WAS BROUGHT TO THE PROCEDURE ROOM AND PLACED IN THE PRONE POSITION. THE LUMBOSACRAL AREA WAS CLEANED WITH CHLORAPREP SOLUTION AND DRAPED ASEPTICALLY. THE PROCEDURE WAS DONE UNDER STERILE CONDITIONS. A TIMEOUT WAS PERFORMED WHERE THE CONSENTED SITE WAS VERIFIED WITH EVERYONE IN THE ROOM. UNDER FLUOROSCOPIC GUIDANCE, THE TARGET POINT WAS SELECTED AT THE RIGHT AND LEFT L4-L5 AND RIGHT AND LEFT L5-S1 FACET JOINTS. TARGET POINT WAS SELECTED AFTER LATERAL ROTATION AND TILT OF THE MAGNIFIER OF THE C-ARM. I CONFIRMED AGAIN THE SITE OF THE TARGET. LIDOCAINE 0.5% WAS USED TO NUMB THE SKIN AND THE SUBCUTANEOUS TISSUE BELOW IT. SPINAL NEEDLES, 22-GAUGE, WERE ADVANCED UNDER FLUOROSCOPIC GUIDANCE AND FOLLOWING PATIENT FEEDBACK UNTIL THE TARGETS WERE TOUCHED. THE POSITION OF THE NEEDLES WAS VERIFIED WITH AP AND LATERAL VIEWS. AFTER PROPER POSITION OF THE NEEDLES WAS ACHIEVED, ISOVUE-M DYE 30%, 0.1 ML, WAS INJECTED SHOWING ADEQUATE SPREAD OF THE DYE. KENALOG 20 MG WAS INJECTED AT EACH SITE. THEN, A SOLUTION OF 1.0 ML OF BUPIVACAINE 0.125% OF WAS USED TO FLUSH EACH SITE. THE MEDICATION WAS VERIFIED WITH THE NURSE. THERE WAS NO EVIDENCE OF BLOOD, PARESTHESIA OR CEREBROSPINAL FLUID DURING THE PROCEDURE. THE PATIENT WAS SENT TO THE RECOVERY ROOM. THE PATIENT WAS MOVING THE EXTREMITIES AND DOING WELL. THERE WERE NO COMPLICATIONS DURING THE PROCEDURE. ESTIMATED BLOOD LOSS WAS LESS THAN 5 ML. FLUOROSCOPY TIME WAS 13 SECONDS POST PROCEDURE NOTE THE PATIENT WILL BE SEEN IN A FOLLOW UP IN THE NEXT FEW WEEKS. I AM LOOKING FOR LONG LASTING RELIEF FOR THE PATIENT WITH THIS INTERVENTION. INSTRUCTIONS WERE GIVEN, QUESTIONS WERE ANSWERED, AND THE PATIENT EXPRESSED UNDERSTANDING AND AGREES WITH THE PLAN. I, MONET PEREZ, DOCUMENTED THE ABOVE INFORMATION ACTING A SCRIBE FOR DR. HILL. I HAVE REVIEWED THE ABOVE DOCUMENT, WRITTEN BY MONET PEREZ, DIRECTOR HYDROGEN STORAGE ENGINEERING, AND I VERIFY THAT IT IS ACCURATE PROCEDURE CODES 41996 INJ PARAVERT F JNT L/S 1 LEV, MODIFIERS: [id number] INJ PARAVERT F JNT L/S 2 LEV, MODIFIERS: 50 DISPOSITION & COMMUNICATION FOLLOW UP FOLLOW UP WITH GRINDER SET UP OPERATOR EXTERNAL (REASON: POST BILATERAL THERAPEUTIC LUMBAR FACET BLOCK L4-L5,L5-S1) ELECTRONICALLY SIGNED BY DEMETRIUS HILL MD, MD ON 04/16/2020 AT 03:12 PM EST DISCLAIMER : THIS IS A VISIT SUMMARY EXTRACTED FROM THE [employer] [facility] [employer] CHART. IT IS NOT A COPY OF THE [employer] [facility] PROGRESS NOTE. ARISD
== END ==
LOC: M PAIN 09:30
PROVIDERS: ATTEND Anesthesiology
DX: M47.816 Spondylosis without myelopathy or radiculopathy, lumbar region (principal); M47.817 Spondylosis without myelopathy or radiculopathy, lumbosacral region; F17.210 Nicotine dependence, cigarettes, uncomplicated; Z88.8 Allergy status to other drugs, medicaments and biological substances; Z79.899 Other long term (current) drug therapy
CPT/HCPCS: 64493; 64494; J3301; Q9967

== ENCOUNTER → 2020-05-26 | Outpatient (CLI) | payer OTHER ==
[~2020-05-26] MED LIST changes: -BUPIVACAINE HCL 0.25% 30ML VIAL As Ordered ONE; -ISOVUE-M 300 61% 15ML VIAL As Ordered ONE; -LIDOCAINE 1% SDV 30ML VIAL As Ordered ONE; -TRIAMCINOLONE ACETONIDE SUSP 40 MG/ML VIAL (J3301) As Ordered ONE; -diazePAM 5MG TABLET As Ordered ONE; -oxyCODONE 5MG TAB As Ordered ONE
--- NOTE | 2020-05-28 04:46 | ECWPNPC ---
PATIENT NAME: EVA CALZADA : 1980 GENDER: FEMALE VISIT DATE: 05/26/2020 DISCHARGE DATE: 05/26/20 1052 VISIT LOCKED DATE TIME: PHYSICIAN: CUONG MARLOW PHYSICIAN PAGER NO: ACTIVE RESOURCE: CUONG MARLOW REASON FOR APPOINTMENT 1. POST BILATERAL THERAPEUTIC LUMBAR FACET BLOCK L4-L5 L5-S1 HISTORY OF PRESENT ILLNESS GENERAL: 40-YEAR-OLD FEMALE IN FOR POST BILATERAL THERAPEUTIC LUMBAR FACET BLOCK FOLLOW-UP. PATIENT FEELS THE PROCEDURE WAS SUCCESSFUL OVERALL RATING HER PAIN PREPROCEDURE AT A 9 OUT OF 10 AND POSTPROCEDURE AT A 3 OUT OF 10. SHE FURTHER STATES PROCEDURE CONTINUES TO HELP HER TODAY RATING HER PAIN AT A 3 OUT OF 10 AND DESCRIBING IT ACHING AND INTERMITTENT. FALL RISK SCREENING: SCREENING : NO FALLS REPORTED IN THE LAST YEAR. PAIN SCREENING: PATIENT HAS A COMPLAINT OF ACUTE OR CHRONIC PAIN :YES LOCATION OF PAIN:LOW BACK INTENSITY OF PAIN (SCALE OF 1 TO 10):3 WHAT DOES YOUR PAIN FEEL LIKE:ACHING, INTERMITTENT DURATION:INTERMITTENT PAIN IS INCREASED BY:ACTIVITIES, PROLONGED STANDING PAIN IS DECREASED BY:USE OF PAIN MEDICATIONS, SITTING HEATED SEAT NURSING NOTE: -. PAIN CENTER INTAKE QUESTIONS: DO YOU HAVE A HISTORY OF MRSA? :NO DO YOU TAKE A BLOOD THINNERS? :NO DO YOU HAVE ANY BLEEDING DISORDERS? :NO ANY NEW NUMBNESS OR WEAKNESS IN YOUR LEGS OR ARMS? :NO ANY PACEMAKER,DEFIBRILLATOR, OR DORSAL COLUMN STIMULATOR? :NO DO YOU HAVE ANY RASHES OR OPEN SORES? :NO ARE YOU ALLERGIC TO IV DYE? :NO ARE YOU DIABETIC? :NO ANY NEW PROBLEMS WITH YOUR MEDICATIONS? :NO HAVE YOU RECEIVED A VACCINE IN THE PAST 30 DAYS? :NO DO YOU PLAN TO RECEIVE A VACCINE IN THE NEXT 21 DAYS? :NO DO YOU NEED ANY PRESCRIPTION? :NO DO YOU TAKE ANY IMMUNOSUPPRESSIVE MEDICATIONS? :NO DO YOU HAVE ANY KIDNEY OR LIVER DISEASE? :NO IS THERE A CHANCE YOU COULD BE ? :NO ARE YOU BREAST FEEDING? :NO CURRENT MEDICATIONS TAKING CVS HYDROCORTISONE ANTI-ITCH 0.5 % CREAM 1 APPLICATION TO AFFECTED AREA EXTERNALLY TWICE A DAY TAKING MAY HAVE - - RIGHT SHOE LIFT DX: M41.9 KYPHOSCOLIOSIS DAILY MED#[id number] TAKING MULTIVITAMIN ADULT - TABLET 1 TAB ORALLY DAILY TAKING CRANBERRY 405 MG CAPSULE DIRECTED ORALLY TAKING ACETAMINOPHEN 325 MG TABLET 1 TABLET NEEDED ORALLY EVERY 4 HRS, NOTES: NOT RECENTLY TAKING PROBIOTIC - TABLET DELAYED RELEASE DIRECTED ORALLY TAKING VITAMIN B COMPLEX - TABLET DIRECTED ORALLY TAKING COQ10 100 MG CAPSULE 1 CAPSULE WITH A MEAL ORALLY ONCE A DAY TAKING ORTHOPEDIC SHOES _ 1 DX M79.671, [facility]# [id number] ONE INCH SHOE LIFT. RT SHOE DAILY TAKING KETOROLAC TROMETHAMINE 10 MG TABLET 1 TABLET WITH FOOD OR MILK NEEDED ORALLY EVERY 6 HRS, NOTES: NOT RECENTLY TAKING ONDANSETRON 4 MG TABLET DISINTEGRATING 1 TABLET ON THE TONGUE AND ALLOW TO DISSOLVE ORALLY ONCE A DAY TAKING CYMBALTA 60 MG CAPSULE DELAYED RELEASE PARTICLES 1 CAPSULE ORALLY ONCE A DAY, NOTES: 04/16/20 0700 TAKING CARISOPRODOL 350 MG TABLET 1 TABLET NEEDED ORALLY BEFORE BEDTIME MDD-1, NOTES: FEW DAYS TAKING HYDROCODONE-ACETAMINOPHEN 10-325 MG TABLET 1 TABLET ORALLY EVERY 6 HRS NEEDED, NOTES: 04/15/20 1300 NOT-TAKING PREDNISONE 10 MG TABLET TAKE 4 TABLETS X 4 DAYS THEN 3 TABS X 4 DAYS, THEN 2 TABS 4 DAYS, THEN 1 TAB X 4 DAYS, THEN STOP ORALLY DIRECTED NOT-TAKING OMEPRAZOLE 40 MG CAPSULE DELAYED RELEASE 1 CAPSULE 30 MINUTES BEFORE MORNING MEAL ORALLY ONCE A DAY NOT-TAKING KETOCONAZOLE 2 % SHAMPOO DIRECTED EXTERNALLY APPLY IN SHOWER TO SKIN, LATHER, LEAVE ON FOR 5 MINUTES AND RINSE. NOT-TAKING TERBINAFINE- ORAL-12 WEEKS 250 MG TABLETS ONE TABLET ORALLY DAILY, NOTES: ALMOST DONE - TAKING FOR FOOT FUNGUS NOT-TAKING CYMBALTA 30 MG CAPSULE DELAYED RELEASE PARTICLES 1 CAPSULE ORALLY ONCE A DAY NOT-TAKING AUGMENTIN 875-125 MG TABLET 1 TABLET ORALLY EVERY 12 HRS NOT-TAKING AMOXICILLIN-POT CLAVULANATE 875-125 MG TABLET 1 TABLET ORALLY EVERY 12 HRS MEDICATION LIST REVIEWED AND RECONCILED WITH THE PATIENT PAST MEDICAL HISTORY 12 YEAR ASCVD RISK OF 1.0% 07/2014 ABDOMINAL AORTIC ANEURYSM S/P REPAIR IN 2014. SHE FOLLOWS WITH HER VASCULAR SURGEON IN [place] ON A YEARLY BASIS. THERE IS NO IDENTIFIED ETIOLOGY FOR HER AAA, HOWEVER HER SURGEON SUSPECTS A GENETIC DISORDER. GENETIC TESTING IS NOT COVERED BY HER INSURANCE AND WOULD COST HER ABOUT $6000 OUT OF POCKET WHICH IS COST PROHIBITIVE PATIENT HAD AN "ECTOPIC UTERUS" -- SECOND (R SIDED) UTERUS WITH NO CERVIX, CAUSED ENDOMETRIOSIS WITH RETROGRADE MENSTRUATION PAP 02/2015- NEG ENDOMETRIOSIS PER OP REPORT FROM [facility]: PT HAS "NL UTERUS ATTACHED TO AN OVARY AND A CERVIX ON THE L OF THE MIDLINE WITH A L FALLOPIAN TUBE WITH A LEFT ROUND LIGAMENT. A ROUND LIGAMENT FROM THAT UTERUS LED TO AN ECTOPIC UTERUS IN THE RIGHT LOWER QUADRANT ON THE PELVIC SIDEWALL WHICH WAS NOT ATTACHED TO A CERVIX WHICH ALSO HAD AN OVARY AND A FALLOPIAN TUBE." MRI OF L/S 12/2011 WITH COMPLEX CONGENITAL ANOMALIES, SCOLIOSIS, TETHERED CORD, VERTEBRAL FUSION, DISC NARROWING, SPINAL STENOSIS, DIAGNOSED WITH LUMBAR SCOLIOSIS AN INFANT. NEVER HAD SURGERY FOR HER SPINE, NO BRACING. WEARS A SHOE LIFT ON THE RIGHT, 1 INCH. NO PROBLEMS WITH HYPERMOBILE JOINTS. NO OPTIC LENS DISPLACEMENT. SUBDURAL HEMATOMA S/P FALL 10/2018 ALLERGIES ITRACONAZOLE: RASH - ALLERGY SOCIAL HISTORY GENERAL: TOBACCO USE ARE YOU A:CURRENT SMOKER HOW OFTEN DO YOU SMOKE CIGARETTES?EVERY DAY HOW SOON AFTER YOU WAKE UP DO YOU SMOKE YOUR FIRST CIGARETTE?31-60 MIN HOW MANY CIGARETTES A DAY DO YOU SMOKE?6-10 ARE YOU INTERESTED IN QUITTING?THINKING ABOUT QUITTING PATIENT COUNSELED ON THE DANGERS OF TOBACCO USE AND URGED TO QUIT:04/15/2020 COUNSELED THE PATIENT ON SMOKING CESSATION, EDUCATION [id number]/27/2021 SMOKING CESSATION INFORMATION GIVEN01/02/2020 PREVIOUS QUIT ATTEMPTS?YES, MORE THAN 6 MONTHS AGO. CUTTING DOWN LATEX QUESTIONNAIRE LATEX ALLERGY : HAVE YOU EVER DEVELOPED ANY TYPE OF REACTION AFTER HANDLING LATEX PRODUCTS SUCH RUBBER GLOVES, CONDOMS, DIAPHRAGMS, BALLOONS, SOCKS, OR UNDERWEAR?NO LATEX ALLERGY : HAVE YOU EVER DEVELOPED ANY TYPE OF REACTION DURING OR AFTER DENTAL APPOINTMENT, VAGINAL/RECTAL EXAMINATION, SURGICAL PROCEDURE, OR ANY OTHER EXPOSURE?NO LATEX RISK : HAVE YOU EVER HAD ANY DIFFICULTY BREATHING OR HIVES AFTER EATING OR HANDLING ANY FRUITS, OR VEGETABLES; SUCH KIWI, BANANAS, STONE FRUITS, OR CHESTNUTSNO LATEX RISK : DO YOU HAVE A PREVIOUS PERSONAL HISTORY OF MORE THAN NINE SURGERIES, SPINA BIFIDA, OR REPEATED CATHERIZATIONS? NO LATEX RISK : ARE YOU FREQUENTLY EXPOSED TO LATEX PRODUCTS IN YOUR OCCUPATION?NO DATE ASKED : 05/26/2020 ALCOHOL USE: YES. OCCASIONAL. ALCOHOL SCREENING DID YOU HAVE A DRINK CONTAINING ALCOHOL IN THE PAST YEAR?NO POINTS0 INTERPRETATIONNEGATIVE RECREATIONAL DRUG USE DRUG USE?NO CAFFEINE CAFFEINE USE?YES COFFEE,SODA SEXUAL HX HAD SEX IN THE LAST 12 MONTHS (VAGINAL, ORAL, OR ANAL)?YES WITHWOMEN ONLY USE PROTECTION?YES HOW OFTEN?ALL OF THE TIME HIV / HEP-C SCREENING HIV TEST OFFERED TO PATIENT:YES DATE OFFERED:08/26/2019 TEST ACCEPTED:NO HEP-C TEST OFFERED TO PATIENT:YES DATE OFFERED:08/26/2019 REASON:PATIENT DECLINED TEST ACCEPTED:NO REASON:PATIENT DECLINED BROCHURE PROVIDED TO PATIENTYES [employer] [id number] [employer]UZE LANGUAGE LANGUAGES SPOKEN:BELARUSIAN EDUCATION LEVEL OF EDUCATION:FINISHED HIGH SCHOOL LEARNING BARRIERS / SPECIAL NEEDS CHANGE FROM LAST VISIT?NO BARRIERS TO LEARNING?NO HEARING IMPAIRED?NO VISION IMPAIRED?YES :CORRECTIVE LENSES COGNITIVELY IMPAIRED?NO READINESS TO LEARN?YES LEARNING PREFERENCES?NO LEARNING CAPABILITIES PRESENT?YES EMOTIONAL BARRIERS?NO SPECIAL DEVICES?NO CREEL SELECTOR NEEDED?NO DOMESTIC VIOLENCE DO YOU FEEL SAFE IN YOUR ENVIRONMENT?YES OCCUPATION: UNEMPLOYED. DIET: REGULAR. EXERCISE: NO REGULAR EXERCISE. MARITAL STATUS: . OTHERS AT HOME: LIVES WITH AND 2 BOYS & 1 DAUGHTER. - HAS THE PATIENT BEEN EDUCATED REGARDING HIS/HER PLAN OF CARE?YES HAS THE PATIENT BEEN EDUCATED REGARDING PAIN, THE RISK FOR PAIN, THE IMPORTANCE OF EFFECTIVE PAIN MANAGEMENT, AND THE PAIN ASSESSMENT PROCESS?YES ADVANCE DIRECTIVE ADVANCE DIRECTIVE DISCUSSED WITH PATIENT:YES PATIENT DECLINED INFO AND ASSIATANCE WITH FORM AT THIS TIME. REVIEW OF SYSTEMS CONSTITUTIONAL: ANY RECENT FEVER NO . CHILLS NO . WEIGHT CHANGE OF UNKNOWN REASONS NO . GASTROENTEROLOGY: NEW UNEXPLAINABLE CHANGES IN BOWEL CONTROL NO . CONSTIPATION NO . GENITOURINARY: ANY NEW CHANGE IN BLADDER CONTROL? NO . NEUROLOGY: NEW ONSET DIZZINESS OR NEUROLOGICAL CHANGES NOT MENTIONED NO . NEW NUMBNESS OR PAIN PATTERNS NOT MENTIONED AND PERTINENT TO TODAY'S VISIT NO . CARDIOLOGY: NEW CHEST PRESSURE NO . PATIENT DENIES NO . RESPIRATORY: UNEXPLAINABLE COUGH NO . NEW SHORTNESS OF BREATH NO . VITAL SIGNS WT 146.4 LBS, HT 59 IN, BMI 29.57 INDEX, BP 126/73 MM HG, HR 78 /MIN, RR 18 /MIN, TEMP 98.5 F, OXYGEN SAT % 99%, SAFE IN ENV? (Y/N) YES, REVIEWED BY: VICKY GARCIA MA. EXAMINATION GENERAL EXAMINATION: GENERALNO ACUTE DISTRESS, WELL NOURISHED AND HYDRATED. PSYCHAPPROPRIATE MOOD AND AFFECT . LUNGS:CLEAR TO AUSCULTATION BILATERALLY, NO WHEEZES, RHONCHI, RALES. HEART:NO MURMURS, REGULAR RATE AND RHYTHM. ASSESSMENTS OTHER CHRONIC PAIN - G89.29 (PRIMARY) SPONDYLOSIS OF LUMBOSACRAL REGION WITHOUT MYELOPATHY OR RADICULOPATHY - M47.817 TREATMENT OTHER CHRONIC PAIN PAIN PROCEDURE LOGDATE OF ICPIALZQD77/04/2021ROCEDURE:BILATERAL THERAPEUTIC LUMBAR FACET BLOCKAMOUNT OF PRE SEDATEVALIUM 10MG; OXYCODONE 10MGRESULT:PRE 11/20 POST 05/20 NOTES: 40-YEAR-OLD FEMALE IN FOR POST BILATERAL THERAPEUTIC LUMBAR FACET BLOCK FOLLOW-UP. GIVEN PRESENTING SYMPTOMS RECOMMEND FOLLOW-UP IN 2 MONTHS. PATIENT HAS EXPRESSED UNDERSTANDING OF AND WAS IN AGREEMENT WITH TREATMENT PLAN. GIVEN TIME TO ASK QUESTIONS AND EXPRESS CONCERNS. , ISTOP REGISTRY REVIEWED AND DEMONSTRATES COMPLLIANCE. (REF # [id number] ). PROCEDURE CODES FA211 ESTABILISHED PATIENT [facility] FACILITY CHARGE DISPOSITION & COMMUNICATION FOLLOW UP 2 MONTHS (REASON: LOW BACK PAIN ) ELECTRONICALLY SIGNED BY DEBORA OWEN ON 05/27/2020 AT 09:42 AM EDT DISCLAIMER : THIS IS A VISIT SUMMARY EXTRACTED FROM THE [employer] CHART. IT IS NOT A COPY OF THE [employer] PROGRESS NOTE. TYRA
== END ==
LOC: M PAIN 10:15
PROVIDERS: ATTEND Family Medicine
DX: M47.817 Spondylosis without myelopathy or radiculopathy, lumbosacral region (principal); G89.29 Other chronic pain; F17.210 Nicotine dependence, cigarettes, uncomplicated; Z88.8 Allergy status to other drugs, medicaments and biological substances; Z79.899 Other long term (current) drug therapy

== ENCOUNTER → 2020-07-10 | Outpatient (REF) | payer OTHER | LOC: M SFHCPLAZ 14:07 | DX: Z00.00 Encounter for general adult medical examination without abnormal findings (principal); Z79.899 Other long term (current) drug therapy ==

== ENCOUNTER → 2020-07-27 | Outpatient (CLI) | payer OTHER ==
--- NOTE | 2020-07-29 06:17 | ECWPNPC ---
PATIENT NAME: EVA CALZADA : 1980 GENDER: FEMALE VISIT DATE: 07/27/2020 DISCHARGE DATE: 07/27/20 1039 VISIT LOCKED DATE TIME: PHYSICIAN: CUONG MARLOW PHYSICIAN PAGER NO: ACTIVE RESOURCE: CUONG MARLOW REASON FOR APPOINTMENT 1. LOW BACK PAIN HISTORY OF PRESENT ILLNESS GENERAL: HPI 40-YEAR-OLD FEMALE IN FOR CHRONIC PAIN FOLLOW-UP. SHE RATES HER PAIN CURRENTLY AT A 3 OUT OF 10 AND DESCRIBES IT ACHING, AND INTERMITTENT. SHE FEELS MEDICATIONS ARE HELPFUL AND DENIES MED SIDE EFFECTS AT THIS TIME.. -. FALL RISK SCREENING: SCREENING : NO FALLS REPORTED IN THE LAST YEAR. PAIN SCREENING: PATIENT HAS A COMPLAINT OF ACUTE OR CHRONIC PAIN :YES LOCATION OF PAIN:LOW BACK INTENSITY OF PAIN (SCALE OF 1 TO 10):3 WHAT DOES YOUR PAIN FEEL LIKE:ACHING, INTERMITTENT, SHOOTING DURATION:INTERMITTENT PAIN IS INCREASED BY:ACTIVITIES, PROLONGED STANDING PAIN IS DECREASED BY:USE OF PAIN MEDICATIONS, SITTING HEATING PAD NURSING NOTE: -. PAIN CENTER INTAKE QUESTIONS: DO YOU HAVE A HISTORY OF MRSA? :NO DO YOU TAKE A BLOOD THINNERS? :NO DO YOU HAVE ANY BLEEDING DISORDERS? :NO ANY NEW NUMBNESS OR WEAKNESS IN YOUR LEGS OR ARMS? :NO ANY PACEMAKER,DEFIBRILLATOR, OR DORSAL COLUMN STIMULATOR? :NO DO YOU HAVE ANY RASHES OR OPEN SORES? :NO ARE YOU ALLERGIC TO IV DYE? :NO ARE YOU DIABETIC? :NO ANY NEW PROBLEMS WITH YOUR MEDICATIONS? :NO HAVE YOU RECEIVED A VACCINE IN THE PAST 30 DAYS? :YES IF SO WHAT VACCINE AND WHEN? LANCE AND LANCE 07/24/2020 DO YOU PLAN TO RECEIVE A VACCINE IN THE NEXT 21 DAYS? :NO DO YOU NEED ANY PRESCRIPTION? :NO DO YOU TAKE ANY IMMUNOSUPPRESSIVE MEDICATIONS? :NO DO YOU HAVE ANY KIDNEY OR LIVER DISEASE? :NO IS THERE A CHANCE YOU COULD BE ? :NO ARE YOU BREAST FEEDING? :NO CURRENT MEDICATIONS TAKING CYMBALTA 60 MG CAPSULE DELAYED RELEASE PARTICLES 1 CAPSULE ORALLY ONCE A DAY, NOTES: 04/16/20 0700 TAKING [facility]S HYDROCORTISONE ANTI-ITCH 0.5 % CREAM 1 APPLICATION TO AFFECTED AREA EXTERNALLY TWICE A DAY TAKING MAY HAVE - - RIGHT SHOE LIFT DX: M41.9 KYPHOSCOLIOSIS DAILY MED#[id number] TAKING MULTIVITAMIN ADULT - TABLET 1 TAB ORALLY DAILY TAKING CRANBERRY 405 MG CAPSULE DIRECTED ORALLY TAKING ACETAMINOPHEN 325 MG TABLET 1 TABLET NEEDED ORALLY EVERY 4 HRS, NOTES: NOT RECENTLY TAKING PROBIOTIC - TABLET DELAYED RELEASE DIRECTED ORALLY TAKING VITAMIN B COMPLEX - TABLET DIRECTED ORALLY TAKING COQ10 100 MG CAPSULE 1 CAPSULE WITH A MEAL ORALLY ONCE A DAY TAKING ORTHOPEDIC SHOES _ 1 DX M79.671, [facility]# [id number] ONE INCH SHOE LIFT. RT SHOE DAILY TAKING ONDANSETRON 4 MG TABLET DISINTEGRATING 1 TABLET ON THE TONGUE AND ALLOW TO DISSOLVE ORALLY ONCE A DAY TAKING CARISOPRODOL 350 MG TABLET 1 TABLET NEEDED ORALLY BEFORE BEDTIME MDD-1, NOTES: FEW DAYS TAKING HYDROCODONE-ACETAMINOPHEN 10-325 MG TABLET 1 TABLET ORALLY EVERY 6 HRS NEEDED, NOTES: 04/15/20 1300 TAKING MELOXICAM 15 MG TABLET 1 TABLET ORALLY ONCE A DAY NOT-TAKING KETOROLAC TROMETHAMINE 10 MG TABLET 1 TABLET WITH FOOD OR MILK NEEDED ORALLY EVERY 6 HRS, NOTES: NOT RECENTLY NOT-TAKING OMEPRAZOLE 40 MG CAPSULE DELAYED RELEASE 1 CAPSULE 30 MINUTES BEFORE MORNING MEAL ORALLY ONCE A DAY NOT-TAKING KETOCONAZOLE 2 % SHAMPOO DIRECTED EXTERNALLY APPLY IN SHOWER TO SKIN, LATHER, LEAVE ON FOR 5 MINUTES AND RINSE. NOT-TAKING TERBINAFINE- ORAL-12 WEEKS 250 MG TABLETS ONE TABLET ORALLY DAILY, NOTES: ALMOST DONE - TAKING FOR FOOT FUNGUS NOT-TAKING CYMBALTA 30 MG CAPSULE DELAYED RELEASE PARTICLES 1 CAPSULE ORALLY ONCE A DAY NOT-TAKING AUGMENTIN 875-125 MG TABLET 1 TABLET ORALLY EVERY 12 HRS NOT-TAKING AMOXICILLIN-POT CLAVULANATE 875-125 MG TABLET 1 TABLET ORALLY EVERY 12 HRS MEDICATION LIST REVIEWED AND RECONCILED WITH THE PATIENT PAST MEDICAL HISTORY 12 YEAR ASCVD RISK OF 1.0% 07/2014 ABDOMINAL AORTIC ANEURYSM S/P REPAIR IN 2014. SHE FOLLOWS WITH HER VASCULAR SURGEON IN [place] ON A YEARLY BASIS. THERE IS NO IDENTIFIED ETIOLOGY FOR HER AAA, HOWEVER HER SURGEON SUSPECTS A GENETIC DISORDER. GENETIC TESTING IS NOT COVERED BY HER INSURANCE AND WOULD COST HER ABOUT $6000 OUT OF POCKET WHICH IS COST PROHIBITIVE PATIENT HAD AN "ECTOPIC UTERUS" -- SECOND (R SIDED) UTERUS WITH NO CERVIX, CAUSED ENDOMETRIOSIS WITH RETROGRADE MENSTRUATION PAP 02/2015- NEG ENDOMETRIOSIS PER OP REPORT FROM [facility]: PT HAS "NL UTERUS ATTACHED TO AN OVARY AND A CERVIX ON THE L OF THE MIDLINE WITH A L FALLOPIAN TUBE WITH A LEFT ROUND LIGAMENT. A ROUND LIGAMENT FROM THAT UTERUS LED TO AN ECTOPIC UTERUS IN THE RIGHT LOWER QUADRANT ON THE PELVIC SIDEWALL WHICH WAS NOT ATTACHED TO A CERVIX WHICH ALSO HAD AN OVARY AND A FALLOPIAN TUBE." MRI OF L/S 12/2011 WITH COMPLEX CONGENITAL ANOMALIES, SCOLIOSIS, TETHERED CORD, VERTEBRAL FUSION, DISC NARROWING, SPINAL STENOSIS, DIAGNOSED WITH LUMBAR SCOLIOSIS AN INFANT. NEVER HAD SURGERY FOR HER SPINE, NO BRACING. WEARS A SHOE LIFT ON THE RIGHT, 1 INCH. NO PROBLEMS WITH HYPERMOBILE JOINTS. NO OPTIC LENS DISPLACEMENT. SUBDURAL HEMATOMA S/P FALL 10/2018 ALLERGIES ITRACONAZOLE: RASH - ALLERGY - ONSET DATE 07/10/2020 SOCIAL HISTORY GENERAL: TOBACCO USE ARE YOU A:CURRENT SMOKER ARE YOU INTERESTED IN QUITTING?THINKING ABOUT QUITTING PREVIOUS QUIT ATTEMPTS?YES, MORE THAN 6 MONTHS AGO. CUTTING DOWN COUNSELED THE PATIENT ON SMOKING CESSATION, EDUCATION [id number]/17/2021 HOW MANY CIGARETTES A DAY DO YOU SMOKE?6-10 HOW SOON AFTER YOU WAKE UP DO YOU SMOKE YOUR FIRST CIGARETTE?31-60 MIN HOW OFTEN DO YOU SMOKE CIGARETTES?EVERY DAY PATIENT COUNSELED ON THE DANGERS OF TOBACCO USE AND URGED TO QUIT:04/15/2020 SMOKING CESSATION INFORMATION GIVEN01/02/2020 LATEX QUESTIONNAIRE LATEX ALLERGY : HAVE YOU EVER DEVELOPED ANY TYPE OF REACTION AFTER HANDLING LATEX PRODUCTS SUCH RUBBER GLOVES, CONDOMS, DIAPHRAGMS, BALLOONS, SOCKS, OR UNDERWEAR?NO LATEX ALLERGY : HAVE YOU EVER DEVELOPED ANY TYPE OF REACTION DURING OR AFTER DENTAL APPOINTMENT, VAGINAL/RECTAL EXAMINATION, SURGICAL PROCEDURE, OR ANY OTHER EXPOSURE?NO DATE ASKED : 05/26/2020 LATEX RISK : HAVE YOU EVER HAD ANY DIFFICULTY BREATHING OR HIVES AFTER EATING OR HANDLING ANY FRUITS, OR VEGETABLES; SUCH KIWI, BANANAS, STONE FRUITS, OR CHESTNUTSNO LATEX RISK : DO YOU HAVE A PREVIOUS PERSONAL HISTORY OF MORE THAN NINE SURGERIES, SPINA BIFIDA, OR REPEATED CATHERIZATIONS? NO LATEX RISK : ARE YOU FREQUENTLY EXPOSED TO LATEX PRODUCTS IN YOUR OCCUPATION?NO ALCOHOL USE: YES. OCCASIONAL. ALCOHOL SCREENING DID YOU HAVE A DRINK CONTAINING ALCOHOL IN THE PAST YEAR?NO POINTS0 INTERPRETATIONNEGATIVE RECREATIONAL DRUG USE DRUG USE?NO CAFFEINE CAFFEINE USE?YES COFFEE,SODA SEXUAL HX HAD SEX IN THE LAST 12 MONTHS (VAGINAL, ORAL, OR ANAL)?YES WITHWOMEN ONLY USE PROTECTION?YES HOW OFTEN?ALL OF THE TIME HIV / HEP-C SCREENING HIV TEST OFFERED TO PATIENT:YES DATE OFFERED:08/26/2019 TEST ACCEPTED:NO HEP-C TEST OFFERED TO PATIENT:YES DATE OFFERED:08/26/2019 REASON:PATIENT DECLINED TEST ACCEPTED:NO REASON:PATIENT DECLINED BROCHURE PROVIDED TO PATIENTYES [employer] [id number] AMISH LANGUAGE LANGUAGES SPOKEN:ICELANDIC EDUCATION LEVEL OF EDUCATION:FINISHED HIGH SCHOOL LEARNING BARRIERS / SPECIAL NEEDS CHANGE FROM LAST VISIT?NO BARRIERS TO LEARNING?NO HEARING IMPAIRED?NO VISION IMPAIRED?YES :CORRECTIVE LENSES COGNITIVELY IMPAIRED?NO READINESS TO LEARN?YES LEARNING PREFERENCES?NO LEARNING CAPABILITIES PRESENT?YES EMOTIONAL BARRIERS?NO SPECIAL DEVICES?NO PERINATAL NURSE NEEDED?NO DOMESTIC VIOLENCE DO YOU FEEL SAFE IN YOUR ENVIRONMENT?YES OCCUPATION: UNEMPLOYED. DIET: REGULAR. EXERCISE: NO REGULAR EXERCISE. MARITAL STATUS: . OTHERS AT HOME: LIVES WITH AND 2 BOYS & 1 DAUGHTER. - HAS THE PATIENT BEEN EDUCATED REGARDING HIS/HER PLAN OF CARE?YES HAS THE PATIENT BEEN EDUCATED REGARDING PAIN, THE RISK FOR PAIN, THE IMPORTANCE OF EFFECTIVE PAIN MANAGEMENT, AND THE PAIN ASSESSMENT PROCESS?YES ADVANCE DIRECTIVE ADVANCE DIRECTIVE DISCUSSED WITH PATIENT:YES PATIENT DECLINED INFO AND ASSIATANCE WITH FORM AT THIS TIME. REVIEW OF SYSTEMS CONSTITUTIONAL: ANY RECENT FEVER NO . CHILLS NO . WEIGHT CHANGE OF UNKNOWN REASONS NO . GASTROENTEROLOGY: NEW UNEXPLAINABLE CHANGES IN BOWEL CONTROL NO . CONSTIPATION NO . GENITOURINARY: ANY NEW CHANGE IN BLADDER CONTROL? NO . NEUROLOGY: NEW ONSET DIZZINESS OR NEUROLOGICAL CHANGES NOT MENTIONED NO . NEW NUMBNESS OR PAIN PATTERNS NOT MENTIONED AND PERTINENT TO TODAY'S VISIT NO . CARDIOLOGY: NEW CHEST PRESSURE NO . PATIENT DENIES NO . RESPIRATORY: UNEXPLAINABLE COUGH NO . NEW SHORTNESS OF BREATH NO . VITAL SIGNS WT 150.6 LBS, HT 59 IN, BMI 30.41 INDEX, BP 110/68 MM HG, HR 82 /MIN, RR 18 /MIN, TEMP 97.0 F, OXYGEN SAT % 97%, SAFE IN ENV? (Y/N) YES, NA INITIALS WI 10:21, REVIEWED BY: VICKY GARCIA MA. EXAMINATION GENERAL EXAMINATION: GENERALNO ACUTE DISTRESS, WELL NOURISHED AND HYDRATED. PSYCHAPPROPRIATE MOOD AND AFFECT . LUNGS:CLEAR TO AUSCULTATION BILATERALLY, NO WHEEZES, RHONCHI, RALES. HEART:NO MURMURS, REGULAR RATE AND RHYTHM. ASSESSMENTS SPONDYLOSIS OF LUMBOSACRAL REGION WITHOUT MYELOPATHY OR RADICULOPATHY - M47.817 (PRIMARY), RISK: (NULL) TREATMENT SPONDYLOSIS OF LUMBOSACRAL REGION WITHOUT MYELOPATHY OR RADICULOPATHY NOTES: 40-YEAR-OLD FEMALE IN FOR CHRONIC PAIN FOLLOW-UP. GIVEN PRESENTING SYMPTOMS RECOMMEND CONTINUATION OF CURRENT MEDICATION REGIMEN WITH FOLLOW-UP IN 3 MONTHS. PATIENT HAS EXPRESSED UNDERSTANDING OF AND WAS IN AGREEMENT WITH TREATMENT PLAN. GIVEN TIME TO ASK QUESTIONS AND EXPRESS CONCERNS. PROCEDURE CODES FA211 ESTABILISHED PATIENT [facility] CHARGE DISPOSITION & COMMUNICATION FOLLOW UP 3 MONTHS (REASON: LOW BACK PAIN ) ELECTRONICALLY SIGNED BY DEBORA OWEN ON 07/28/2020 AT 01:18 PM EDT DISCLAIMER : THIS IS A VISIT SUMMARY EXTRACTED FROM THE [employer] CHART. IT IS NOT A COPY OF THE [employer] PROGRESS NOTE. TYRA
== END ==
LOC: M PAIN 10:15
PROVIDERS: ATTEND Family Medicine
DX: M47.817 Spondylosis without myelopathy or radiculopathy, lumbosacral region (principal); G89.29 Other chronic pain; F17.210 Nicotine dependence, cigarettes, uncomplicated; Z88.8 Allergy status to other drugs, medicaments and biological substances; Z79.899 Other long term (current) drug therapy

== ENCOUNTER → 2020-08-26 | Outpatient (REF) | payer OTHER ==
[2020-08-26 15:45] LABS: PROTEIN, URINE AUTO NEGATIVE (NEGATIVE)
[2020-08-26 15:47] LABS: HEMATOCRIT 45.7 % (36.0-47.0); HEMOGLOBIN 14.7 g/dl (12.0-15.5); MEAN CORPUSCULAR HEMOGLOBIN 30.4 pg (27.0-33.0); MEAN CORPUSCULAR HGB CONC 32.2 g/dl (32.0-36.5); MEAN CORPUSCULAR VOLUME 94.6 fl (80.0-96.0); PLATELET COUNT, AUTOMATED 203 10^3/uL (150-450); RED BLOOD COUNT 4.83 10^6/uL (4.00-5.40); WHITE BLOOD COUNT 6.4 10^3/uL (4.0-10.0)
[2020-08-26 16:15] LABS: BLOOD UREA NITROGEN 13 MG/DL (7-18); C REACTIVE PROTEIN QUANTITATIV 0.64 MG/DL (0.00-0.30); CALCIUM LEVEL 8.7 MG/DL (8.5-10.1); CARBON DIOXIDE LEVEL 29 MEQ/L (21-32); CHLORIDE LEVEL 107 MEQ/L (98-107); COMPLEMENT C3 107 MG/DL (90-180); COMPLEMENT C4 33 MG/DL (10-40); CREATININE FOR GFR 0.74 MG/DL (0.55-1.30); FREE T4 0.99 NG/DL (0.76-1.46); GLOMERULAR FILTRATION RATE > 60.0 (>60); GLUCOSE, FASTING 79 MG/DL (70-100); POTASSIUM SERUM 4.4 MEQ/L (3.5-5.1); SODIUM LEVEL 140 MEQ/L (136-145)
[2020-08-26 16:43] LABS: ERYTHROCYTE SEDIMENTATION RATE 18 mm/hr (0-20)
[2020-08-27 12:12] LABS: DRVV SCREEN 52.9 SEC
[2020-08-27 12:13] LABS: PTT LUPUS TYPE ANTICOAG SCREEN 1.4 (0-1.2)
[2020-08-27 12:21] LABS: DRVV CONFIRM 37.1 SEC; LUPUS CONFIRM RATIO 1.1
[2020-08-27 12:26] LABS: NORMALIZED RATIO 1.27 (0.00-1.20)
[2020-08-29 15:07] LABS: HEXAGONAL PHASE PHOSPHOLIPID 0 sec (0-11)
[2020-08-31 13:07] LABS: ANA (HEP2) Positive (.); ANTI DS-DNA AB Negative (Negative); BETA-2 GLYCOPROTEIN I ABY IGA 33 (0-25); BETA-2 GLYCOPROTEIN I ABY IGG <9 (0-20); BETA-2 GLYCOPROTEIN I ABY IGM 10 (0-32); CARDIOLIPIN IGA ANTIBODY <9 APL U/mL (0-11); CARDIOLIPIN IGG ANTIBODY <9 GPL U/mL (0-14); CARDIOLIPIN IGM ANTIBODY <9 MPL U/mL (0-12)
== END ==
LOC: M SFHCPLAZ 11:06
PROVIDERS: ATTEND Family Medicine
DX: M25.50 Pain in unspecified joint (principal); L65.9 Nonscarring hair loss, unspecified
CPT/HCPCS: 36415; 80048; 81002; 82570; 84439; 84443; 85027; 85598; 85613; 85652; 85730; 86038; 86140; 86146; 86147; 86160; 86225; G0463

== ENCOUNTER → 2020-10-23 | Outpatient (CLI) | payer OTHER | LOC: M PAIN 14:15 | PROVIDERS: ATTEND Anesthesiology | DX: M47.816 Spondylosis without myelopathy or radiculopathy, lumbar region (principal); G89.29 Other chronic pain; F17.210 Nicotine dependence, cigarettes, uncomplicated; Z88.8 Allergy status to other drugs, medicaments and biological substances; Z79.899 Other long term (current) drug therapy ==

== ENCOUNTER → 2020-12-14 | Outpatient (REF) | payer OTHER | LOC: M SFHCWAGY 17:10 | PROVIDERS: ATTEND Student in an Organized Health Care Education/Training Program | DX: Z79.891 Long term (current) use of opiate analgesic (principal) ==

== ENCOUNTER → 2020-12-22 | Outpatient (REF) | payer OTHER ==
[2020-12-22 13:49] LABS: TOTAL 25(OH) VITAMIN D 38.2 NG/ML (30.0-100.0)
== END ==
LOC: M SFHCRHEU 10:42
PROVIDERS: ATTEND Internal Medicine
DX: R76.8 Other specified abnormal immunological findings in serum (principal); R53.82 Chronic fatigue, unspecified; Z79.899 Other long term (current) drug therapy

== ENCOUNTER → 2020-12-24 | Outpatient (CLI) | payer OTHER | LOC: M LABSMTC 09:10 | PROVIDERS: ATTEND Anesthesiology | DX: Z01.812 Encounter for preprocedural laboratory examination (principal); Z20.822 Contact with and (suspected) exposure to COVID-19 ==

== ENCOUNTER → 2020-12-29 | Outpatient (CLI) | payer OTHER ==
[~2020-12-29] MED LIST changes: +BUPIVACAINE HCL 0.25% 30ML VIAL As Ordered ONE; +ISOVUE-M 300 61% 15ML VIAL As Ordered ONE; +LIDOCAINE 1% SDV 30ML VIAL As Ordered ONE; +ONDANSETRON 4 MG ORAL DISINTEGRATING TAB As Ordered ONE; +TRIAMCINOLONE ACETONIDE SUSP 40 MG/ML VIAL (J3301) As Ordered ONE; +diazePAM 5MG TABLET As Ordered ONE; +diphenhydrAMINE 25MG CAP As Ordered ONE; +oxyCODONE 5MG TAB As Ordered ONE
== END ==
LOC: M PAIN 10:00
PROVIDERS: ATTEND Anesthesiology
DX: M47.816 Spondylosis without myelopathy or radiculopathy, lumbar region (principal); M47.817 Spondylosis without myelopathy or radiculopathy, lumbosacral region; F17.210 Nicotine dependence, cigarettes, uncomplicated; R76.8 Other specified abnormal immunological findings in serum; Z88.8 Allergy status to other drugs, medicaments and biological substances; Z79.899 Other long term (current) drug therapy
CPT/HCPCS: 64493; 64494; 81001; 82570; 84156; J3301; Q0162; Q9967

== ENCOUNTER → 2020-12-29 | Outpatient (REF) | payer OTHER ==
[~2020-12-29] MED LIST changes: -BUPIVACAINE HCL 0.25% 30ML VIAL As Ordered ONE; -ISOVUE-M 300 61% 15ML VIAL As Ordered ONE; -LIDOCAINE 1% SDV 30ML VIAL As Ordered ONE; -ONDANSETRON 4 MG ORAL DISINTEGRATING TAB As Ordered ONE; -TRIAMCINOLONE ACETONIDE SUSP 40 MG/ML VIAL (J3301) As Ordered ONE; -diazePAM 5MG TABLET As Ordered ONE; -diphenhydrAMINE 25MG CAP As Ordered ONE; -oxyCODONE 5MG TAB As Ordered ONE
[2020-12-29 13:10] LABS: APPEARANCE, URINE HAZY (CLEAR); BACTERIA, URINE AUTO 1+ (NEGATIVE); BILIRUBIN, URINE AUTO NEGATIVE (NEGATIVE); BLOOD, URINE BLOOD NEGATIVE (NEGATIVE); COLOR, URINE AMBER (YELLOW); GLUCOSE, URINE (UA) AUTO NEGATIVE (NEGATIVE); KETONE, URINE AUTO TRACE mg/dL (NEGATIVE); LEUKOCYTE ESTERASE, URINE AUTO NEGATIVE (NEGATIVE); MUCUS, URINE SMALL (NEGATIVE); NITRITE, URINE AUTO NEGATIVE (NEGATIVE); PROTEIN, URINE AUTO NEGATIVE (NEGATIVE); RBC, URINE AUTO 7 /HPF (0-3); SPECIFIC GRAVITY URINE AUTO 1.024 (1.002-1.035); SQUAMOUS EPITHELIAL CELL UR AU 7 /HPF (0-6); WBC, URINE AUTO 1 /HPF (0-3)
[2020-12-29 13:25] LABS: TOTAL PROTEIN,RANDOM URINE 14.3 MG/DL (0.0-12.0)
--- NOTE | 2020-12-29 15:11 | REP ---
INDICATION: LUMBAR THERAPEUTIC FACET BLOCK L3-L4, L4-L5. COMPARISON: None. TECHNIQUE: Two views lower lumbar spine. FINDINGS: Mellott are seen along the bilateral lower lumbar facet joints. Small amount of contrast is injected. IMPRESSION: 24 seconds of fluoroscopy time was utilized. <Electronically signed by Gregory Carson > 12/29/20 [id number]
== END ==
LOC: M SFHCRHEU 09:45
PROVIDERS: ATTEND Internal Medicine
DX: R76.8 Other specified abnormal immunological findings in serum (principal)

== ENCOUNTER → 2021-01-05 | Outpatient (CLI) | payer OTHER ==
--- NOTE | 2021-01-07 18:39 | SLEEPHOME ---
DATE: 01/05/2021 ORDERED BY: Sarah Li, Rheumatology Diagnostic home sleep testing was performed due to concern for the obstructive sleep apnea syndrome in this patient with a history of fatigue. For testing, a Nox T3 respiratory monitoring device was used. Continuous record was made of pulse, oxygen saturation, air flow, chest and abdominal strain, and body position. There was 9 hours and 59 minutes of data reviewed. There was 8 hours and 45 minutes marked as time in bed. During the interval marked time in bed, there were 55 respiratory events identified of 10 seconds in duration or greater for a respiratory event index of 6.3. The events were mostly obstructive; however, 24 of the 38 events were either mixed or center. Respiratory events were more frequent but not exclusive to the supine posture. Baseline pulse rate 74. Pulse rate ranged 53-102. Baseline saturation 92%. Saturations did fall to 875, and testing was performed in both the supine and nonsupine positions. IMPRESSION: Abnormal home sleep testing with repetitive respiratory events and oxygen desaturations to 87% with a respiratory event index of 6.3 is consistent with the obstructive sleep apnea syndrome. RECOMMENDATION: As the events were more frequent in the supine posture, sleep position retraining for avoidance of the supine posture could be attempted; however, given the frequency of central and mixed events, should the patient symptoms persist, referral for formal sleep evaluation is recommended.
== END ==
LOC: M SLEEP HO 09:55
PROVIDERS: ATTEND Internal Medicine
DX: G47.33 Obstructive sleep apnea (adult) (pediatric) (principal)

== ENCOUNTER → 2021-04-22 | Outpatient (CLI) | payer OTHER | LOC: M PAIN 11:15 | PROVIDERS: ATTEND Nurse Practitioner Family | DX: M47.816 Spondylosis without myelopathy or radiculopathy, lumbar region (principal); M47.817 Spondylosis without myelopathy or radiculopathy, lumbosacral region; M41.9 Scoliosis, unspecified; F17.210 Nicotine dependence, cigarettes, uncomplicated; Z88.8 Allergy status to other drugs, medicaments and biological substances; Z79.899 Other long term (current) drug therapy ==

== ENCOUNTER → 2021-04-27 | Outpatient (CLI) | payer OTHER | LOC: M PLAIMG 07:39 | PROVIDERS: ATTEND Family Medicine | DX: M50.21 Other cervical disc displacement, high cervical region (principal); M48.02 Spinal stenosis, cervical region; M50.222 Other cervical disc displacement at C5-C6 level; M50.223 Other cervical disc displacement at C6-C7 level ==

== ENCOUNTER → 2022-01-21 | Outpatient (CLI) | payer OTHER | LOC: M RAD 06:49 | PROVIDERS: ATTEND Physician Assistant | DX: I71.43 Infrarenal abdominal aortic aneurysm, without rupture (principal) ==

== ENCOUNTER → 2022-02-17 | Outpatient (CLI) | payer OTHER | LOC: M SLEEP 20:00 | PROVIDERS: ATTEND Nurse Practitioner Family | DX: R06.83 Snoring (principal) ==

== ENCOUNTER 2022-03-09 18:09 | Emergency (ER) | payer OTHER ==
[~2022-03-09] VITALS: Ht 149.9 cm; Wt 77.7 kg
[2022-03-09] MEDS ORDERED: DULO1CAP6 (18:31)
[2022-03-09] MEDS ORDERED: MELO15TA28 (18:31)
[2022-03-09] MEDS ORDERED: HYDR-3713 (18:31)
[2022-03-10 00:49] VITALS: BP 105/66
== END 2022-03-10 01:10 | disposition left against medical advice (07) ==
LOC: M ED 18:09
DX: Z53.21 Procedure and treatment not carried out due to patient leaving prior to being seen by health care provider (principal)

== ENCOUNTER → 2022-03-11 | Outpatient (CLI) | payer OTHER ==
[~2022-03-11] MED LIST changes: +HYDR-3713; +MELO15TA28
== END ==
LOC: M RAD 11:45
PROVIDERS: ATTEND Student in an Organized Health Care Education/Training Program
DX: M54.2 Cervicalgia (principal); W19.XXXD Unspecified fall, subsequent encounter

== ENCOUNTER → 2022-03-11 | Outpatient (CLI) | payer OTHER | LOC: M PAIN 11:00 | PROVIDERS: ATTEND Nurse Practitioner Family | DX: M47.816 Spondylosis without myelopathy or radiculopathy, lumbar region (principal); G89.29 Other chronic pain; F17.210 Nicotine dependence, cigarettes, uncomplicated; Z88.8 Allergy status to other drugs, medicaments and biological substances; Z79.899 Other long term (current) drug therapy ==

== ENCOUNTER → 2022-03-22 | Outpatient (REF) | payer OTHER ==
[2022-03-22 18:44] LABS: APPEARANCE, URINE MANUAL CLEAR (CLEAR); BILIRUBIN, URINE MANUAL NEGATIVE (NEGATIVE); BLOOD URINE MANUAL NEGATIVE (NEGATIVE); COLOR, URINE MANUAL YELLOW (YELLOW); GLUCOSE, URINE (UA) MANUAL NEGATIVE (NEGATIVE); KETONE, URINE MANUAL NEGATIVE (NEGATIVE); LEUKOCYTE ESTERASE, URINE MAN TRACE (NEGATIVE); NITRITE, URINE MANUAL NEGATIVE (NEGATIVE); PH,URINE MAN 6.5 UNITS (5.0 - 7.0); PROTEIN, URINE MANUAL NEGATIVE (NEGATIVE); SPECIFIC GRAVITY,URINE MANUAL 1.015 (1.002-1.035); UROBILINOGEN, URINE MANUAL 1 MG mg/dl (NORMAL)
[2022-03-22 19:22] LABS: WBC, URINE 0-1 /hpf (0-3)
[2022-03-22 19:23] LABS: BACTERIA, URINE NONE SEEN; HYALINE CAST, URINE NONE SEEN /lpf (0-1); MUCUS, URINE MOD AMOUNT (NEGATIVE); SQUAMOUS EPITHELIAL CELL URINE SMALL AMOUNT /hpf (SMALL AMT)
== END ==
LOC: M SFHCRHEU 12:50
PROVIDERS: ATTEND Internal Medicine
DX: R31.9 Hematuria, unspecified (principal)

== ENCOUNTER → 2022-03-23 | Outpatient (REF) | payer OTHER ==
[2022-03-23 13:32] LABS: C REACTIVE PROTEIN QUANTITATIV < 0.40 MG/DL (<1.0); CPK CREATINE PHOSPHOKINASE 122 U/L (34-145)
[2022-03-23 13:33] LABS: MAGNESIUM LEVEL 1.9 MG/DL (1.8-2.4); PHOSPHORUS LEVEL 3.7 MG/DL (2.5-4.9); VITAMIN B12 LEVEL 383 PG/ML (211-911)
[2022-03-23 13:34] LABS: IRON (FE) 106 UG/DL (50-170)
[2022-03-23 13:38] LABS: TOTAL 25(OH) VITAMIN D 35.6 NG/ML (20.0-100.0)
== END ==
LOC: M SFHCRHEU 11:25
PROVIDERS: ATTEND Internal Medicine
DX: M79.10 Myalgia, unspecified site (principal); M25.50 Pain in unspecified joint; Z79.899 Other long term (current) drug therapy

== ENCOUNTER → 2022-03-23 | Outpatient (CLI) | payer OTHER | LOC: M PLAIMG 12:31 | PROVIDERS: ATTEND Student in an Organized Health Care Education/Training Program | DX: M54.50 Low back pain, unspecified (principal); M25.78 Osteophyte, vertebrae; Q76.49 Other congenital malformations of spine, not associated with scoliosis; M25.50 Pain in unspecified joint; R76.8 Other specified abnormal immunological findings in serum; R31.9 Hematuria, unspecified; M79.10 Myalgia, unspecified site; R76.0 Raised antibody titer; R21 Rash and other nonspecific skin eruption; M70.60 Trochanteric bursitis, unspecified hip ==

== ENCOUNTER → 2022-03-23 | Outpatient (CLI) | payer OTHER | LOC: M PLAIMG 12:38 | PROVIDERS: ATTEND Internal Medicine | DX: M25.50 Pain in unspecified joint (principal) ==

== ENCOUNTER → 2022-03-29 | Outpatient (CLI) | payer OTHER | LOC: M PAIN 09:45 | PROVIDERS: ATTEND Nurse Practitioner Family | DX: M47.816 Spondylosis without myelopathy or radiculopathy, lumbar region (principal); G89.29 Other chronic pain; F17.210 Nicotine dependence, cigarettes, uncomplicated; Z88.8 Allergy status to other drugs, medicaments and biological substances; Z79.899 Other long term (current) drug therapy ==

== ENCOUNTER → 2022-05-09 | Outpatient (CLI) | payer OTHER | LOC: M LABSMTC 11:03 | PROVIDERS: ATTEND Anesthesiology | DX: Z01.812 Encounter for preprocedural laboratory examination (principal) ==

== ENCOUNTER → 2022-05-13 | Outpatient (CLI) | payer OTHER | LOC: M LABSMTC 09:36 | PROVIDERS: ATTEND Anesthesiology | DX: Z01.812 Encounter for preprocedural laboratory examination (principal); Z20.822 Contact with and (suspected) exposure to COVID-19 ==

== ENCOUNTER → 2022-05-16 | Outpatient (CLI) | payer OTHER ==
[~2022-05-16] MED LIST changes: +BUPIVACAINE HCL 0.25% 30ML VIAL As Ordered ONE; +ISOVUE-M 300 61% 15ML VIAL As Ordered ONE; +LIDOCAINE 1% SDV 30ML VIAL As Ordered ONE; +TRIAMCINOLONE ACETONIDE SUSP 40MG/ML 1ML VIAL As Ordered ONE; +diazePAM 5MG TABLET As Ordered ONE; +oxyCODONE 5MG TAB As Ordered ONE
== END ==
LOC: M PAIN 12:30
PROVIDERS: ATTEND Anesthesiology
DX: M47.816 Spondylosis without myelopathy or radiculopathy, lumbar region (principal); M43.06 Spondylolysis, lumbar region; G89.29 Other chronic pain; F17.210 Nicotine dependence, cigarettes, uncomplicated; Z88.8 Allergy status to other drugs, medicaments and biological substances; Z79.899 Other long term (current) drug therapy
CPT/HCPCS: 64493; 64494; J3301; Q9967

== ENCOUNTER → 2022-06-09 | Outpatient (CLI) | payer OTHER ==
[~2022-06-09] MED LIST changes: -BUPIVACAINE HCL 0.25% 30ML VIAL As Ordered ONE; -ISOVUE-M 300 61% 15ML VIAL As Ordered ONE; -LIDOCAINE 1% SDV 30ML VIAL As Ordered ONE; -TRIAMCINOLONE ACETONIDE SUSP 40MG/ML 1ML VIAL As Ordered ONE; -diazePAM 5MG TABLET As Ordered ONE; -oxyCODONE 5MG TAB As Ordered ONE
== END ==
LOC: M RAD 12:13
PROVIDERS: ATTEND Student in an Organized Health Care Education/Training Program
DX: M25.471 Effusion, right ankle (principal); Z53.9 Procedure and treatment not carried out, unspecified reason

== ENCOUNTER → 2022-10-14 | Outpatient (CLI) | payer OTHER ==
[2022-10-14 10:34] LABS: BASO # 0.1 10^3/uL (0.0-0.2); BASO % 1.1 % (0.0-1.0); EOS # 0.3 10^3/uL (0.0-0.5); EOS % 4.1 % (0.0-3.0); HEMATOCRIT 39.7 % (36.0-47.0); HEMOGLOBIN 12.4 g/dl (12.0-15.5); LYMPH % 26.5 % (24.0-44.0); MEAN CORPUSCULAR HEMOGLOBIN 29.9 pg (27.0-33.0); MEAN CORPUSCULAR HGB CONC 31.2 g/dl (32.0-36.5); MEAN CORPUSCULAR VOLUME 95.7 fl (80.0-96.0); MONO # 0.6 10^3/uL (0.0-0.8); MONO % 8.1 % (2.0-8.0); NEUTROPHILS # 4.4 10^3/uL (1.5-8.5); NEUTROPHILS % 59.9 % (36.0-66.0); PLATELET COUNT, AUTOMATED 206 10^3/uL (150-450); RED BLOOD COUNT 4.15 10^6/uL (4.00-5.40); WHITE BLOOD COUNT 7.4 10^3/uL (4.0-10.0)
[2022-10-14 10:58] LABS: ALBUMIN 3.4 G/DL (3.2-5.2); ALKALINE PHOSPHATASE 83 U/L (46-116); ALT/SGPT 11 U/L (7.0-40); AST/SGOT < 8 U/L (<34); BILIRUBIN,TOTAL 0.4 MG/DL (0.3-1.2); BLOOD UREA NITROGEN 16 MG/DL (9-23); CALCIUM LEVEL 8.4 MG/DL (8.5-10.1); CARBON DIOXIDE LEVEL 28 MMOL/L (20-31); CHLORIDE LEVEL 109 MMOL/L (98-107); CHOLESTEROL LEVEL 166 MG/DL (<200); CHOLESTEROL RISK RATIO 4.47 (<5); CREATININE FOR GFR 0.81 MG/DL (0.55-1.30); GLOMERULAR FILTRATION RATE > 60.0 (>58); GLUCOSE, FASTING 84 MG/DL (60-100); HDL CHOLESTEROL 37.1 MG/DL (>40); LDL CHOLESTEROL 109.7 MG/DL (<100); NON-HDL-C 128.9 MG/DL; POTASSIUM SERUM 4.8 MMOL/L (3.5-5.1); SODIUM LEVEL 143 MMOL/L (136-145); TRIGLYCERIDES LEVEL 96 MG/DL (<150)
[2022-10-14 11:02] LABS: HEMOGLOBIN A1c 4.8 % (4.0-6.0)
== END ==
LOC: M PLALAB 07:23
PROVIDERS: ATTEND Student in an Organized Health Care Education/Training Program
DX: Z00.00 Encounter for general adult medical examination without abnormal findings (principal); Z13.220 Encounter for screening for lipoid disorders; Z13.1 Encounter for screening for diabetes mellitus

== ENCOUNTER → 2022-11-09 | Outpatient (CLI) | payer OTHER | LOC: M PAIN 10:00 | PROVIDERS: ATTEND Anesthesiology | DX: M43.06 Spondylolysis, lumbar region (principal); M47.816 Spondylosis without myelopathy or radiculopathy, lumbar region; G89.29 Other chronic pain; F17.210 Nicotine dependence, cigarettes, uncomplicated; Z88.8 Allergy status to other drugs, medicaments and biological substances; Z79.899 Other long term (current) drug therapy ==

== ENCOUNTER → 2023-01-23 | Outpatient (CLI) | payer MEDICARE, OTHER ==
[2023-01-23 14:22] LABS: THYROID STIMULATING HORMONE 1.748 uIU/ML (0.55-4.78)
[2023-01-23 14:23] LABS: FREE T4 0.96 NG/DL (0.89-1.76)
== END ==
LOC: M PLALAB 10:20
PROVIDERS: ATTEND Student in an Organized Health Care Education/Training Program
DX: R53.83 Other fatigue (principal)

== ENCOUNTER → 2023-02-23 | Outpatient (CLI) | payer OTHER | LOC: M PAIN 14:00 | PROVIDERS: ATTEND Anesthesiology | DX: M43.06 Spondylolysis, lumbar region (principal); M47.816 Spondylosis without myelopathy or radiculopathy, lumbar region; G89.29 Other chronic pain; F17.210 Nicotine dependence, cigarettes, uncomplicated; Z80.0 Family history of malignant neoplasm of digestive organs; Z88.8 Allergy status to other drugs, medicaments and biological substances; Z79.899 Other long term (current) drug therapy ==

== ENCOUNTER → 2023-05-03 | Outpatient (CLI) | payer MEDICARE, MEDICAID | LOC: M PAIN 09:30 | PROVIDERS: ATTEND Anesthesiology | DX: M47.816 Spondylosis without myelopathy or radiculopathy, lumbar region (principal); M46.96 Unspecified inflammatory spondylopathy, lumbar region; M54.50 Low back pain, unspecified; F17.210 Nicotine dependence, cigarettes, uncomplicated; Z79.899 Other long term (current) drug therapy; Z79.891 Long term (current) use of opiate analgesic; Z88.8 Allergy status to other drugs, medicaments and biological substances ==

== ENCOUNTER → 2023-07-13 | Outpatient (CLI) | payer MEDICARE, MEDICAID ==
[~2023-07-13] MED LIST changes: +ISOVUE-M 300 61% 15ML VIAL As Ordered ONE; +LIDOCAINE 1% SDV 30ML VIAL As Ordered ONE; +TRIAMCINOLONE ACETONIDE SUSP 40MG/ML 1ML VIAL As Ordered ONE; +diazePAM 5MG TABLET As Ordered ONE; +oxyCODONE 5MG TAB As Ordered ONE
== END ==
LOC: M PAIN 08:30
PROVIDERS: ATTEND Anesthesiology
DX: M47.817 Spondylosis without myelopathy or radiculopathy, lumbosacral region (principal); G89.29 Other chronic pain; F17.210 Nicotine dependence, cigarettes, uncomplicated; Z79.1 Long term (current) use of non-steroidal anti-inflammatories (NSAID); Z79.891 Long term (current) use of opiate analgesic; Z79.899 Other long term (current) drug therapy; Z88.8 Allergy status to other drugs, medicaments and biological substances
CPT/HCPCS: 64493; 64494; J0665; J3301; Q9967

== ENCOUNTER → 2023-08-14 | Outpatient (CLI) | payer MEDICARE, MEDICAID ==
[~2023-08-14] MED LIST changes: -ISOVUE-M 300 61% 15ML VIAL As Ordered ONE; -LIDOCAINE 1% SDV 30ML VIAL As Ordered ONE; -TRIAMCINOLONE ACETONIDE SUSP 40MG/ML 1ML VIAL As Ordered ONE; -diazePAM 5MG TABLET As Ordered ONE; -oxyCODONE 5MG TAB As Ordered ONE
== END ==
LOC: M PAIN 11:45
PROVIDERS: ATTEND Nurse Practitioner Family
DX: M47.816 Spondylosis without myelopathy or radiculopathy, lumbar region (principal); M47.817 Spondylosis without myelopathy or radiculopathy, lumbosacral region; M41.9 Scoliosis, unspecified; F17.200 Nicotine dependence, unspecified, uncomplicated; Z88.8 Allergy status to other drugs, medicaments and biological substances

== ENCOUNTER → 2023-09-05 | Outpatient (CLI) | payer MEDICARE, MEDICAID | LOC: M PAIN 17:30 | PROVIDERS: ATTEND Nurse Practitioner Family | DX: M79.12 Myalgia of auxiliary muscles, head and neck (principal); M54.2 Cervicalgia; G89.29 Other chronic pain; M41.9 Scoliosis, unspecified; F17.210 Nicotine dependence, cigarettes, uncomplicated; Z79.891 Long term (current) use of opiate analgesic; Z79.899 Other long term (current) drug therapy; Z79.1 Long term (current) use of non-steroidal anti-inflammatories (NSAID); Z88.8 Allergy status to other drugs, medicaments and biological substances ==

== ENCOUNTER → 2023-09-22 | Outpatient (CLI) | payer MEDICARE, MEDICAID | LOC: M RAD 10:15 | PROVIDERS: ATTEND Physician Assistant | DX: I71.40 Abdominal aortic aneurysm, without rupture, unspecified (principal) ==

== ENCOUNTER → 2023-10-16 | Outpatient (CLI) | payer MEDICARE, MEDICAID | LOC: M PAIN 11:00 | PROVIDERS: ATTEND Nurse Practitioner Family | DX: M47.816 Spondylosis without myelopathy or radiculopathy, lumbar region (principal); G89.29 Other chronic pain; F17.210 Nicotine dependence, cigarettes, uncomplicated; Z79.891 Long term (current) use of opiate analgesic; Z79.1 Long term (current) use of non-steroidal anti-inflammatories (NSAID); Z79.899 Other long term (current) drug therapy; Z88.8 Allergy status to other drugs, medicaments and biological substances ==

== ENCOUNTER → 2023-10-27 | Outpatient (CLI) | payer MEDICARE, MEDICAID ==
[~2023-10-27] MED LIST changes: +TRIAMCINOLONE ACETONIDE SUSP 40MG/ML 1ML VIAL As Ordered ONE; +diazePAM 5MG TABLET As Ordered ONE; +oxyCODONE 5MG TAB As Ordered ONE
== END ==
LOC: M PAIN 16:30
PROVIDERS: ATTEND Anesthesiology
DX: M79.12 Myalgia of auxiliary muscles, head and neck (principal); G89.29 Other chronic pain; F17.210 Nicotine dependence, cigarettes, uncomplicated; Z79.891 Long term (current) use of opiate analgesic; Z79.899 Other long term (current) drug therapy; Z79.1 Long term (current) use of non-steroidal anti-inflammatories (NSAID); Z88.8 Allergy status to other drugs, medicaments and biological substances
CPT/HCPCS: 20553; J0665; J3301

== ENCOUNTER → 2023-11-28 | Outpatient (CLI) | payer MEDICARE, MEDICAID ==
[~2023-11-28] MED LIST changes: +CARA1TAB6 PO; +CETI-24; +OMEP40CA4 PO; -TRIAMCINOLONE ACETONIDE SUSP 40MG/ML 1ML VIAL As Ordered ONE; -diazePAM 5MG TABLET As Ordered ONE; -oxyCODONE 5MG TAB As Ordered ONE
[2023-11-28 17:49] LABS: INR 1.04; PROTHROMBIN TIME 13.3 SECONDS (12.5-14.5)
[2023-11-28 18:03] LABS: BASO # 0.1 10^3/uL (0.0-0.2); BASO % 0.9 % (0.0-1.0); EOS # 0.3 10^3/uL (0.0-0.5); EOS % 3.5 % (0.0-3.0); HEMATOCRIT 42.3 % (36.0-47.0); HEMOGLOBIN 13.7 g/dl (12.0-15.5); LYMPH # 2.8 10^3/uL (1.5-5.0); LYMPH % 33.8 % (24.0-44.0); MEAN CORPUSCULAR HEMOGLOBIN 31.1 pg (27.0-33.0); MEAN CORPUSCULAR HGB CONC 32.4 g/dl (32.0-36.5); MEAN CORPUSCULAR VOLUME 96.1 fl (80.0-96.0); MONO # 0.7 10^3/uL (0.0-0.8); NEUTROPHILS # 4.4 10^3/uL (1.5-8.5); NEUTROPHILS % 53.4 % (36.0-66.0); PLATELET COUNT, AUTOMATED 231 10^3/uL (150-450); WHITE BLOOD COUNT 8.2 10^3/uL (4.0-10.0)
[2023-11-28 18:17] LABS: HEMOGLOBIN A1c 4.8 % (4.0-6.0)
[2023-11-28 19:42] LABS: ALBUMIN 3.8 G/DL (3.2-5.2); ALKALINE PHOSPHATASE 83 U/L (46-116); ALT/SGPT 17 U/L (7.0-40); AST/SGOT 8 U/L (<34); BILIRUBIN,TOTAL 0.3 MG/DL (0.3-1.2); BLOOD UREA NITROGEN 14 MG/DL (9-23); CALCIUM LEVEL 8.8 MG/DL (8.5-10.1); CARBON DIOXIDE LEVEL 30 MMOL/L (20-31); CHLORIDE LEVEL 106 MMOL/L (98-107); CHOLESTEROL LEVEL 199 MG/DL (<200); CREATININE FOR GFR 0.73 MG/DL (0.55-1.30); GLOMERULAR FILTRATION RATE > 60.0 (>58); GLUCOSE, FASTING 74 MG/DL (60-100); HDL CHOLESTEROL 49.7 MG/DL (>40); LDL CHOLESTEROL 132.7 MG/DL (<100); NON-HDL-C 149.3 MG/DL; SODIUM LEVEL 137 MMOL/L (136-145); TOTAL PROTEIN 6.8 G/DL (5.7-8.2); TRIGLYCERIDES LEVEL 83 MG/DL (<150)
[2023-12-03 16:58] LABS: 25-HYDROXY VITAMIN D2 < 8 pg/mL; 25-HYDROXY VITAMIN D3 52 pg/mL; VITAMIN D 1 25 DIHYDROXY 52 pg/mL (18-72)
== END ==
LOC: M PLALAB 15:18
PROVIDERS: ATTEND Student in an Organized Health Care Education/Training Program
DX: Z00.00 Encounter for general adult medical examination without abnormal findings (principal); Z13.220 Encounter for screening for lipoid disorders; R23.3 Spontaneous ecchymoses; Z13.1 Encounter for screening for diabetes mellitus

== ENCOUNTER 2023-12-05 09:11 | Emergency (ER) | payer MEDICARE, MEDICAID ==
[~2023-12-05] VITALS: Ht 149.9 cm; Wt 65.8 kg
[~2023-12-05 09:11] MED LIST changes: -CARA1TAB6 PO; -CETI-24; -OMEP40CA4 PO
[2023-12-05] MEDS ORDERED: CETI-24 (09:21)
[2023-12-05 09:51] LABS: BASO # 0.1 10^3/uL (0.0-0.2); BASO % 0.8 % (0.0-1.0); EOS # 0.2 10^3/uL (0.0-0.5); EOS % 2.8 % (0.0-3.0); HEMATOCRIT 39.8 % (36.0-47.0); HEMOGLOBIN 13.3 g/dl (12.0-15.5); LYMPH # 2.2 10^3/uL (1.5-5.0); LYMPH % 25.5 % (24.0-44.0); MEAN CORPUSCULAR HGB CONC 33.4 g/dl (32.0-36.5); MEAN CORPUSCULAR VOLUME 95.7 fl (80.0-96.0); MONO # 0.7 10^3/uL (0.0-0.8); MONO % 7.9 % (2.0-8.0); NEUTROPHILS # 5.5 10^3/uL (1.5-8.5); NEUTROPHILS % 62.7 % (36.0-66.0); PLATELET COUNT, AUTOMATED 237 10^3/uL (150-450); RED BLOOD COUNT 4.16 10^6/uL (4.00-5.40); WHITE BLOOD COUNT 8.7 10^3/uL (4.0-10.0)
[2023-12-05 10:28] LABS: LIPASE 53 U/L (12-53)
[2023-12-05] MEDS ORDERED: ISOVUE-370 76% 100ML VIAL As Ordered ONE (10:29)
[2023-12-05 10:30] LABS: ALBUMIN 3.3 G/DL (3.2-5.2); ALKALINE PHOSPHATASE 86 U/L (46-116); ALT/SGPT 18 U/L (7.0-40); AST/SGOT 9 U/L (<34); BILIRUBIN,DIRECT 0.1 MG/DL (<0.4); BILIRUBIN,TOTAL 0.4 MG/DL (0.3-1.2); BLOOD UREA NITROGEN 16 MG/DL (9-23); CALCIUM LEVEL 8.8 MG/DL (8.5-10.1); CARBON DIOXIDE LEVEL 28 MMOL/L (20-31); CHLORIDE LEVEL 107 MMOL/L (98-107); CK-MB VALUE MASS < 1.0 NG/ML (<3.6); CPK CREATINE PHOSPHOKINASE 89 U/L (34-145); CREATININE FOR GFR 0.66 MG/DL (0.55-1.30); GLOMERULAR FILTRATION RATE > 60.0 (>58); GLUCOSE, FASTING 76 MG/DL (60-100); MB/CK RELATIVE INDEX 1.12 (< OR =4); POTASSIUM SERUM 3.8 MMOL/L (3.5-5.1); SODIUM LEVEL 138 MMOL/L (136-145); TOTAL PROTEIN 6.5 G/DL (5.7-8.2)
[2023-12-05 10:33] LABS: HCG, SERUM QUALITATIVE NEGATIVE (NEGATIVE)
[2023-12-05 10:35] LABS: THYROID STIMULATING HORMONE 1.777 uIU/ML (0.55-4.78)
[2023-12-05 10:36] LABS: FREE T4 1.06 NG/DL (0.89-1.76)
[2023-12-05] MEDS: NS 500 ML IV ONE (10:44)
[2023-12-05] MEDS: MORPHINE 2 MG/ML 1ML VIAL IV PRN (11:00)
[2023-12-05 11:10] VITALS: TEMP 98
[2023-12-05 11:21] LABS: CK-MB VALUE MASS < 1.0 NG/ML (<3.6)
[2023-12-05 11:22] LABS: CPK CREATINE PHOSPHOKINASE 85 U/L (34-145); MB/CK RELATIVE INDEX 1.17 (< OR =4)
[2023-12-05 11:45] VITALS: BP 112/71; O2SAT 98
[2023-12-05] MEDS ORDERED: OMEP40CA4 PO (11:56)
[2023-12-05] MEDS ORDERED: CARA1TAB6 PO (11:56)
== END 2023-12-05 12:05 | disposition home or self-care (01) ==
LOC: M ED 09:11
DX: R07.9 Chest pain, unspecified (principal); K29.00 Acute gastritis without bleeding; R10.9 Unspecified abdominal pain; F17.200 Nicotine dependence, unspecified, uncomplicated; M54.50 Low back pain, unspecified; K76.0 Fatty (change of) liver, not elsewhere classified; K59.00 Constipation, unspecified; Z88.8 Allergy status to other drugs, medicaments and biological substances; Z79.1 Long term (current) use of non-steroidal anti-inflammatories (NSAID); Z79.2 Long term (current) use of antibiotics; Z79.899 Other long term (current) drug therapy
CPT/HCPCS: 71045; 71275; 74177; 80047; 80048; 80076; 82550; 82553; 83690; 84439; 84443; 84484; 84703; 85025; 87486; 87581; 87633; 87798; 93005; 93041; 94760; 96361; 96374; 99284; Q9967

== ENCOUNTER → 2023-12-19 | Outpatient (CLI) | payer MEDICARE, MEDICAID ==
[~2023-12-19] MED LIST changes: +CARA1TAB6 PO; +CETI-24; +OMEP40CA4 PO
== END ==
LOC: M PAIN 09:45
PROVIDERS: ATTEND Nurse Practitioner Family
DX: G89.29 Other chronic pain (principal); M54.12 Radiculopathy, cervical region; F17.210 Nicotine dependence, cigarettes, uncomplicated; Z79.899 Other long term (current) drug therapy; Z88.8 Allergy status to other drugs, medicaments and biological substances

== ENCOUNTER → 2023-12-21 | Outpatient (CLI) | payer MEDICARE, MEDICAID ==
[~2023-12-21] MED LIST changes: +ISOVUE-M 300 61% 15ML VIAL As Ordered ONE; +LIDOCAINE 1% SDV 30ML VIAL As Ordered ONE; +TRIAMCINOLONE ACETONIDE SUSP 40MG/ML 1ML VIAL As Ordered ONE; +diazePAM 5MG TABLET As Ordered ONE; +oxyCODONE 5MG TAB As Ordered ONE
== END ==
LOC: M PAIN 10:00
PROVIDERS: ATTEND Anesthesiology
DX: M47.816 Spondylosis without myelopathy or radiculopathy, lumbar region (principal); G89.29 Other chronic pain; F17.210 Nicotine dependence, cigarettes, uncomplicated; Z79.899 Other long term (current) drug therapy; Z88.8 Allergy status to other drugs, medicaments and biological substances
CPT/HCPCS: 64493; 64494; J0665; J3301; Q9967

== ENCOUNTER → 2023-12-28 | Outpatient (CLI) | payer MEDICARE, MEDICAID ==
[~2023-12-28] MED LIST changes: -ISOVUE-M 300 61% 15ML VIAL As Ordered ONE; -LIDOCAINE 1% SDV 30ML VIAL As Ordered ONE; -TRIAMCINOLONE ACETONIDE SUSP 40MG/ML 1ML VIAL As Ordered ONE; -diazePAM 5MG TABLET As Ordered ONE; -oxyCODONE 5MG TAB As Ordered ONE
== END ==
LOC: M WHC 11:08
PROVIDERS: ATTEND Student in an Organized Health Care Education/Training Program
DX: Z12.31 Encounter for screening mammogram for malignant neoplasm of breast (principal); R92.343 Mammographic extreme density, bilateral breasts

== ENCOUNTER → 2024-02-23 | Outpatient (CLI) | payer MEDICARE, MEDICAID | LOC: M PAIN 09:30 | PROVIDERS: ATTEND Nurse Practitioner Family | DX: M47.816 Spondylosis without myelopathy or radiculopathy, lumbar region (principal); M41.9 Scoliosis, unspecified; M50.90 Cervical disc disorder, unspecified, unspecified cervical region; M48.02 Spinal stenosis, cervical region; G89.29 Other chronic pain; F17.210 Nicotine dependence, cigarettes, uncomplicated; Z79.891 Long term (current) use of opiate analgesic; Z79.899 Other long term (current) drug therapy; Z88.8 Allergy status to other drugs, medicaments and biological substances ==

== ENCOUNTER → 2024-03-28 | Outpatient (CLI) | payer MEDICARE, MEDICAID | LOC: M PAIN 11:15 | PROVIDERS: ATTEND Nurse Practitioner Family | DX: M47.816 Spondylosis without myelopathy or radiculopathy, lumbar region (principal); G89.29 Other chronic pain; M41.9 Scoliosis, unspecified; M50.90 Cervical disc disorder, unspecified, unspecified cervical region; M48.02 Spinal stenosis, cervical region; F17.210 Nicotine dependence, cigarettes, uncomplicated; Z79.891 Long term (current) use of opiate analgesic; Z79.899 Other long term (current) drug therapy; Z88.8 Allergy status to other drugs, medicaments and biological substances ==

== ENCOUNTER → 2024-05-17 | Outpatient (REF) | payer MEDICARE, MEDICAID ==
[2024-05-17 16:34] LABS: RSV AMPLIFICATION NEGATIVE (NEGATIVE)
== END ==
LOC: M LAB REF 15:12
PROVIDERS: ATTEND Physician Assistant
DX: B34.9 Viral infection, unspecified (principal)

== ENCOUNTER → 2024-05-31 | Outpatient (CLI) | payer MEDICARE, MEDICAID ==
[2024-05-31 13:05] LABS: ALBUMIN 3.5 G/DL (3.2-5.2); ALKALINE PHOSPHATASE 67 U/L (35-104); ALT/SGPT 22 U/L (7.0-40); AST/SGOT 17 U/L (<34); BILIRUBIN,DIRECT < 0.1 MG/DL (<0.4); BILIRUBIN,TOTAL 0.2 MG/DL (0.3-1.2); TOTAL PROTEIN 6.7 G/DL (5.7-8.2)
== END ==
LOC: M WUC 10:26
PROVIDERS: ATTEND Podiatrist
DX: Z51.81 Encounter for therapeutic drug level monitoring (principal)

== ENCOUNTER → 2024-07-11 | Outpatient (CLI) | payer MEDICARE, MEDICAID ==
[2024-07-11 15:02] LABS: ALBUMIN 3.4 G/DL (3.2-5.2); BILIRUBIN,DIRECT 0.1 MG/DL (<0.4); BILIRUBIN,TOTAL 0.4 MG/DL (0.3-1.2); TOTAL PROTEIN 6.3 G/DL (5.7-8.2)
== END ==
LOC: M WUC 11:46
PROVIDERS: ATTEND Podiatrist
DX: Z51.81 Encounter for therapeutic drug level monitoring (principal); Z79.899 Other long term (current) drug therapy

== ENCOUNTER → 2024-10-31 | Outpatient (CLI) | payer MEDICARE, MEDICAID | LOC: M RAD 08:21 | PROVIDERS: ATTEND Physician Assistant | DX: Z95.828 Presence of other vascular implants and grafts (principal); Z86.79 Personal history of other diseases of the circulatory system ==